=== PATIENT | female | born 1960 | race Caucasian/White ===

== ENCOUNTER 2023-09-11 08:48 | Outpatient (OUT) | payer MEDICARE, OTHER, SELFPAY ==
--- NOTE | 2023-09-11 08:50 | CT_ITS ---
The [address] [address] Patient Name: BENNIE MUNIZ MRN: [id number] date: 1960 Sex: F Assigned Patient Location: CT Current Patient Location: CT Accession/Order Number: [id number] Exam Date: 09/11/2023 08:52 Report Date: 09/11/2023 11:19 At the request of: SKYLER FOY Procedure: CT sinus wo con EXAM: CT sinus wo con CLINICAL INDICATION: Facial Mass R22.0, nasal deformity, history of nasal reconstruction COMPARISON: None TECHNIQUE: Multiple thin axial images were obtained through the paranasal sinuses without the use of IV contrast. Additional coronal and sagittal reformatted images were submitted for evaluation. Dose reduction techniques were achieved by using automated exposure control and/or adjustment of mA and/or kV according to patient size and/or use of iterative reconstruction technique. FINDINGS: Nasal Bones: No acute fracture. Slight flattened nasal bone deformity to the right of midline could be postoperative given history of remote nasal reconstruction. No acute destructive abnormality or gross soft tissue mass. Frontal Sinuses: Clear. Frontal Recesses: Clear. Maxillary Sinuses: Clear. Maxillary Infundibula: Clear. Ethmoid Sinuses: Clear. Sphenoid Sinuses: Clear. Sphenoethmoidal Recesses: Clear. Air-fluid levels: None. Periosteal thickening: None. Nasal Passage: Clear. Right renu bullosa. Nasal Septum: Deviated towards the left. Lamina Papyracea: Intact. Ethmoidal Notch: No supraorbital pneumatization of ethmoid air cells above the anterior ethmoidal notch. Temporal Bone: Mastoid air cells and middle ear cavities are clear. Orbital Contents: Normal. Soft Tissues: Normal. CT/CT sinus wo con IMPRESSION: 1. Slight flattened nasal bone deformity to the right of midline could be postoperative given history of remote nasal reconstruction. No acute destructive abnormality or gross soft tissue mass. 2. Well aerated paranasal sinuses without evidence of acute or chronic sinusitis. 3. Bilateral ostiomeatal complexes are patent. Electronically authenticated by: SKY BALLARD Date: 09/11/2023 11:19
[2023-09-11 09:18] LABS: Basophils Percent Auto 0.1 % (0.2-2.0); Eosinophils Percent Auto 0.2 % (0.9-7.0); Hematocrit 33.4 % (36.0-48.0); Hemoglobin 10.5 g/dL (12.0-16.0); Immature Granulocytes Abs Auto 0.14 10^3/uL (0.00-0.03); Immature Granulocytes Pct Auto 1.2 % (0.0-0.5); Lymphocytes Absolute Auto 2.2 10^3/uL (1.2-3.8); Lymphocytes Percent Auto 17.9 % (20.5-60.0); Mean Corpuscular HGB Conc 31.4 g/dL (29.9-35.2); Mean Corpuscular Volume 92.3 fL (81.0-99.0); Mean Platelet Volume 9.7 fL (9.5-13.5); Monocytes Absolute Auto 1.1 10^3/uL (0.3-0.8); Monocytes Percent Auto 8.8 % (1.7-12.0); Neutrophils Absolute Auto 8.6 10^3/uL (1.4-6.5); Neutrophils Percent Auto 71.8 % (43.0-75.0); Platelet Count 313 10^3/uL (150-450); Red Blood Count 3.62 10^6/uL (4.20-5.40); Red Cell Distribution Width 13.8 % (11.0-15.0)
[2023-09-11 10:28] LABS: Estimated Average Glucose 117 mg/dL; Glycohemoglobin A1C 5.7 % (4.5-6.2)
[2023-09-11 11:00] LABS: Alanine Aminotransferase 23 U/L (14-59); Albumin Globulin Ratio 0.9; Alkaline Phosphatase 108 U/L (46-116); Anion Gap 11.3; Aspartate Amino Transferase 15 U/L (15-37); BUN Creatinine Ratio 30.9; Bilirubin Total 0.2 mg/dL (0.2-1.0); Calcium 8.2 mg/dL (8.5-10.1); Carbon Dioxide 28.5 mmol/L (21.0-32.0); Chloride 108 mmol/L (98-107); Chol HDL Ratio 2.3; Cholesterol 131 mg/dL (<=200); Estimated GFR (African America >60 (>=60); Estimated GFR (Non-African Ame 60 (>=60); Globulin 3.4 g/dL; Glucose 94 mg/dL (74-106); HDL Cholesterol 56 mg/dL (40-60); LDL Cholesterol Calculated 59.4 mg/dL; Potassium 3.8 mmol/L (3.5-5.1); Sodium 144 mmol/L (136-145); Thyroid Stimulating Hormone 0.122 uIU/mL (0.358-3.740); Total Protein 6.4 g/dL (6.4-8.2); Triglycerides 78 mg/dL (<=150); VLDL CHOLESTEROL 15.6 mg/dL
[2023-09-12 11:12] LABS: Insulin 25.4 uIU/mL (2.6-24.9)
== END 2023-09-11 08:49 | disposition home or self-care (01) ==
LOC: CT 08:48
PROVIDERS: PCP Family Medicine; Visit Provider Family Medicine
DX: R22.0 Localized swelling, mass and lump, head (principal); J44.9 Chronic obstructive pulmonary disease, unspecified; E03.9 Hypothyroidism, unspecified; I25.10 Atherosclerotic heart disease of native coronary artery without angina pectoris; G47.33 Obstructive sleep apnea (adult) (pediatric); E78.5 Hyperlipidemia, unspecified; R73.09 Other abnormal glucose; D64.9 Anemia, unspecified; E55.9 Vitamin D deficiency, unspecified; I50.30 Unspecified diastolic (congestive) heart failure; I11.0 Hypertensive heart disease with heart failure
CPT/HCPCS: 36415; 70486; 80053; 80061; 82306; 83036; 83525; 83540; 83880; 84436; 84443; 84481; 85025

== ENCOUNTER 2024-03-26 19:16 | Emergency (ER) | payer MEDICARE, OTHER, SELFPAY ==
[2024-03-26] VITALS (13 sets, daily range): BP systolic 123–157; BP diastolic 56–86; PULSE 89–104; TEMP 37.2; O2SAT 90–98
--- NOTE | 2024-03-26 19:22 | ED_ITS ---
HPI - Nausea/Vomiting/Diarrhea General Chief complaint: Nausea/Vomiting/Diarrhea Stated complaint: General Weakness Time Seen by Provider: 03/26/24 19:17 History of Present Illness HPI Narrative: nausea , vomiting and diarrhea past 2-3 days. No hematemesis. Has abdominal pain when vomiting. No fever. States occ blood in the diarrhea but she feels this is because of her hemorrhoids. no anal pain. states she fell a couple of days ago and struck her chin. No pain of her chin or neck. has bruise left foot that does not hurt . Does have pain of the right lateral foot. No weakness or numbness of her extremities. History of 02 dependent COPD. no cigarette in 2 years. Not short of breath. No chest pain Related Data Home Medications ?Medication ?Instructions ?Recorded ?Confirmed albuterol sulfate 90 mcg/actuation 2 puff inhalation Q4H PRN 03/26/24 03/26/24 aerosol inhaler shortness of breath or wheezing aspirin 81 mg tablet,delayed 81 mg PO DAILY 03/26/24 03/26/24 release (Adult Low Dose Aspirin) atorvastatin 40 mg tablet 40 mg PO QPM 03/26/24 03/26/24 carvedilol 3.125 mg tablet 3.125 mg PO BID 03/26/24 03/26/24 cetirizine 10 mg tablet 10 mg PO DAILY 03/26/24 03/26/24 citalopram 40 mg tablet 40 mg PO DAILY 03/26/24 03/26/24 clopidogrel 75 mg tablet 75 mg PO DAILY 03/26/24 03/26/24 cyclobenzaprine 10 mg tablet 10 mg PO TID 03/26/24 03/26/24 diazepam 5 mg tablet 5 mg PO BID PRN anxiety 03/26/24 03/26/24 ezetimibe 10 mg tablet 10 mg PO DAILY 03/26/24 03/26/24 levothyroxine 100 mcg tablet 100 mcg PO DAILY 03/26/24 03/26/24 liothyronine 5 mcg tablet 5 mcg PO DAILY 03/26/24 03/26/24 meclizine 25 mg tablet 25 mg PO QID PRN dizziness 03/26/24 03/26/24 metoclopramide HCl 10 mg tablet 10 mg PO BID 03/26/24 03/26/24 nitroglycerin 0.4 mg sublingual 0.4 mg sublingual Q5M PRN chest 03/26/24 03/26/24 tablet pain pantoprazole 40 mg tablet,delayed 40 mg PO DAILY 03/26/24 03/26/24 release promethazine 25 mg tablet 25 mg PO Q6H PRN nausea and 03/26/24 03/26/24 vomiting rizatriptan 10 mg disintegrating 10 mg PO Q2H PRN migraine headache 03/26/24 03/26/24 tablet ropinirole 2 mg tablet 4 mg PO DAILY 03/26/24 03/26/24 Allergies Allergy/AdvReac Type Severity Reaction Status Date / Time latex Allergy Severe Unknown Verified 03/26/24 19:24 morphine Allergy Severe Unknown Verified 03/26/24 19:24 ondansetron [From Zofran] Allergy Severe Unknown Verified 03/26/24 19:24 Review of Systems ROS Status of ROS 10 or more systems reviewed and unremark able except as noted in history and below [facility] Medical History (Updated 03/27/24 @ 00:32 by Joshua Stafford MD) Anxiety ?F41.9 - Anxiety disorder, unspecified (ICD-10) Stomach ulcer ?K25.9 - Gastric ulcer, unspecified as acute or chronic, without hemorrhage or perforation (ICD-10) GERD (gastroesophageal reflux disease) ?K21.9 - Gastro-esophageal reflux disease without esophagitis (ICD-10) Hypothyroid ?E03.9 - Hypothyroidism, unspecified (ICD-10) HTN (hypertension) ?I10 - Essential (primary) hypertension (ICD-10) COPD (chronic obstructive pulmonary disease) ?J44.9 - Chronic obstructive pulmonary disease, unspecified (ICD-10) Surgical History (Updated 03/26/24 @ 19:37 by Annemarie Guzman) H/O heart artery stent ?Z95.5 - Presence of coronary angioplasty implant and graft (ICD-10) Exam Constitutional Vital Signs, click to edit/add: Last Vital Signs Temp 99.0 F 03/26/24 19:17 Pulse 93 H 03/27/24 00:26 Resp 22 H 03/27/24 00:26 BP 137/81 03/27/24 00:26 Pulse Ox 94 L 03/27/24 00:26 O2 Del Method Room Air 03/27/24 00:26 Common normals: no apparent distress, average body habitus, oriented x3, no limitations, healthy appearing, alert and well nourished [facility] Common normals: normocephalic and head/scalp atraumatic Eye Common normals: PERRL, EOMs intact bilaterally and conjunctivae normal Respiratory Common normals: normal respiratory effort, no retractions, no use of accessory muscles and clear to auscultation bilaterally Cardio Common normals: regular rate, regular rhythm, S1 normal heart sound and S2 normal heart sound GI Common normals: Normal to inspection, nondistended, normoactive bowel sounds present, soft to palpation and non-tender Extremity Other: tenderness right 5th MT. no swelling. mild ecchymosis bruise left foot. Nontender Neuro Common normals: oriented x3, CN's II-XII intact bilaterally, moves all extremities and no focal motor deficits Psych Appearance: grossly normal Course Vital Signs Vital signs: Vital Signs Temperature 99.0 F 03/26/24 19:17 Pulse Rate 104 H 03/26/24 19:17 Respiratory Rate 18 03/26/24 19:17 Blood Pressure 123/56 03/26/24 19:17 Pulse Oximetry 95 03/26/24 19:17 Oxygen Delivery Method Room Air 03/26/24 19:17 Temperature 99.0 F 03/26/24 19:17 Pulse Rate 93 H 03/27/24 00:26 Respiratory Rate 22 H 03/27/24 00:26 Blood Pressure 137/81 03/27/24 00:26 Pulse Oximetry 94 L 03/27/24 00:26 Oxygen Delivery Method Room Air 03/27/24 00:26 MDM - Nausea/Vomiting/Diarrhea MDM Narrative Medical decision making narrative: patient presents with gastroenteritis for past couple of days. vomiting and diarrhea. No diarrhea in the department. Medicated with IV phenergan and IV hydration and able to tolerate ice chips. However nausea did return and she was given a dose of PO phenergan patient tolerated PO Phenergan and is keeping down fluids. States she has phenergan at home. plan discharge and follow up with Dr Bowman next week Lab Data Labs: Lab Results 03/26/24 03/26/24 03/26/24 Range/Units 19:30 19:40 22:45 WBC 10.6 (4.0-11.0) 10^3/uL RBC 4.65 (4.20-5.40) 10^6/uL Hgb 13.2 (12.0-16.0) g/dL Hct 40.8 (36.0-48.0) % MCV 87.7 (81.0-99.0) fL MCH 28.4 (26.7-34.0) pg MCHC 32.4 (29.9-35.2) g/dL RDW 13.9 (11.0-15.0) % Plt Count 388 (150-450) 10^3/uL MPV 9.9 (9.5-13.5) fL Neut % (Auto) 75.3 H (43.0-75.0) % Lymph % (Auto) 18.5 L (20.5-60.0) % [place] % (Auto) 4.6 (1.7-12.0) % Eos % (Auto) 0.6 L (0.9-7.0) % Baso % (Auto) 0.6 (0.2-2.0) % Neut # (Auto) 8.0 H (1.4-6.5) 10^3/uL Lymph # (Auto) 2.0 (1.2-3.8) 10^3/uL [place] # (Auto) 0.5 (0.3-0.8) 10^3/uL Eos # (Auto) 0.1 (0.0-0.7) 10^3/uL Baso # (Auto) 0.1 (0.0-0.1) 10^3/uL Abs Immat Gran (auto) 0.04 H (0.00-0.03) 10^3/uL Imm/Tot Granulo (auto) 0.4 (0.0-0.5) % Sodium 138 (136-145) mmol/L Potassium 3.4 L (3.5-5.1) mmol/L Chloride 100 (98-107) mmol/L Carbon Dioxide 32.6 H (21.0-32.0) mmol/L Anion Gap 8.8 BUN 22.0 H (7.0-18.0) mg/dL Creatinine 1.14 H (0.55-1.02) mg/dL Est GFR ( Amer) 58 L (>=60) Est GFR (Non-Af Amer) 48 L (>=60) BUN/Creatinine Ratio 19.3 Glucose 128 H (74-106) mg/dL Lactate 2.3 H* (0.4-2.0) mmol/L Calcium 9.3 (8.5-10.1) mg/dL Total Bilirubin 0.4 (0.2-1.0) mg/dL AST 20 (15-37) U/L ALT 15 (14-59) U/L Alkaline Phosphatase 135 H (46-116) U/L Troponin I High Sens 7.4 (4.0-51.3) pg/mL Total Protein 6.7 (6.4-8.2) g/dL Albumin 3.2 L (3.4-5.0) g/dL Globulin 3.5 g/dL Albumin/Globulin Ratio 0.9 Urine Color Lt. yellow (YELLOW) Urine Clarity Clear (CLEAR) Urine pH 8.0 (5.0-9.0) Ur Specific [place] 1.015 (1.005-1.025) Urine Protein Negative (NEG/TRACE) mg/dL Urine Glucose (UA) Negative (NEGATIVE) mg/dL Urine Ketones Trace A (NEGATIVE) mg/dL Urine Occult Blood Trace-i (NEGATIVE) Urine Nitrite Negative (NEGATIVE) Urine Bilirubin Negative (NEGATIVE) Urine Urobilinogen 0.2 (0.2-1.0) EU/dL Ur Leukocyte Esterase Trace A (NEGATIVE) Urine RBC 0-2 (0-2) #/HPF Urine WBC 2-5 A (NONE SEEN) #/HPF Ur Squamous Epith Cells Few A (NONE/RARE) #/LPF Ur Transition Epith Cell Rare A (NONE SEEN) #/LPF Urine Crystals None seen (None Seen) #/HPF Urine Bacteria Small A (NONE SEEN) #/HPF Urine Casts None seen (NONE SEEN) #/LPF Urine Mucus None seen (NONE SEEN) Ur Culture Indicated? Yes 03/26/24 Range/Units 23:10 WBC (4.0-11.0) 10^3/uL RBC (4.20-5.40) 10^6/uL Hgb (12.0-16.0) g/dL Hct (36.0-48.0) % MCV (81.0-99.0) fL MCH (26.7-34.0) pg MCHC (29.9-35.2) g/dL RDW (11.0-15.0) % Plt Count (150-450) 10^3/uL MPV (9.5-13.5) fL Neut % (Auto) (43.0-75.0) % Lymph % (Auto) (20.5-60.0) % [place] % (Auto) (1.7-12.0) % Eos % (Auto) (0.9-7.0) % Baso % (Auto) (0.2-2.0) % Neut # (Auto) (1.4-6.5) 10^3/uL Lymph # (Auto) (1.2-3.8) 10^3/uL [place] # (Auto) (0.3-0.8) 10^3/uL Eos # (Auto) (0.0-0.7) 10^3/uL Baso # (Auto) (0.0-0.1) 10^3/uL Abs Immat Gran (auto) (0.00-0.03) 10^3/uL Imm/Tot Granulo (auto) (0.0-0.5) % Sodium (136-145) mmol/L Potassium (3.5-5.1) mmol/L Chloride (98-107) mmol/L Carbon Dioxide (21.0-32.0) mmol/L Anion Gap BUN (7.0-18.0) mg/dL Creatinine (0.55-1.02) mg/dL Est GFR ( Amer) (>=60) Est GFR (Non-Af Amer) (>=60) BUN/Creatinine Ratio Glucose (74-106) mg/dL Lactate 1.1 (0.4-2.0) mmol/L Calcium (8.5-10.1) mg/dL Total Bilirubin (0.2-1.0) mg/dL AST (15-37) U/L ALT (14-59) U/L Alkaline Phosphatase (46-116) U/L Troponin I High Sens (4.0-51.3) pg/mL Total Protein (6.4-8.2) g/dL Albumin (3.4-5.0) g/dL Globulin g/dL Albumin/Globulin Ratio Urine Color (YELLOW) Urine Clarity (CLEAR) Urine pH (5.0-9.0) Ur Specific [place] (1.005-1.025) Urine Protein (NEG/TRACE) mg/dL Urine Glucose (UA) (NEGATIVE) mg/dL Urine Ketones (NEGATIVE) mg/dL Urine Occult Blood (NEGATIVE) Urine Nitrite (NEGATIVE) Urine Bilirubin (NEGATIVE) Urine Urobilinogen (0.2-1.0) EU/dL Ur Leukocyte Esterase (NEGATIVE) Urine RBC (0-2) #/HPF Urine WBC (NONE SEEN) #/HPF Ur Squamous Epith Cells (NONE/RARE) #/LPF Ur Transition Epith Cell (NONE SEEN) #/LPF Urine Crystals (None Seen) #/HPF Urine Bacteria (NONE SEEN) #/HPF Urine Casts (NONE SEEN) #/LPF Urine Mucus (NONE SEEN) Ur Culture Indicated? Discharge Plan Discharge Chief Complaint: Nausea/Vomiting/Diarrhea Clinical Impression: Gastroenteritis Patient Disposition: Home, Self-Care Prescriptions / Home Meds: No Action albuterol sulfate 90 mcg/actuation HFA aerosol inhaler 2 puff INHALATION Q4H PRN (Reason: shortness of breath or wheezing) atorvastatin 40 mg tablet 40 mg PO QPM aspirin [Adult Low Dose Aspirin] 81 mg tablet,delayed release (DR/EC) 81 mg PO DAILY carvedilol 3.125 mg tablet 3.125 mg PO BID cetirizine 10 mg tablet 10 mg PO DAILY citalopram 40 mg tablet 40 mg PO DAILY clopidogrel 75 mg tablet 75 mg PO DAILY cyclobenzaprine 10 mg tablet 10 mg PO TID diazepam 5 mg tablet 5 mg PO BID PRN (Reason: anxiety) ezetimibe 10 mg tablet 10 mg PO DAILY levothyroxine 100 mcg tablet 100 mcg PO DAILY meclizine 25 mg tablet 25 mg PO QID PRN (Reason: dizziness) metoclopramide HCl 10 mg tablet 10 mg PO BID nitroglycerin 0.4 mg tablet, sublingual 0.4 mg sublingual Q5M PRN (Reason: chest pain) pantoprazole 40 mg tablet,delayed release (DR/EC) 40 mg PO DAILY rizatriptan 10 mg tablet,disintegrating 10 mg PO Q2H PRN (Reason: migraine headache) Patient Comments: limit BID daily ropinirole 2 mg tablet 4 mg PO DAILY promethazine 25 mg tablet 25 mg PO Q6H PRN (Reason: nausea and vomiting) liothyronine 5 mcg tablet 5 mcg PO DAILY Print Language: Croatian Instructions: Gastroenteritis (ED) Additional Instructions: follow up with Dr. Bowman early next week Referrals: Sadiq Bowman MD [Primary Care Provider] - 1 week
--- NOTE | 2024-03-26 19:28 | XR_ITS ---
The [address] [address] Patient Name: BENNIE MUNIZ MRN: [id number] date: 1960 Sex: F Assigned Patient Location: ER Current Patient Location: ED.MAIN Accession/Order Number: [id number] Exam Date: 03/26/2024 19:40 Report Date: 03/26/2024 21:06 At the request of: JONNIE MARKHAM Procedure: XR foot RT min 3V XR foot RT min 3V, 03/26/2024 6:40 PM CDT: History: injury. . Comparison: None. Technique: 3 views right foot Findings/Impression: There is no fracture or malalignment. There is mild degenerative change of the first MTP joint. The soft tissues are normal. Electronically authenticated by: ONEIDA BO Date: 03/26/2024 21:06
[2024-03-26 19:39] LABS: Basophils Absolute Auto 0.1 10^3/uL (0.0-0.1); Basophils Percent Auto 0.6 % (0.2-2.0); Eosinophils Absolute Auto 0.1 10^3/uL (0.0-0.7); Eosinophils Percent Auto 0.6 % (0.9-7.0); Hematocrit 40.8 % (36.0-48.0); Hemoglobin 13.2 g/dL (12.0-16.0); Immature Granulocytes Abs Auto 0.04 10^3/uL (0.00-0.03); Immature Granulocytes Pct Auto 0.4 % (0.0-0.5); Lymphocytes Percent Auto 18.5 % (20.5-60.0); Mean Corpuscular HGB Conc 32.4 g/dL (29.9-35.2); Mean Corpuscular Hemoglobin 28.4 pg (26.7-34.0); Mean Corpuscular Volume 87.7 fL (81.0-99.0); Mean Platelet Volume 9.9 fL (9.5-13.5); Monocytes Absolute Auto 0.5 10^3/uL (0.3-0.8); Monocytes Percent Auto 4.6 % (1.7-12.0); Neutrophils Percent Auto 75.3 % (43.0-75.0); Platelet Count 388 10^3/uL (150-450); Red Blood Count 4.65 10^6/uL (4.20-5.40); Red Cell Distribution Width 13.9 % (11.0-15.0); White Blood Count 10.6 10^3/uL (4.0-11.0)
--- OUTSIDE RECORDS SUMMARY | 2024-03-26 19:49 | XMS_ITS | CCD ---
Author Organization [facility] Care Team Providers Care Thermal Technician Name Role Phone JAKEADELA BELLA Attending Unavailable SKYLER BOWMAN Referring Unavailable SKYLER BOWMAN Primary Care Unavailable JORGE ALBERTO, STEPHANY Admitting Unavailable KEENANWALEGAYATRI Admitting Unavailable KEENANGAYATRI MERRITT Attending Unavailable EZE HUSSEINA Consulting Unavailable LAW, DR HOLLAND Primary Care Unavailable SAMIRY, DR HOLLAND Admitting Unavailable HOY, DR HOLLAND Primary Care Unavailable HOY, DR HOLLAND Attending Unavailable HOY, DR HOLLAND Consulting Unavailable HOY, DR HOLLAND Admitting Unavailable MISC, DR CHERY Primary Care Unavailable HOY, DR HOLLAND Attending Unavailable HOY, DR HOLLAND Consulting Unavailable HOY, DR HOLLAND Admitting Unavailable HOY, DR HOLLAND Attending Unavailable HOMercedes, DR HOLLAND Primary Care Unavailable SAMSA, GIOVANA Admitting Unavailable SAMSA, GIOVANA Attending Unavailable SAMSA, GIOVANA Consulting Unavailable LAW, DR HOLLAND Primary Care Unavailable SAMIRY, DR HOLLAND Admitting Unavailable HOY, DR HOLLAND Attending Unavailable HOY, DR HOLLAND Consulting Unavailable LAW, DR HOLLAND Primary Care Unavailable ERICA GANDARA Consulting Unavailable ILANA NESBITT Consulting Unavailable LAW, DR HOLLAND Admitting Unavailable HOMercedes, DR HOLLAND Attending Unavailable HOY, DR HOLLAND Primary Care Unavailable GAYATRI HUSSEIN Attending Unavailable EZE HUSSEINA Admitting Unavailable LAW, DR HOLLAND Primary Care Unavailable LAW, DR HOLLAND Primary Care Unavailable LAW, DR HOLLAND Admitting Unavailable HOMercedes, DR HOLLAND Attending Unavailable HOY, DR HOLLAND Consulting Unavailable NOMI ORLANDO Attending Unavailable NOMI ORLANDO Attending Unavailable NOMI ORLANDO Attending Unavailable Allergies Allergy Classification Reported Allergen(s) Allergy Type Date of Onset Reaction(s) Facility (1 source) Amoxicillin / Clavulanate Drug Allergy 2 [facility] Repository (4 sources) Latex; Translations: [LATEX] Propensity to adverse reactions (disorder) 0 [facility] Repository (4 sources) Morphine; Translations: [MORPHINE] Drug Allergy 0 [facility] Repository (2 sources) nickel; Translations: [NICKEL] Drug Allergy 3 [facility] Repository (2 sources) Leucine Drug Allergy 3 [facility] Repository (1 source) Ondansetron; Translations: [ONDANSETRON HCL] Drug Allergy 2 [facility] Repository (1 source) ERYTHROMYCIN BASE; Translations: [ERYTHROMYCIN BASE] Propensity to adverse reactions to drug (disorder) 2 [facility] Repository Problems Active Problems Problem Classification Problem Date Documented Date Episodic/Chronic Acute and unspecified renal failure (1 source) Acute kidney failure, unspecified; Translations: [ACUTE KIDNEY FAILURE UNSPECIFIED] Onset: 2 Episodic Acute myocardial infarction (1 source) Non-ST elevation (NSTEMI) myocardial infarction; Translations: [NON-ST ELEVATION MYOCARDIAL INFARCT] Onset: 2 Chronic Anxiety disorders (1 source) Anxiety disorder, unspecified; Translations: [ANXIETY DISORDER UNSPECIFIED] Onset: 2 Chronic Cardiac dysrhythmias (4 sources) Supraventricular tachycardia; Translations: [SUPRAVENTRICULAR TACHYCARDIA] Onset: 2 Chronic Chronic obstructive pulmonary disease and bronchiectasis (5 sources) Chronic obstructive pulmonary disease, unspecified; Translations: [Chronic obstructive pulmonary disease with (acute) lower respiratory infection] Onset: 2 Chronic Conditions associated with dizziness or vertigo (1 source) Dizziness and giddiness; Translations: [DIZZINESS AND GIDDINESS] Onset: 2 Episodic Coronary atherosclerosis and other heart disease (8 sources) Atherosclerotic heart disease of [place] coronary artery without angina pectoris; Translations: [Old myocardial infarction] Onset: 2 Chronic Disorders of lipid metabolism (1 source) Pure hypercholesterolemia, unspecified; Translations: [PURE HYPERCHOLESTEROLEMIA UNSPEC] Onset: 2 Chronic Esophageal disorders (1 source) Gastro-esophageal reflux disease without esophagitis; Translations: [GERD WITHOUT ESOPHAGITIS] Onset: 2 Chronic Essential hypertension (1 source) Essential (primary) hypertension; Translations: [ESSENTIAL PRIMARY HYPERTENSION] Onset: 2 Chronic Genitourinary symptoms and ill-defined conditions (1 source) Unspecified abnormal findings in urine; Translations: [UNSPECIFIED ABNORMAL FINDINGS URINE] Onset: 2 Episodic Malaise and fatigue (1 source) Weakness; Translations: [WEAKNESS] Onset: 2 Episodic Mood disorders (1 source) Major depressive disorder, single episode, unspecified; Translations: [CHRISTEN DEPRESS D/O SINGLE EPIS UNS] Onset: 2 Chronic Nonspecific chest pain (1 source) Other chest pain; Translations: [OTHER CHEST PAIN] Onset: 2 Episodic Osteoarthritis (1 source) Unspecified osteoarthritis, unspecified site; Translations: [UNSPECIFIED OSTEOARTHRITIS UNS SITE] Onset: 2 Chronic Other aftercare (1 source) Other residential (current) drug therapy; Translations: [OTH LEARNING DESIGN SPECIALIST CURRENT DRUG THERAPY] Onset: 2 Episodic Other connective tissue disease (1 source) Fibromyalgia; Translations: [FIBROMYALGIA] Onset: 2 Episodic Other hematologic conditions (1 source) Other specified abnormalities of plasma proteins; Translations: [OTH SPEC ABNORM PLASMA PROTEINS] Onset: 2 Episodic Other hereditary and degenerative nervous system conditions (1 source) Restless legs syndrome; Translations: [RESTLESS LEGS SYNDROME] Onset: 2 Chronic Other injuries and conditions due to external causes (1 source) Elevated urine levels of drugs, medicaments and biological substances; Translations: [ELEV URIN LEVELS RX MEDS AND BIO SUBS] Onset: 2 Episodic Residual codes; unclassified (4 sources) Obstructive sleep apnea (adult) (pediatric); Translations: [OBSTRUCTIVE SLEEP APNEA] Onset: 2 Chronic Substance-related disorders (1 source) Nicotine dependence, cigarettes, uncomplicated; Translations: [NICOTINE DEPEND CIGARETTES UNCOMP] Onset: 2 Chronic Syncope (4 sources) Syncope and collapse; Translations: [SYNCOPE AND COLLAPSE] Onset: 2 Episodic Thyroid disorders (1 source) Hypothyroidism, unspecified; Translations: [HYPOTHYROIDISM UNSPECIFIED] Onset: 2 Chronic Unclassified (4 sources) CONTACT W/AND (SUSP) EXPOS COVID-19; Translations: [CONTACT W/AND (SUSP) EXPOS COVID-19] Onset: 2 Past or Other Problems Problem Classification Problem Date Documented Da te Episodic/Chronic Acute bronchitis (1 source) Acute bronchitis, unspecified; Translations: [ACUTE BRONCHITIS UNSPECIFIED] Onset: 09-20-2021 Episodic Unclassified (1 source) CONTACT W/AND (SUSP) EXPOS COVID-19; Translations: [CONTACT W/AND (SUSP) EXPOS COVID-19] Onset: 07-17-2021 Results Test Name Value Interpretation Reference Range Facility Office Visiton 09-13-2023 Follow-up visit [id number] NateJulissa L 1960 Date Provider Department Center 09/13/2023 NOMI TELLEZ Family History Problem Relation Age of Onset Atrial fibrillation Mother Heart attack Father Family Status - Relation Status Age at Mother Father Level of Service:09011 CO OFFICE/OUTPATIENT ESTABLISHED LOW MDM 20 MIN Reason for Visit and Comments: Follow-up [553176] - 6 mo follow up SOB but has bronchitis currently No cardiology symptoms per pt Got blood work done Saturday and her results came back as thyroid levels low and VD was low, gave her rx for this. Normal [facility] Telemedicineon 03-29-2023 Telemedicine [id number] Julissa Muniz 1960 Provider Department Center 03/29/2023 NOMI TELLEZ Family History Problem Relation Age of Onset Atrial fibrillation Mother Heart attack Father Family Status - Relation Status Age at Mother Father Level of Service:51711 CO OFFICE/OUTPATIENT ESTABLISHED LOW MDM 20-29 MIN Normal [facility] LIPID PROFILEon 04-24-2022 CHOL-HDL RATIO NORM SEE BELOW Normal The [facility] Comment on above: Result Comment: 3.3 - 4.4 LOW RISK 4.4 - 7.1 AVERAGE RISK 7.1 - 11.0 MODERATE RISK >11.0 HIGH RISK Performed By: #### [facility] #### [facility] [address] [address] [address] Darya Berry Cholesterol [Mass/Vol] 141 mg/dL Normal <=200 [facility] Comment on above: Performed By: #### H STROPN #### [facility] [address] [address] [address] Darya Berry Cholesterol in HDL [Mass/Vol] 51 mg/dL Normal 40-60 [facility] Comment on above: Performed By: #### H STROPN #### [facility] [address] [address] [address] Darya Berry Cholesterol in LDL [Mass/Vol] 71.8 mg/dL Normal [facility] Comment on above: Performed By: #### H STROPN #### [facility] [address] [address] [address] Darya Berry Cholesterol.total/C holesterol in HDL [Mass ratio] 2.8 {ratio} Normal [facility] Comment on above: Performed By: #### H STROPN #### [facility] [address] [address] [address] Darya Berry HDL NORMAL > or = 60 mg/dl - LO W CARDIOVASCULAR RISK <40 mg/dl - HIGH CARDIOVASCULAR RISK Normal [facility] Comment on above: Performed By: #### H STROPN #### [facility] [address] [address] [address] Darya Berry LDL CALC NORMAL SEE BELOW Normal [facility] Comment on above: Result Comment: <100 mg/dl OPTIMAL 100 - 129 mg/dl NEAR OR ABOVE OPTIMAL 130 - 159 mg/dl BORDERLINE HIGH 160 - 189 mg/dl HIGH >190 mg/dl VERY HIGH Performed By: #### H STROPN #### [facility] [address] [address] [address] Darya Berry Triglyceride [Mass/Vol] 91 mg/dL Normal <=150 [facility] Comment on above: Performed By: #### H STROPN #### [facility] [address] [address] [address] Darya Berry VLDL CALC 18.2 mg/dL Normal [facility] Comment on above: Performed By: #### H STROPN #### [facility] [address] [place] [address] Dr. Darya Berry LIVER PROFILEon 04-24-2022 Albumin [Mass/Vol] 3.4 g/dL Normal 3.4-5.0 [place] Comment on above: Performed By: #### H STROPN #### [facility] [address] [place] [address] Dr. Darya Berry Albumin/Globulin [Mass ratio] 1.1 {ratio} Normal [facility] Comment on above: Performed By: #### H STROPN #### [facility] [address] [place] [address] Dr. Darya Berry ALP [Catalytic activity/Vol] 167 U/L Critically high 46-116 [facility] Comment on above: Performed By: #### H STROPN #### [facility] [address] [place] [address] Dr. Darya Berry ALT [Catalytic activity/Vol] 14 U/L Normal 14-59 [facility] Comment on above: Performed By: #### H STROPN #### [facility] [address] [place] [address] Dr. Darya Berry AST [Catalytic activity/Vol] 17 U/L Normal 15-37 [facility] Comment on above: Performed By: #### H STROPN #### [facility] [address] [place] [address] Dr. Darya Berry BILI, CONJUGATED 0.1 mg/dL Normal 0.0-0.2 [facility] Comment on above: Performed By: #### H STROPN #### [facility] [address] [place] [address] Dr. Darya Berry Bilirubin [Mass/Vol] 0.2 mg/dL Normal 0.2-1.0 [facility] Comment on above: Performed By: #### H STROPN #### [facility] [address] [place] [address] Dr. Darya Berry Globulin (S) [Mass/Vol] 3.2 g/dL Normal [facility] Comment on above: Performed By: #### H STROPN #### [facility] [address] [place], [place] [address] Dr. Darya Berry Protein [Mass/Vol] 6.6 g/dL Normal 6.4-8.2 [facility] Comment on above: Performed By: #### H STROPN #### [facility] [address] [place], [place] [address] Dr. Darya Berry ECHOCARDIO M/2D COMPLETEon 0 2022 ECHOCARDIO M/2D COMPLETE Patient: JULISSA MUNIZ Exam Date: 2022 : 1960 Gender:F Ordering : GAYATRI HUSSEIN [facility] Admission #: [id number] Family : DR SKYLER BOWMAN . Order #: [id number] CLICK HERE TO VIEW EXAM ECHOCARDIOGRAM REPORT PROCEDURE: CARDIO PULMONARY ECHOCARDIO M/2D COMP INDICATIONS: Supraventricular tachycardia, COPD COMPARISON: None. DESCRIPTION: COMPLETE ECHOCARDIOGRAM Real-time transthoracic echocardiography with 2D, M-mode, spectral and color flow Doppler performed. QUALITY: Technical quality was limited because of lung artifact. Technically difficult; COPD 66 178# 120/82 HR 87 LEFT VENTRICLE: Small chamber size. Normal left ventricular wall thickness. Global left ventricular systolic function is hyperdynamic. LVEF is 75%. LV EF: DIASTOLIC: Normal diastolic function. ATRIAL SEPTUM: LEFT ATRIUM: Normal chamber size. RIGHT ATRIUM: Normal chamber size. RIGHT VENTRICLE: Normal chamber size. Normal right ventricular systolic function. Right ventricular free wall thicken appears increased. TRICUSPID VALVE: Not well visualized. MITRAL VALVE: Normal mobility and thickness. No evidence of mitral valve stenosis. No mitral regurgitation. AORTIC VALVE: Not well visualized. No evidence of aortic valve stenosis. No aortic regurgitation. AORTIC ROOT: PULMONIC VALVE: Not well visualized. PERICARDIUM: There appears to be a small pericardial effusion. IVC: Collapses with inspirations. IVC is small in size. PLEURA: No significant change from 01/26/2022 CONCLUSION: 1. The left ventricle is small in size. Left ventricular systolic function is hyperdynamic. LVEF is 75%. 2. Normal right ventricular systolic function. 3. No significant valvular dysfunction. 4. Small pericardial effusion. Adult Echocardiography Procedure Report Left Ventricle Left Atrium Mitral Valve Right Ventricle Aorta Aortic Valve Peak Velocity (Antegrade Flow): 1.13 m/s, 1.37 m/s, 1.38 m/s Tricuspid Valve Peak Velocity (Regurgitant Flow): 0.58 m/s Pulmonic Valve Right Atrium Dictated by: Medardo Drake M.D. on 03/16/2022 at 18:51 Approved by: Medardo Drake M.D. on 03/16/2022 at 18:53 Normal [facility] CREATININE BLOODon Creatinine [Mass/Vol] 0.68 mg/dL Normal 0.60-1.20 [facility] Comment on above: Order Comment: No: D o not add to previous draw Performed By: #### 5 [id number], [id number], [id number] #### [facility] [address] GFR/1.73 sq M.predicted among non-blacks MDRD (S/P/Bld) [Vol rate/Area] mL/min/{1.73_m2} Normal >60 [facility] Comment on above: Order Comment: No: D o not add to previous draw Result Comment: [facility]'s estimated glomerular filtration rate (eGFR) will no longer include consideration of race in its calculation. The National Kidney Foundation's eGFR Task Force developed new recommendations for the estimation of the glomerular filtration rate in the [place] They recommend immediate implementation of the new equation refit without the race variable in all laboratories because the calculation does not include race. In addition to not including race in the calculation and reporting, it included diversity in its development, and has acceptable performance characteristics and potential consequences that do not disproportionately affect any one group of individuals. Performed By: #### 5 [id number], [id number], [id number] #### [facility] [address] [place] [address], [facility] Cardiovascular Lab Reporton 01-30-2022 Cardiovascular Lab Report [facility] Patient Name: Nate [facility] Carmen Costa MR #: [id number] Department of Physician: Axel Patterson M.D. Division of Service Date: 01/29/2022 Cardiology Birthdate: 1960 Adult Cardiovascular Room #: 3AB [id number] [facility] [address] [place], [place] [address] Cardiovascular Laboratory Report CLINICAL PRESENTATION: The patient is a 61-year-old female with past medical history significant for hypertension, hyperlipidemia, and active smoking. She is admitted with chest pain concerning for unstable angina. She had a cardiac stress test, which was abnormal with inferolateral ischemia. She is referred for coronary angiogram. FINAL IMPRESSION: 1. Coronary angiogram revealed severe single-vessel CAD with 99% stenosis of the proximal RCA. This was successfully treated with PCI with a Synergy 3.0 x 38 mm drug-eluting stent that was post dilated with a 4.0 mm non-compliant balloon. 2. The LAD and left circumflex are patent. PLAN: 1. Aggressive medical therapy for secondary prevention of CAD. 2. Aspirin 81 mg daily, long-term. 3. Plavix 75 mg daily for at least 6 months. 4. High-intensity statin therapy. 5. Smoking cessation is mandatory. 6. Add ezetimibe, if LDL is not at target with statin therapy. 7. Outpatient followup with [place] [facility] and primary care. PROCEDURES: Coronary angiogram, PCI RCA, conscious sedation 58 minutes. INDICATION: Unstable angina CCS class 4, abnormal cardiac stress test. PROCEDURE DESCRIPTION: The patient was brought to cardiac catheterization lab in a fasting state. Informed written consent was obtained. She was prepped and draped in usual sterile fashion. The left wrist time-out was performed. She was given Versed and fentanyl sedation. A 1% lidocaine infiltrated in the left radial artery. A 6-American Terumo Glidesheath slender was placed in the left radial artery. All catheter exchanges were made over the Magic Torque guidewire. Radial anti-vasospasm cocktail, verapamil and nitroglycerin was administered to prevent spasm. A 4-American JR4 was used to engage the right coronary artery. A 5-American JL4 was used to engage the left main coronary artery. Coronary angiogram was performed in multiple orthogonal views using hand injection of contrast. At this time, it was apparent that there was severe single-vessel coronary artery disease affecting the proximal RCA. I elected to proceed with PCI. Heparin anticoagulation was used for this procedure. ACT was maintained greater than 200 seconds. A Zarpo 6-American JR4 guide was engaged in the right coronary artery, run-through wire was manipulated in the distal RCA. The lesion was predilated with an Emerge 2.5 x 15 mm balloon at 14 atmospheres. Next, a Synergy 3.0 x 38 mm drug-eluting stent was deployed in the entire proximal to mid RCA. The stent was then post dilated first with an NC emerge 3.5 x 12 mm balloon at 18 atmospheres and then with NC Emerge 4.0 x 15 mm balloon. The 4.0 mm balloon was inflated to 12 atmospheres in the distal portion of the stent and then 16-18 atmospheres in the middle and proximal segments of the stent. At this time, intracoronary nitroglycerin was administered and final angiogram was performed. Final result was very good. There was normal RCA with a widely patent stent to 0% residual stenosis and normal ANAM-3 flow throughout the RCA and its branches. At the beginning of the procedure, there was ANAM-2 flow in the RCA and its branches. At this time, the procedure was completed. All catheters and wires removed from the body, the left radial sheath was removed, then QuikClot hemostasis device was applied to obtain hemostasis. There were no apparent complications. TOTAL CONTRAST: 70 mL. TOTAL CONSCIOUS SEDATION TIME: 58 minutes. TOTAL FLUOROSCOPY TIME: 9 minutes and 5 seconds, 0.7 Gy. FINDINGS: Aortic pressure 93/69 (MAP 80). CORONARY ANGIOGRAM: 1. Left main coronary artery: Patent. 2. Left anterior descending coronary artery: Patent. 3. Left circumflex coronary artery: Patent. 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 4. Right coronary artery: At the beginning of the procedure, the proximal to mid RCA has diffuse stenosis. There is a 99% focal stenosis and a 70% diffuse stenosis as well. All this was treated with a Synergy drug-eluting stent. At the end, there was 0% residual stenosis and normal ANAM-3 flow throughout the RCA and its branches. The PDA and CHAPIN are both patent. Electronically Signed by: Dick Gaming M.D. 01/30/2022 12:28 P Dick Gaming M.D. Date Dict: 01/29/2022/02:29 P/Dick Gaming M.D. Date Trans: 01/30/2022 05:44 A/stevano [id number] cc: Skyler Bowman M.D. [address] [place] [address] Normal [facility] BASIC METABOLIC PANELon 08-0 Calcium [Mass/Vol] 8.5 mg/dL Low 8.6-10.3 [facility] Comment on above: Order Comment: No: D o not add to previous draw Performed By: #### 5 [id number], 82545, [id number] #### [facility] [address] [place] [address], [facility] Chloride [Moles/Vol] 107 mmol/L Normal 98-107 [facility] Comment on above: Order Comment: No: D o not add to previous draw Performed By: #### 5 [id number], 89518, [id number] #### [facility] [address] [place] [address], [place] CO2 [Moles/Vol] 22 mmol/L Normal 21-31 [facility] Comment on above: Order Comment: No: D o not add to previous draw Performed By: #### 5 [id number], 75022, 35444 #### [facility] [address] [place] [address], [place] Creatinine [Mass/Vol] 0.83 mg/dL Normal 0.60-1.20 [facility] Comment on above: Order Comment: No: D o not add to previous draw Performed By: #### 5 [id number], 52118, 82425 #### [facility] [address] [place] [address], [place] GFR/1.73 sq M.predicted among non-blacks MDRD (S/P/Bld) [Vol rate/Area] mL/min/{1.73_m2} Normal >60 [facility] Comment on above: Order Comment: No: D o not add to previous draw Result Comment: [facility]'s estimated glomerular filtration rate (eGFR) will no longer include consideration of race in its calculation. The National Kidney Foundation's eGFR Task Force developed new recommendations for the estimation of the glomerular filtration rate in the [place] They recommend immediate implementation of the new equation refit without the race variable in all laboratories because the calculation does not include race. In addition to not including race in the calculation and reporting, it included diversity in its development, and has acceptable performance characteristics and potential consequences that do not disproportionately affect any one group of individuals. Performed By: #### 5 [id number], 30889, 08735 #### [facility] [address] [place] [address], [place] Glucose [Mass/Vol] 103 mg/dL High 70-100 [facility] Comment on above: Order Comment: No: D o not add to previous draw Performed By: #### 5 [id number], 57650, 28020 #### [facility] [address] [place] [address], [place] Potassium [Moles/Vol] 3.9 mmol/L Normal 3.5-5.1 [facility] Comment on above: Order Comment: No: D o not add to previous draw Performed By: #### 5 [id number], 44627, 74459 #### [facility] [address] [place] [address], [place] Sodium [Moles/Vol] 137 mmol/L Normal 136-145 [facility] Comment on above: Order Comment: No: D o not add to previous draw Performed By: #### 5 [id number], 15109, 51582 #### [facility] [address] [place] [address], [place] Urea nitrogen [Mass/Vol] 24 mg/dL Normal 7-25 [facility] Comment on above: Order Comment: No: D o not add to previous draw Performed By: #### 5 [id number], 19273, 18571 #### [facility] [address] [place] [address], [facility] CBC COMPLETE BLOOD COUNTon 0 01-29-2022 Erythrocyte distribution width (RBC) [Ratio] 14.7 % Normal 11.5-15.0 [facility] Comment on above: Order Comment: No: D o not add to previous draw Performed By: #### 5 [id number], 28974, 53268 #### [facility] [address] [place] [id number], [facility] Hematocrit (Bld) [Volume fraction] 33.1 % Low 36.0-45.0 [facility] Comment on above: Order Comment: No: D o not add to previous draw Performed By: #### 5 7307, 10734, 02035 #### [facility] [address] [place] [id number], [facility] Hemoglobin (Bld) [Mass/Vol] 10.8 g/dL Low 12.0-15.0 [facility] Comment on above: Order Comment: No: D o not add to previous draw Performed By: #### 5 7307, 12615, 19920 #### [facility] [address] [place] [address], [facility] MCH (RBC) [Entitic mass] 28.6 pg Normal 27.0-33.0 [facility] Comment on above: Order Comment: No: D o not add to previous draw Performed By: #### 5 7307, 57348, 49317 #### [facility] [address] [place] [address], [facility] MCHC (RBC) [Mass/Vol] 32.6 g/dL Normal 32.0-35.0 [facility] Comment on above: Order Comment: No: D o not add to previous draw Performed By: #### 5 7307, 18885, 38973 #### [facility] [address] [place] [address], [facility] MCV (RBC) [Entitic vol] 87.8 fL Normal 82.0-98.0 [facility] Comment on above: Order Comment: No: D o not add to previous draw Performed By: #### 5 7307, 60374, 14382 #### [facility] [address] [place] [address], [facility] Nucleated RBC/100 WBC (Bld) [Ratio] 0 % Normal 0-0 [facility] Comment on above: Order Comment: No: D o not add to previous draw Performed By: #### 5 7307, 24388, 41443 #### [facility] [address] [place] [address], [place] PLAT CNT 180 10*3/uL Normal 150-400 [facility] Comment on above: Order Comment: No: D o not add to previous draw Performed By: #### 5 7307, 47921, 60410 #### [facility] [address] [place] [address], [facility] RBC (Bld) [#/Vol] 3.77 10*6/uL Low 3.80-5.00 [facility] Comment on above: Order Comment: No: D o not add to previous draw Performed By: #### 5 7307, 20201, 42283 #### [facility] [address] [place] [address], [facility] WBC (Bld) [#/Vol] 5.60 10*3/uL Normal 4.00-10.60 [facility] Comment on above: Order Comment: No: D o not add to previous draw Performed By: #### 5 7307, 35642, 28091 #### [facility] [address] [place] [id number], [place] FREE T4on 01-29-2022 Free T4 [Mass/Vol] 1.12 ng/dL Normal 0.71-1.85 [facility] Comment on above: Performed By: #### 5 7307, 27258, 25931 #### [facility] [address] [place] [id number], [facility] HEMOGLOBIN A1Con 01-29-2022 Glucose [Moles/Vol] 114 mmol/L Normal [facility] Comment on above: Order Comment: No: D o not add to previous draw Performed By: #### 5 7307, 47704, 00549 #### [facility] [address] HbA1c (Bld) [Mass fraction] 5.6 % Normal 4.0-6.0 [facility] Comment on above: Order Comment: No: D o not add to previous draw Performed By: #### 5 7307, 57849, 23671 #### [facility] [address] LIPID PROFILEon 01-29-2022 Cholesterol [Mass/Vol] 211 mg/dL High 120-200 [facility] Comment on above: Result Comment: CHOL ESTEROL REFERENCE RANGE: 20 YEARS AND OLDER CARDIOVASCULAR RISK Less than 200 mg/dl Low Risk 200 to 239 mg/dl Borderline Risk 240 mg/dl and greater High Risk Performed By: #### 5 7307, 48595, 94591 #### [facility] [address] Cholesterol in HDL [Mass/Vol] 45 mg/dL Normal 23-92 [facility] Comment on above: Result Comment: Slig ht variation in normal range could be due to gender and/or age. HDL CHOLESTEROL REFERENCE RANGE: 20 years and older Cardiovascular Risk > or =60 mg/dL Desirable 40 TO 59 mg/dL Low Risk <40 mg/dL High Risk Performed By: #### 5 7307, 99240, 82973 #### [facility] [address] [place] [address], [facility] Cholesterol in LDL [Mass/Vol] 147 mg/dL High 0-130 [facility] Comment on above: Result Comment: LDL IS A CALCULATION LDL IS ONLY VALID IF THE TRIG IS LESS THAN 400. Performed By: #### 5 7307, 29615, 46669 #### [facility] [address] [place] [address], [facility] Cholesterol.total/C holesterol in HDL [Mass ratio] 4.7 {ratio} High .0-4.5 [facility] Comment on above: Performed By: #### 5 7307, 33027, 99917 #### [facility] [address] [place] [address], [facility] NON-HDL CHOLESTEROL 166 mg/dL Normal [facility] Comment on above: Performed By: #### 5 7307, 86309, 62489 #### [facility] [address] [facility] [address] Triglyceride [Mass/Vol] 94 mg/dL Normal 40-149 [facility] Comment on above: Result Comment: TRIG LYCERIDE REFERENCE RANGE: 20 YEARS AND OLDER CARDIOVASCULAR RISK LESS THAN 150 mg/dl LOW RISK 150 TO 199 mg/dl BORDERLINE RISK 200 mg/dl AND GREATER HIGH RISK Performed By: #### 5 7307, 01318, 61847 #### [facility] [address] VLDL CHOL 19 mg/dL Normal 0-40 [facility] Comment on above: Performed By: #### 5 7307, 16593, 40680 #### [facility] [address] [facility] MAGNESIUM BLOODon 01-29-2022 Magnesium [Mass/Vol] 1.9 mg/dL Normal 1.9-2.7 [facility] Comment on above: Order Comment: No: D o not add to previous draw Performed By: #### 5 7307, 79171, 35424 #### [facility] [address] [facility]. [address] UFH HEPARIN ASSAYon 01-30-20 22 UNFRACTIONATED HEPARIN 0.58 IU/mL Normal 0.30-0.70 [facility] Comment on above: Result Comment: [place] roxaban and Apixaban will interfere with the anti Xa assay used to monitor UFH and LMWH. Performed By: #### 3 0477 #### [facility] [address] [place] [address], [facility] BASIC METABOLIC PANELon 07-3 Calcium [Mass/Vol] 8.4 mg/dL Low 8.6-10.3 [facility] Comment on above: Order Comment: No: D o not add to previous draw Performed By: #### 5 7307, 90305, 33562 #### [facility] [address] [place] [address], [place] Chloride [Moles/Vol] 106 mmol/L Normal 98-107 [facility] Comment on above: Order Comment: No: D o not add to previous draw Performed By: #### 5 7307, 34039, 90945 #### [facility] [address] [place] [address], [place] CO2 [Moles/Vol] 27 mmol/L Normal 21-31 [facility] Comment on above: Order Comment: No: D o not add to previous draw Performed By: #### 5 7307, 24629, 06087 #### [facility] [address] [place] [address], [facility] Creatinine [Mass/Vol] 0.86 mg/dL Normal 0.60-1.20 [facility] Comment on above: Order Comment: No: D o not add to previous draw Performed By: #### 5 7307, 33897, 37343 #### [facility] [address] [place] [address], [place] GFR/1.73 sq M.predicted among non-blacks MDRD (S/P/Bld) [Vol rate/Area] mL/min/{1.73_m2} Normal >60 [facility] Comment on above: Order Comment: No: D o not add to previous draw Result Comment: [facility]'s estimated glomerular filtration rate (eGFR) will no longer include consideration of race in its calculation. The [employer] Foundation's eGFR Task Force developed new recommendations for the estimation of the glomerular filtration rate in the [place] They recommend immediate implementation of the new equation refit without the race variable in all laboratories because the calculation does not include race. In addition to not including race in the calculation and reporting, it included diversity in its development, and has acceptable performance characteristics and potential consequences that do not disproportionately affect any one group of individuals. Performed By: #### 5 7307, 76051, 82565 #### [facility] [address] [place] [address], [facility] Glucose [Mass/Vol] 84 mg/dL Normal 70-100 [facility] Comment on above: Order Comment: No: D o not add to previous draw Performed By: #### 5 7307, 17112, 58882 #### [facility] [address] [place] [address], [facility] Potassium [Moles/Vol] 4.5 mmol/L Normal 3.5-5.1 [facility] Comment on above: Order Comment: No: D o not add to previous draw Performed By: #### 5 7307, 94752, 23725 #### [facility] [address] [place] [address], [facility] Sodium [Moles/Vol] 137 mmol/L Normal 136-145 [facility] Comment on above: Order Comment: No: D o not add to previous draw Performed By: #### 5 7307, 00813, 61906 #### [facility] [address] [place] [address], [facility] Urea nitrogen [Mass/Vol] 20 mg/dL Normal 7-25 [facility] Comment on above: Order Comment: No: D o not add to previous draw Performed By: #### 5 7307, 96191, 87030 #### [facility] [address] [place] [address], [facility] CBC W/DIFFon 01-28-2022 ABS IMM GRANS 0.0 10*3/uL Normal 0.0-0.2 [facility] Comment on above: Order Comment: No: D o not add to previous draw Performed By: #### 5 7307, 65289, 24837 #### [facility] [address] [place] [address], [place] ABS NEUTROPHILS 2.0 10*3/uL Normal 1.6-7.6 [facility] Comment on above: Order Comment: No: D o not add to previous draw Performed By: #### 5 73, 75516, 51921 #### [facility] [address] [place] [address], [place] Basophils (Bld) [#/Vol] 0.0 10*3/uL Normal 0.0-0.2 [facility] Comment on above: Order Comment: No: D o not add to previous draw Performed By: #### 5 7307, 82503, 59305 #### [facility] [address] [place] [address], [place] Basophils/100 WBC (Bld) 0.5 % Normal 0.0-1.0 [facility] Comment on above: Order Comment: No: D o not add to previous draw Performed By: #### 5 7307, 52441, 63329 #### [facility] [address] [place] [address], [place] Eosinophils (Bld) [#/Vol] 0.1 10*3/uL Normal 0.0-0.5 [facility] Comment on above: Order Comment: No: D o not add to previous draw Performed By: #### 5 7307, 31890, 52266 #### [facility] [address] [place] [address], [place] Eosinophils/100 WBC (Bld) 2.1 % Normal 0.0-6.0 [facility] Comment on above: Order Comment: No: D o not add to previous draw Performed By: #### 5 7307, 81977, 80422 #### [facility] [address] Erythrocyte distribution width (RBC) [Ratio] 14.7 % Normal 11.5-15.0 [facility] Comment on above: Order Comment: No: D o not add to previous draw Performed By: #### 5 7307, 95508, 15524 #### [facility] [address] [place] [address], [facility] Hematocrit (Bld) [Volume fraction] 33.7 % Low 36.0-45.0 [facility] Comment on above: Order Comment: No: D o not add to previous draw Performed By: #### 5 7307, 15945, 07475 #### [facility] [address] [facility] [place] [address], [facility] Hemoglobin (Bld) [Mass/Vol] 10.8 g/dL Low 12.0-15.0 [facility] Comment on above: Order Comment: No: D o not add to previous draw Performed By: #### 5 7307, 52679, 53809 #### [facility] [address] [facility] [place] [address], [facility] IMMATURE GRANS 0.2 % Normal 0.0-1.0 [facility] Comment on above: Order Comment: No: D o not add to previous draw Performed By: #### 5 7307, 60570, 32153 #### [facility] [address] [facility] [place] [address], [facility] Lymphocytes (Bld) [#/Vol] 1.9 10*3/uL Normal 1.2-4.0 [facility] Comment on above: Order Comment: No: D o not add to previous draw Performed By: #### 5 7307, 18332, 95167 #### [facility] [address] [place] [address], [facility] Lymphocytes/100 WBC (Bld) 43.8 % Normal 20.0-45.0 [facility] Comment on above: Order Comment: No: D o not add to previous draw Performed By: #### 5 7307, 80395, 16749 #### [facility] [address] [place] [address], [facility] MCH (RBC) [Entitic mass] 28.4 pg Normal 27.0-33.0 [facility] Comment on above: Order Comment: No: D o not add to previous draw Performed By: #### 5 73, 31959, 18290 #### [facility] [address] [place] [address], [facility] MCHC (RBC) [Mass/Vol] 32.0 g/dL Normal 32.0-35.0 [facility] Comment on above: Order Comment: No: D o not add to previous draw Performed By: #### 5 7307, 79369, 78901 #### [facility] [address] [place] [address], [facility] MCV (RBC) [Entitic vol] 88.7 fL Normal 82.0-98.0 [facility] Comment on above: Order Comment: No: D o not add to previous draw Performed By: #### 5 7307, 27035, 06437 #### [facility] [address] [place] [address], [facility] Monocytes (Bld) [#/Vol] 0.4 10*3/uL Normal 0.1-1.0 [facility] Comment on above: Order Comment: No: D o not add to previous draw Performed By: #### 5 7307, 15777, 21732 #### [facility] [address] [place] [address], [place] MONOS 8.1 % Normal 5.0-12.0 [facility] Comment on above: Order Comment: No: D o not add to previous draw Performed By: #### 5 7307, 97554, 26438 #### [facility] [address] [place] [address], [facility] Neutrophils/100 WBC (Bld) 45.3 % Normal 40.0-72.0 [facility] Comment on above: Order Comment: No: D o not add to previous draw Performed By: #### 5 7307, 81957, 23495 #### [facility] [address] [place] [address], [facility] Nucleated RBC/100 WBC (Bld) [Ratio] 0 % Normal 0-0 [facility] Comment on above: Order Comment: No: D o not add to previous draw Performed By: #### 5 7307, 24871, 48541 #### [facility] [address] [place] [address], [facility] PLAT CNT 198 10*3/uL Normal 150-400 [facility] Comment on above: Order Comment: No: D o not add to previous draw Performed By: #### 5 7307, 94650, 09263 #### [facility] [address] [place] [address], [facility] RBC (Bld) [#/Vol] 3.80 10*6/uL Normal 3.80-5.00 [facility] Comment on above: Order Comment: No: D o not add to previous draw Performed By: #### 5 7307, 87233, 53202 #### [facility] [address] [facility] [place] [address], [facility] WBC (Bld) [#/Vol] 4.34 10*3/uL Normal 4.00-10.60 [facility] Comment on above: Order Comment: No: D o not add to previous draw Performed By: #### 5 7307, 30372, 78566 #### [facility] [address] [place] [address], [facility] UFH HEPARIN ASSAYon 01-29-20 22 UNFRACTIONATED HEPARIN 0.38 IU/mL Normal 0.30-0.70 [facility] Comment on above: Result Comment: [place] roxaban and Apixaban will interfere with the anti Xa assay used to monitor UFH and LMWH. Performed By: #### 5 7307, 35982, 25262 #### [facility] [address] [place] [address], [facility] CBC COMPLETE BLOOD COUNTon 01-27-2022 Erythrocyte distribution width (RBC) [Ratio] 15.0 % Normal 11.5-15.0 [facility] Comment on above: Order Comment: No: D o not add to previous draw Performed By: #### 5 7307, 70358, 39322 #### [facility] [address] [place] [address], [facility] Hematocrit (Bld) [Volume fraction] 34.8 % Low 36.0-45.0 [facility] Comment on above: Order Comment: No: D o not add to previous draw Performed By: #### 5 7307, 70163, 82866 #### [facility] [address] [place] [address], [facility] Hemoglobin (Bld) [Mass/Vol] 11.3 g/dL Low 12.0-15.0 [facility] Comment on above: Order Comment: No: D o not add to previous draw Performed By: #### 5 7307, 80994, 80225 #### [facility] [address] [place] [address], [place] MCH (RBC) [Entitic mass] 28.5 pg Normal 27.0-33.0 [facility] Comment on above: Order Comment: No: D o not add to previous draw Performed By: #### 5 7307, 78832, 57675 #### [facility] [address] [place] [address], [place] MCHC (RBC) [Mass/Vol] 32.5 g/dL Normal 32.0-35.0 [facility] Comment on above: Order Comment: No: D o not add to previous draw Performed By: #### 5 7307, 69346, 79864 #### [facility] [address] [place] [address], [place] MCV (RBC) [Entitic vol] 87.7 fL Normal 82.0-98.0 [facility] Comment on above: Order Comment: No: D o not add to previous draw Performed By: #### 5 7307, 67407, 42745 #### [facility] [address] [place] [address], [facility] Nucleated RBC/100 WBC (Bld) [Ratio] 0 % Normal 0-0 [facility] Comment on above: Order Comment: No: D o not add to previous draw Performed By: #### 5 7307, 01313, 87539 #### [facility] [address] [place] [address], [facility] PLAT CNT 205 10*3/uL Normal 150-400 [facility] Comment on above: Order Comment: No: D o not add to previous draw Performed By: #### 5 7307, 75697, 27109 #### [facility] [address] [facility] RBC (Bld) [#/Vol] 3.97 10*6/uL Normal 3.80-5.00 [facility] Comment on above: Order Comment: No: D o not add to previous draw Performed By: #### 5 7307, 98154, 18002 #### [facility] [address] [facility] [place] [address], [facility] WBC (Bld) [#/Vol] 4.86 10*3/uL Normal 4.00-10.60 [facility] Comment on above: Order Comment: No: D o not add to previous draw Performed By: #### 5 7307, 45122, 90682 #### [facility] [address] [place] [address], [facility] CORTISOLon 01-27-2022 CORTISOL 11.6 mcg/dL Normal [facility] Comment on above: Result Comment: Refe rence Range: AM 6.0-23.0 mcg/dL PM 0.0-9.0 mcg/dL Performed By: #### 5 7307, 95786, 87725 #### [facility] [address] [facility] TROPONIN-Ion 01-27-2022 Troponin I.cardiac [Mass/Vol] 0.03 ng/mL Normal 0.00-0.04 [facility] Comment on above: Order Comment: No: D o not add to previous draw Result Comment: REFE RENCE RANGES: 0.00 - 0.04 ng/ml NORMAL 0.05 - 0.50 ng/ml INDETERMINATE > 0.50 ng/ml CONSISTENT WITH AN M.I. Performed By: #### 5 7307, 61797, 28258 #### [facility] [address] [facility] [address] Troponin I.cardiac [Mass/Vol] 0.03 ng/mL Normal 0.00-0.04 [facility] Comment on above: Order Comment: No: D o not add to previous draw Result Comment: REFE RENCE RANGES: 0.00 - 0.04 ng/ml NORMAL 0.05 - 0.50 ng/ml INDETERMINATE > 0.50 ng/ml CONSISTENT WITH AN M.I. Performed By: #### 5 7307, 86051, 04001 #### [facility] [address] [facility]. [address] UFH HEPARIN ASSAYon 01-28-20 UNFRACTIONATED HEPARIN 0.61 IU/mL Normal 0.30-0.70 [facility] Comment on above: Result Comment: [place] roxaban and Apixaban will interfere with the anti Xa assay used to monitor UFH and LMWH. Performed By: #### 5 7307, 04294, 71911 #### [facility] [address] [place] [address], [facility] APTTon 01-26-2022 aPTT Coag (Bld) [Time] 28.6 s Normal 25.0-35.0 [facility] Comment on above: Order Comment: No: D o not add to previous draw Result Comment: ALL RESULTS MUST BE INTERPRETED WITH RESPECT TO BLOOD DRAWING ARTIFACT OR DILUTION ERROR OF ANTICOAGULANT AT THE TIME OF SAMPLING. THE APTT SHOULD NOT BE USED TO MONITOR UNFRACTIONATED HEPARIN THERAPY, THIS LABORATORY NO LONGER HAS AN ESTABLISHED THERAPEUTIC RANGE BASED ON THE APTT. IT IS RECOMMENDED THAT THE UFH - HEPARIN ASSAY (ANTI-XA ACTIVITY) BE USED FOR THIS PURPOSE. Performed By: #### 5 7307, 76996, 73999 #### [facility] [address] [place] [address], [facility] BASIC METABOLIC PANELon 07-2 Calcium [Mass/Vol] 8.2 mg/dL Low 8.6-10.3 [facility] Comment on above: Order Comment: No: D o not add to previous draw Performed By: #### 1 0070, 79319, 47090, 47913, 06715, 85539 #### [facility] [address] [place] [address], [facility] Chloride [Moles/Vol] 104 mmol/L Normal 98-107 [facility] Comment on above: Order Comment: No: D o not add to previous draw Performed By: #### 1 0070, 73087, 30027, 03002, 35023, 39150 #### [facility] [address] [place] [address], [facility] CO2 [Moles/Vol] 27 mmol/L Normal 21-31 [facility] Comment on above: Order Comment: No: D o not add to previous draw Performed By: #### 1 0070, 29586, 91260, 03659, 04327, 22237 #### [facility] [address] [place] [address], [facility] Creatinine [Mass/Vol] 0.86 mg/dL Normal 0.60-1.20 [facility] Comment on above: Order Comment: No: D o not add to previous draw Performed By: #### 1 0070, 10965, 81688, 38526, 51330, 63346 #### [facility] [address] [place] [address], [facility] GFR/1.73 sq M.predicted among non-blacks MDRD (S/P/Bld) [Vol rate/Area] mL/min/{1.73_m2} Normal >60 [facility] Comment on above: Order Comment: No: D o not add to previous draw Result Comment: [facility]'s estimated glomerular filtration rate (eGFR) will no longer include consideration of race in its calculation. The National Kid[employer]'s eGFR Task Force developed new recommendations for the estimation of the glomerular filtration rate in the [place] They recommend immediate implementation of the new equation refit without the race variable in all laboratories because the calculation does not include race. In addition to not including race in the calculation and reporting, it included diversity in its development, and has acceptable performance characteristics and potential consequences that do not disproportionately affect any one group of individuals. Performed By: #### 1 0070, 12903, 29672, 65542, 17933, 63833 #### [facility] [address] [facility] [place] [address], [facility] Glucose [Mass/Vol] 96 mg/dL Normal 70-100 [facility]: Order Comment: No: D o not add to previous draw Performed By: #### 1 0070, 19573, 81142, 86633, 10500, 90919 #### [facility] [address] [place] [address], [facility] Potassium [Moles/Vol] 4.2 mmol/L Normal 3.5-5.1 [facility] Comment on above: Order Comment: No: D o not add to previous draw Performed By: #### 1 0070, 79444, 11014, 40602, 31449, 38202 #### [facility] [address] [place] [address], [place] Sodium [Moles/Vol] 139 mmol/L Normal 136-145 [facility] Comment on above: Order Comment: No: D o not add to previous draw Performed By: #### 1 0070, 34165, 21223, 10979, 77943, 48279 #### [facility] [address] Urea nitrogen [Mass/Vol] 16 mg/dL Normal 7-25 [facility] Comment on above: Order Comment: No: D o not add to previous draw Performed By: #### 1 0070, 38011, 57794, 03841, 50156, 84677 #### [facility] [address] [facility] [place] [address], [facility] BNPon 01-26-2022 Natriuretic peptide B (Bld) [Mass/Vol] 1605.0 pg/mL Critically high <=900.0 [facility] Comment on above: Performed By: #### C MADM, BNP, CMP #### [facility] [address] [place] [address] [address] Darya Berry BNP (B-TYPE NATRIURETIC PEPT MARQUITA)on 01-26-2022 Natriuretic peptide B (Bld) [Mass/Vol] 117 pg/mL High 0-100 [facility] Comment on above: Order Comment: No: D o not add to previous draw Result Comment: Give n the appropriate clinical setting a BNP result of >100 pg/mL indicates congestive heart failure. Performed By: #### 5 7307, 65627, 78272 #### [facility] [address] [facility] CARDIAC ARNALDO ADMITon 022 CK [Catalytic activity/Vol] 28 U/L Normal 26-192 [facility] Comment on above: Performed By: #### C MADM, BNP, CMP #### [facility] [address] [address] [address] Darya Berry CK.MB [Mass/Vol] 1.26 ng/mL Normal <=3.60 [facility] Comment on above: Performed By: #### C MADM, BNP, CMP #### [facility] [address] [address] [address] Darya Berry HSTROP 80.9 pg/mL Critically high 4.0-51.3 [facility] Comment on above: Result Comment: CUT- OFF POINTS HAVE BEEN ESTABLISHED BASED ON THE FOURTH UNIVERSAL DEFINITIONS OF MYOCARDIAL INFARCTION. THE UPPER REFERENCE LIMIT (URL) OF TROPONIN, DEFINED THE 99TH PERCENTILE OF cTnI DISTRIBUTION IN A REFERENCE POPULATION, HAS BEEN CONFIRMED THE DECISION THRESHOLD FOR CT DIAGNOSIS. Performed By: #### C MADM, BNP, CMP #### [facility] [address] [place] [address] Dr. Darya Berry NELDA 31 ng/mL Normal 9-82 [facility] Comment on above: Performed By: #### C MADM, BNP, CMP #### [facility] [address] [place] [address] Dr. Darya Berry CBC AUTO DIFFon 01-26-2022 BASO # 0.0 103/ul Normal 0.0-0.1 [facility] Comment on above: Performed By: #### H STROPN #### [facility] [address] [place] [address] Dr. Darya Berry Basophils/100 WBC (Bld) 0.6 % Normal 0.2-2.0 [facility] Comment on above: Performed By: #### H STROPN #### [facility] [address] [place] [address] Dr. Darya Berry EO # 0.1 103/ul Normal 0.0-0.7 [facility] Comment on above: Performed By: #### H STROPN #### [facility] [address] [place] [address] Dr. Darya Berry Eosinophils/100 WBC (Bld) 1.8 % Normal 0.9-7.0 [facility] Comment on above: Performed By: #### H STROPN #### [facility] [address] [place] [address] Dr. Darya Berry Erythrocyte distribution width (RBC) [Ratio] 14.6 % Normal 11.0-15.0 [facility] Comment on above: Performed By: #### H STROPN #### [facility] [address] [place] [address] Dr. Darya Berry Hematocrit (Bld) [Volume fraction] 34.6 % Critically low 36.0-48.0 [facility] Comment on above: Performed By: #### H STROPN #### [facility] [address] [address] [address] Darya Berry Hemoglobin (Bld) [Mass/Vol] 11.2 g/dL Critically low 12.0-16.0 [facility] Comment on above: Performed By: #### H STROPN #### [facility] [address] [place] [address] Dr. Darya Berry IG # 0.01 10e3/ul Normal 0.00-0.03 [facility] Comment on above: Performed By: #### H STROPN #### [facility] [address] [place] [address] Dr. Darya Berry IG % 0.2 % Normal 0.0-0.5 [facility] Comment on above: Performed By: #### H STROPN #### [facility] [address] [place] [address] Dr. Darya Berry LYMPH # 2.1 103/ul Normal 1.2-3.8 [facility] Comment on above: Performed By: #### H STROPN #### [facility] [address] [place] [address] Dr. Darya Berry Lymphocytes/100 WBC (Bld) 41.7 % Normal 20.5-60.0 [facility] Comment on above: Performed By: #### H STROPN #### [facility] [address] [place] [address] Dr. Darya Berry MANUAL DIFF REQ NO Normal [facility] Comment on above: Performed By: #### H STROPN #### [facility] [address] [place] [address] Dr. Darya Berry MCH (RBC) [Entitic mass] 28.2 pg Normal 26.7-34.0 [facility] Comment on above: Performed By: #### H STROPN #### [facility] [address] [place] [address] Dr. Darya Berry MCHC (RBC) [Mass/Vol] 32.4 g/dL Normal 29.9-35.2 [facility] Comment on above: Performed By: #### H STROPN #### [facility] [address] [address] [address] Darya Berry MCV (RBC) [Entitic vol] 87.2 fL Normal 81.0-99.0 [facility] Comment on above: Performed By: #### H STROPN #### [facility] [address] [address] [address] Darya Berry MONO # 0.4 103/ul Normal 0.3-0.8 [facility] Comment on above: Performed By: #### H STROPN #### [facility] [address] [place] [address] Dr. Darya Berry Monocytes/100 WBC (Bld) 7.3 % Normal 1.7-12.0 [facility] Comment on above: Performed By: #### H STROPN #### [facility] [address] [place] [address] Dr. Darya Berry NEUT # 2.4 103/ul Normal 1.4-6.5 [facility] Comment on above: Performed By: #### H STROPN #### [facility] [address] [place] [address] Dr. Darya Berry Neutrophils/100 WBC (Bld) 48.4 % Normal 43.0-75.0 [facility] Comment on above: Performed By: #### H STROPN #### [facility] [address] [place] [address] Dr. Darya Berry Platelet mean volume (Bld) [Entitic vol] 9.4 fL Critically low 9.5-13.5 [facility] Comment on above: Performed By: #### H STROPN #### [facility] [address] [place] [address] Dr. Darya Berry PLT 217 103/ul Normal 150-450 [facility] Comment on above: Performed By: #### H STROPN #### [facility] [address] [address] [address] Darya Berry RBC 3.97 106/ul Critically low 4.20-5.40 [facility] Comment on above: Performed By: #### H STROPN #### [facility] [address] [place], [place] [address] Dr. Darya Berry WBC 4.9 103/ul Normal 4.0-11.0 [facility] Comment on above: Performed By: #### H STROPN #### [facility] [address] [place], [place] [address] Dr. Darya Berry CBC COMPLETE BLOOD COUNTon 01-26-2022 Erythrocyte distribution width (RBC) [Ratio] 14.8 % Normal 11.5-15.0 [facility] Comment on above: Order Comment: No: D o not add to previous draw Performed By: #### 5 7307, 56758, 82510 #### [facility] [address] [place] [address], [facility] Hematocrit (Bld) [Volume fraction] 34.7 % Low 36.0-45.0 [facility] Comment on above: Order Comment: No: D o not add to previous draw Performed By: #### 5 7307, 80625, 00897 #### [facility] [address] [place] [id number], [facility] Hemoglobin (Bld) [Mass/Vol] 11.3 g/dL Low 12.0-15.0 [facility] Comment on above: Order Comment: No: D o not add to previous draw Performed By: #### 5 7307, 10652, 24438 #### [facility] [address] [place] [address], [facility] MCH (RBC) [Entitic mass] 28.6 pg Normal 27.0-33.0 [facility] Comment on above: Order Comment: No: D o not add to previous draw Performed By: #### 5 7307, 25980, 24504 #### [facility] [address] [place] [id number], [facility] MCHC (RBC) [Mass/Vol] 32.6 g/dL Normal 32.0-35.0 [facility] Comment on above: Order Comment: No: D o not add to previous draw Performed By: #### 5 7307, 67762, 29196 #### [facility] [address] [place] [address], [facility] MCV (RBC) [Entitic vol] 87.8 fL Normal 82.0-98.0 [facility] Comment on above: Order Comment: No: D o not add to previous draw Performed By: #### 5 7307, 17229, 44816 #### [facility] [address] [place] [address], [facility] Nucleated RBC/100 WBC (Bld) [Ratio] 0 % Normal 0-0 [facility] Comment on above: Order Comment: No: D o not add to previous draw Performed By: #### 5 7307, 37877, 04481 #### [facility] [address] [place] [address], [facility] PLAT CNT 223 10*3/uL Normal 150-400 [facility] Comment on above: Order Comment: No: D o not add to previous draw Performed By: #### 5 7307, 57494, 23155 #### [facility] [address] [place] [address], [facility] RBC (Bld) [#/Vol] 3.95 10*6/uL Normal 3.80-5.00 [facility] Comment on above: Order Comment: No: D o not add to previous draw Performed By: #### 5 7307, 48101, 28539 #### [facility] [address] [place] [address], [facility] WBC (Bld) [#/Vol] 5.01 10*3/uL Normal 4.00-10.60 [facility] Comment on above: Order Comment: No: D o not add to previous draw Performed By: #### 5 7307, 82180, 87796 #### [facility] [address] [place] [address], [facility] ECHOCARDIO M/2D COMPLETEon 0 01-26-2022 ECHOCARDIO M/2D COMPLETE Patient: JULISSA MUNIZ Exam Date: 01/26/2022 : 1960 Gender:F Ordering : DR SKYLER BOWMAN . Admission #: [id number] Family : Order #: [id number] CLICK HERE TO VIEW EXAM ECHOCARDIOGRAM REPORT PROCEDURE: CARDIO PULMONARY ECHOCARDIO M/2D COMP INDICATIONS: General weakness, Elevated troponin, syncope COMPARISON: None. DESCRIPTION: COMPLETE ECHOCARDIOGRAM Real-time transthoracic echocardiography with 2D, M-mode, spectral and color flow Doppler performed. QUALITY: Technical quality was adequate. LEFT VENTRICLE: Normal chamber size. Borderline left ventricular hypertrophy. LV EF: Global left ventricular systolic function hyperdynamic. Visual estimation of left ventricular ejection fraction is 65 to 70%. No significant wall motion abnormalities. DIASTOLIC: Normal diastolic function. ATRIAL SEPTUM: Inadequately visualized. LEFT ATRIUM: Normal chamber size. RIGHT ATRIUM: Normal chamber size. RIGHT VENTRICLE: Normal chamber size. Normal right ventricular systolic function. TRICUSPID VALVE: Normal mobility and thickness. No stenosis with trivial regurgitation. No evidence of pulmonary hypertension. RVSP 23mmHg MITRAL VALVE: Normal mobility and thickness. No mitral valve prolapse. No evidence of mitral valve stenosis. There is no mitral annular calcification. No mitral regurgitation. AORTIC VALVE: Normal trileaflet appearance. No visible sclerosis. Normal leaflet mobility. No evidence of aortic valve stenosis. No aortic regurgitation. AORTIC ROOT: Normal diameter and appearance. PULMONIC VALVE: Normal thickness and mobility. No stenosis. No regurgitation. PERICARDIUM: Anterior free space; trivial effusion versus fat pad. IVC: Collapses with inspirations. Normal size. CONCLUSION: Global left ventricular systolic function is hyperdynamic; visually estimated ejection fraction is 65 to 70%. Borderline left ventricular hypertrophy. Normal diastolic function. The right ventricle is normal in size and systolic function. No significant valvular abnormalities. Anterior free space; trivial effusion versus fat pad. Adult Echocardiography Procedure Report Left Ventricle LVEDD (3.7 - 5.6 cm): 3.42 cm LVESD (2.2 - 4.0 cm): 2.13 cm LVIVS thickness (0.6 - 1.2 cm): 1.15 cm LVPW thickness (0.5 - 1.0 cm): 1.02 cm e': 7.13 cm/s E - e': 7.90 LVOT Area (cm2): 3.14 cm2 LVOT Diameter 2.00 cm Left Ventricular Ejection Fraction: 69 % Left Atrium LA Volume Index (2D A2C): 32.10 ml/m2 Left Atrium Systolic Dimension: 2.80 cm Left Atrium Systolic Area(A2C): 21.00 cm2 Left Atrium Systolic Area(A4C): 18.80 cm2 Left Atrium Systolic Volume(A2C): 29639 mm3 Left Atrium Systolic Volume(A4C): 48875 mm3 Mitral Valve MV E to A Ratio: 0.70 Deceleration [place]: 1750 mm/s2 Mitral Valve A-Wave Peak Velocity: 84.40 cm/s Mitral Valve E-Wave Peak Velocity: 56.30 cm/s Right Ventricle RV Internal Diastolic Dimension: 2.30 cm Aorta AO Root Diam: 3.20 cm Aortic Valve AoV Area (Peak Mundo): 2.43 cm2 Peak Velocity(Antegrade Flow): 106.00 cm/s Peak Gradient(Antegrade Flow): 4 mm[Hg] Tricuspid Valve Peak Velocity (Regurgitant Flow): 210.00 cm/s Pulmonic Valve Peak Velocity: 93.70 cm/s Peak Gradient: 4 mm[Hg] Right Atrium Dictated by: David Bautista M.D. on 01/26/2022 at 16:27 Approved by: David Bautista M.D. on 01/26/2022 at 16:30 Normal [facility] IRON BLOODon 01-26-2022 Iron [Mass/Vol] 135 ug/dL Normal 50-212 [facility] Comment on above: Order Comment: No: D o not add to previous draw Performed By: #### 1 0070, 53335, 18402, 01967, 17429, 89186 #### [facility] [address] [place] [address], [facility] LIVER BATTERYon 01-26-2022 Albumin [Mass/Vol] 3.6 g/dL Normal 3.5-5.7 [facility] Comment on above: Order Comment: No: D o not add to previous draw Performed By: #### 1 0070, 94079, 48383, 74214, 81985, 21438 #### [facility] [address] [place] [address], [facility] ALKALINE PHOSPH 142 IU/L High 34-104 [facility] Comment on above: Order Comment: No: D o not add to previous draw Performed By: #### 1 0070, 38099, 56516, 41922, 43990, 28001 #### [facility] [address] [place] [address], [place] ALT [Catalytic activity/Vol] 5 U/L Low 7-52 [facility] Comment on above: Order Comment: No: D o not add to previous draw Performed By: #### 1 0070, 21154, 61215, 71350, 91714, 99783 #### [facility] [address] [place] [address], [facility] AST [Catalytic activity/Vol] 9 U/L Low 13-39 [facility] Comment on above: Order Comment: No: D o not add to previous draw Performed By: #### 1 0070, 07115, 74535, 62080, 48737, 39578 #### [facility] [address] [place] [address], [place] Bilirubin [Mass/Vol] 0.2 mg/dL Low 0.3-1.0 [facility] Comment on above: Order Comment: No: D o not add to previous draw Performed By: #### 1 0070, 18861, 76036, 33018, 98838, 24802 #### [facility] [address] [place] [address], [place] Bilirubin.direct [Mass/Vol] 0.1 mg/dL Normal 0.0-0.2 [facility] Comment on above: Order Comment: No: D o not add to previous draw Performed By: #### 1 0070, 58358, 76386, 92536, 64317, 78175 #### [facility] [address] [place] [address], [place] Protein [Mass/Vol] 5.5 g/dL Low 6.0-8.3 [facility] Comment on above: Order Comment: No: D o not add to previous draw Performed By: #### 1 0070, 83367, 55107, 90110, 05557, 55213 #### [facility] [address] MAGNESIUM BLOODon 01-26-2022 Magnesium [Mass/Vol] 1.8 mg/dL Low 1.9-2.7 [facility] Comment on above: Order Comment: No: D o not add to previous draw Performed By: #### 1 0070, 53921, 53306, 53451, 51159, 21014 #### [facility] [address] POC SARS COV2 ANTIGEN NEGATI VEon 01-26-2022 POC SARS COV2 ANTIGEN NEG Negative Normal NEGATIVE [facility] Comment on above: Result Comment: Nega tive results should be treated as presumptive and confirmation with a molecular assay, if necessary, for patient management, may be performed. Negative results do not rule out SARS-CoV-2 infection and not should be used as the sole basis for treatment or patient management decisions, including infection control decisions. Negative results should be considered in the context of a patient's recent exposures, history, and the presence of clinical signs and symptoms consistent with COVID-19. The Clarity COVID-19 Antigen Rapid Test Cassette is a rapid chromatographic immunoassay intended for the qualitative detection of the nucleocapsid protein antigen from SARS-CoV-2 in direct nasopharyngeal swab (MANUFACTURING PROJECT MANAGER) specimens from individuals who are suspected of COVID-19 by their healthcare provider within the first six days of symptom onset. Testing is limited to laboratories certified under the Clinical Laboratory Improvement Amendments of 1988 (CLIA), 42 U.S.C. ???263a, that meet the requirements to perform moderate complexity, high complexity, or waived tests. This test is authorized for use at the Point of Care (POC), i.e., in patient care settings operating under a CLIA Certificate of Waiver, Certificate of Compliance, or Certificate of Accreditation. Performed By: #### 5 7307, 08320, 00179 #### [facility] [address] POINT OF CARE GLUCOSEon 12-30 Glucose [Mass/Vol] 119 mg/dL Critically high 74-106 [facility] Comment on above: Performed By: #### H STROPN #### [facility] [address] [address] [address] Darya Berry PROF 14(COMP METB)on 022 Albumin [Mass/Vol] 2.8 g/dL Critically low 3.4-5.0 [facility] Comment on above: Performed By: #### C MADM, BNP, CMP #### [facility] [address] [address] [address] Darya Berry Albumin/Globulin [Mass ratio] 1.0 {ratio} Normal [facility] Comment on above: Performed By: #### C MADM, BNP, CMP #### [facility] [address] [address] [address] Darya Berry ALP [Catalytic activity/Vol] 142 U/L Critically high 46-116 [facility] Comment on above: Performed By: #### C MADM, BNP, CMP #### [facility] [address] [address] [address] Darya Berry ALT [Catalytic activity/Vol] 7 U/L Critically low 14-59 [facility] Comment on above: Performed By: #### C MADM, BNP, CMP #### [facility] [address] [address] [address] Darya Berry Anion gap [Moles/Vol] 11.1 mmol/L Normal [facility] Comment on above: Performed By: #### C MADM, BNP, CMP #### [facility] [address] [address] [address] Darya Berry AST [Catalytic activity/Vol] 10 U/L Critically low 15-37 [facility] Comment on above: Performed By: #### C MADM, BNP, CMP #### [facility] [address] [address] [address] Darya Berry Bilirubin [Mass/Vol] 0.1 mg/dL Critically low 0.2-1.0 [facility] Comment on above: Performed By: #### C MADM, BNP, CMP #### [facility] [address] [place] [address] Dr. Darya Berry Calcium [Mass/Vol] 8.2 mg/dL Critically low 8.5-10.1 Th e [facility] Comment on above: Performed By: #### C MADM, BNP, CMP #### [facility] [address] [place] [address] Dr. Darya Berry Chloride [Moles/Vol] 105 mmol/L Normal 98-107 [facility] Comment on above: Performed By: #### C MADM, BNP, CMP #### [facility] [address] [place] [address] Dr. Darya Berry CO2 [Moles/Vol] 26.3 mmol/L Normal 21.0-32.0 [facility] Comment on above: Performed By: #### C MADM, BNP, CMP #### [facility] [address] [place] [address] Dr. Darya Berry Creatinine [Mass/Vol] 0.87 mg/dL Normal 0.55-1.02 [facility] Comment on above: Performed By: #### C MADM, BNP, CMP #### [facility] [address] [place] [address] Dr. Darya Berry EGFR-AF KOSOVAN >60 Normal >=60 [facility] Comment on above: Performed By: #### C MADM, BNP, CMP #### [facility] [address] [place] [address] Dr. Darya Berry EGFR-NON AF KOSOVAN >60 Normal >=60 [facility] Comment on above: Performed By: #### C MADM, BNP, CMP #### [facility] [address] [place] [address] Dr. Darya Berry Globulin (S) [Mass/Vol] 2.8 g/dL Normal [facility] Comment on above: Performed By: #### C MADM, BNP, CMP #### [facility] [address] [address] [address] Darya Berry Glucose [Mass/Vol] 119 mg/dL Critically high 74-106 [facility] Comment on above: Performed By: #### C MADM, BNP, CMP #### [facility] [address] [place] [address] Dr. Darya Berry Potassium [Moles/Vol] 3.4 mmol/L Critically low 3.5-5.1 [facility] Comment on above: Performed By: #### C MADM, BNP, CMP #### [facility] [address] [place] [address] Dr. Darya Berry Protein [Mass/Vol] 5.6 g/dL Critically low 6.4-8.2 [facility] Comment on above: Performed By: #### C MADM, BNP, CMP #### [facility] [address] [place] [address] Dr. Darya Berry Sodium [Moles/Vol] 139 mmol/L Normal 136-145 [place] Comment on above: Performed By: #### C MADM, BNP, CMP #### [facility] [address] [place] [address] Dr. Darya Berry Urea nitrogen [Mass/Vol] 18.0 mg/dL Normal 7.0-18.0 [facility] Comment on above: Performed By: #### C MADM, BNP, CMP #### [facility] [address] [place] [address] Dr. Darya Berry Urea nitrogen/Creatinine [Mass ratio] 20.7 mg/mg Normal [facility] Comment on above: Performed By: #### C MADM, BNP, CMP #### [facility] [address] [place] [address] Dr. Darya Berry PROTHROMBIN TIMEon 2 INR Coag (PPP) [Relative time] 1.00 {INR} Normal 0.91-1.16 [facility] Comment on above: Order Comment: No: D o not add to previous draw Result Comment: ACCC P RECOMMENDED INR FOR WARFARIN THERAPY ------ ------- CONDITION INR PROPHYLAXIS OF VENOUS THROMBOSIS 2-3 (HIGH-RISK SURGERY) TREATMENT OF VENOUS THROMBOSIS 2-3 TREATMENT OF PULMONARY EMBOLISM 2-3 PREVENTION OF SYSTEMIC EMBOLISM: 2-3 ACUTE MYOCARDIAL INFARCTION TISSUE HEART VALVES VALVULAR HEART DISEASE ATRIAL FIBRILLATION RECURRENT SYSTEMIC EMBOLISM MECHANICAL HEART VALVE 2.5-3.5 FROM: ORAL ANTICOAGULANTS. MECHANISM OF ACTION, CLINICAL EFFECTIVENESS, AND OPTIMAL THERAPEUTIC RANGE. CHEST 1995;108:[id number]. Performed By: #### 5 7307, 18039, 19088 #### [facility] [address] PT Coag (PPP) [Time] 13.2 s Normal 12.3-14.8 [facility] Comment on above: Order Comment: No: D o not add to previous draw Result Comment: ALL RESULTS MUST BE INTERPRETED WITH RESPECT TO BLOOD DRAWING ARTIFACT OR DILUTION ERROR OF ANTICOAGULANT AT THE TIME OF SAMPLING. Performed By: #### 5 7307, 21449, 32956 #### [facility] [address] PTT HEPARIN MONITORon 2021 aPTT Coag (Bld) [Time] 50.3 s Normal 39.5-54.2 [facility] Comment on above: Performed By: #### D VINCENT PRYOR ERUR #### [facility] [address] [place] [address] Dr. Darya Berry aPTT Coag (Bld) [Time] 49.8 s Normal 39.5-54.2 [facility] Comment on above: Performed By: #### P TTHEP #### [facility] [address] [place] [address] Dr. Darya Berry aPTT Coag (Bld) [Time] 58.4 s Critically high 39.5-54.2 [facility] Comment on above: Performed By: #### H ABDIRAHMAN #### [facility] [address] [address] [address] Darya Berry TROPONIN, HIGH SENSITIVITYon 01-26-2022 HSTROP 57.4 pg/mL Critically high 4.0-51.3 [facility] Comment on above: Result Comment: CUT- OFF POINTS HAVE BEEN ESTABLISHED BASED ON THE FOURTH UNIVERSAL DEFINITIONS OF MYOCARDIAL INFARCTION. THE UPPER REFERENCE LIMIT (URL) OF TROPONIN, DEFINED THE 99TH PERCENTILE OF cTnI DISTRIBUTION IN A REFERENCE POPULATION, HAS BEEN CONFIRMED THE DECISION THRESHOLD FOR CT DIAGNOSIS. Performed By: #### H ABDIRAHMAN #### [facility] [address] [place] [address] Dr. Darya Berry TROPONIN-Ion 01-26-2022 Troponin I.cardiac [Mass/Vol] 0.03 ng/mL Normal 0.00-0.04 [facility] [facility] Comment on above: Order Comment: No: D o not add to previous draw Result Comment: REFE RENCE RANGES: 0.00 - 0.04 ng/ml NORMAL 0.05 - 0.50 ng/ml INDETERMINATE > 0.50 ng/ml CONSISTENT WITH AN M.I. Performed By: #### 1 0070, [id number], [id number], [id number], [id number], [id number] #### [facility] [address] [place] [address], [facility] TSH3on 01-26-2022 TSH 3RD GENERATION 0.20 uIU/mL Low 0.34-5.60 [facility] Comment on above: Order Comment: No: D o not add to previous draw Performed By: #### 1 0070, [id number], [id number], [id number], [id number], [id number] #### [facility] [address] [place] [address], [facility] UFH HEPARIN ASSAYon 01-27-20 UNFRACTIONATED HEPARIN <0.10 Critically low 0.30-0.70 [facility] Comment on above: Result Comment: Resu lt checked and called. Accurately read back by Tani Ambrosio RN at 2108 01/26/22 Rivaroxaban and Apixaban will interfere with the anti Xa assay used to monitor UFH and LMWH. Performed By: #### 5 [id number], [id number], [id number] #### [facility] [address] [place] [address], [facility] BNPon 01-25-2022 Natriuretic peptide B (Bld) [Mass/Vol] 1870.0 pg/mL Critically high <=900.0 [facility] Comment on above: Performed By: #### D VINCENT PRYOR ERUR #### [facility] [address] [address] [address] Darya Berry CARDIAC ARNALDO ADMITon 022 CK [Catalytic activity/Vol] 29 U/L Normal 26-192 [facility] Comment on above: Performed By: #### D VINCENT PRYOR, CHRISTINER #### [facility] [address] [address] [address] Darya Berry CK.MB [Mass/Vol] 1.26 ng/mL Normal <=3.60 [facility] Comment on above: Performed By: #### D VINCENT PRYOR ERUR #### [facility] [address] [address] [address] Darya Berry HSTROP 69.0 pg/mL Critically high 4.0-51.3 [facility] Comment on above: Result Comment: CUT- OFF POINTS HAVE BEEN ESTABLISHED BASED ON THE FOURTH UNIVERSAL DEFINITIONS OF MYOCARDIAL INFARCTION. THE UPPER REFERENCE LIMIT (URL) OF TROPONIN, DEFINED THE 99TH PERCENTILE OF cTnI DISTRIBUTION IN A REFERENCE POPULATION, HAS BEEN CONFIRMED THE DECISION THRESHOLD FOR CT DIAGNOSIS. TEST REPEATED CRITICAL VALUE VERIFIED Performed By: #### D VINCENT PRYOR ERUR #### [facility] [address] [address] [address] Darya Berry NELDA 77 ng/mL Normal 9-82 [facility] Comment on above: Performed By: #### D VINCENT PRYOR ERUR #### [facility] [address] [place] [address] Dr. Darya Berry CBC AUTO DIFFon 01-25-2022 BASO # 0.0 103/ul Normal 0.0-0.1 [facility] Comment on above: Performed By: #### D VINCENT PRYOR, ERUR #### [facility] [address] [place] [address] Dr. Darya Berry Basophils/100 WBC (Bld) 0.4 % Normal 0.2-2.0 [facility] Comment on above: Performed By: #### D VINCENT PRYOR, ERUR #### [facility] [address] [place] [address] Dr. Darya Berry EO # 0.1 103/ul Normal 0.0-0.7 [facility] Comment on above: Performed By: #### D VINCENT PRYOR ERUR #### [facility] [address] [place] [address] Dr. Darya Berry Eosinophils/100 WBC (Bld) 1.3 % Normal 0.9-7.0 [facility] Comment on above: Performed By: #### D VINCENT PRYOR ERUR #### [facility] [address] [place] [address] Dr. Darya Berry Erythrocyte distribution width (RBC) [Ratio] 14.5 % Normal 11.0-15.0 [facility] Comment on above: Performed By: #### D VINCENT PRYOR, ERUR #### [facility] [address] [place] [address] Dr. Darya Berry Hematocrit (Bld) [Volume fraction] 40.2 % Normal 36.0-48.0 [facility] Comment on above: Performed By: #### D VINCENT PRYOR ERUR #### [facility] [address] [place] [address] Dr. Darya Berry Hemoglobin (Bld) [Mass/Vol] 13.4 g/dL Normal 12.0-16.0 [facility] Comment on above: Performed By: #### D VINCENT PRYOR, ERUR #### [facility] [address] [address] [address] Darya Berry IG # 0.03 10e3/ul Normal 0.00-0.03 [facility] Comment on above: Performed By: #### D VINCENT PRYOR, ERUR #### [facility] [address] [address] [address] Darya Berry IG % 0.4 % Normal 0.0-0.5 [facility] Comment on above: Performed By: #### D VINCENT PRYOR, ERUR #### [facility] [address] [place] [address] Dr. Darya Berry LYMPH # 1.9 103/ul Normal 1.2-3.8 [facility] Comment on above: Performed By: #### D VINCENT PRYOR, ERUR #### [facility] [address] [place] [address] Dr. Darya Berry Lymphocytes/100 WBC (Bld) 29.0 % Normal 20.5-60.0 [facility] Comment on above: Performed By: #### D VINCENT PRYOR, ERUR #### [facility] [address] [place] [address] Dr. Darya Berry MANUAL DIFF REQ NO Normal [facility] Comment on above: Performed By: #### D VINCENT PRYOR, ERUR #### [facility] [address] [place] [address] Dr. Darya Berry MCH (RBC) [Entitic mass] 28.7 pg Normal 26.7-34.0 [facility] Comment on above: Performed By: #### D VINCENT PRYOR ERUR #### [facility] [address] [place] [address] Dr. Darya Berry MCHC (RBC) [Mass/Vol] 33.3 g/dL Normal 29.9-35.2 [facility] Comment on above: Performed By: #### D VINCENT PRYOR, ERUR #### [facility] [address] [place] [address] Dr. Darya Berry MCV (RBC) [Entitic vol] 86.1 fL Normal 81.0-99.0 [facility] Comment on above: Performed By: #### D VINCENT PRYOR, ERUR #### [facility] [address] [place] [address] Dr. Darya Berry MONO # 0.5 103/ul Normal 0.3-0.8 [facility] Comment on above: Performed By: #### D VINCENT PRYOR, ERUR #### [facility] [address] [place] [address] Dr. Darya Berry Monocytes/100 WBC (Bld) 6.9 % Normal 1.7-12.0 [facility] Comment on above: Performed By: #### D VINCENT PRYOR, ERUR #### [facility] [address] [place] [address] Dr. Darya Berry NEUT # 4.1 103/ul Normal 1.4-6.5 [facility] Comment on above: Performed By: #### D VINCENT PRYOR ERUR #### [facility] [address] [place] [address] Dr. Darya Berry Neutrophils/100 WBC (Bld) 62.0 % Normal 43.0-75.0 [facility] Comment on above: Performed By: #### D VINCENT PRYOR ERUR #### [facility] [address] [place] [address] Dr. Darya Berry Platelet mean volume (Bld) [Entitic vol] 9.1 fL Critically low 9.5-13.5 [facility] Comment on above: Performed By: #### D VINCENT PRYOR, ERUR #### [facility] [address] [place] [address] Dr. Darya Berry PLT 300 103/ul Normal 150-450 [facility] Comment on above: Performed By: #### D VINCENT PRYOR ERUR #### [facility] [address] [address] [address] Darya Berry RBC 4.67 106/ul Normal 4.20-5.40 [facility] Comment on above: Performed By: #### D VINCENT PRYOR ERUR #### [facility] [address] [place] [address] Dr. Darya Berry WBC 6.7 103/ul Normal 4.0-11.0 [facility] Comment on above: Performed By: #### D VINCENT PRYOR ERUR #### [facility] [address] [place] [address] Dr. Darya Berry CULTURE URINEon 01-25-2022 CULTURE URINE Culture Observations : NO GROWTH. Normal [facility] Comment on above: Performed By: #### H STROPN #### [facility] [address] [place] [address] Dr. Darya Berry Covid-19 PCR (CVDTB)on 12-30 SARS-CoV-2 (COVID-19) RNA VIRY+probe Ql (Unsp spec) Not detected Normal NOT DETECTED [facility] Comment on above: Result Comment: When diagnostic testing is negative, the possibility of a false negative should be considered in the context of a patient's recent exposures and the presence of clinical signs and symptoms consistent with SARS-CoV-2. This test is not yet approved or cleared by the [place] FDA. When there are no FDA-approved or cleared tests available, and other criteria are met, FDA can make tests available under an emergency access mechanism called an Emergency Use Authorization (EUA). The EUA for this test is supported by the [employer] of Health and Human Service's declaration that circumstances exist to justify the emergency use of in vitro diagnostics for the detection and/or diagnosis of the virus that causes COVID-19. This EUA will remain in effect for the duration of the COVID-19 declaration justifying emergency of IVDs, unless it is terminated or revoked by the FDA (after which the test may no longer be used). Performed By: #### D VINCENT PRYOR ERUR #### [facility] [address] [place] [address] Dr. Darya Berry D-DIMERon 01-25-2022 D-DIMER 0.47 mg/L FEU Normal <=0.59 [facility] Comment on above: Performed By: #### D VINCENT PRYOR ERUR #### [facility] [address] [address] [address] Darya Berry D-DIMER COMMENTS SEE BELOW Normal [facility] Comment on above: Result Comment: Incr eases in D-Dimer concentration observed with thromboembolic events can be variable due to localization, size, and age of the thrombus. Therefore, a thromboembolic event cannot be diagnosed with certainty on the basis of the reference range. D-Dimers may also be elevated for a variety of disorders including: advanced age, , coronary disease, cancer, liver disease, infection, inflammation, hematoma, DIC, trauma, post-surgery, diabetes, thrombolytic or anticoagulant therapy, stress, and generalized hospitalization. Performed By: #### D VINCENT PRYOR, ERUR #### [facility] [address] [address] [address] Darya Berry DRUG SCREEN RAPID (URINE)on 01-25-2022 AMP Positive Abnormal NEGATIVE [facility] Comment on above: Performed By: #### D VINCENT PRYOR ERUR #### [facility] [address] [address] [address] Darya Berry BAR Negative Normal NEGATIVE [facility] Comment on above: Performed By: #### D VINCENT PRYOR, ERUR #### [facility] [address] [address] [address] Darya Berry BUP Negative Normal NEGATIVE [facility] Comment on above: Performed By: #### D VINCENT PRYOR, ERUR #### [facility] [address] [address] [address] Darya Berry BZO Positive Abnormal NEGATIVE [facility] Comment on above: Performed By: #### D VINCENT PRYOR, ERUR #### [facility] [address] [place] [address] Dr. Darya Berry TOD Negative Normal NEGATIVE [facility] Comment on above: Performed By: #### D RUGRPD, UMICRO, ERUR #### [facility] [address] [address] [address] Darya Berry CUT-OFFS SEE BELOW Normal [facility] Comment on above: Result Comment: AMP (Amphetamine): 500ng/mL, BAR (Barbituates): 200 ng/mL, BZO (Benzodiazepines): 150 ng/mL, BUP (Buprenorphine): 10 ng/mL, TOD (Cocaine): 150 ng/mL, mAMP (Methamphetamine): 500 ng/mL, MTD (Methadone): 200 ng/mL, OPI (Opiates): 100 ng/mL, OXY (Oxycodone): 100 ng/mL, PCP (Phencyclidine): 25 ng/mL, PPX (Propoxyphene): 300 ng/mL, THC (Cannabinoids): 50 ng/mL, TCA (Trycyclic Antidepressants): 300 ng/mL Performed By: #### D VINCENT PRYOR, ERUR #### [facility] [address] [place] [address] Dr. Darya Berry DRUG CUT HEADER DRUG CLASS TEST SYST EM CUT-OFF CONCENTRATIONS ARE FOLLOWS: Normal [facility] Comment on above: Performed By: #### D VINCENT PRYOR, ERUR #### [facility] [address] [address] [address] Darya Berry mAMP Positive Abnormal NEGATIVE [facility] Comment on above: Performed By: #### D VINCENT PRYOR, ERUR #### [facility] [address] [address] [address] Darya Berry MTD Negative Normal NEGATIVE [facility] Comment on above: Performed By: #### D MERY PRYORICRO, ERUR #### [facility] [address] [address] [address] Darya Berry OPI Negative Normal NEGATIVE [facility] Comment on above: Performed By: #### D BRYANNA PRYORRO, ERUR #### [facility] [address] [address] [address] Darya Berry OXY Negative Normal NEGATIVE [facility] Comment on above: Performed By: #### D IVNCENT PRYOR, ERUR #### [facility] [address] [address] [address] Darya Berry PCP Negative Normal NEGATIVE [facility] Comment on above: Performed By: #### D VINCENT PRYOR, ERUR #### [facility] [address] [address] [address] Darya Berry PPX Negative Normal NEGATIVE [facility] Comment on above: Performed By: #### D VINCENT PRYOR, ERUR #### [facility] [address] [address] [address] Darya Berry TCA Positive Abnormal NEGATIVE [facility] Comment on above: Performed By: #### D VINCENT PRYOR, ERUR #### [facility] [address] [place] [address] Dr. Darya Berry THC Negative Normal NEGATIVE [facility] Comment on above: Performed By: #### D VINCENT PRYOR, ERUR #### [facility] [address] [place] [address] Dr. Darya Berry ER URINE PROFILEon 2 Bilirubin Ql (U) Negative Normal NEGATIVE [facility] Comment on above: Performed By: #### D VINCENT PRYOR, ERUR #### [facility] [address] [place] [address] Dr. Darya Berry Clarity (U) CLEAR Normal CLEAR [facility] Comment on above: Performed By: #### D VINCENT PRYOR, ERUR #### [facility] [address] [place] [address] Dr. Darya Berry Color (U) LT. YELLOW Normal YELLOW [facility] Comment on above: Performed By: #### D VINCENT PRYOR, ERUR #### [facility] [address] [place] [address] Dr. Darya KINGAHAnusha A micrscopic examination will be performed if indicated. Normal [facility] Comment on above: Performed By: #### D VINCENT PRYOR, ERUR #### [facility] [address] [address] [address] Darya Berry Glucose Ql (U) Negative Normal NEGATIVE [facility] Comment on above: Performed By: #### D VINCENT PRYOR ERUR #### [facility] [address] [address] [address] Darya Berry Hemoglobin Ql (U) SMALL Abnormal NEGATIVE [facility] Comment on above: Performed By: #### D VINCENT PRYOR, ERUR #### [facility] [address] [address] [address] Darya Berry Ketones Ql (U) Negative Normal NEGATIVE [facility] Comment on above: Performed By: #### D VINCENT PRYOR ERUR #### [facility] [address] [place] [address] Dr. Darya Berry LEUKOCYTES SMALL Abnormal NEGATIVE [facility] Comment on above: Performed By: #### D VINCENT PRYOR ERUR #### [facility] [address] [address] [address] Darya Berry Nitrite Ql (U) Negative Normal NEGATIVE [facility] Comment on above: Performed By: #### D VINCENT PRYOR ERUR #### [facility] [address] [place] [address] Dr. Darya Berry pH (U) 6.0 [pH] Normal 5-9 [facility] Comment on above: Performed By: #### D VINCENT PRYOR ERUR #### [facility] [address] [address] [address] Darya Berry SPEC GRAVITY 1.010 Normal 1.005-<=1.025 [facility] Comment on above: Performed By: #### D VINCENT PRYOR ERUR #### [facility] [address] [address] [address] Darya Berry UA PROTEIN Negative Normal NEGATIVE/ TRACE [facility] Comment on above: Performed By: #### D VINCENT PRYOR ERUR #### [facility] [address] [address] [address] Darya Berry UR MICRO IND INDICATED Normal [facility] Comment on above: Performed By: #### D VINCENT PRYOR, ERUR #### [facility] [address] [place] [address] Dr. Darya Berry Urobilinogen Qn (U) 0.2 {Constantino'U}/dL Normal 0.2 - 1. 0 [facility] Comment on above: Performed By: #### D VINCENT PRYOR, ERUR #### [facility] [address] [place] [address] Dr. Darya Berry PROF 14(COMP METB)on 022 Albumin [Mass/Vol] 3.4 g/dL Normal 3.4-5.0 [place] Comment on above: Performed By: #### D VINCENT PRYOR, ERUR #### [facility] [address] [place] [address] Dr. Darya Berry Albumin/Globulin [Mass ratio] 1.1 {ratio} Normal [facility] Comment on above: Performed By: #### D VINCENT PRYOR, ERUR #### [facility] [address] [place] [address] Dr. Darya Berry ALP [Catalytic activity/Vol] 172 U/L Critically high 46-116 [facility] Comment on above: Performed By: #### D VINCENT PRYOR, ERUR #### [facility] [address] [address] [address] Darya Berry ALT [Catalytic activity/Vol] 10 U/L Critically low 14-59 [facility] Comment on above: Performed By: #### D VINCENT PRYOR, ERUR #### [facility] [address] [place] [address] Dr. Darya Berry Anion gap [Moles/Vol] 13.3 mmol/L Normal [facility] Comment on above: Performed By: #### D VINCENT PRYOR, ERUR #### [facility] [address] [place] [address] Dr. Darya Berry AST [Catalytic activity/Vol] 12 U/L Critically low 15-37 [facility] Comment on above: Performed By: #### D VINCENT PRYOR, ERUR #### [facility] [address] [address] [address] Darya Berry Bilirubin [Mass/Vol] 0.2 mg/dL Normal 0.2-1.0 [facility] Comment on above: Performed By: #### D VINCENT PRYOR, ERUR #### [facility] [address] [address] [address] Darya Berry Calcium [Mass/Vol] 8.7 mg/dL Normal 8.5-10.1 [place] Comment on above: Performed By: #### D VINCENT PRYOR, ERUR #### [facility] [address] [place] [address] Dr. Darya Berry Chloride [Moles/Vol] 104 mmol/L Normal 98-107 [facility] Comment on above: Performed By: #### D VINCENT PRYOR, ERUR #### [facility] [address] [address] [address] Darya Berry CO2 [Moles/Vol] 24.5 mmol/L Normal 21.0-32.0 [facility] Comment on above: Performed By: #### D VINCENT PRYOR, ERUR #### [facility] [address] [address] [address] Darya Berry Creatinine [Mass/Vol] 1.08 mg/dL Critically high 0.55-1.02 [facility] Comment on above: Performed By: #### D VINCENT PRYOR, ERUR #### [facility] [address] [address] [address] Darya Berry EGFR-AF KOSOVAN >60 Normal >=60 [facility] Comment on above: Performed By: #### D VINCENT PRYOR, ERUR #### [facility] [address] [address] [address] Darya Berry EGFR-NON AF KOSOVAN 51 mL/min/1.73m2 Critically low >=60 [facility] Comment on above: Performed By: #### D VINCENT PRYOR ERUR #### [facility] [address] [address] [address] Darya Berry Globulin (S) [Mass/Vol] 3.2 g/dL Normal [facility] Comment on above: Performed By: #### D VINCENT PRYOR, ERUR #### [facility] [address] [address] [address] Darya Berry Glucose [Mass/Vol] 95 mg/dL Normal 74-106 [facility] Comment on above: Performed By: #### D VINCENT PRYOR, ERUR #### [facility] [address] [place] [address] Dr. Darya Berry Potassium [Moles/Vol] 2.8 mmol/L Critically low 3.5-5.1 [facility] Comment on above: Result Comment: TEST REPEATED CRITICAL VALUE VERIFIED Performed By: #### D VINCENT PRYOR, ERUR #### [facility] [address] [address] [address] Darya Berry Protein [Mass/Vol] 6.6 g/dL Normal 6.4-8.2 [facility] Comment on above: Performed By: #### D VINCENT PRYOR, ERUR #### [facility] [address] [address] [address] Darya Berry Sodium [Moles/Vol] 139 mmol/L Normal 136-145 [facility] Comment on above: Performed By: #### D VINCENT PRYOR, ERUR #### [facility] [address] [address] [address] Darya Berry Urea nitrogen [Mass/Vol] 17.0 mg/dL Normal 7.0-18.0 [facility] Comment on above: Performed By: #### D VINCENT PRYOR, ERUR #### [facility] [address] [address] [address] Darya Berry Urea nitrogen/Creatinine [Mass ratio] 15.7 mg/mg Normal [facility] Comment on above: Performed By: #### D VINCENT PRYOR ERUR #### [facility] [address] [place] [address] Dr. Darya Berry PROTIMEon 01-25-2022 INR Coag (PPP) [Relative time] 0.97 {INR} Normal [facility] Comment on above: Performed By: #### D VINCENT PRYOR ERUR #### [facility] [address] [place] [address] Dr. Darya Berry INR GUIDELINES SEE BELOW Normal [facility] Comment on above: Result Comment: BLAKE RED INR: 2.0 - 3.0 CONDITIONS NOT LISTED BELOW 2.5 - 3.5 FOR PROSTHETIC HEART VALVE REPLACEMENT 2.5 - 3.5 RECURRENT THROMBOSIS Performed By: #### D VINCENT PRYOR ERUR #### [facility] [address] [address] [address] Darya Berry PT Coag (PPP) [Time] 10.5 s Normal 9.0-11.6 [facility] Comment on above: Performed By: #### VINCENT SWENSON ERUR #### [facility] [address] [place] [address] Dr. Darya Berry PTTon 01-25-2022 aPTT Coag (Bld) [Time] 28.8 s Normal 22.3-36.2 [facility] Comment on above: Performed By: #### D VINCENT PRYOR ERUR #### [facility] [address] [place] [address] Dr. Darya Berry TROPONIN, HIGH SENSITIVITYon 01-25-2022 HSTROP 76.5 pg/mL Critically high 4.0-51.3 [facility] Comment on above: Result Comment: CUT- OFF POINTS HAVE BEEN ESTABLISHED BASED ON THE FOURTH UNIVERSAL DEFINITIONS OF MYOCARDIAL INFARCTION. THE UPPER REFERENCE LIMIT (URL) OF TROPONIN, DEFINED THE 99TH PERCENTILE OF cTnI DISTRIBUTION IN A REFERENCE POPULATION, HAS BEEN CONFIRMED THE DECISION THRESHOLD FOR CT DIAGNOSIS. Performed By: #### H STROPN #### [facility] [address] [address] [address] Darya Berry URINE MICROSCOPIC ONLYon BACTERIA TRACE Abnormal NONE SEEN [facility] Comment on above: Performed By: #### D VINCENT PRYOR, ERUR #### [facility] [address] [address] [address] Darya Berry Bacteria identified Cx Nom (U) INDICATED Normal [facility] Comment on above: Performed By: #### D VINCENT PRYOR, ERUR #### [facility] [address] [address] [address] Darya Berry CAST SEEN Abnormal NONE SEEN [facility] Comment on above: Performed By: #### D VINCENT PRYOR, ERUR #### [facility] [address] [address] [address] Darya Berry Crystals LM Nom (Urine sed) NONE SEEN Normal NONE SEEN [facility] Comment on above: Performed By: #### D VINCENT PRYOR, ERUR #### [facility] [address] [address] [address] Darya Berry Epithelial cells LM Ql (Urine sed) MODERATE Abnormal NONE SEEN /RARE [facility] Comment on above: Performed By: #### D VINCENT PRYOR, ERUR #### [facility] [address] [address] [address] Darya Berry HYALINE CAST FEW Normal [facility] Comment on above: Performed By: #### D VINCENT PRYOR, ERUR #### [facility] [address] [address] [address] Darya Berry MUCOUS TRACE Abnormal NONE SEEN [facility] Comment on above: Performed By: #### D VINCENT PRYOR, ERUR #### [facility] [address] [address] [address] Darya Berry RBC 0-2 Normal 0-2 [facility] Comment on above: Performed By: #### D VINCENT PRYOR, ERUR #### [facility] [address] [address] [address] Darya Berry WBC 2-5 Abnormal NONE SEEN [facility] Comment on above: Performed By: #### D VINCENT PRYOR ERUR #### [facility] [address] [place], [place] [address] Dr. Darya Berry XR CHEST 1 Von 01-25-2022 XR CHEST 1 V EXAM: XR CHEST 1 V a t 1325 hours HISTORY: CHEST PAIN, UNSPECIFIED COMPARISON: 04/10/2020 TECHNIQUE: AP upright portable chest x-ray FINDINGS: The heart is not enlarged and the vasculature is not distended. A very small amount of atelectasis or infiltrate is seen at the left lung base. The left upper and the right lung are clear. A right pericardial fat-pad is present. The osseous structures are grossly intact. IMPRESSION: There is a very small amount of atelectasis or infiltrate seen at the left lung base. The lungs otherwise clear. There is no evidence of cardiac decompensation, the overall appearance of the chest is otherwise unchanged. Electronically authenticated by: ILANA NESBITT Date: 2022-01-25 14:15 Normal [facility] Covid-19 PCR (CVDTBH)on 08-30 SARS-CoV-2 (COVID-19) RNA VIRY+probe Ql (Unsp spec) Not detected Normal NOT DETECTED [facility] Comment on above: Result Comment: When diagnostic testing is negative, the possibility of a false negative should be considered in the context of a patient's recent exposures and the presence of clinical signs and symptoms consistent with SARS-CoV-2. This test is not yet approved or cleared by the [place] FDA. When there are no FDA-approved or cleared tests available, and other criteria are met, FDA can make tests available under an emergency access mechanism called an Emergency Use Authorization (EUA). The EUA for this test is supported by the [employer] of Health and Human Service's declaration that circumstances exist to justify the emergency use of in vitro diagnostics for the detection and/or diagnosis of the virus that causes COVID-19. This EUA will remain in effect for the duration of the COVID-19 declaration justifying emergency of IVDs, unless it is terminated or revoked by the FDA (after which the test may no longer be used). Performed By: #### C TANJATBH #### [facility] [address] [place] [address] Dr. Darya Berry INFLUENZA A AND B AGon 08-30 [facility] SEE BELOW Normal [facility] Comment on above: Result Comment: Nega tive for Flu A protein angiten. Infection due to Flu A cannot be ruled out. Flu A angiten in the sample may be below the detection limit of the test. Performed By: #### I NFLUAB #### [facility] [address] [place] [address] Dr. Darya Berry INFLUBNEG SEE BELOW Normal [facility] Comment on above: Result Comment: Nega tive for Flu B protein antigen. Infection due to Flu B cannot be ruled out. Flu B antigen in the sample may be below the detection limit of the test. Performed By: #### I NFLUAB #### [facility] [address] [place] [address] Dr. Darya Berry INFLUENZA A AG Negative Normal NEGATIVE SEE COMMENT [facility] Comment on above: Performed By: #### I NFLUAB #### [facility] [address] [place] [address] Dr. Darya Berry INFLUENZA B AG Negative Normal NEGATIVE SEE COMMENT [facility] Comment on above: Performed By: #### I NFLUAB #### [facility] [address] [place] [address] Dr. Darya Berry INTERNAL CONTROLS Within Normal Limits Normal Wi thin Normal Limits [facility] Comment on above: Performed By: #### I NFLUAB #### [facility] [address] [place] [address] Dr. Darya Berry [facility]01 SARS-CoV-2 (COVID-19) RNA VIRY+probe Ql (Unsp spec) Not detected Normal NOT DETECTED [facility] Comment on above: Result Comment: This test is not yet approved or cleared by the [place] FDA. When there are no FDA-approved or cleared tests available, and other criteria are met, FDA can make tests available under an emergency access mechanism called an Emergency Use Authorization (EUA). The EUA for this test is supported by the [employer] of Health and Human Service's (HHS's) declaration that circumstances exist to justify the emergency use of in vitro diagnostics for the detection and/or diagnosis of the virus that causes COVID-19. This EUA will remain in effect (meaning this test can be used) for the duration of the COVID-19 declaration justifying emergency of IVDs, unless it is terminated or revoked by FDA (after which the test may no longer be used). When diagnostic testing is negative, the possibility of a false negative should be considered in the context of a patient's recent exposures and the presence of clinical signs and symptoms consistent with SARS-CoV-2. Performed By: #### H [facility] #### [facility] [address] [place] [address] Dr. Darya Berry Encounters Encounter Date Encounter Type Care Provider Facility Start: 03-06-2024 End: 03-06-2024 ambulatory [facility] Start: 09-13-2023 End: 09-13-2023 ambulatory [facility] Start: 03-29-2023 End: 03-29-2023 ambulatory [facility] Start: 04-24-2022 End: 04-25-[address] SKYLER BOWMAN Facility:[facility] Start: 04-03-2022 End: 04-04-2022 ambulatory GIOVANA LEA Facility:[facility] Start: 2022 End: 03-15-2022 ambulatory GAYATRI HUSSEIN Facility:[facility] Start: 02-28-[address] SKYLER BOWMAN Facility :[facility] Start: 02-24-2022 ambulatory GAYATRI HUSSEIN Facility :[facility] Start: 01-26-2022 End: 01-30-2022 Evaluation and management of inpatient ADELA ROGERS Facility:[facility] Start: 01-25-2022 End: 01-26-[address] SKYLER BOWMAN Facility:[facility] Start: 09-18-2021 End: 09-18-[address] SKYLER BOWMAN Facility:[facility] Start: 08-01-[address] SKYLER BOWMAN Facility :[facility] Start: 07-17-2021 End: 07-17-[address] SKYLER BOWMAN Facility:[facility] Procedures Date Procedure Procedure Detail Performing Clinician Start: 09-13-2023 Follow-up visit Follow-up NOMI ORLANDO Payers Date Payer Category Payer Medicare [id number] 1961 [facility] of [facility] e ( and others) [id number] 1961 Medicare [id number] 1961 Self-pay [id number] 1960 Unknown [id number] 1960 Unknown [id number] 1960 Unknown [id number] 1960 Unknown [id number] 1960 Unknown [id number] 1958 Unknown [id number] 1958 Unknown [id number] 1958 Unknown [id number] 1958 Unknown [id number] 1960 Unknown [id number] Progress note 09-13-2023 Note Date & Type Note Facility 09-13-2023 Note Cardiology Follow Up Progress Note Chief Complaint: follow up Julissa Muniz is a 63 y.o. female who follows with Cardiology for SVT s/p ablation and CAD s/p PCI to RCA. She presents today for follow up. Overall, patient is doing well. She is just recovering from bronchitis and has some residual shortness of breath. Otherwise, she denies any cardiac symptoms. No chest pain. No lower extremity edema. No orthopnea or PND. No near syncope or syncope. Review of Systems: 10 point ROS was performed and negative unless otherwise specified in HPI Medications Current Outpatient Medications on File Prior to Visit Medication Sig Dispense Refill aspirin 81 mg EC tablet Take 81 mg by mouth in the morning. atorvastatin (Lipitor) 40 mg tablet Take 1 tablet (40 mg) by mouth at bedtime. 90 tablet 3 carisoprodol (Soma) 350 mg tablet take 1 tablet by mouth four times a day if needed carvedilol (Coreg) 3.125 mg tablet Take 1 tablet (3.125 mg) by mouth with breakfast and with evening meal. 180 tablet 3 cetirizine (ZyrTEC) 10 mg tablet Take 10 mg by mouth in the morning. citalopram (CeleXA) 20 mg tablet Take 40 mg by mouth in the morning. clopidogrel (Plavix) 75 mg tablet Take 1 tablet (75 mg) by mouth once daily as directed. 90 tablet 3 cyclobenzaprine (Flexeril) 10 mg tablet Take 10 mg by mouth if needed in the morning, at noon, and at bedtime for muscle spasms. diazePAM (Valium) 5 mg tablet Take 5 mg by mouth every 8 (eight) hours if needed for anxiety. ezetimibe (Zetia) 10 mg tablet Take 1 tablet (10 mg) by mouth once daily as directed. 90 tablet 3 levothyroxine (Synthroid, Levoxyl) 100 mcg tablet Take 100 mcg by mouth before breakfast. meclizine (Antivert) 25 mg tablet Take 25 mg by mouth if needed in the morning, at noon, and at bedtime for dizziness. metoclopramide (Reglan) 10 mg tablet Take 10 mg by mouth 2 times daily. nitroglycerin (Nitrostat) 0.[address] 0.4 mg under the tongue every 5 (five) minutes if needed for chest pain. pantoprazole (ProtoNix) 40 mg EC tablet Take 40 mg by mouth before breakfast. Do not crush, chew, or split. rizatriptan (Maxalt) 10 mg tablet Take 10 mg by mouth 1 (one) time if needed for migraine. May repeat in 2 hours if unresolved. Do not exceed 30 mg in 24 hours. rOPINIRole (Requip) 2 mg tablet Take 2 mg by mouth at bedtime. No current facility-administered medications on file prior to visit. Allergies Erythromycin base, Latex, Morphine, Nickel, and Zofran [ondansetron hcl] Physical Exam VITAL SIGNS: Physical Exam VITAL SIGNS: BP 133/76 (BP Location: Left arm, Patient Position: Sitting, BP Cuff Size: Adult) Pulse 88 Resp 15 Ht 1.676 m (5' 6 ) Wt 82.5 kg (181 lb 12.8 oz) SpO2 96% BMI 29.34 kg/m??? Constitutional: Well developed, Well nourished, No acute distress, Non-toxic appearance. HENT: Normocephalic, Atraumatic, Bilateral external ears have normal appearance, Bilateral TMs clear, Oropharynx moist, No oral or pharyngeal exudates, Nose appears normal, nares are patent. Eyes: PERRLA, EOMI, Conjunctiva normal, No discharge. Neck: Normal range of motion, No tenderness, Supple, No stridor. No cervical lymphadenopathy noted. Cardiovascular: Normal heart rate, Normal rhythm, No murmurs, No rubs, No gallops. Thorax & Lungs: Normal breath sounds, No respiratory distress, No wheezing, No chest tenderness to palpation. Abdomen: Bowel sounds normal, Soft, Nontender, No masses, No pulsatile masses. Skin: Warm, Dry, No erythema, No rash. Back: No tenderness, No CVA tenderness. Extremities: Intact distal pulses, No edema, No tenderness, No cyanosis, No clubbing. Musculoskeletal: Good range of motion in all major joints with 5/5 muscle strength in all muscle groups, No tenderness to palpation or major deformities noted. Neurologic: Alert & oriented x 3, Normal motor function in all major muscle groups, Normal sensory function to all major dermatomes, No focal deficits noted. Psychiatric: Affect normal, Judgment normal, Mood normal. Assessment/Plan: 1. Coronary artery disease, atorvastatin (Lipitor) 40 mg tablet carvedilol (Coreg) 3.125 mg tablet clopidogrel (Plavix) 75 mg tablet ezetimibe (Zetia) 10 mg tablet 2. SVT s/p ablation -patient adamantly denies any complaints related to SVT -coreg 3.125 mg BID -Optimize medical management -Aggressive risk factor modification -Plan of care discussed with patient. All questions were answered. Patient voices understanding and is agreeable with current plan. -Patient was educated on red flag symptoms. Strict return precautions were provided. Patient verbalizes understanding -Follow-up in cardiology clinic Nomi Orlando MD Interventional Cardiology [facility] Progress note 03-29-2023 Note Date & Type Note Facility 03-29-2023 Note Cardiology Follow Up Progress Note Chief Complaint: telemed visit for follow up The patient was notified that using 3rd democrat telecommunication application (e.g., [employer]) is not HIPPA compliant and may carry some privacy risks. Yes The visit was conducted with the use of audio technology (telephone) between patient and provider for a virtual visit. Verbal consent to provide and bill this service was obtained on 03/29/2023 . No signature was obtained due to the COVID-19 pandemic. Patient Location: Patient Home Julissa Muniz is a 63 y.o. female who follows with Cardiology for SVT s/p ablation and CAD s/p PCI to RCA. Patient is scheduled for telemedicine visit today for follow up. Patient states that she is doing well. Patient adamantly denies any cardiac complaints or concerns. Patient denies any chest pain or shortness of breath. Patient denies any lower extremity edema, orthopnea, or proximal nocturnal dyspnea. No near-syncope or syncope. No dizziness or lightheadedness. Review of Systems: 10 point ROS was performed and negative unless otherwise specified in HPI Medications Current Outpatient Medications on File Prior to Visit Medication Sig Dispense Refill aspirin 81 mg EC tablet Take 81 mg by mouth in the morning. carisoprodol (Soma) 350 mg tablet take 1 tablet by mouth four times a day if needed cetirizine (ZyrTEC) 10 mg tablet Take 10 mg by mouth in the morning. citalopram (CeleXA) 20 mg tablet Take 40 mg by mouth in the morning. cyclobenzaprine (Flexeril) 10 mg tablet Take 10 mg by mouth if needed in the morning, at noon, and at bedtime for muscle spasms. diazePAM (Valium) 5 mg tablet Take 5 mg by mouth every 8 (eight) hours if needed for anxiety. levothyroxine (Synthroid, Levoxyl) 100 mcg tablet Take 100 mcg by mouth before breakfast. meclizine (Antivert) 25 mg tablet Take 25 mg by mouth if needed in the morning, at noon, and at bedtime for dizziness. metoclopramide (Reglan) 10 mg tablet Take 10 mg by mouth 2 times daily. nitroglycerin (Nitrostat) 0.[address] 0.4 mg under the tongue every 5 (five) minutes if needed for chest pain. pantoprazole (ProtoNix) 40 mg EC tablet Take 40 mg by mouth before breakfast. Do not crush, chew, or split. rizatriptan (Maxalt) 10 mg tablet Take 10 mg by mouth 1 (one) time if needed for migraine. May repeat in 2 hours if unresolved. Do not exceed 30 mg in 24 hours. rOPINIRole (Requip) 2 mg tablet Take 2 mg by mouth at bedtime. No current facility-administered medications on file prior to visit. Allergies Erythromycin base, Latex, Morphine, and Zofran [ondansetron hcl] Physical Exam VITAL SIGNS: BP 117/90 Pulse 76 Ht 1.676 m (5' 6 ) Wt 74.8 kg (165 lb) SpO2 99% BMI 26.63 kg/m??? General: alert, cooperative Respiratory: able to speak in full sentences without cough or SOB Neuro: A&O x 3, responded to questions appropriately, normal speech, memory intact Psych: Normal mood, normal affect Assessment/Plan: 1. Coronary artery disease, unspecified vessel or lesion type, unspecified whether angina present, unspecified whether cocopah or transplanted heart atorvastatin (Lipitor) 40 mg tablet; Take 1 tablet (40 mg) by mouth at bedtime. Dispense: 90 tablet; Refill: 3 carvedilol (Coreg) 3.125 mg tablet; Take 1 tablet (3.125 mg) by mouth with breakfast and with evening meal. Dispense: 180 tablet; Refill: 3 clopidogrel (Plavix) 75 mg tablet; Take 1 tablet (75 mg) by mouth once daily as directed. Dispense: 90 tablet; Refill: 3 ezetimibe (Zetia) 10 mg tablet; Take 1 tablet (10 mg) by mouth once daily as directed. Dispense: 90 tablet; Refill: 3 2. SVT s/p ablation -patient adamantly denies any complaints related to SVT -Continue beta alberto -Optimize medical management -Aggressive risk factor modification -Plan of care discussed with patient. All questions were answered. Patient voices understanding and is agreeable with current plan. -Patient was educated on red flag symptoms. Strict return precautions were provided. Patient verbalizes understanding -Follow-up in cardiology clinic Nomi Orlando MD Interventional Cardiology [facility] Progress note 03-29-2023 Note Date & Type Note Facility 03-29-2023 Note Telephone apt for 1 year follow up CAD and SVT. Had echo and labs last fall. She has quit smoking and is able to exert herself without SOB. [facility] Discharge summary note 01-30-2022 Note Date & Type Note Facility 01-30-2022 Note MR#: [id number] I [facility] Pt. Name: Julissa Muniz Admitted: 01/26/2022 Discharged: 01/30/2022 Date of : 1960 Physician: Adela Rogers MD DISCHARGE SUMMARY FINAL DIAGNOSES: 1. Non-ST elevation myocardial infarction. 2. Coronary artery disease, status post PCI. 3. Substance use disorder. 4. History of SVT status post ablation. 5. COPD, not on oxygen at home. 6. Tobacco use. 7. History of peptic ulcer disease history. HISTORY OF PRESENT ILLNESS AND HOSPITALIZATION COURSE: The patient is a 61-year-old female with past medical history significant for SVT, history of substance use disorder, history of tobacco use. She presented to the emergency department with complaints of generalized weakness. In the ER, she was found to have an elevated troponins. She was evaluated by Cardiology and given her increased risk for ischemic heart disease, she has workup for acute coronary syndrome. The patient was started on heparin drip and admitted to the telemetry floor. She had an echocardiogram done on January 29, which is showing an EF of 60%. The patient underwent coronary angiogram and she received a drug-eluting stent to the RCA. The patient was started on dual antiplatelet treatment and beta-alberto along with the high-intensity statin. Cardiology recommended for her to be on Zetia on top of that as well. The patient will need to have close followup with Cardiology as an outpatient. Her echocardiogram showed mass versus prominent ridge in the right atrium superior versus superior vena cava area and they will need to have repeat echocardiogram in 2-4 weeks. The patient was educated about the need for the compliance with her dual antiplatelet treatment. She was counseled about tobacco use. The patient was educated that she will need to return to the emergency department if she develops any recurrence or worsening of her symptoms. She was discharged in stable condition to home on January 30, 2022. PHYSICAL EXAM ON DAY OF DISCHARGE: GENERAL: She is an elderly female, nontoxic appearing. HEENT: Pupils equal, round, reactive to light. Extraocular needs. Mucous membranes moist. NECK: Supple. No JVD. No LAD. HEART: Normal S1, S2. Regular rate and rhythm. No murmurs. ABDOMEN: Soft, nontender, nondistended. Positive bowel sounds. MEDICATIONS ON DISCHARGE: As per the medication reconciliation list. TIME OF DISCHARGE: 45 minutes. Electronically Signed by: Adela Rogers MD 02/01/2022 08:02 P Adela Rogers MD Date Dict: 01/30/2022/12:55 P/Adela Rogers MD Date Trans: 01/30/2022 07:06 P/jac [id number] cc: Skyler Bowman M.D. [address] [facility] [id number] [facility] Summary Purpose Family History No Family History Records FoundNo Family History Records FoundNo Family History Records Found Advance Directives No Advanced Directives Records FoundNo Advanced Directives Records FoundNo Advanced Directives Records Found Additional Source Comments INFORMATION SOURCE (unrecogn ized section and content) DATE CREATED AUTHOR 02/02/2022 [facility] DATE CREATED AUTHOR AUTHOR'S ORGANIZ ATION 04/29/2022 [facility] DATE CREATED AUTHOR AUTHOR'S ORGANIZ ATION 03/08/2024 [facility] FOR RECORDS PERTAINING TO PATIENTS WHO ARE OR HAVE BEEN ENROLLED IN A CHEMICAL DEPENDENCY/SUBSTANCEABUSE PROGRAM, SOME INFORMATION MAY BE OMITTED. This clinical summary was aggregated from multiple sources. Caution should be exercised in using it in the provision of clinical care. This summary normalizes information from multiple sources, and as a consequence, information in this document may materially change the coding, format and clinical context of patient data. In addition, data may be omitted in some cases. CLINICAL DECISIONS SHOULD BE BASED ON THE PRIMARY CLINICAL RECORDS. [email or web address] [facility] provides no warranty or guarantee of the accuracy or completeness of information in this document.
[2024-03-26] MEDS: PROMETHAZINE HCL 25 MG/ML VIAL 12.5 MG IV ×2 (19:50→21:03)
[2024-03-26] MEDS: 0.9 % SODIUM CHLORIDE 1,000 ML 999 ML IV ×2 (19:51→21:06)
[2024-03-26 19:54] LABS: Anion Gap 8.8
[2024-03-26 19:56] LABS: Alanine Aminotransferase 15 U/L (14-59); Albumin Globulin Ratio 0.9; Albumin Level 3.2 g/dL (3.4-5.0); Alkaline Phosphatase 135 U/L (46-116); Aspartate Amino Transferase 20 U/L (15-37); BUN Creatinine Ratio 19.3; Bilirubin Total 0.4 mg/dL (0.2-1.0); Calcium 9.3 mg/dL (8.5-10.1); Carbon Dioxide 32.6 mmol/L (21.0-32.0); Chloride 100 mmol/L (98-107); Estimated GFR (African America 58 (>=60); Estimated GFR (Non-African Ame 48 (>=60); Globulin 3.5 g/dL; Glucose 128 mg/dL (74-106); Potassium 3.4 mmol/L (3.5-5.1); Sodium 138 mmol/L (136-145); Total Protein 6.7 g/dL (6.4-8.2); Troponin I High Sensitivity 7.4 pg/mL (4.0-51.3)
[2024-03-26 20:00] LABS: Lactate/Lactic Acid 2.3 mmol/L (0.4-2.0)
[2024-03-26 23:00] LABS: Bilirubin Urine NEGATIVE (NEGATIVE); Blood Urine TRACE-I (NEGATIVE); Clarity Urine CLEAR (CLEAR); Color Urine LT. YELLOW (YELLOW); Glucose Urine UA NEGATIVE (NEGATIVE); Ketones Urine TRACE mg/dL (NEGATIVE); Leukocyte Esterase Urine TRACE (NEGATIVE); Nitrite Urine NEGATIVE (NEGATIVE); Protein Urine NEGATIVE (NEG/TRACE); Specific Gravity Urine 1.015 (1.005-1.025); Urobilinogen Urine 0.2 EU/dL (0.2-1.0)
[2024-03-26 23:03] LABS: Urine Microscopic Indicated YES
[2024-03-26 23:39] LABS: Bacteria Urine SMALL #/HPF (NONE SEEN); Cast Seen? NONE SEEN #/LPF (NONE SEEN); Crystals Seen? None Seen #/HPF (None Seen); Mucus Urine NONE SEEN (NONE SEEN); RBC Urine 0-2 #/HPF (0-2); Squamous Epithelial Cell Urine FEW #/LPF (NONE/RARE); Transitional Epi Cells Urine RARE #/LPF (NONE SEEN); Urine Culture Indicated YES
[2024-03-26] MEDS: PROMETHAZINE HCL 25 MG TABLET PO (23:50)
[2024-03-27 00:03] LABS: Lactate/Lactic Acid 1.1 mmol/L (0.4-2.0)
[2024-03-27 00:26] VITALS: BP 137/81; PULSE 93; O2SAT 94
== END 2024-03-27 01:02 | disposition home or self-care (01) ==
PROVIDERS: Emergency Provider Internal Medicine; PCP Family Medicine
DX: K52.9 Noninfective gastroenteritis and colitis, unspecified (principal); J44.9 Chronic obstructive pulmonary disease, unspecified; Z99.81 Dependence on supplemental oxygen; Z87.891 Personal history of nicotine dependence; R82.998 Other abnormal findings in urine
CPT/HCPCS: 36415; 73630; 80053; 81001; 83605; 84484; 85025; 87086; 96361; 96374; 96376; 99284; J2250; Q0169

== ENCOUNTER 2024-04-29 10:41 | Outpatient (OUT) | payer MEDICARE, OTHER, SELFPAY ==
--- NOTE | 2024-04-29 10:45 | FL_ITS ---
The [address] [address] Patient Name: BENNIE MUNIZ MRN: [id number] date: 1960 Sex: F Assigned Patient Location: [place] Current Patient Location: [place] Accession/Order Number: [id number] Exam Date: 04/29/2024 10:55 Report Date: 04/29/2024 14:12 At the request of: SKYLER FOY Procedure: [place] cineradiography EXAMINATION: FL barium swallow, [place] cineradiography HISTORY: Duodenitis, Gastroesophageal Reflux Disease TECHNIQUE: An air contrast esophagram was performed in the usual manner. Standard level fluoroscopic mode of operation utilized. FINDINGS: ESOPHAGUS:Small anterior projecting diverticulum from proximal esophagus approximately 7 mm in size. Moderately decreased peristalsis of the esophagus with slow clearing of esophagus while in the prone position. Multiple tertiary waves delayed transit. Several episodes of moderate amount of gastroesophageal reflux but this extends to the thoracic inlet. FL/[place] cineradiography IMPRESSION: 1. Small anterior projecting diverticulum from proximal esophagus which appears to have a wide neck and quickly fills and quickly clears. I doubt if food or liquid are normally retained. 2. Prominent gastroesophageal reflux and decreased esophageal peristalsis. This may contribute to patient's symptoms Electronically authenticated by: JOSH BLACKBURN Date: 04/29/2024 14:12
--- NOTE | 2024-04-29 10:45 | FL_ITS ---
The [address] [address] Patient Name: BENNIE MUNIZ MRN: [id number] date: 1960 Sex: F Assigned Patient Location: [place] Current Patient Location: [place] Accession/Order Number: [id number] Exam Date: 04/29/2024 10:55 Report Date: 04/29/2024 14:12 At the request of: SKYLER FOY Procedure: FL barium swallow EXAMINATION: FL barium swallow, FL cineradiography HISTORY: Duodenitis, Gastroesophageal Reflux Disease TECHNIQUE: An air contrast esophagram was performed in the usual manner. Standard level fluoroscopic mode of operation utilized. FINDINGS: ESOPHAGUS:Small anterior projecting diverticulum from proximal esophagus approximately 7 mm in size. Moderately decreased peristalsis of the esophagus with slow clearing of esophagus while in the prone position. Multiple tertiary waves delayed transit. Several episodes of moderate amount of gastroesophageal reflux but this extends to the thoracic inlet. FL/FL barium swallow IMPRESSION: 1. Small anterior projecting diverticulum from proximal esophagus which appears to have a wide neck and quickly fills and quickly clears. I doubt if food or liquid are normally retained. 2. Prominent gastroesophageal reflux and decreased esophageal peristalsis. This may contribute to patient's symptoms Electronically authenticated by: JOSH BLACKBURN Date: 04/29/2024 14:12
--- OUTSIDE RECORDS SUMMARY | 2024-04-29 10:54 | XMS_ITS | CCD ---
Author Organization [facility] Care Team Providers Care Servicenow Administrator Developer Name Role Phone JAKEADELA BELLA Attending Unavailable SKYLER BOWMAN Referring Unavailable SKYLER BOWMAN Primary Care Unavailable JORGE ALBERTO, STEPHANY Admitting Unavailable KEENANWALEGAYATRI Admitting Unavailable KEENANGAYATRI MERRITT Attending Unavailable EZE HUSSEINA Consulting Unavailable LAW, DR HOLLAND Primary Care Unavailable HOY, DR HOLLAND Admitting Unavailable HOY, DR HOLLAND Primary Care Unavailable HOY, DR HOLLAND Attending Unavailable HOY, DR HOLLAND Consulting Unavailable HOY, DR HOLLAND Admitting Unavailable MISC, DR CHERY Primary Care Unavailable HOY, DR HOLLAND Attending Unavailable HOY, DR HOLLAND Consulting Unavailable HOY, DR HOLLAND Admitting Unavailable HOY, DR HOLLAND Attending Unavailable HOY, DR HOLLAND Primary Care Unavailable SAMSA, GIOVANA Admitting Unavailable SAMSA, GIOVANA Attending Unavailable SAMSA, GIOVANA Consulting Unavailable SAMIRY, DR HOLLAND Primary Care Unavailable HOY, DR HOLLAND Admitting Unavailable HOY, DR HOLLAND Attending Unavailable HOY, DR HOLLAND Consulting Unavailable HOY, DR HOLLAND Primary Care Unavailable ERICA GANDARA Consulting Unavailable ILANA NESBITT Consulting Unavailable SAMIRY, DR HOLLAND Admitting Unavailable HOY, DR HOLLAND Attending Unavailable HOY, DR HOLLAND Primary Care Unavailable GAYATRI HUSSEIN Attending Unavailable EZE HUSSEINA Admitting Unavailable HOMercedes, DR HOLLAND Primary Care Unavailable HOY, DR HOLLAND Primary Care Unavailable SAMIRY, DR HOLLAND Admitting Unavailable HOY, DR HOLLAND Attending Unavailable HOY, DR HOLLAND Consulting Unavailable NOMI ORLANDO Attending Unavailable NOMI ORLANDO Attending Unavailable Allergies Allergy Classification Reported Allergen(s) Allergy Type Date of Onset Reaction(s) Facility (1 source) Amoxicillin / Clavulanate Drug Allergy [address] [facility] Repository (4 sources) Latex; Translations: [LATEX] Propensity to adverse reactions (disorder) [address] [facility] Repository (4 sources) Morphine; Translations: [MORPHINE] Drug Allergy [address] [facility] Repository (2 sources) nickel; Translations: [NICKEL] Drug Allergy [address] [facility] Repository (2 sources) Leucine Drug Allergy 3 [facility] Repository (1 source) Ondansetron; Translations: [ONDANSETRON HCL] Drug Allergy [address] [facility] Repository (1 source) ERYTHROMYCIN BASE; Translations: [ERYTHROMYCIN BASE] Propensity to adverse reactions to drug (disorder) [address] 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 Office Visiton 09-13-2023 Follow-up visit [id number] Julissa Muniz 1960 F Date Provider Department [facility] 09/13[facility]2023 [place] [facility] Family History Problem Relation Age of Onset Atrial fibrillation Mother Heart attack Father Family Status - Relation Status Age at Mother Father Level of Service:74786 [place] OFFICE/OUTPATIENT ESTABLISHED LOW MDM 20 MIN Reason for Visit and Comments: Follow-up [171509] - 6 mo follow up SOB but has bronchitis currently No cardiology symptoms per pt Got blood work done Saturday and her results came back as thyroid levels low and VD was low, gave her rx for this. Normal [facility] LIPID PROFILEon 04-24-2022 CHOL-HDL RATIO NORM SEE BELOW Normal [facility] Comment on above: Result Comment: 3.3 - 4.4 LOW RISK 4.4 - 7.1 AVERAGE RISK 7.1 - 11.0 MODERATE RISK >11.0 HIGH RISK Performed By: #### H [facility] #### [facility] [address] [place] [address] Dr. Darya Berry Cholesterol [Mass/Vol] 141 mg/dL Normal <=200 [facility] Comment on above: Performed By: #### H STROPN #### [facility] [address] [address] [address] Darya Berry Cholesterol in HDL [Mass/Vol] 51 mg/dL Normal 40-60 [facility] Comment on above: Performed By: #### H STROPN #### [facility] [address] [address] [address] Darya Berry Cholesterol in LDL [Mass/Vol] 71.8 mg/dL Normal [facility] Comment on above: Performed By: #### H STROPN #### [facility] [address] [address] [address] Darya Berry Cholesterol.total/C holesterol in HDL [Mass ratio] 2.8 {ratio} Normal [facility] Comment on above: Performed By: #### H STROPN #### [facility] [address] [address] [address] Darya Berry HDL NORMAL > or = 60 mg/dl - LO W CARDIOVASCULAR RISK <40 mg/dl - HIGH CARDIOVASCULAR RISK Normal [facility] Comment on above: Performed By: #### H STROPN #### [facility] [address] [address] [address] Darya Berry LDL CALC NORMAL SEE BELOW Normal [facility] Comment on above: Result Comment: <100 mg/dl OPTIMAL 100 - 129 mg/dl NEAR OR ABOVE OPTIMAL 130 - 159 mg/dl BORDERLINE HIGH 160 - 189 mg/dl HIGH >190 mg/dl VERY HIGH Performed By: #### H STROPN #### [facility] [address] [address] [address] Darya Berry Triglyceride [Mass/Vol] 91 mg/dL Normal <=150 [facility] Comment on above: Performed By: #### H STROPN #### [facility] [address] [address] [address] Darya Berry VLDL CALC 18.2 mg/dL Normal [facility] Comment on above: Performed By: #### H STROPN #### [facility] [address] [address] [address] Darya Berry LIVER PROFILEon 04-24-2022 Albumin [Mass/Vol] 3.4 g/dL Normal 3.4-5.0 [facility] Comment on above: Performed By: #### H STROPN #### [facility] [address] [address] [address] Darya Berry Albumin/Globulin [Mass ratio] 1.1 {ratio} Normal [facility] Comment on above: Performed By: #### H STROPN #### [facility] [address] [address] [address] Darya Berry ALP [Catalytic activity/Vol] 167 U/L Critically high 46-116 [facility] Comment on above: Performed By: #### H STROPN #### [facility] [address] [place] [address] Dr. Darya Berry ALT [Catalytic activity/Vol] 14 U/L Normal 14-59 [facility] Comment on above: Performed By: #### H STROPN #### [facility] [address] [place] [address] Dr. Darya Berry AST [Catalytic activity/Vol] 17 U/L Normal 15-37 [facility] Comment on above: Performed By: #### H STROPN #### [facility] [address] [place] [address] Dr. Darya Berry BILI, CONJUGATED 0.1 mg/dL Normal 0.0-0.2 [facility] Comment on above: Performed By: #### H STROPN #### [facility] [address] [place] [address] Dr. Darya Berry Bilirubin [Mass/Vol] 0.2 mg/dL Normal 0.2-1.0 [facility] Comment on above: Performed By: #### H STROPN #### [facility] [address] [place] [address] Dr. Darya Berry Globulin (S) [Mass/Vol] 3.2 g/dL Normal [facility] Comment on above: Performed By: #### H STROPN #### [facility] [address] [address] [address] Darya Berry Protein [Mass/Vol] 6.6 g/dL Normal 6.4-8.2 [facility] Comment on above: Performed By: #### H STROPN #### [facility] [address] [place] [address] Dr. Darya Berry ECHOCARDIO M/2D COMPLETEon 0 2022 ECHOCARDIO M/2D COMPLETE Patient: JULISSA MUNIZ Exam Date: 2022 : 1960 Gender:F Ordering : GAYATRI HUSSEIN [facility] Admission #: [id number] Family : DR SKYLER BOWMAN . Order #: [id number] CLICK HERE TO VIEW EXAM ECHOCARDIOGRAM REPORT [...] M.D. on 03/16/2022 at 18:53 Normal [facility] CREATININE BLOODon 2 Creatinine [Mass/Vol] 0.68 mg/dL Normal 0.60-1.[address] [facility] Comment on above: Order Comment: No: D o not add to previous draw Performed By: #### 5 7307, 15149, 74063 #### [facility] [address] [place] [address], [facility] GFR/1.73 sq M.predicted among non-blacks MDRD (S/P/Bld) [Vol rate/Area] mL/min/{1.73_m2} Normal >[address] [facility] Comment on above: Order Comment: No: D o not add to previous draw Result Comment: [facility]'s estimated glomerular filtration rate (eGFR) will no [...] of individuals. Performed By: #### 5 7307, 90615, 04626 #### [facility] [address] [place] [place] [address], [facility] Cardiovascular Lab Reporton 01-30-2022 Cardiovascular Lab Report [facility] Patient Name: [facility] Carmen Costa MR #: [id number] Department of Physician: Axel Patterson M.D. Division of Service Date: 01/29/2022 Cardiology Birthdate: 1960 Adult Cardiovascular Room #: 3AB [id number] [facility] [address] [place], [place] [address] Cardiovascular Laboratory Report CLINICAL PRESENTATION: The patient [...] infiltrated in the left radial artery. A 6-Kosovan Terumo Glidesheath slender was placed in the left radial artery. All catheter exchanges were made over the Magic Torque guidewire. Radial anti-vasospasm cocktail, verapamil and nitroglycerin was administered to prevent spasm. A 4-Kosovan JR4 was used to engage the right coronary artery. A 5-Kosovan JL4 was used to engage the left main coronary artery. Coronary angiogram was performed in multiple orthogonal views using hand injection of contrast. At this time, it was apparent that there was severe single-vessel coronary artery disease affecting the proximal RCA. I elected to proceed with PCI. Heparin anticoagulation was used for this procedure. ACT was maintained greater than 200 seconds. A Rack[employer]is 6-Kosovan JR4 guide was engaged in the right [...] [employer] M.D. Date Trans: 01/30/2022 05:44 A/mmo [id number] cc: Skyler Bowman M.D. [address] [place] [address] Normal [facility] BASIC METABOLIC PANELon 08-0 Calcium [Mass/Vol] 8.5 mg/dL Low 8.6-10.3 [facility] Comment on above: Order Comment: No: D o not add to previous draw Performed By: #### 5 7307, 44324, 51526 #### [facility] [address] [place] [address], [place] Chloride [Moles/Vol] 107 mmol/L Normal 98-[address] [facility] Comment on above: Order Comment: No: D o not add to previous draw Performed By: #### 5 7307, 00924, 75302 #### [facility] [address] [place] [address], [place] CO2 [Moles/Vol] 22 mmol/L Normal 21-31 [facility] Comment on above: Order Comment: No: D o not add to previous draw Performed By: #### 5 7307, 17555, 57946 #### [facility] [address] [place] [address], [place] Creatinine [Mass/Vol] 0.83 mg/dL Normal 0.60-1.[address] [facility] Comment on above: Order Comment: No: D o not add to previous draw Performed By: #### 5 7307, 54202, 09499 #### [facility] [address] [place] [address], [place] GFR/1.73 sq M.predicted among non-blacks MDRD (S/P/Bld) [Vol rate/Area] mL/min/{1.73_m2} Normal >[address] [facility] Comment on above: Order Comment: No: D o not add to previous draw Result Comment: [facility]'s estimated glomerular filtration rate (eGFR) will no [...] of individuals. Performed By: #### 5 7307, 14328, 41700 #### [facility] [address] [place] [address], [facility] Glucose [Mass/Vol] 103 mg/dL High 70-100 [facility] Comment on above: Order Comment: No: D o not add to previous draw Performed By: #### 5 7307, 79250, 55202 #### [facility] [address] [place] [address], [facility] Potassium [Moles/Vol] 3.9 mmol/L Normal 3.5-5.[address] [facility] Comment on above: Order Comment: No: D o not add to previous draw Performed By: #### 5 7307, 22315, 23712 #### [facility] [address] [place] [address], [place] Sodium [Moles/Vol] 137 mmol/L Normal 136-145 [facility] Comment on above: Order Comment: No: D o not add to previous draw Performed By: #### 5 7307, 64784, 12975 #### [facility] [address] [place] [address], [place] Urea nitrogen [Mass/Vol] 24 mg/dL Normal 7-[address] [facility] Comment on above: Order Comment: No: D o not add to previous draw Performed By: #### 5 7307, 61561, 90366 #### [facility] [address] [place] [address], [place] CBC COMPLETE BLOOD COUNTon 0 01-29-2022 Erythrocyte distribution width (RBC) [Ratio] 14.7 % Normal 11.5-15.[address] [facility] Comment on above: Order Comment: No: D o not add to previous draw Performed By: #### 5 7307, 58730, 89132 #### [facility] [address] [place] [id number], [facility] Hematocrit (Bld) [Volume fraction] 33.1 % Low 36.0-45.[address] [facility] Comment on above: Order Comment: No: D o not add to previous draw Performed By: #### 5 7307, 06612, 96887 #### [facility] [address] [place] [id number], [facility] Hemoglobin (Bld) [Mass/Vol] 10.8 g/dL Low 12.0-15.[address] [facility] Comment on above: Order Comment: No: D o not add to previous draw Performed By: #### 5 7307, 02202, 92358 #### [facility] [address] [place] [address], [facility] MCH (RBC) [Entitic mass] 28.6 pg Normal 27.0-33.[address] [facility] Comment on above: Order Comment: No: D o not add to previous draw Performed By: #### 5 7307, 52494, 90686 #### [facility] [address] [place] [id number], [facility] MCHC (RBC) [Mass/Vol] 32.6 g/dL Normal 32.0-35.[address] [facility] Comment on above: Order Comment: No: D o not add to previous draw Performed By: #### 5 7307, 31057, 62268 #### [facility] [address] [place] [address], [place] MCV (RBC) [Entitic vol] 87.8 fL Normal 82.0-98.[address] [facility] Comment on above: Order Comment: No: D o not add to previous draw Performed By: #### 5 7307, 61080, 15999 #### [facility] [address] [place] [address], [facility] Nucleated RBC/100 WBC (Bld) [Ratio] 0 % Normal 0-[address] [facility] Comment on above: Order Comment: No: D o not add to previous draw Performed By: #### 5 7307, 67205, 97257 #### [facility] [address] [place] [id number], [facility] PLAT CNT 180 10*3/uL Normal 150-400 [facility] Comment on above: Order Comment: No: D o not add to previous draw Performed By: #### 5 7307, 22159, 18262 #### [facility] [address] [place] [address], [facility] RBC (Bld) [#/Vol] 3.77 10*6/uL Low 3.80-5.00 [facility] Comment on above: Order Comment: No: D o not add to previous draw Performed By: #### 5 7307, 09903, 28195 #### [facility] [address] [place] [address], [facility] WBC (Bld) [#/Vol] 5.60 10*3/uL Normal 4.00-10.60 [facility] Comment on above: Order Comment: No: D o not add to previous draw Performed By: #### 5 7307, 20234, 10891 #### [facility] [address] [place] [id number], [place] FREE T4on 01-29-2022 Free T4 [Mass/Vol] 1.12 ng/dL Normal 0.71-1.85 [facility] Comment on above: Performed By: #### 5 7307, 62430, 23872 #### [facility] [address] [place] [id number], [facility] HEMOGLOBIN A1Con 01-29-2022 Glucose [Moles/Vol] 114 mmol/L Normal [facility] Comment on above: Order Comment: No: D o not add to previous draw Performed By: #### 5 7307, 41168, 86883 #### [facility] [address] [place] [address], [facility] HbA1c (Bld) [Mass fraction] 5.6 % Normal 4.0-6.[address] [facility] Comment on above: Order Comment: No: D o not add to previous draw Performed By: #### 5 7307, 18913, 67068 #### [facility] [address] [place] [address], [facility] LIPID PROFILEon 01-29-2022 Cholesterol [Mass/Vol] 211 mg/dL High 120-[address] [facility] Comment on above: Result Comment: CHOL ESTEROL REFERENCE RANGE: 20 YEARS AND OLDER CARDIOVASCULAR RISK Less than 200 mg/dl Low Risk 200 to 239 mg/dl Borderline Risk 240 mg/dl and greater High Risk Performed By: #### 5 7307, 66399, 74349 #### [facility] [address] [place] [address], [facility] Cholesterol in HDL [Mass/Vol] 45 mg/dL Normal 23-[address] [facility] Comment on above: Result Comment: Slig ht variation in normal range could be due to gender and/or age. HDL CHOLESTEROL REFERENCE RANGE: 20 years and older Cardiovascular Risk > or =60 mg/dL Desirable 40 TO 59 mg/dL Low Risk <40 mg/dL High Risk Performed By: #### 5 7307, 91766, 26174 #### [facility] [address] [place] [address], [place] Cholesterol in LDL [Mass/Vol] 147 mg/dL High 0-[address] [facility] Comment on above: Result Comment: LDL IS A CALCULATION LDL IS ONLY VALID IF THE TRIG IS LESS THAN 400. Performed By: #### 5 7307, 81339, 61945 #### [facility] [address] Cholesterol.total/C holesterol in HDL [Mass ratio] 4.7 {ratio} High .0-4.[address] [facility] Comment on above: Performed By: #### 5 7307, 89579, 58801 #### [facility] [address] [place] [address], [facility] NON-HDL CHOLESTEROL 166 mg/dL Normal [facility] Comment on above: Performed By: #### 5 7307, 69934, 51466 #### [facility] [address] [facility] [address] Triglyceride [Mass/Vol] 94 mg/dL Normal 40-[address] [facility] Comment on above: Result Comment: TRIG LYCERIDE REFERENCE RANGE: 20 YEARS AND OLDER CARDIOVASCULAR RISK LESS THAN 150 mg/dl LOW RISK 150 TO 199 mg/dl BORDERLINE RISK 200 mg/dl AND GREATER HIGH RISK Performed By: #### 5 7307, 67112, 31917 #### [facility] [address] VLDL CHOL 19 mg/dL Normal 0-[address] [facility] Comment on above: Performed By: #### 5 7307, 27851, 55513 #### [facility] [address] [facility] [address] MAGNESIUM BLOODon 01-29-2022 Magnesium [Mass/Vol] 1.9 mg/dL Normal 1.9-2.[address] [facility] Comment on above: Order Comment: No: D o not add to previous draw Performed By: #### 5 7307, 65215, 40448 #### [facility] [address] [facility] UFH HEPARIN ASSAYon 01-30-20 22 UNFRACTIONATED HEPARIN 0.58 IU/mL Normal 0.30-0.[address] [facility] Comment on above: Result Comment: [place] roxaban and Apixaban will interfere with the anti Xa assay used to monitor UFH and LMWH. Performed By: #### 3 0477 #### [facility] [address] [place] [address], [place] BASIC METABOLIC PANELon 07-3 Calcium [Mass/Vol] 8.4 mg/dL Low 8.6-10.3 [facility] Comment on above: Order Comment: No: D o not add to previous draw Performed By: #### 5 7307, 32303, 49523 #### [facility] [address] [place] [address], [place] Chloride [Moles/Vol] 106 mmol/L Normal 98-[address] [facility] Comment on above: Order Comment: No: D o not add to previous draw Performed By: #### 5 7307, 90244, 96315 #### [facility] [address] [place] [address], [place] CO2 [Moles/Vol] 27 mmol/L Normal 21-31 [facility] Comment on above: Order Comment: No: D o not add to previous draw Performed By: #### 5 7307, 73119, 20942 #### [facility] [address] [place] [address], [facility] Creatinine [Mass/Vol] 0.86 mg/dL Normal 0.60-1.[address] [facility] Comment on above: Order Comment: No: D o not add to previous draw Performed By: #### 5 7307, 56432, 07017 #### [facility] [address] [place] [id number], [place] GFR/1.73 sq M.predicted among non-blacks MDRD (S/P/Bld) [Vol rate/Area] mL/min/{1.73_m2} Normal >[address] [facility] Comment on above: Order Comment: No: D o not add to previous draw Result Comment: [facility]'s estimated glomerular filtration rate (eGFR) will no [...] of individuals. Performed By: #### 5 7307, 18437, 11245 #### [facility] [address] [place] [address], [facility] Glucose [Mass/Vol] 84 mg/dL Normal 70-100 [facility] Comment on above: Order Comment: No: D o not add to previous draw Performed By: #### 5 7307, 81496, 40610 #### [facility] [address] [facility] [place] [address], [facility] Potassium [Moles/Vol] 4.5 mmol/L Normal 3.5-5.[address] [facility] Comment on above: Order Comment: No: D o not add to previous draw Performed By: #### 5 7307, 19457, 14466 #### [facility] [address] [facility] [place] [address], [facility] Sodium [Moles/Vol] 137 mmol/L Normal 136-145 [facility] Comment on above: Order Comment: No: D o not add to previous draw Performed By: #### 5 7307, 02968, 25171 #### [facility] [address] [facility] [address], [facility] Urea nitrogen [Mass/Vol] 20 mg/dL Normal 7-[address] [facility] Comment on above: Order Comment: No: D o not add to previous draw Performed By: #### 5 7307, 89313, 85280 #### [facility] [address] [facility] [address], [facility] CBC W/DIFFon 01-28-2022 ABS IMM GRANS 0.0 10*3/uL Normal 0.0-0.2 [facility] Comment on above: Order Comment: No: D o not add to previous draw Performed By: #### 5 7307, 50596, 51084 #### [facility] [address] [place] [place] [address], [facility] ABS NEUTROPHILS 2.0 10*3/uL Normal 1.6-7.6 [facility] Comment on above: Order Comment: No: D o not add to previous draw Performed By: #### 5 7307, 23795, 45826 #### [facility] [address] [place] [address], [place] Basophils (Bld) [#/Vol] 0.0 10*3/uL Normal 0.0-0.[address] [facility] Comment on above: Order Comment: No: D o not add to previous draw Performed By: #### 5 7307, 27512, 33866 #### [facility] [address] [place] [address], [facility] Basophils/100 WBC (Bld) 0.5 % Normal 0.0-1.[address] [facility] Comment on above: Order Comment: No: D o not add to previous draw Performed By: #### 5 7307, 50070, 96898 #### [facility] [address] [place] [address], [facility] Eosinophils (Bld) [#/Vol] 0.1 10*3/uL Normal 0.0-0.[address] [facility] Comment on above: Order Comment: No: D o not add to previous draw Performed By: #### 5 7307, 15525, 22205 #### [facility] [address] [place] [address], [place] Eosinophils/100 WBC (Bld) 2.1 % Normal 0.0-6.[address] [facility] Comment on above: Order Comment: No: D o not add to previous draw Performed By: #### 5 7307, 81451, 38027 #### [facility] [address] [place] [address], [place] Erythrocyte distribution width (RBC) [Ratio] 14.7 % Normal 11.5-15.[address] [facility] Comment on above: Order Comment: No: D o not add to previous draw Performed By: #### 5 7307, 95225, 44842 #### [facility] [address] [place] [id number], [facility] Hematocrit (Bld) [Volume fraction] 33.7 % Low 36.0-45.[address] [facility] Comment on above: Order Comment: No: D o not add to previous draw Performed By: #### 5 73, 98755, 47632 #### [facility] [address] [place] [id number], [facility] Hemoglobin (Bld) [Mass/Vol] 10.8 g/dL Low 12.0-15.[address] [facility] Comment on above: Order Comment: No: D o not add to previous draw Performed By: #### 5 73, 51872, 64130 #### [facility] [address] [place] [address], [facility] IMMATURE GRANS 0.2 % Normal 0.0-1.0 [facility] Comment on above: Order Comment: No: D o not add to previous draw Performed By: #### 5 7307, 18817, 70526 #### [facility] [address] [place] [address], [facility] Lymphocytes (Bld) [#/Vol] 1.9 10*3/uL Normal 1.2-4.[address] [facility] Comment on above: Order Comment: No: D o not add to previous draw Performed By: #### 5 73, 25442, 95953 #### [facility] [address] [place] [id number], [place] Lymphocytes/100 WBC (Bld) 43.8 % Normal 20.0-45.[address] [facility] Comment on above: Order Comment: No: D o not add to previous draw Performed By: #### 5 73, 81913, 06493 #### [facility] [address] [place] [address], [facility] MCH (RBC) [Entitic mass] 28.4 pg Normal 27.0-33.[address] [facility] Comment on above: Order Comment: No: D o not add to previous draw Performed By: #### 5 7307, 51990, 01368 #### [facility] [address] [place] [address], [facility] MCHC (RBC) [Mass/Vol] 32.0 g/dL Normal 32.0-35.[address] [facility] Comment on above: Order Comment: No: D o not add to previous draw Performed By: #### 5 7307, 76228, 13701 #### [facility] [address] [place] [address], [facility] MCV (RBC) [Entitic vol] 88.7 fL Normal 82.0-98.[address] [facility] Comment on above: Order Comment: No: D o not add to previous draw Performed By: #### 5 7307, 73860, 27948 #### [facility] [address] [place] [id number], [facility] Monocytes (Bld) [#/Vol] 0.4 10*3/uL Normal 0.1-1.[address] [facility] Comment on above: Order Comment: No: D o not add to previous draw Performed By: #### 5 7307, 31010, 04270 #### [facility] [address] [place] [id number], [facility] MONOS 8.1 % Normal 5.0-12.[address] [facility] Comment on above: Order Comment: No: D o not add to previous draw Performed By: #### 5 7307, 44047, 68154 #### [facility] [address] [place] [id number], [place] Neutrophils/100 WBC (Bld) 45.3 % Normal 40.0-72.[address] [facility] Comment on above: Order Comment: No: D o not add to previous draw Performed By: #### 5 7307, 57748, 61056 #### [facility] [address] [place] [address], [facility] Nucleated RBC/100 WBC (Bld) [Ratio] 0 % Normal 0-[address] [facility] Comment on above: Order Comment: No: D o not add to previous draw Performed By: #### 5 7307, 21133, 73250 #### [facility] [address] [place] [address], [facility] PLAT CNT 198 10*3/uL Normal 150-400 [facility] Comment on above: Order Comment: No: D o not add to previous draw Performed By: #### 5 7307, 63068, 93626 #### [facility] [address] [place] [address], [facility] RBC (Bld) [#/Vol] 3.80 10*6/uL Normal 3.80-5.00 [facility] Comment on above: Order Comment: No: D o not add to previous draw Performed By: #### 5 7307, 60771, 35372 #### [facility] [address] [facility] [place] [address], [facility] WBC (Bld) [#/Vol] 4.34 10*3/uL Normal 4.00-10.60 [facility] Comment on above: Order Comment: No: D o not add to previous draw Performed By: #### 5 7307, 22642, 28844 #### [facility] [address] UFH HEPARIN ASSAYon 01-29-20 22 UNFRACTIONATED HEPARIN 0.38 IU/mL Normal 0.30-0.[address] [facility] Comment on above: Result Comment: [place] roxaban and Apixaban will interfere with the anti Xa assay used to monitor UFH and LMWH. Performed By: #### 5 7307, 43521, 78054 #### [facility] [address] [place] [id number], [facility] CBC COMPLETE BLOOD COUNTon 0 01-27-2022 Erythrocyte distribution width (RBC) [Ratio] 15.0 % Normal 11.5-15.[address] [facility] Comment on above: Order Comment: No: D o not add to previous draw Performed By: #### 5 7307, 98997, 80070 #### [facility] [address] [place] [address], [facility] Hematocrit (Bld) [Volume fraction] 34.8 % Low 36.0-45.[address] [facility] Comment on above: Order Comment: No: D o not add to previous draw Performed By: #### 5 7307, 68577, 51042 #### [facility] [address] [place] [address], [facility] Hemoglobin (Bld) [Mass/Vol] 11.3 g/dL Low 12.0-15.[address] [facility] Comment on above: Order Comment: No: D o not add to previous draw Performed By: #### 5 7307, 42667, 74426 #### [facility] [address] [place] [address], [facility] MCH (RBC) [Entitic mass] 28.5 pg Normal 27.0-33.[address] [facility] Comment on above: Order Comment: No: D o not add to previous draw Performed By: #### 5 7307, 67906, 06169 #### [facility] [address] [place] [address], [place] MCHC (RBC) [Mass/Vol] 32.5 g/dL Normal 32.0-35.[address] [facility] Comment on above: Order Comment: No: D o not add to previous draw Performed By: #### 5 7307, 43901, 06391 #### [facility] [address] [place] [address], [place] MCV (RBC) [Entitic vol] 87.7 fL Normal 82.0-98.[address] [facility] Comment on above: Order Comment: No: D o not add to previous draw Performed By: #### 5 7307, 35180, 97109 #### [facility] [address] [facility] [place] [address], [facility] Nucleated RBC/100 WBC (Bld) [Ratio] 0 % Normal 0-[address] [facility] Comment on above: Order Comment: No: D o not add to previous draw Performed By: #### 5 7307, 50112, 77385 #### [facility] [address] [facility] [place] [address], [facility] PLAT CNT 205 10*3/uL Normal 150-400 [facility] Comment on above: Order Comment: No: D o not add to previous draw Performed By: #### 5 7307, 74006, 32567 #### [facility] [address] [facility] [place] [address], [facility] RBC (Bld) [#/Vol] 3.97 10*6/uL Normal 3.80-5.00 [facility] Comment on above: Order Comment: No: D o not add to previous draw Performed By: #### 5 7307, 97643, 95567 #### [facility] [address] [facility] [place] [address], [facility] WBC (Bld) [#/Vol] 4.86 10*3/uL Normal 4.00-10.60 [facility] Comment on above: Order Comment: No: D o not add to previous draw Performed By: #### 5 7307, 71670, 31209 #### [facility] [address] [facility] [place] [address], [facility] CORTISOLon 01-27-2021 CORTISOL 11.6 mcg/dL Normal [facility] Comment on above: Result Comment: Refe rence Range: AM 6.0-23.0 mcg/dL PM 0.0-9.0 mcg/dL Performed By: #### 5 7307, 08489, 33059 #### [facility] [address] [place] [address], [facility] TROPONIN-Ion 01-27-2022 Troponin I.cardiac [Mass/Vol] 0.03 ng/mL Normal 0.00-0.[address] [facility] Comment on above: Order Comment: No: D o not add to previous draw Result Comment: REFE RENCE RANGES: 0.00 - 0.04 ng/ml NORMAL 0.05 - 0.50 ng/ml INDETERMINATE > 0.50 ng/ml CONSISTENT WITH AN M.I. Performed By: #### 5 7307, 63379, 10222 #### [facility] [address] Troponin I.cardiac [Mass/Vol] 0.03 ng/mL Normal 0.00-0.[address] [facility] Comment on above: Order Comment: No: D o not add to previous draw Result Comment: REFE RENCE RANGES: 0.00 - 0.04 ng/ml NORMAL 0.05 - 0.50 ng/ml INDETERMINATE > 0.50 ng/ml CONSISTENT WITH AN M.I. Performed By: #### 5 7307, 93943, 77042 #### [facility] [address] UFH HEPARIN ASSAYon 01-28-20 UNFRACTIONATED HEPARIN 0.61 IU/mL Normal 0.30-0.[address] [facility] Comment on above: Result Comment: [place] roxaban and Apixaban will interfere with the anti Xa assay used to monitor UFH and LMWH. Performed By: #### 5 7307, 77938, 49873 #### [facility] [address] [place] [address], [facility] APTTon 01-26-2022 aPTT Coag (Bld) [Time] 28.6 s Normal 25.0-35.[address] [facility] Comment on above: Order Comment: [...] THIS PURPOSE. Performed By: #### 5 7307, 58548, 71795 #### [facility] [address] [place] [address], [facility] BASIC METABOLIC PANELon 07- Calcium [Mass/Vol] 8.2 mg/dL Low 8.6-10.3 [facility] Comment on above: Order Comment: No: D o not add to previous draw Performed By: #### 1 0070, 86458, 51889, 20756, 54427, 64906 #### [facility] [address] [place] [address], [facility] Chloride [Moles/Vol] 104 mmol/L Normal 98-[address] [facility] Comment on above: Order Comment: No: D o not add to previous draw Performed By: #### 1 0070, 47503, 07691, 88871, 20790, 82479 #### [facility] [address] [place] [address], [facility] CO2 [Moles/Vol] 27 mmol/L Normal 21-31 [facility] Comment on above: Order Comment: No: D o not add to previous draw Performed By: #### 1 0070, 23792, 61636, 64487, 10338, 73193 #### [facility] [address] [place] [address], [place] Creatinine [Mass/Vol] 0.86 mg/dL Normal 0.60-1.[address] [facility] Comment on above: Order Comment: No: D o not add to previous draw Performed By: #### 1 0070, 44655, 26606, 55298, 93320, 89270 #### [facility] [address] [place] [address], [facility] GFR/1.73 sq M.predicted among non-blacks MDRD (S/P/Bld) [Vol rate/Area] mL/min/{1.73_m2} Normal >[address] [facility] Comment on above: Order Comment: No: D o not add to previous draw Result Comment: [facility]'s estimated glomerular filtration rate (eGFR) will no [...] of individuals. Performed By: #### 1 0070, 26308, 27949, 91181, 03585, 41590 #### [facility] [address] [place] [address], [facility] Glucose [Mass/Vol] 96 mg/dL Normal 70-100 [facility] Comment on above: Order Comment: No: D o not add to previous draw Performed By: #### 1 0070, 48999, 56854, 09123, 91149, 89589 #### [facility] [address] [place] [address], [facility] Potassium [Moles/Vol] 4.2 mmol/L Normal 3.5-5.[address] [facility] Comment on above: Order Comment: No: D o not add to previous draw Performed By: #### 1 0070, 31557, 78776, 05600, 50544, 17169 #### [facility] [address] [place] [address], [place] Sodium [Moles/Vol] 139 mmol/L Normal 136-145 [facility] Comment on above: Order Comment: No: D o not add to previous draw Performed By: #### 1 0070, 45969, 27984, 59047, 57182, 73816 #### [facility] [address] Urea nitrogen [Mass/Vol] 16 mg/dL Normal 7-25 [facility] Comment on above: Order Comment: No: D o not add to previous draw Performed By: #### 1 0070, 86639, 24198, 16351, 53238, 46853 #### [facility] [address] [facility] BNPon 01-26-2022 Natriuretic peptide B (Bld) [Mass/Vol] 1605.0 pg/mL Critically high <=900.0 [facility] Comment on above: Performed By: #### C MADM, BNP, CMP #### [facility] [address] [place] [address] Dr. Darya Berry BNP (B-TYPE NATRIURETIC PEPT MARQUITA)on 01-26-2022 Natriuretic peptide B (Bld) [Mass/Vol] 117 pg/mL High 0-100 [facility] Comment on above: Order Comment: No: D o not add to previous draw Result Comment: Give n the appropriate clinical setting a BNP result of >100 pg/mL indicates congestive heart failure. Performed By: #### 5 7307, 63723, 95371 #### [facility] [address] CARDIAC ARNALDO ADMITon 022 CK [Catalytic activity/Vol] 28 U/L Normal 26-192 [facility] Comment on above: Performed By: #### C MADM, BNP, CMP #### [facility] [address] [place] [address] Dr. Darya Berry CK.MB [Mass/Vol] 1.26 ng/mL Normal <=3.60 [facility] Comment on above: Performed By: #### C MADM, BNP, CMP #### [facility] [address] [place] [address] Dr. Darya Berry HSTROP 80.9 pg/mL Critically high 4.0-51.3 [facility] Comment on above: Result Comment: CUT- OFF POINTS HAVE BEEN ESTABLISHED BASED ON THE FOURTH UNIVERSAL DEFINITIONS OF MYOCARDIAL INFARCTION. THE UPPER REFERENCE LIMIT (URL) OF TROPONIN, DEFINED THE 99TH PERCENTILE OF cTnI DISTRIBUTION IN A REFERENCE POPULATION, HAS BEEN CONFIRMED THE DECISION THRESHOLD FOR WI DIAGNOSIS. Performed By: #### C MADM, BNP, CMP #### [facility] [address] [place] [address] Dr. Darya Berry NELDA 31 ng/mL Normal 9-82 [facility] Comment on above: Performed By: #### C MADM, BNP, CMP #### [facility] [address] [place] [address] Dr. Darya Berry CBC AUTO DIFFon 01-26-2022 BASO # 0.0 103/ul Normal 0.0-0.1 [facility] Comment on above: Performed By: #### H STROPN #### [facility] [address] [place] [address] Dr. Darya Berry Basophils/100 WBC (Bld) 0.6 % Normal 0.2-2.0 [facility] Comment on above: Performed By: #### H STROPN #### [facility] [address] [place] [address] Dr. Darya Berry EO # 0.1 103/ul Normal 0.0-0.7 [facility] Comment on above: Performed By: #### H STROPN #### [facility] [address] [place] [address] Dr. Darya Berry Eosinophils/100 WBC (Bld) 1.8 % Normal 0.9-7.0 [facility] Comment on above: Performed By: #### H STROPN #### [facility] [address] [place] [address] Dr. Darya Berry Erythrocyte distribution width (RBC) [Ratio] 14.6 % Normal 11.0-15.0 [facility] Comment on above: Performed By: #### H STROPN #### [facility] [address] [place] [address] Dr. Darya Berry Hematocrit (Bld) [Volume fraction] 34.6 % Critically low 36.0-48.0 [facility] Comment on above: Performed By: #### H STROPN #### [facility] [address] [address] [address] Darya Berry Hemoglobin (Bld) [Mass/Vol] 11.2 g/dL Critically low 12.0-16.0 [facility] Comment on above: Performed By: #### H STROPN #### [facility] [address] [place] [address] Dr. Darya Berry IG # 0.01 10e3/ul Normal 0.00-0.03 [facility] Comment on above: Performed By: #### H STROPN #### [facility] [address] [place] [address] Dr. Darya Berry IG % 0.2 % Normal 0.0-0.5 [facility] Comment on above: Performed By: #### H STROPN #### [facility] [address] [place] [address] Dr. Darya Berry LYMPH # 2.1 103/ul Normal 1.2-3.8 [facility] Comment on above: Performed By: #### H STROPN #### [facility] [address] [place] [address] Dr. Darya Berry Lymphocytes/100 WBC (Bld) 41.7 % Normal 20.5-60.0 [facility] Comment on above: Performed By: #### H STROPN #### [facility] [address] [place] [address] Dr. Darya Berry MANUAL DIFF REQ NO Normal [facility] Comment on above: Performed By: #### H STROPN #### [facility] [address] [place] [address] Dr. Darya Berry MCH (RBC) [Entitic mass] 28.2 pg Normal 26.7-34.0 [facility] Comment on above: Performed By: #### H STROPN #### [facility] [address] [place] [address] Dr. Darya Berry MCHC (RBC) [Mass/Vol] 32.4 g/dL Normal 29.9-35.2 [facility] Comment on above: Performed By: #### H STROPN #### [facility] [address] [place] [address] [address] Darya Berry MCV (RBC) [Entitic vol] 87.2 fL Normal 81.0-99.0 [facility] Comment on above: Performed By: #### H STROPN #### [facility] [address] [place] [address] [address] Darya Berry MONO # 0.4 103/ul Normal 0.3-0.8 [facility] Comment on above: Performed By: #### H STROPN #### [facility] [address] [place] [address] [address] Darya Berry Monocytes/100 WBC (Bld) 7.3 % Normal 1.7-12.0 [facility] Comment on above: Performed By: #### H STROPN #### [facility] [address] [place] [address] [address] Darya Berry NEUT # 2.4 103/ul Normal 1.4-6.5 [facility] Comment on above: Performed By: #### H STROPN #### [facility] [address] [address] [address] Darya Berry Neutrophils/100 WBC (Bld) 48.4 % Normal 43.0-75.0 [facility] Comment on above: Performed By: #### H STROPN #### [facility] [address] [place] [address] [address] Darya Berry Platelet mean volume (Bld) [Entitic vol] 9.4 fL Critically low 9.5-13.5 [facility] Comment on above: Performed By: #### H STROPN #### [facility] [address] [place] [address] [address] Darya Berry PLT 217 103/ul Normal 150-450 [facility] Comment on above: Performed By: #### H STROPN #### [facility] [address] [place] [address] [address] Darya Berry RBC 3.97 106/ul Critically low 4.20-5.40 [facility] Comment on above: Performed By: #### H STROPN #### [facility] [address] [place] [address] [address] Darya Berry WBC 4.9 103/ul Normal 4.0-11.0 [facility] Comment on above: Performed By: #### H STROPN #### [facility] [address] [place] [address] [address] Darya Berry CBC COMPLETE BLOOD COUNTon 0 01-26-2022 Erythrocyte distribution width (RBC) [Ratio] 14.8 % Normal 11.5-15.[address] [facility] Comment on above: Order Comment: No: D o not add to previous draw Performed By: #### 5 7307, 65393, 40471 #### [facility] [address] [place] [address], [facility] Hematocrit (Bld) [Volume fraction] 34.7 % Low 36.0-45.[address] [facility] Comment on above: Order Comment: No: D o not add to previous draw Performed By: #### 5 7307, 63000, 21980 #### [facility] [address] [place] [id number], [facility] Hemoglobin (Bld) [Mass/Vol] 11.3 g/dL Low 12.0-15.[address] [facility] Comment on above: Order Comment: No: D o not add to previous draw Performed By: #### 5 7307, 25606, 13828 #### [facility] [address] [place] [id number], [facility] MCH (RBC) [Entitic mass] 28.6 pg Normal 27.0-33.[address] [facility] Comment on above: Order Comment: No: D o not add to previous draw Performed By: #### 5 7307, 37140, 48569 #### [facility] [address] [place] [address], [facility] MCHC (RBC) [Mass/Vol] 32.6 g/dL Normal 32.0-35.[address] [facility] Comment on above: Order Comment: No: D o not add to previous draw Performed By: #### 5 7307, 87284, 33342 #### [facility] [address] [place] [id number], [facility] MCV (RBC) [Entitic vol] 87.8 fL Normal 82.0-98.[address] [facility] Comment on above: Order Comment: No: D o not add to previous draw Performed By: #### 5 7307, 18539, 25376 #### [facility] [address] [place] [id number], [facility] Nucleated RBC/100 WBC (Bld) [Ratio] 0 % Normal 0-[address] [facility] Comment on above: Order Comment: No: D o not add to previous draw Performed By: #### 5 7307, 15720, 52161 #### [facility] [address] [place] [id number], [facility] PLAT CNT 223 10*3/uL Normal 150-400 [facility] Comment on above: Order Comment: No: D o not add to previous draw Performed By: #### 5 7307, 91311, 59528 #### [facility] [address] [place] [address], [facility] RBC (Bld) [#/Vol] 3.95 10*6/uL Normal 3.80-5.00 [facility] Comment on above: Order Comment: No: D o not add to previous draw Performed By: #### 5 7307, 34237, 83403 #### [facility] [address] [place] [id number], [place] WBC (Bld) [#/Vol] 5.01 10*3/uL Normal 4.00-10.60 [facility] Comment on above: Order Comment: No: D o not add to previous draw Performed By: #### 5 7307, 41224, 49319 #### [facility] [address] [place] [id number], [place] ECHOCARDIO M/2D COMPLETEon 0 01-26-2022 ECHOCARDIO M/2D COMPLETE Patient: JULISSA MUNIZ Exam Date: 01/26/2022 : 1960 Gender:F Ordering : DR SKYLER BOWMAN . Admission #: [id number] Family : Order #: [id number] CLICK HERE TO VIEW EXAM ECHOCARDIOGRAM REPORT [...] Area(A4C): 18.80 cm2 Left Atrium Systolic Volume(A2C): 39225 mm3 Left Atrium Systolic Volume(A4C): 39503 mm3 Mitral Valve MV E to A Ratio: 0.70 Deceleration [place]: 1750 mm/s2 Mitral Valve A-Wave Peak Velocity: [...] 4 mm[Hg] Right Atrium Dictated by: David Batuista M.D. on 01/26/2022 at 16:27 Approved by: David Bautista M.D. on 01/26/2022 at 16:30 Normal [facility] IRON BLOODon 01-26-2022 Iron [Mass/Vol] 135 ug/dL Normal 50-212 [facility] Comment on above: Order Comment: No: D o not add to previous draw Performed By: #### 1 0070, 21564, 32464, 36193, 98183, 01362 #### [facility] [address] [place] [address], [facility] LIVER BATTERYon 01-26-2022 Albumin [Mass/Vol] 3.6 g/dL Normal 3.5-5.7 [facility] Comment on above: Order Comment: No: D o not add to previous draw Performed By: #### 1 0070, 52442, 67029, 49198, 57481, 44982 #### [facility] [address]. [place] [id number], [facility] ALKALINE PHOSPH 142 IU/L High 34-104 [facility] Comment on above: Order Comment: No: D o not add to previous draw Performed By: #### 1 0070, 69643, 38558, 22251, 38180, 43378 #### [facility] [address] [place] [address], [place] ALT [Catalytic activity/Vol] 5 U/L Low 7-[address] [facility] Comment on above: Order Comment: No: D o not add to previous draw Performed By: #### 1 0070, 12579, 87347, 93606, 82062, 15956 #### [facility] [address] [place] [address], [facility] AST [Catalytic activity/Vol] 9 U/L Low 13-[address] [facility] Comment on above: Order Comment: No: D o not add to previous draw Performed By: #### 1 0070, 34443, 64933, 83083, 47300, 58156 #### [facility] [address] [place] [address], [place] Bilirubin [Mass/Vol] 0.2 mg/dL Low 0.3-1.[address] [facility] Comment on above: Order Comment: No: D o not add to previous draw Performed By: #### 1 0070, 50918, 08490, 37916, 72523, 24484 #### [facility] [address] [place] [address], [place] Bilirubin.direct [Mass/Vol] 0.1 mg/dL Normal 0.0-0.[address] [facility] Comment on above: Order Comment: No: D o not add to previous draw Performed By: #### 1 0070, 74217, 15648, 07689, 16830, 17916 #### [facility] [address] [place] [address], [place] Protein [Mass/Vol] 5.5 g/dL Low 6.0-8.3 [facility] Comment on above: Order Comment: No: D o not add to previous draw Performed By: #### 1 0070, 17108, 19073, 38795, 68362, 37691 #### [facility] [address] MAGNESIUM BLOODon 01-26-2022 Magnesium [Mass/Vol] 1.8 mg/dL Low 1.9-2.[address] [facility] Comment on above: Order Comment: No: D o not add to previous draw Performed By: #### 1 0070, 71416, 03519, 76181, 83571, 53203 #### [facility] [address] POC SARS COV2 ANTIGEN NEGATI VEon 01-26-2022 POC SARS COV2 ANTIGEN NEG Negative Normal NEGATIVE [facility] Comment on above: Result Comment: [...] antigen from SARS-CoV-2 in direct nasopharyngeal swab (APPLIANCE SERVICER) specimens from individuals who are suspected of [...] of Accreditation. Performed By: #### 5 7307, 92226, 71929 #### [facility] [address] POINT OF CARE GLUCOSEon 12-30 Glucose [Mass/Vol] 119 mg/dL Critically high 74-106 T [facility] Comment on above: Performed By: #### H STROPN #### [facility] [address] [place] [address] [address] Darya Berry PROF 14(COMP METB)on 022 Albumin [Mass/Vol] 2.8 g/dL Critically low 3.4-5.0 Th [facility] Comment on above: Performed By: #### C MADM, BNP, CMP #### [facility] [address] [address] [address] Darya Berry Albumin/Globulin [Mass ratio] 1.0 {ratio} Normal [facility] Comment on above: Performed By: #### C MADM, BNP, CMP #### [facility] [address] [address] [address] Darya Berry ALP [Catalytic activity/Vol] 142 U/L Critically high 46-116 [facility] Comment on above: Performed By: #### C MADM, BNP, CMP #### [facility] [address] [address] [address] Darya Berry ALT [Catalytic activity/Vol] 7 U/L Critically low 14-59 [facility] Comment on above: Performed By: #### C MADM, BNP, CMP #### [facility] [address] [place] [address] [address] Darya Berry Anion gap [Moles/Vol] 11.1 mmol/L Normal [facility] Comment on above: Performed By: #### C MADM, BNP, CMP #### [facility] [address] [place] [address] [address] Darya Berry AST [Catalytic activity/Vol] 10 U/L Critically low 15-37 [facility] Comment on above: Performed By: #### C MADM, BNP, CMP #### [facility] [address] [place] [address] [address] Darya Berry Bilirubin [Mass/Vol] 0.1 mg/dL Critically low 0.2-1.0 [facility] Comment on above: Performed By: #### C MADM, BNP, CMP #### [facility] [address] [place] [address] Dr. Darya Berry Calcium [Mass/Vol] 8.2 mg/dL Critically low 8.5-10.1 Th e [facility] Comment on above: Performed By: #### C MADM, BNP, CMP #### [facility] [address] [place] [address] Dr. Darya Berry Chloride [Moles/Vol] 105 mmol/L Normal 98-107 [facility] Comment on above: Performed By: #### C MADM, BNP, CMP #### [facility] [address] [place] [address] Dr. Darya Berry CO2 [Moles/Vol] 26.3 mmol/L Normal 21.0-32.0 The [facility] Comment on above: Performed By: #### C MADM, BNP, CMP #### [facility] [address] [place] [address] Dr. Darya Berry Creatinine [Mass/Vol] 0.87 mg/dL Normal 0.55-1.02 [facility] Comment on above: Performed By: #### C MADM, BNP, CMP #### [facility] [address] [place] [address] Dr. Darya Berry EGFR-AF AUSTRALIAN >60 Normal >=60 [facility] Comment on above: Performed By: #### C MADM, BNP, CMP #### [facility] [address] [place] [address] Dr. Darya Berry EGFR-NON AF AUSTRALIAN >60 Normal >=60 [facility] Comment on above: Performed By: #### C MADM, BNP, CMP #### [facility] [address] [place] [address] Dr. Darya Berry Globulin (S) [Mass/Vol] 2.8 g/dL Normal [facility] Comment on above: Performed By: #### C MADM, BNP, CMP #### [facility] [address] [place] [address] Dr. Darya Berry Glucose [Mass/Vol] 119 mg/dL Critically high 74-106 T [facility] Comment on above: Performed By: #### C MADM, BNP, CMP #### [facility] [address] [address] [address] Darya Berry Potassium [Moles/Vol] 3.4 mmol/L Critically low 3.5-5.1 [facility] Comment on above: Performed By: #### C MADM, BNP, CMP #### [facility] [address] [place] [address] Dr. Darya Berry Protein [Mass/Vol] 5.6 g/dL Critically low 6.4-8.2 [facility] Comment on above: Performed By: #### C MADM, BNP, CMP #### [facility] [address] [place] [address] Dr. Darya Berry Sodium [Moles/Vol] 139 mmol/L Normal 136-145 [facility] Comment on above: Performed By: #### C MADM, BNP, CMP #### [facility] [address] [place] [address] Dr. Darya Berry Urea nitrogen [Mass/Vol] 18.0 mg/dL Normal 7.0-18.0 [facility] Comment on above: Performed By: #### C MADM, BNP, CMP #### [facility] [address] [place] [address] Dr. Darya Berry Urea nitrogen/Creatinine [Mass ratio] 20.7 mg/mg Normal [facility] Comment on above: Performed By: #### C MADM, BNP, CMP #### [facility] [address] [place] [address] Dr. Darya Berry PROTHROMBIN TIMEon 2 INR Coag (PPP) [Relative time] 1.00 {INR} Normal 0.91-1.[address] [facility] Comment on above: Order Comment: No: D o not add to previous draw Result Comment: [facility] P RECOMMENDED INR FOR WARFARIN THERAPY ------ [...] CHEST 1995;108:[id number]. Performed By: #### 5 7307, 99806, 90430 #### [facility] [address] PT Coag (PPP) [Time] 13.2 s Normal 12.3-14.8 [facility] Comment on above: Order Comment: No: D o not add to previous draw Result Comment: ALL RESULTS MUST BE INTERPRETED WITH RESPECT TO BLOOD DRAWING ARTIFACT OR DILUTION ERROR OF ANTICOAGULANT AT THE TIME OF SAMPLING. Performed By: #### 5 7307, 36979, 14840 #### [facility] [address] PTT HEPARIN MONITORon 2021 aPTT Coag (Bld) [Time] 50.3 s Normal 39.5-54.2 [facility] Comment on above: Performed By: #### D VINCENT PRYOR ERUR #### [facility] [address] [place] [address] Dr. Darya Berry aPTT Coag (Bld) [Time] 49.8 s Normal 39.5-54.2 [facility] Comment on above: Performed By: #### P TTHEP #### [facility] [address] [place] [address] Dr. Darya Berry aPTT Coag (Bld) [Time] 58.4 s Critically high 39.5-54.2 [facility] Comment on above: Performed By: #### H ABDIRAHMAN #### [facility] [address] [place] [address] [address] Darya Berry TROPONIN, HIGH SENSITIVITYon 01-26-2022 HSTROP 57.4 pg/mL Critically high 4.0-51.3 [facility] Comment on above: Result Comment: CUT- OFF POINTS HAVE BEEN ESTABLISHED BASED ON THE FOURTH UNIVERSAL DEFINITIONS OF MYOCARDIAL INFARCTION. THE UPPER REFERENCE LIMIT (URL) OF TROPONIN, DEFINED THE 99TH PERCENTILE OF cTnI DISTRIBUTION IN A REFERENCE POPULATION, HAS BEEN CONFIRMED THE DECISION THRESHOLD FOR WI DIAGNOSIS. Performed By: #### H ABDIRAHMAN #### [facility] [address] [address] [address] Darya Berry TROPONIN-Ion 01-26-2022 Troponin I.cardiac [Mass/Vol] 0.03 ng/mL Normal 0.00-0.[address] [facility] Comment on above: Order Comment: No: D o not add to previous draw Result Comment: REFE RENCE RANGES: 0.00 - 0.04 ng/ml NORMAL 0.05 - 0.50 ng/ml INDETERMINATE > 0.50 ng/ml CONSISTENT WITH AN M.I. Performed By: #### 1 0070, 22795, 32921, 25043, 04029, 38607 #### [facility] [address] TSH3on 01-26-2022 TSH 3RD GENERATION 0.20 uIU/mL Low 0.34-5.60 [facility] Comment on above: Order Comment: No: D o not add to previous draw Performed By: #### 1 0070, 59726, 50826, 10911, 75177, 02202 #### [facility] [address] [place] [address], [facility] UFH HEPARIN ASSAYon 01-27-20 UNFRACTIONATED HEPARIN <0.10 Critically low 0.30-0.70 [facility] Comment on above: Result Comment: Resu lt checked and called. Accurately read back by Tani Ambrosio RN at 2106 01/26/22 Rivaroxaban and Apixaban will interfere with the anti Xa assay used to monitor UFH and LMWH. Performed By: #### 5 7307, 30252, 89705 #### [facility] [address] [place] [address], [facility] BNPon 01-25-2022 Natriuretic peptide B (Bld) [Mass/Vol] 1870.0 pg/mL Critically high <=900.0 [facility] Comment on above: Performed By: #### D VINCENT PRYOR ERUR #### [facility] [address] [address] [address] Darya Berry CARDIAC ARNALDO ADMITon 022 CK [Catalytic activity/Vol] 29 U/L Normal 26-192 [facility] Comment on above: Performed By: #### D VINCENT PRYOR ERUR #### [facility] [address] [place] [address] [address] Darya Berry CK.MB [Mass/Vol] 1.26 ng/mL Normal <=3.60 [facility] Comment on above: Performed By: #### D VINCENT PRYOR ERUR #### [facility] [address] [place] [address] [address] Darya Berry HSTROP 69.0 pg/mL Critically high 4.0-51.3 [facility] Comment on above: Result Comment: CUT- OFF POINTS HAVE BEEN ESTABLISHED BASED ON THE FOURTH UNIVERSAL DEFINITIONS OF MYOCARDIAL INFARCTION. THE UPPER REFERENCE LIMIT (URL) OF TROPONIN, DEFINED THE 99TH PERCENTILE OF cTnI DISTRIBUTION IN A REFERENCE POPULATION, HAS BEEN CONFIRMED THE DECISION THRESHOLD FOR [place] DIAGNOSIS. TEST REPEATED CRITICAL VALUE VERIFIED Performed By: #### D VINCENT PRYOR ERUR #### [facility] [address] [place] [address] [address] Darya Berry NELDA 77 ng/mL Normal 9-82 [facility] Comment on above: Performed By: #### D VINCENT PRYOR ERUR #### [facility] [address] [place] [address] Dr. Darya Berry CBC AUTO DIFFon 01-25-2022 BASO # 0.0 103/ul Normal 0.0-0.1 [facility] Comment on above: Performed By: #### D VINCENT PRYOR ERUR #### [facility] [address] [place] [address] Dr. Darya Berry Basophils/100 WBC (Bld) 0.4 % Normal 0.2-2.0 [facility] Comment on above: Performed By: #### D VINCENT PRYOR, ERUR #### [facility] [address] [place] [address] Dr. Darya Berry EO # 0.1 103/ul Normal 0.0-0.7 [facility] Comment on above: Performed By: #### D VINCENT PRYOR ERUR #### [facility] [address] [place] [address] Dr. Darya Berry Eosinophils/100 WBC (Bld) 1.3 % Normal 0.9-7.0 [facility] Comment on above: Performed By: #### D VINCENT PRYOR ERUR #### [facility] [address] [place] [address] Dr. Darya Berry Erythrocyte distribution width (RBC) [Ratio] 14.5 % Normal 11.0-15.0 [facility] Comment on above: Performed By: #### VINCENT SWENSON ERUR #### [facility] [address] [place] [address] Dr. Darya Berry Hematocrit (Bld) [Volume fraction] 40.2 % Normal 36.0-48.0 [facility] Comment on above: Performed By: #### D VINCENT PRYOR ERUR #### [facility] [address] [place] [address] Dr. Darya Berry Hemoglobin (Bld) [Mass/Vol] 13.4 g/dL Normal 12.0-16.0 [facility] Comment on above: Performed By: #### VINCENT SWENSON ERUR #### [facility] [address] [place] [address] [address] Darya Berry IG # 0.03 10e3/ul Normal 0.00-0.03 [facility] Comment on above: Performed By: #### D VINCENT PRYOR, ERUR #### [facility] [address] [place] [address] Dr. Darya Berry IG % 0.4 % Normal 0.0-0.5 [facility] Comment on above: Performed By: #### D VINCENT PRYOR, ERUR #### [facility] [address] [place] [address] Dr. Darya Berry LYMPH # 1.9 103/ul Normal 1.2-3.8 [facility] Comment on above: Performed By: #### D VINCENT PRYOR, ERUR #### [facility] [address] [place] [address] Dr. Darya Berry Lymphocytes/100 WBC (Bld) 29.0 % Normal 20.5-60.0 [facility] Comment on above: Performed By: #### D VINCENT PRYOR, ERUR #### [facility] [address] [place] [address] Dr. Darya Berry MANUAL DIFF REQ NO Normal [facility] Comment on above: Performed By: #### D VINCENT PRYOR, ERUR #### [facility] [address] [place] [address] Dr. Darya Berry MCH (RBC) [Entitic mass] 28.7 pg Normal 26.7-34.0 [facility] Comment on above: Performed By: #### D VINCENT PRYOR, ERUR #### [facility] [address] [place] [address] Dr. Darya Berry MCHC (RBC) [Mass/Vol] 33.3 g/dL Normal 29.9-35.2 [facility] Comment on above: Performed By: #### D VINCENT PRYOR, ERUR #### [facility] [address] [place] [address] Dr. Darya Berry MCV (RBC) [Entitic vol] 86.1 fL Normal 81.0-99.0 [facility] Comment on above: Performed By: #### D VINCENT PRYOR, ERUR #### [facility] [address] [place] [address] Dr. Darya Berry MONO # 0.5 103/ul Normal 0.3-0.8 [facility] Comment on above: Performed By: #### D VINCENT PRYOR, ERUR #### [facility] [address] [place] [address] Dr. Darya Berry Monocytes/100 WBC (Bld) 6.9 % Normal 1.7-12.0 [facility] Comment on above: Performed By: #### D VINCENT PRYOR, ERUR #### [facility] [address] [place] [address] Dr. Darya Berry NEUT # 4.1 103/ul Normal 1.4-6.5 [facility] Comment on above: Performed By: #### D VINCENT PRYOR, ERUR #### [facility] [address] [place] [address] Dr. Darya Berry Neutrophils/100 WBC (Bld) 62.0 % Normal 43.0-75.0 [facility] Comment on above: Performed By: #### D VINCENT PRYOR, ERUR #### [facility] [address] [place] [address] Dr. Darya Berry Platelet mean volume (Bld) [Entitic vol] 9.1 fL Critically low 9.5-13.5 [facility] Comment on above: Performed By: #### D VINCENT PRYOR, ERUR #### [facility] [address] [place] [address] Dr. Darya Berry PLT 300 103/ul Normal 150-450 [facility] Comment on above: Performed By: #### D VINCENT PRYOR, ERUR #### [facility] [address] [place] [address] Dr. Darya Berry RBC 4.67 106/ul Normal 4.20-5.40 [facility] Comment on above: Performed By: #### D VINCENT PRYOR ERUR #### [facility] [address] [place] [address] Dr. Darya Berry WBC 6.7 103/ul Normal 4.0-11.0 [facility] Comment on above: Performed By: #### D VINCENT PRYOR ERUR #### [facility] [address] [place] [address] Dr. Darya Berry CULTURE URINEon 01-25-2022 CULTURE URINE Culture Observations : NO GROWTH. Normal [facility] Comment on above: Performed By: #### H STROPN #### [facility] [address] [place] [address] Dr. Darya Berry [facility]30 SARS-CoV-2 (COVID-19) RNA VIRY+probe Ql (Unsp spec) Not detected Normal NOT DETECTED [facility] Comment on above: Result Comment: When diagnostic [...] for this test is supported by the [place] of Health and Human Service's declaration that [...] By: #### D VINCENT PRYOR ERUR #### [facility] [address] [place] [address] Dr. Darya Berry D-DIMERon 01-25-2022 D-DIMER 0.47 mg/L FEU Normal <=0.59 [facility] Comment on above: Performed By: #### D VINCENT PRYOR, ERUR #### [facility] [address] [address] [address] Darya Berry D-DIMER COMMENTS SEE BELOW Normal [facility] Comment on above: Result Comment: Incr [...] By: #### D VINCENT PRYOR, ERUR #### [facility] [address] [address] [address] Darya Berry DRUG SCREEN RAPID (URINE)on 01-25-2022 AMP Positive Abnormal NEGATIVE [facility] Comment on above: Performed By: #### D VINCENT PRYOR, ERUR #### [facility] [address] [address] [address] Darya Berry BAR Negative Normal NEGATIVE [facility] Comment on above: Performed By: #### D VINCENT PRYOR, ERUR #### [facility] [address] [address] [address] Darya Berry BUP Negative Normal NEGATIVE [facility] Comment on above: Performed By: #### D VINCENT PRYOR, ERUR #### [facility] [address] [address] [address] Darya Berry BZO Positive Abnormal NEGATIVE [facility] Comment on above: Performed By: #### D VINCENT PRYOR, ERUR #### [facility] [address] [address] [address] Darya Berry TOD Negative Normal NEGATIVE [facility] Comment on above: Performed By: #### D VINCENT PRYOR, ERUR #### [facility] [address] [address] [address] Darya Berry CUT-OFFS SEE BELOW Normal [facility] Comment on above: Result Comment: AMP (Amphetamine): 500ng/mL, BAR (Barbituates): 200 ng/mL, BZO (Benzodiazepines): 150 ng/mL, BUP (Buprenorphine): 10 ng/mL, TOD (Cocaine): 150 ng/mL, mAMP (Methamphetamine): 500 ng/mL, MTD (Methadone): 200 ng/mL, OPI (Opiates): 100 ng/mL, OXY (Oxycodone): 100 ng/mL, PCP (Phencyclidine): 25 ng/mL, PPX (Propoxyphene): 300 ng/mL, THC (Cannabinoids): 50 ng/mL, TCA (Trycyclic Antidepressants): 300 ng/mL Performed By: #### D MERY PRYORICRO, ERUR #### [facility] [address] [place] [address] Dr. Darya Berry DRUG CUT HEADER DRUG CLASS TEST SYST EM CUT-OFF CONCENTRATIONS ARE FOLLOWS: Normal [facility] Comment on above: Performed By: #### D BRYANNA PRYORRO, ERUR #### [facility] [address] [address] [address] Darya Berry mAMP Positive Abnormal NEGATIVE [facility] Comment on above: Performed By: #### D MERY PRYORICRO, ERUR #### [facility] [address] [address] [address] Darya Berry MTD Negative Normal NEGATIVE [facility] Comment on above: Performed By: #### D MERY PRYORICRO, ERUR #### [facility] [address] [address] [address] Darya Berry OPI Negative Normal NEGATIVE [facility] Comment on above: Performed By: #### D MERY PRYORICRO, ERUR #### [facility] [address] [address] [address] Darya Berry OXY Negative Normal NEGATIVE [facility] Comment on above: Performed By: #### D BRYANNA PRYORRO, ERUR #### [facility] [address] [address] [address] Darya Berry PCP Negative Normal NEGATIVE [facility] Comment on above: Performed By: #### D VINCENT PRYOR, ERUR #### [facility] [address] [address] [address] Darya Berry PPX Negative Normal NEGATIVE [facility] Comment on above: Performed By: #### D VINCENT PRYOR, ERUR #### [facility] [address] [place] [address] Dr. Darya Berry TCA Positive Abnormal NEGATIVE [facility] Comment on above: Performed By: #### D VINCENT PRYOR, ERUR #### [facility] [address] [place] [address] Dr. Darya Berry THC Negative Normal NEGATIVE [facility] Comment on above: Performed By: #### D VINCENT PRYOR, ERUR #### [facility] [address] [place] [address] Dr. Darya Berry ER URINE PROFILEon 2 Bilirubin Ql (U) Negative Normal NEGATIVE [facility] Comment on above: Performed By: #### D VINCENT PRYOR, ERUR #### [facility] [address] [place] [address] Dr. Darya Berry Clarity (U) CLEAR Normal CLEAR [facility] Comment on above: Performed By: #### D VINCENT PRYOR, ERUR #### [facility] [address] [place] [address] Dr. Darya Berry Color (U) LT. YELLOW Normal YELLOW [facility] Comment on above: Performed By: #### D VINCENT PRYOR, ERUR #### [facility] [address] [place] [address] Dr. Darya KINGAHAnusha A micrscopic examination will be performed if indicated. Normal [facility] Comment on above: Performed By: #### D VINCENT PRYOR, ERUR #### [facility] [address] [place], [place] [id number] Dr. Darya Berry Glucose Ql (U) Negative Normal NEGATIVE The [facility] Comment on above: Performed By: #### D VINCENT PRYOR ERUR #### [facility] [address] [address] [address] Darya Berry Hemoglobin Ql (U) SMALL Abnormal NEGATIVE The [facility] Comment on above: Performed By: #### D VINCENT PRYOR, ERUR #### [facility] [address] [address] [address] Darya Berry Ketones Ql (U) Negative Normal NEGATIVE [facility] Comment on above: Performed By: #### D VINCENT PRYOR ERUR #### [facility] [address] [place] [address] Dr. Darya Berry LEUKOCYTES SMALL Abnormal NEGATIVE [facility] Comment on above: Performed By: #### D VINCENT PRYOR ERUR #### [facility] [address] [address] [address] Darya Berry Nitrite Ql (U) Negative Normal NEGATIVE [facility] Comment on above: Performed By: #### D VINCENT PRYOR ERUR #### [facility] [address] [address] [address] Darya Berry pH (U) 6.0 [pH] Normal 5-9 [facility] Comment on above: Performed By: #### D VINCENT PRYOR ERUR #### [facility] [address] [address] [address] Darya Berry SPEC GRAVITY 1.010 Normal 1.005-<=1.025 The [facility] Comment on above: Performed By: #### D VINCENT PRYOR ERUR #### [facility] [address] [address] [address] Darya Berry UA PROTEIN Negative Normal NEGATIVE/ TRACE [facility] Comment on above: Performed By: #### D VINCENT PRYOR ERUR #### [facility] [address] [address] [address] Darya Berry UR MICRO IND INDICATED Normal [facility] Comment on above: Performed By: #### D VINCENT PRYOR, ERUR #### [facility] [address] [place] [address] Dr. Darya Berry Urobilinogen Qn (U) 0.2 {Constantino'U}/dL Normal 0.2 - 1. 0 [facility] Comment on above: Performed By: #### D VINCENT PRYOR, ERUR #### [facility] [address] [place] [address] Dr. Darya Berry PROF 14(COMP METB)on 022 Albumin [Mass/Vol] 3.4 g/dL Normal 3.4-5.0 [facility] Comment on above: Performed By: #### D VINCENT PRYOR, ERUR #### [facility] [address] [place] [address] Dr. Darya Berry Albumin/Globulin [Mass ratio] 1.1 {ratio} Normal [facility] Comment on above: Performed By: #### D VINCENT PRYOR, ERUR #### [facility] [address] [address] [address] Darya Berry ALP [Catalytic activity/Vol] 172 U/L Critically high 46-116 [facility] Comment on above: Performed By: #### D VINCENT PRYOR, ERUR #### [facility] [address] [address] [address] Darya Berry ALT [Catalytic activity/Vol] 10 U/L Critically low 14-59 [facility] Comment on above: Performed By: #### D VINCENT PRYOR, ERUR #### [facility] [address] [place] [address] Dr. Darya Berry Anion gap [Moles/Vol] 13.3 mmol/L Normal [facility] Comment on above: Performed By: #### D VINCENT PRYOR, ERUR #### [facility] [address] [place] [address] Dr. Darya Berry AST [Catalytic activity/Vol] 12 U/L Critically low 15-37 [facility] Comment on above: Performed By: #### D VINCENT PRYOR, ERUR #### [facility] [address] [address] [address] Darya Berry Bilirubin [Mass/Vol] 0.2 mg/dL Normal 0.2-1.0 [facility] Comment on above: Performed By: #### D VINCENT PRYOR, ERUR #### [facility] [address] [address] [address] Darya Berry Calcium [Mass/Vol] 8.7 mg/dL Normal 8.5-10.1 [facility] Comment on above: Performed By: #### D VINCENT PRYOR, ERUR #### [facility] [address] [address] [address] Darya Berry Chloride [Moles/Vol] 104 mmol/L Normal 98-107 [facility] Comment on above: Performed By: #### D VINCENT PRYOR, ERUR #### [facility] [address] [address] [address] Darya Berry CO2 [Moles/Vol] 24.5 mmol/L Normal 21.0-32.0 [facility] Comment on above: Performed By: #### D VINCENT PRYOR, ERUR #### [facility] [address] [address] [address] Darya Berry Creatinine [Mass/Vol] 1.08 mg/dL Critically high 0.55-1.02 [facility] Comment on above: Performed By: #### D VINCENT PRYOR, ERUR #### [facility] [address] [address] [address] Darya Berry EGFR-AF AUSTRALIAN >60 Normal >=60 [facility] Comment on above: Performed By: #### D VINCENT PRYOR, ERUR #### [facility] [address] [address] [address] Darya Berry EGFR-NON AF AUSTRALIAN 51 mL/min/1.73m2 Critically low >=60 [facility] Comment on above: Performed By: #### D VINCENT PRYOR ERUR #### [facility] [address] [address] [address] Darya Berry Globulin (S) [Mass/Vol] 3.2 g/dL Normal [facility] Comment on above: Performed By: #### D VINCENT PRYOR, ERUR #### [facility] [address] [address] [address] Darya Berry Glucose [Mass/Vol] 95 mg/dL Normal 74-106 [facility] Comment on above: Performed By: #### D VINCENT PRYOR ERUR #### [facility] [address] [address] [address] Darya Berry Potassium [Moles/Vol] 2.8 mmol/L Critically low 3.5-5.1 [facility] Comment on above: Result Comment: TEST REPEATED CRITICAL VALUE VERIFIED Performed By: #### D VINCENT PRYOR, ERUR #### [facility] [address] [address] [address] Darya Berry Protein [Mass/Vol] 6.6 g/dL Normal 6.4-8.2 [facility] Comment on above: Performed By: #### D VINCENT PRYOR, ERUR #### [facility] [address] [address] [address] Darya Berry Sodium [Moles/Vol] 139 mmol/L Normal 136-145 [facility] Comment on above: Performed By: #### D VINCENT PRYOR, ERUR #### [facility] [address] [address] [address] Darya Berry Urea nitrogen [Mass/Vol] 17.0 mg/dL Normal 7.0-18.0 [facility] Comment on above: Performed By: #### D VINCENT PRYOR, ERUR #### [facility] [address] [address] [address] Darya Berry Urea nitrogen/Creatinine [Mass ratio] 15.7 mg/mg Normal [facility] Comment on above: Performed By: #### D VINCENT PRYOR ERUR #### [facility] [address] [place] [address] Dr. Darya Berry PROTIMEon 01-25-2022 INR Coag (PPP) [Relative time] 0.97 {INR} Normal [facility] Comment on above: Performed By: #### D VINCENT PRYOR ERUR #### [facility] [address] [place] [address] Dr. Darya Berry INR GUIDELINES SEE BELOW Normal [facility] Comment on above: Result Comment: BLAKE RED INR: 2.0 - 3.0 CONDITIONS NOT LISTED BELOW 2.5 - 3.5 FOR PROSTHETIC HEART VALVE REPLACEMENT 2.5 - 3.5 RECURRENT THROMBOSIS Performed By: #### D VINCENT PRYOR ERUR #### [facility] [address] [place] [address] Dr. Darya Berry PT Coag (PPP) [Time] 10.5 s Normal 9.0-11.6 [facility] Comment on above: Performed By: #### D VINCENT PRYOR ERUR #### [facility] [address] [place] [address] Dr. Darya Berry PTTon 01-25-2022 aPTT Coag (Bld) [Time] 28.8 s Normal 22.3-36.2 [facility] Comment on above: Performed By: #### D VINCENT PRYOR ERUR #### [facility] [address] [place] [address] Dr. Darya Berry TROPONIN, HIGH SENSITIVITYon 01-25-2022 HSTROP 76.5 pg/mL Critically high 4.0-51.3 [facility] Comment on above: Result Comment: CUT- OFF POINTS HAVE BEEN ESTABLISHED BASED ON THE FOURTH UNIVERSAL DEFINITIONS OF MYOCARDIAL INFARCTION. THE UPPER REFERENCE LIMIT (URL) OF TROPONIN, DEFINED THE 99TH PERCENTILE OF cTnI DISTRIBUTION IN A REFERENCE POPULATION, HAS BEEN CONFIRMED THE DECISION THRESHOLD FOR WI DIAGNOSIS. Performed By: #### H STROPN #### [facility] [address] [address] [address] Darya Berry URINE MICROSCOPIC ONLYon BACTERIA TRACE Abnormal NONE SEEN [facility] Comment on above: Performed By: #### D VINCENT PRYOR, ERUR #### [facility] [address] [address] [address] Darya Berry Bacteria identified Cx Nom (U) INDICATED Normal [facility] Comment on above: Performed By: #### D VINCENT PRYOR, ERUR #### [facility] [address] [address] [address] Darya Berry CAST SEEN Abnormal NONE SEEN [facility] Comment on above: Performed By: #### D VINCENT PRYOR, ERUR #### [facility] [address] [place] [address] Dr. Darya Berry Crystals LM Nom (Urine sed) NONE SEEN Normal NONE SEEN [facility] Comment on above: Performed By: #### D VINCENT PRYOR, ERUR #### [facility] [address] [place] [address] Dr. Darya Berry Epithelial cells LM Ql (Urine sed) MODERATE Abnormal NONE SEEN /RARE [facility] Comment on above: Performed By: #### D VINCENT PRYOR, ERUR #### [facility] [address] [address] [address] Darya Berry HYALINE CAST FEW Normal [facility] Comment on above: Performed By: #### D VINCENT PRYOR, ERUR #### [facility] [address] [address] [address] Darya Berry MUCOUS TRACE Abnormal NONE SEEN [facility] Comment on above: Performed By: #### D VINCENT PRYOR, ERUR #### [facility] [address] [place] [address] Dr. Darya Berry RBC 0-2 Normal 0-2 [facility] Comment on above: Performed By: #### D VINCENT PRYOR, ERUR #### [facility] [address] [place] [address] Dr. Darya Berry WBC 2-5 Abnormal NONE SEEN [facility] Comment on above: Performed By: #### D VINCENT PRYOR ERUR #### [facility] [address] [place], [place] [address] Dr. Darya Berry XR CHEST 1 Von [...] ILANA NESBITT Date: 2022-01-25 14:15 Normal [facility] Covid-19 PCR (CVDTB)on 08-30 SARS-CoV-2 (COVID-19) RNA VIRY+probe Ql (Unsp spec) Not detected Normal NOT DETECTED [facility] Comment on above: Result Comment: When diagnostic [...] for this test is supported by the [place] of Health and Human Service's declaration that [...] longer be used). Performed By: #### C VDTB #### [facility] [address] [place] [address] Dr. Darya Berry INFLUENZA A AND B AGon 09-18 [facility] SEE BELOW Normal [facility] Comment on above: Result Comment: Nega tive for Flu A protein angiten. Infection due to Flu A cannot be ruled out. Flu A angiten in the sample may be below the detection limit of the test. Performed By: #### I NFLUAB #### [facility] [address] [place] [address] Dr. Darya Berry INFLUBNEG SEE BELOW Normal [facility] Comment on above: Result Comment: Nega tive for Flu B protein antigen. Infection due to Flu B cannot be ruled out. Flu B antigen in the sample may be below the detection limit of the test. Performed By: #### I NFLUAB #### [facility] [address] [place] [address] Dr. Darya Berry INFLUENZA A AG Negative Normal NEGATIVE SEE COMMENT [facility] Comment on above: Performed By: #### I NFLUAB #### [facility] [address] [place] [address] Dr. Darya Berry INFLUENZA B AG Negative Normal NEGATIVE SEE COMMENT [facility] Comment on above: Performed By: #### I NFLUAB #### [facility] [address] [place] [address] Dr. Darya Berry INTERNAL CONTROLS Within Normal Limits Normal Wi thin Normal Limits [facility] Comment on above: Performed By: #### I NFLUAB #### [facility] [address] [place] [address] Dr. Darya Berry Covid-19 PCR (CVDTB)on 07-01 SARS-CoV-2 (COVID-19) RNA VIRY+probe Ql (Unsp spec) Not detected Normal NOT DETECTED [facility] Comment on above: Result Comment: This test is not yet approved or cleared by the [place] FDA. When there are no FDA-approved or cleared tests available, and other criteria are met, FDA can make tests available under an emergency access mechanism called an Emergency Use Authorization (EUA). The EUA for this test is supported by the [place] of Health and Human Service's (HHS's) declaration [...] consistent with SARS-CoV-2. Performed By: #### H STROPN #### [facility] [address] [place] [address] Dr. Darya Berry Encounters Encounter Date Encounter Type Care Provider Facility Start: 03-06-2024 End: 03-06-2024 ambulatory [facility] Start: 09-13-2023 End: 09-13-2023 ambulatory [facility] Start: 04-24-2022 End: 04-25-[address] SKYLER BOWMAN Facility:[facility] Start: 04-03-2022 End: 04-04-2022 ambulatory GIOVANA LEA Facility:[facility] Start: 2022 End: 03-15-2022 ambulatory GAYATRI HUSSEIN Facility:[facility] Start: 02-28-[address] SKYLER BOWMAN Facility :[facility] Start: 02-24-2022 ambulatory GAYATRI HUSSEIN Facility :[facility] Start: 01-26-2022 End: 01-30-2022 Evaluation and management of inpatient ADELA ROGERS Facility:[facility] Start: 01-25-2022 End: 01-26-[address] SKYLER BOWMAN Facility:[facility] Start: 09-18-2021 End: 09-18-[address] SKYLER BOWMAN Facility:[facility] Start: 08-01-[address] SKYLER BOWMAN Facility :[facility] Start: 07-17-2021 End: 07-17-[address] SKYLER BOWMAN Facility:[facility] Procedures Date Procedure Procedure Detail Performing Clinician Start: 09-13-2023 [facility] Payers Date Payer Category Payer Medicare [id number] 1961 [employer] ( and others) [id number] 1961 Medicare [id number] 1961 Self-pay [id number] 1960 Unknown [id number] 1960 Unknown [id number] 1958 Unknown [id number] 1958 Unknown [id number] [id number] 1958 Unknown [id number] [id number] 1958 Unknown [id number] [id number] 1958 Unknown [id number] [id number] 1958 Unknown [id number] [id number] 1958 Unknown [id number] [id number] 1960 Unknown [id number] Progress note 03-06-2024 Note Date & Type Note Facility 03-06-2024 Note Cardiology Follow Up Progress Note Chief Complaint: follow up Julissa Muniz is a 64 y.o. female who follows with Cardiology for SVT s/p ablation and CAD s/p PCI to RCA. She presents today for follow up. Patient adamantly denies any cardiac complaints or [...] the morning. atorvastatin (Lipitor) 40 mg tablet TAKE 1 TABLET AT BEDTIME 90 tablet 3 carvedilol (Coreg) 3.125 mg tablet TAKE 1 TABLET WITH BREAKFAST AND WITH EVENING MEAL 180 tablet 3 cetirizine (ZyrTEC) 10 mg tablet Take 10 mg by mouth in the morning. citalopram (CeleXA) 20 mg tablet Take 40 mg by mouth in the morning. clopidogrel (Plavix) 75 mg tablet TAKE 1 TABLET DAILY DIRECTED 90 tablet 3 cyclobenzaprine (Flexeril) 10 mg tablet Take 10 mg by mouth if needed in the morning, at noon, and at bedtime for muscle spasms. diazePAM (Valium) 5 mg tablet Take 5 mg by mouth every 8 (eight) hours if needed for anxiety. ezetimibe (Zetia) 10 mg tablet TAKE 1 TABLET DAILY DIRECTED 90 tablet 3 levothyroxine (Synthroid, Levoxyl) 100 [...] Take 2 mg by mouth at bedtime. carisoprodol (Soma) 350 mg tablet take 1 tablet by mouth four times a day if needed No current facility-administered medications on file prior to visit. Allergies Erythromycin base, Latex, Morphine, Nickel, and Zofran [ondansetron hcl] Physical Exam VITAL SIGNS: Physical Exam VITAL SIGNS: BP 111/70 (BP Location: Right arm, Patient Position: Sitting) Pulse 94 Ht 1.676 m (5' 6 ) Wt 90.7 kg (200 lb) SpO2 95% BMI 32.28 kg/m??? Constitutional: Well developed, Well nourished, No [...] related to SVT -coreg 3.125 mg BID -She has no angina or anginal equivalents. Continue Coreg, Atorvastatin, Aspirin, Plavix, and ezetimibe for CAD -Optimize medical management -Aggressive risk factor modification -Plan of care discussed with patient. All questions were answered. Patient voices understanding and is agreeable with current plan. -Patient was educated on red flag symptoms. Strict return precautions were provided. Patient verbalizes understanding -Follow-up in cardiology clinic Nomi Orlando MD Interventional Cardiology [facility] Progress note 09-13-2023 Note Date & Type [...] cardiology clinic Nomi Orlando MD Interventional Cardiology [facility] Discharge summary note 01-30-2022 Note Date & Type Note Facility 01-30-2022 Note MR#: [id number] [facility] Pt. Name: Julissa Muniz Admitted: 01/26/2022 Discharged: [...] Rogers MD Date Trans: 01/30/2022 07:06 P/jac [id number] cc: Skyler Bowman M.D. [address], [place] [address] [facility] Summary Purpose Family History No Family History Records FoundNo Family History Records FoundNo Family History Records Found Advance Directives No Advanced Directives Records FoundNo Advanced Directives Records FoundNo Advanced Directives Records Found Additional Source Comments INFORMATION SOURCE (unrecogn ized section and content) DATE CREATED AUTHOR 02/02/2022 [facility] DATE CREATED AUTHOR AUTHOR'S ORGANIZ ATION 04/29/2022 [facility] DATE CREATED AUTHOR AUTHOR'S ORGANIZ ATION 04/14/2024 [facility] FOR RECORDS PERTAINING TO PATIENTS WHO [...] BE BASED ON THE PRIMARY CLINICAL RECORDS. [facility] provides no warranty or guarantee of the accuracy or completeness of information in this document.
== END 2024-04-29 10:42 | disposition home or self-care (01) ==
LOC: FL 10:41
PROVIDERS: PCP Family Medicine; Visit Provider Family Medicine
DX: K29.80 Duodenitis without bleeding (principal); K21.9 Gastro-esophageal reflux disease without esophagitis; Q40.0 Congenital hypertrophic pyloric stenosis
CPT/HCPCS: 74220; 76120

== ENCOUNTER 2024-10-04 19:15 | Emergency (ER) | payer MEDICARE, OTHER, SELFPAY ==
[2024-10-04 19:20] VITALS: BP 138/95; PULSE 96; TEMP 36.8; O2SAT 97; BMI 24.2
--- OUTSIDE RECORDS SUMMARY | 2024-10-04 19:25 | XMS_ITS | CCD ---
Author Organization [facility] Care Team Providers Care Collision Worker Name Role Phone JAKE ADELA Attending Unavailable SKYLER BOWMAN Referring Unavailable SKYLER BOWMAN Primary Care Unavailable JORGE ALBERTO, STEPHANY Admitting Unavailable KEENANWALEGAYATRI Admitting Unavailable GAYATRI HUSSEIN Attending Unavailable GAYATRI HUSSEIN Consulting Unavailable LAW, DR HOLLAND Primary Care [...] Primary Care Unavailable GAYATRI HUSSEIN Attending Unavailable GAYATRI HUSSEIN Admitting Unavailable LAW, DR HOLLAND Primary Care Unavailable HOY, DR HOLLAND Primary Care Unavailable SAMIRY, DR HOLLAND Admitting Unavailable HOY, DR HOLLAND Attending Unavailable HOY, DR HOLLAND Consulting Unavailable NOMI ORLANDO Attending Unavailable NOMI ORLANDO Attending Unavailable Allergies Allergy Classification Reported Allergen(s) Allergy Type Date of Onset Reaction(s) Facility (1 source) Amoxicillin / Clavulanate Drug Allergy 2 [facility] Repository (4 sources) Latex; Translations: [LATEX] Propensity to adverse reactions (disorder) 0 [facility] Repository (4 sources) Morphine; Translations: [MORPHINE] Drug Allergy 0 [facility] Repository (2 sources) nickel; Translations: [NICKEL] Drug Allergy 3 [facility] Repository (2 sources) Leucine Drug Allergy 3 [facility] Repository (1 source) Ondansetron; Translations: [ONDANSETRON HCL] Drug Allergy 2 [facility] Repository (1 source) ERYTHROMYCIN BASE; Translations: [ERYTHROMYCIN BASE] Propensity to adverse reactions to drug (disorder) 2 [facility] Repository Problems Active Problems Problem Classification Problem [...] disease (6 sources) Atherosclerotic heart disease of knik coronary artery without angina pectoris; Translations: [Old [...] 2 Chronic Other aftercare (1 source) 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 It is important that you return our call upon receiving this letter. Also, at the time of your call, please provide us with your current information. Thank you for your prompt attention to this matter. Sincerely, [facility] General Surgery [phone] Normal [facility] Office Visiton 03-06-2024 Follow-up visit [id number] Ted Munizthelma Bolden 1960 F Date Provider Department Center 03/06/2024 NOMI TELLEZ Family History Problem Relation Age of Onset Atrial fibrillation Mother Heart attack Father Family Status - Relation Status Age at Mother Father Level of Service:94434 [place] OFFICE/OUTPATIENT ESTABLISHED LOW MDM 20 MIN Normal [facility] Office Visiton 09-13-2023 Follow-up visit [id number] CristyJulissa L 1960 F Date Provider Department Center 09/13/2023 NOMI TELLEZ Family History Problem Relation Age of Onset Atrial fibrillation Mother Heart attack Father Family Status - Relation Status Age at Mother Father Level of Service:50530 [place] OFFICE/OUTPATIENT ESTABLISHED LOW MDM 20 MIN Reason for Visit and Comments: Follow-up [711199] - 6 mo follow up SOB but has bronchitis currently No cardiology symptoms per pt Got blood work done Saturday and her results came back as thyroid levels low and VD was low, gave her rx for this. Normal [facility] LIPID PROFILEon 04-24-2022 CHOL-HDL RATIO NORM SEE BELOW Normal [facility] Comment on above: Result Comment: 3.3 - 4.4 LOW RISK 4.4 - 7.1 AVERAGE RISK 7.1 - 11.0 MODERATE RISK >11.0 HIGH RISK Performed By: #### H STROPN #### [facility] [address] [address] [address] Darya Berry Cholesterol [Mass/Vol] 141 mg/dL Normal <=200 [facility] Comment on above: Performed By: #### H STROPN #### [facility] [address] [address] [address] Darya Berry Cholesterol in HDL [Mass/Vol] 51 mg/dL Normal 40-60 [facility] Comment on above: Performed By: #### H STROPN #### [facility] [address] [address] [address] Darya Berry Cholesterol in LDL [Mass/Vol] 71.8 mg/dL Normal [facility] Comment on above: Performed By: #### H STROPN #### [facility] [address] [address] [address] Darya Berry Cholesterol.total/C holesterol in HDL [Mass ratio] 2.8 {ratio} Normal [facility] Comment on above: Performed By: #### H STROPN #### [facility] [address] [address] [address] Darya Berry HDL NORMAL > or = 60 mg/dl - LO W CARDIOVASCULAR RISK <40 mg/dl - HIGH CARDIOVASCULAR RISK Normal [facility] Comment on above: Performed By: #### H STROPN #### [facility] [address] [address] [address] Darya Berry LDL CALC NORMAL SEE BELOW Normal [facility] [place] Comment on above: Result Comment: <100 mg/dl OPTIMAL 100 - 129 mg/dl NEAR OR ABOVE OPTIMAL 130 - 159 mg/dl BORDERLINE HIGH 160 - 189 mg/dl HIGH >190 mg/dl VERY HIGH Performed By: #### H STROPN #### [facility] [address] [address] [address] Darya Berry Triglyceride [Mass/Vol] 91 mg/dL Normal <=150 [facility] Comment on above: Performed By: #### H STROPN #### [facility] [address] [address] [address] Darya Berry VLDL CALC 18.2 mg/dL Normal [facility] Comment on above: Performed By: #### H STROPN #### [facility] [address] [address] [address] Darya Berry LIVER PROFILEon 04-24-2022 Albumin [Mass/Vol] 3.4 g/dL Normal 3.4-5.0 [facility] Comment on above: Performed By: #### H STROPN #### [facility] [address] [place] [address] Dr. Darya Berry Albumin/Globulin [Mass ratio] 1.1 {ratio} Normal [facility] Comment on above: Performed By: #### H STROPN #### [facility] [address] [place] [address] Dr. Darya Berry ALP [Catalytic activity/Vol] 167 U/L Critically high 46-116 [facility] Comment on above: Performed By: #### H STROPN #### [facility] [address] [place] [address] Dr. Darya Berry ALT [Catalytic activity/Vol] 14 U/L Normal 14-59 [facility] Comment on above: Performed By: #### H STROPN #### [facility] [address] [place] [address] Dr. Darya Berry AST [Catalytic activity/Vol] 17 U/L Normal 15-37 [facility] Comment on above: Performed By: #### H STROPN #### [facility] [address] [place] [address] Dr. Darya Berry BILI, CONJUGATED 0.1 mg/dL Normal 0.0-0.2 [facility] Comment on above: Performed By: #### H STROPN #### [facility] [address] [address] [address] Darya Berry Bilirubin [Mass/Vol] 0.2 mg/dL Normal 0.2-1.0 [facility] Comment on above: Performed By: #### H STROPN #### [facility] [address] [address] [address] Darya Berry Globulin (S) [Mass/Vol] 3.2 g/dL Normal [facility] Comment on above: Performed By: #### H STROPN #### [facility] [address] [address] [address] Darya Berry Protein [Mass/Vol] 6.6 g/dL Normal 6.4-8.2 [facility] Comment on above: Performed By: #### H STROPN #### [facility] [address] [address] [address] Darya Berry ECHOCARDIO M/2D COMPLETEon 0 2022 ECHOCARDIO M/2D COMPLETE Patient: JULISSA MUNIZ Exam Date: 2022 : 1960 Gender:F Ordering : GAYATRI HUSSEIN [facility] Admission #: [id number] Family : DR SKYLER BOWMAN . Order #: [id number] CLICK HERE TO VIEW EXAM ECHOCARDIOGRAM REPORT [...] M.D. on 03/16/2022 at 18:53 Normal [facility] CREATININE BLOODon 2 Creatinine [Mass/Vol] 0.68 mg/dL Normal 0.60-1.20 [facility] Comment on above: Order Comment: No: D o not add to previous draw Performed By: #### 5 7307, 99081, 37022 #### [facility] [address] [place] [address], [facility] GFR/1.73 sq M.predicted among non-blacks MDRD (S/P/Bld) [Vol rate/Area] mL/min/{1.73_m2} Normal >60 [facility] Comment on above: Order Comment: No: D o not add to previous draw Result Comment: [facility]'s estimated glomerular filtration rate (eGFR) will no [...] of individuals. Performed By: #### 5 7307, 35881, 44040 #### [facility] [address] [place] [address], [facility] Cardiovascular Lab Reporton 01-30-2022 Cardiovascular Lab Report [facility] MR #: [id number] Department of Physician: Axel Patterson MWon Division of Service Date: 01/29/2022 Cardiology Birthdate: 1960 Adult Cardiovascular Room #: 3AB 922689 Services [facility] [address] [place], [place] [address] Cardiovascular Laboratory Report CLINICAL PRESENTATION: The patient [...] with statin therapy. 7. Outpatient followup with CT Cardiology and primary care. PROCEDURES: Coronary angiogram, [...] infiltrated in the left radial artery. A 6-[place] Terumo Glidesheath slender was placed in the left radial artery. All catheter exchanges were made over the Magic Torque guidewire. Radial anti-vasospasm cocktail, verapamil and nitroglycerin was administered to prevent spasm. A 4-[place] JR4 was used to engage the right coronary artery. A 5-[place] JL4 was used to engage the left main coronary artery. Coronary angiogram was performed in multiple orthogonal views using hand injection of contrast. At this time, it was apparent that there was severe single-vessel coronary artery disease affecting the proximal RCA. I elected to proceed with PCI. Heparin anticoagulation was used for this procedure. ACT was maintained greater than 200 seconds. A Picklifyis 6-Citizen [place] JR4 guide was engaged in the right [...] [employer] M.D. Date Trans: 01/30/2022 05:44 A/jac [id number] cc: Skyler Bowman M.D. [address] [facility] [id number] Normal [facility] BASIC METABOLIC PANELon 08-0 Calcium [Mass/Vol] 8.5 mg/dL Low 8.6-10.3 [facility] Comment on above: Order Comment: No: D o not add to previous draw Performed By: #### 5 7307, 24101, 88642 #### [facility] [address] [place] [address], [facility] Chloride [Moles/Vol] 107 mmol/L Normal 98-107 [facility] Comment on above: Order Comment: No: D o not add to previous draw Performed By: #### 5 7307, 41128, 44046 #### [facility] [address] [place] [address], [place] CO2 [Moles/Vol] 22 mmol/L Normal 21-31 [facility] Comment on above: Order Comment: No: D o not add to previous draw Performed By: #### 5 7307, 17450, 30056 #### [facility] [address] [place] [address], [place] Creatinine [Mass/Vol] 0.83 mg/dL Normal 0.60-1.20 [facility] Comment on above: Order Comment: No: D o not add to previous draw Performed By: #### 5 7307, 33769, 63189 #### [facility] [address] [place] [address], [place] GFR/1.73 sq M.predicted among non-blacks MDRD (S/P/Bld) [Vol rate/Area] mL/min/{1.73_m2} Normal >60 [facility] Comment on above: Order Comment: No: D o not add to previous draw Result Comment: [facility]'s estimated glomerular filtration rate (eGFR) will no [...] of individuals. Performed By: #### 5 7307, 98641, 83323 #### [facility] [address] [place] [address], [facility] Glucose [Mass/Vol] 103 mg/dL High 70-100 [facility] Comment on above: Order Comment: No: D o not add to previous draw Performed By: #### 5 7307, 98459, 77291 #### [facility] [address] [place] [address], [place] Potassium [Moles/Vol] 3.9 mmol/L Normal 3.5-5.1 [facility] Comment on above: Order Comment: No: D o not add to previous draw Performed By: #### 5 7307, 07531, 72376 #### [facility] [address] [place] [address], [place] Sodium [Moles/Vol] 137 mmol/L Normal 136-145 [facility] Comment on above: Order Comment: No: D o not add to previous draw Performed By: #### 5 7307, 70712, 30968 #### [facility] [address] [place] [address], [facility] Urea nitrogen [Mass/Vol] 24 mg/dL Normal 7-25 [facility] Comment on above: Order Comment: No: D o not add to previous draw Performed By: #### 5 7307, 98274, 24391 #### [facility] [address] [place] [address], [facility] CBC COMPLETE BLOOD COUNTon 01-29-2022 Erythrocyte distribution width (RBC) [Ratio] 14.7 % Normal 11.5-15.0 [facility] Comment on above: Order Comment: No: D o not add to previous draw Performed By: #### 5 7307, 36512, 98129 #### [facility] [address] [place] [address], [facility] Hematocrit (Bld) [Volume fraction] 33.1 % Low 36.0-45.0 [facility] Comment on above: Order Comment: No: D o not add to previous draw Performed By: #### 5 7307, 67614, 54603 #### [facility] [address] [place] [address], [facility] Hemoglobin (Bld) [Mass/Vol] 10.8 g/dL Low 12.0-15.0 [facility] Comment on above: Order Comment: No: D o not add to previous draw Performed By: #### 5 7307, 92036, 52613 #### [facility] [address] [place] [address], [facility] MCH (RBC) [Entitic mass] 28.6 pg Normal 27.0-33.0 [facility] Comment on above: Order Comment: No: D o not add to previous draw Performed By: #### 5 7307, 11787, 15627 #### [facility] [address] MCHC (RBC) [Mass/Vol] 32.6 g/dL Normal 32.0-35.0 [facility] Comment on above: Order Comment: No: D o not add to previous draw Performed By: #### 5 7307, 09667, 60039 #### [facility] [address] [place] [address], [facility] MCV (RBC) [Entitic vol] 87.8 fL Normal 82.0-98.0 [facility] Comment on above: Order Comment: No: D o not add to previous draw Performed By: #### 5 7307, 85738, 57497 #### [facility] [address] [facility] Nucleated RBC/100 WBC (Bld) [Ratio] 0 % Normal 0-0 [facility] Comment on above: Order Comment: No: D o not add to previous draw Performed By: #### 5 7307, 35202, 27589 #### [facility] [address] [place] [address], [facility] PLAT CNT 180 10*3/uL Normal 150-400 The [facility] Comment on above: Order Comment: No: D o not add to previous draw Performed By: #### 5 7307, 30107, 37528 #### [facility] [address] [place] [address], [facility] RBC (Bld) [#/Vol] 3.77 10*6/uL Low 3.80-5.00 The [facility] Comment on above: Order Comment: No: D o not add to previous draw Performed By: #### 5 7307, 02813, 24848 #### [facility] [address] [place] [address], [facility] WBC (Bld) [#/Vol] 5.60 10*3/uL Normal 4.00-10.60 [facility] Comment on above: Order Comment: No: D o not add to previous draw Performed By: #### 5 7307, 53272, 41234 #### [facility] [address] [place] [address], [facility] FREE T4on 01-29-2022 Free T4 [Mass/Vol] 1.12 ng/dL Normal 0.71-1.85 [facility] Comment on above: Performed By: #### 5 7307, 62549, 48225 #### [facility] [address] [place] [address], [facility] HEMOGLOBIN A1Con 01-29-2022 Glucose [Moles/Vol] 114 mmol/L Normal [facility] Comment on above: Order Comment: No: D o not add to previous draw Performed By: #### 5 7307, 03633, 15135 #### [facility] [address] [place] [address], [facility] HbA1c (Bld) [Mass fraction] 5.6 % Normal 4.0-6.0 [facility] Comment on above: Order Comment: No: D o not add to previous draw Performed By: #### 5 7307, 91644, 93964 #### [facility] [address] [place] [address], [facility] LIPID PROFILEon 01-29-2022 Cholesterol [Mass/Vol] 211 mg/dL High 120-200 [facility] Comment on above: Result Comment: CHOL ESTEROL REFERENCE RANGE: 20 YEARS AND OLDER CARDIOVASCULAR RISK Less than 200 mg/dl Low Risk 200 to 239 mg/dl Borderline Risk 240 mg/dl and greater High Risk Performed By: #### 5 7307, 20257, 16033 #### [facility] [address] [place] [address], [facility] Cholesterol in HDL [Mass/Vol] 45 mg/dL Normal 23-92 [facility] Comment on above: Result Comment: Slig ht variation in normal range could be due to gender and/or age. HDL CHOLESTEROL REFERENCE RANGE: 20 years and older Cardiovascular Risk > or =60 mg/dL Desirable 40 TO 59 mg/dL Low Risk <40 mg/dL High Risk Performed By: #### 5 7307, 43732, 79184 #### [facility] [address] [place] [address], [facility] Cholesterol in LDL [Mass/Vol] 147 mg/dL High 0-130 [facility] Comment on above: Result Comment: LDL IS A CALCULATION LDL IS ONLY VALID IF THE TRIG IS LESS THAN 400. Performed By: #### 5 7307, 98976, 45736 #### [facility] [address] [place] [address], [facility] Cholesterol.total/C holesterol in HDL [Mass ratio] 4.7 {ratio} High .0-4.5 [facility] Comment on above: Performed By: #### 5 7307, 02751, 34074 #### [facility] [address] [place] [address], [facility] NON-HDL CHOLESTEROL 166 mg/dL Normal [facility] Comment on above: Performed By: #### 5 7307, 18396, 88759 #### [facility] [address] [place] [address], [facility] Triglyceride [Mass/Vol] 94 mg/dL Normal 40-149 [facility] Comment on above: Result Comment: TRIG LYCERIDE REFERENCE RANGE: 20 YEARS AND OLDER CARDIOVASCULAR RISK LESS THAN 150 mg/dl LOW RISK 150 TO 199 mg/dl BORDERLINE RISK 200 mg/dl AND GREATER HIGH RISK Performed By: #### 5 7307, 77987, 77176 #### [facility] [address] [place] [address], [facility] VLDL CHOL 19 mg/dL Normal 0-40 [facility] Comment on above: Performed By: #### 5 7307, 42435, 86664 #### [facility] [address] [place] [address], [facility] MAGNESIUM BLOODon 01-29-2022 Magnesium [Mass/Vol] 1.9 mg/dL Normal 1.9-2.7 [facility] Comment on above: Order Comment: No: D o not add to previous draw Performed By: #### 5 7307, 48760, 00263 #### [facility] [address] [place] [address], [facility] UFH HEPARIN ASSAYon 01-30-20 22 UNFRACTIONATED HEPARIN 0.58 IU/mL Normal 0.30-0.70 [facility] Comment on above: Result Comment: Manda roxaban and Apixaban will interfere with the anti Xa assay used to monitor UFH and LMWH. Performed By: #### 3 0477 #### [facility] [address] [place] [address], [facility] BASIC METABOLIC PANELon 07- Calcium [Mass/Vol] 8.4 mg/dL Low 8.6-10.3 [facility] Comment on above: Order Comment: No: D o not add to previous draw Performed By: #### 5 7307, 83113, 33508 #### [facility] [address] [place] [address], [facility] Chloride [Moles/Vol] 106 mmol/L Normal 98-107 [facility] Comment on above: Order Comment: No: D o not add to previous draw Performed By: #### 5 7307, 08232, 21930 #### [facility] [address] [place] [id number], [facility] CO2 [Moles/Vol] 27 mmol/L Normal 21-31 The [facility] Comment on above: Order Comment: No: D o not add to previous draw Performed By: #### 5 7307, 12877, 00302 #### [facility] [address] [place] [address], [facility] Creatinine [Mass/Vol] 0.86 mg/dL Normal 0.60-1.20 [facility] Comment on above: Order Comment: No: D o not add to previous draw Performed By: #### 5 7307, 97973, 29081 #### [facility] [address] [place] [address], [facility] GFR/1.73 sq M.predicted among non-blacks MDRD (S/P/Bld) [Vol rate/Area] mL/min/{1.73_m2} Normal >60 [facility] Comment on above: Order Comment: No: D o not add to previous draw Result Comment: [facility]'s estimated glomerular filtration rate (eGFR) will no [...] of individuals. Performed By: #### 5 7307, 59180, 51967 #### [facility] [address] [place] [id number], [facility] Glucose [Mass/Vol] 84 mg/dL Normal 70-[address] [facility] Comment on above: Order Comment: No: D o not add to previous draw Performed By: #### 5 7307, 10063, 13669 #### [facility] [address] [place] [address], [facility] Potassium [Moles/Vol] 4.5 mmol/L Normal 3.5-5.1 [facility] Comment on above: Order Comment: No: D o not add to previous draw Performed By: #### 5 7307, 23819, 53843 #### [facility] [address] [place] [address], [place] Sodium [Moles/Vol] 137 mmol/L Normal 136-[address] [facility] Comment on above: Order Comment: No: D o not add to previous draw Performed By: #### 5 7307, 82831, 85587 #### [facility] [address] Urea nitrogen [Mass/Vol] 20 mg/dL Normal 7-25 [facility] Comment on above: Order Comment: No: D o not add to previous draw Performed By: #### 5 7307, 44947, 58016 #### [facility] [address] [place] [address], [facility] CBC W/DIFFon 01-28-2022 ABS IMM GRANS 0.0 10*3/uL Normal 0.0-0.2 The [facility] Comment on above: Order Comment: No: D o not add to previous draw Performed By: #### 5 7307, 95466, 06085 #### [facility] [address] [place] [address], [facility] ABS NEUTROPHILS 2.0 10*3/uL Normal 1.6-7.6 The [facility] Comment on above: Order Comment: No: D o not add to previous draw Performed By: #### 5 7307, 74836, 31257 #### [facility] [address] [place] [address], [facility] Basophils (Bld) [#/Vol] 0.0 10*3/uL Normal 0.0-0.2 The [facility] Comment on above: Order Comment: No: D o not add to previous draw Performed By: #### 5 7307, 53054, 38729 #### [facility] [address] [facility] [address], [facility] Basophils/100 WBC (Bld) 0.5 % Normal 0.0-1.0 The [facility] Comment on above: Order Comment: No: D o not add to previous draw Performed By: #### 5 7307, 72334, 03675 #### [facility] [address] [place] [address], [facility] Eosinophils (Bld) [#/Vol] 0.1 10*3/uL Normal 0.0-0.5 The [facility] Comment on above: Order Comment: No: D o not add to previous draw Performed By: #### 5 7307, 53087, 01199 #### [facility] [address] [place] [id number], [facility] Eosinophils/100 WBC (Bld) 2.1 % Normal 0.0-6.0 The [facility] Comment on above: Order Comment: No: D o not add to previous draw Performed By: #### 5 73, 22247, 39775 #### [facility] [address] [place] [address], [facility] Erythrocyte distribution width (RBC) [Ratio] 14.7 % Normal 11.5-15.0 The [facility] Comment on above: Order Comment: No: D o not add to previous draw Performed By: #### 5 7307, 88722, 56117 #### [facility] [address] [place] [id number], [facility] Hematocrit (Bld) [Volume fraction] 33.7 % Low 36.0-45.0 The [facility] Comment on above: Order Comment: No: D o not add to previous draw Performed By: #### 5 7307, 43446, 50765 #### [facility] [address] [place] [id number], [facility] Hemoglobin (Bld) [Mass/Vol] 10.8 g/dL Low 12.0-15.0 The [facility] Comment on above: Order Comment: No: D o not add to previous draw Performed By: #### 5 7307, 45433, 10450 #### [facility] [address] [place] [address], [place] IMMATURE GRANS 0.2 % Normal 0.0-1.0 The [facility] Comment on above: Order Comment: No: D o not add to previous draw Performed By: #### 5 7307, 91724, 64500 #### [facility] [address] [place] [address], [facility] Lymphocytes (Bld) [#/Vol] 1.9 10*3/uL Normal 1.2-4.0 The [facility] Comment on above: Order Comment: No: D o not add to previous draw Performed By: #### 5 73, 89960, 39784 #### [facility] [address] [place] [address], [facility] Lymphocytes/100 WBC (Bld) 43.8 % Normal 20.0-45.0 The [facility] Comment on above: Order Comment: No: D o not add to previous draw Performed By: #### 5 73, 03228, 90867 #### [facility] [address] [place] [address], [facility] MCH (RBC) [Entitic mass] 28.4 pg Normal 27.0-33.0 The [facility] Comment on above: Order Comment: No: D o not add to previous draw Performed By: #### 5 73, 16803, 69422 #### [facility] [address] [place] [address], [facility] MCHC (RBC) [Mass/Vol] 32.0 g/dL Normal 32.0-35.0 The [facility] Comment on above: Order Comment: No: D o not add to previous draw Performed By: #### 5 7307, 26057, 74715 #### [facility] [address] [place] [address], [facility] MCV (RBC) [Entitic vol] 88.7 fL Normal 82.0-98.0 The [facility] Comment on above: Order Comment: No: D o not add to previous draw Performed By: #### 5 7307, 05283, 05924 #### [facility] [address] [place] [address], [facility] Monocytes (Bld) [#/Vol] 0.4 10*3/uL Normal 0.1-1.0 The [facility] Comment on above: Order Comment: No: D o not add to previous draw Performed By: #### 5 73, 82078, 87847 #### [facility] [address] [place] [address], [place] MONOS 8.1 % Normal 5.0-12.0 The [facility] Comment on above: Order Comment: No: D o not add to previous draw Performed By: #### 5 7307, 79210, 26848 #### [facility] [address] [place] [address], [place] Neutrophils/100 WBC (Bld) 45.3 % Normal 40.0-72.0 The [facility] Comment on above: Order Comment: No: D o not add to previous draw Performed By: #### 5 7307, 85335, 01824 #### [facility] [address] [place] [address], [place] Nucleated RBC/100 WBC (Bld) [Ratio] 0 % Normal 0-0 The [facility] Comment on above: Order Comment: No: D o not add to previous draw Performed By: #### 5 7307, 96857, 12840 #### [facility] [address] [place] [address], [place] PLAT CNT 198 10*3/uL Normal 150-400 The [facility] Comment on above: Order Comment: No: D o not add to previous draw Performed By: #### 5 7307, 74098, 01155 #### [facility] [address] [place] [address], [place] RBC (Bld) [#/Vol] 3.80 10*6/uL Normal 3.80-5.00 The [facility] Comment on above: Order Comment: No: D o not add to previous draw Performed By: #### 5 7307, 70114, 79511 #### [facility] [address] [place] [address], [place] WBC (Bld) [#/Vol] 4.34 10*3/uL Normal 4.00-10.60 [facility] Comment on above: Order Comment: No: D o not add to previous draw Performed By: #### 5 7307, 32447, 23333 #### [facility] [address] UFH HEPARIN ASSAYon 01-29-20 UNFRACTIONATED HEPARIN 0.38 IU/mL Normal 0.30-0.70 The [facility] Comment on above: Result Comment: Mccammon roxaban and Apixaban will interfere with the anti Xa assay used to monitor UFH and LMWH. Performed By: #### 5 7307, 89458, 69984 #### [facility] [address] CBC COMPLETE BLOOD COUNTon 0 01-27-2022 Erythrocyte distribution width (RBC) [Ratio] 15.0 % Normal 11.5-15.0 The [facility] Comment on above: Order Comment: No: D o not add to previous draw Performed By: #### 5 7307, 37135, 85741 #### [facility] [address] Hematocrit (Bld) [Volume fraction] 34.8 % Low 36.0-45.0 [facility] Comment on above: Order Comment: No: D o not add to previous draw Performed By: #### 5 7307, 80262, 40485 #### [facility] [address] Hemoglobin (Bld) [Mass/Vol] 11.3 g/dL Low 12.0-15.0 [facility] Comment on above: Order Comment: No: D o not add to previous draw Performed By: #### 5 7307, 09318, 93850 #### [facility] [address] MCH (RBC) [Entitic mass] 28.5 pg Normal 27.0-33.0 [facility] Comment on above: Order Comment: No: D o not add to previous draw Performed By: #### 5 7307, 54307, 52437 #### [facility] [address] [place] [address], [facility] MCHC (RBC) [Mass/Vol] 32.5 g/dL Normal 32.0-35.0 [facility] Comment on above: Order Comment: No: D o not add to previous draw Performed By: #### 5 7307, 10418, 12976 #### [facility] [address] [place] [address], [facility] MCV (RBC) [Entitic vol] 87.7 fL Normal 82.0-98.0 The [facility] Comment on above: Order Comment: No: D o not add to previous draw Performed By: #### 5 7307, 31744, 88176 #### [facility] [address] [place] [address], [facility] Nucleated RBC/100 WBC (Bld) [Ratio] 0 % Normal 0-0 The [facility] Comment on above: Order Comment: No: D o not add to previous draw Performed By: #### 5 7307, 22982, 76411 #### [facility] [address] [place] [address], [facility] PLAT CNT 205 10*3/uL Normal 150-400 The [facility] Comment on above: Order Comment: No: D o not add to previous draw Performed By: #### 5 7307, 53198, 93537 #### [facility] [address] [place] [id number], [facility] RBC (Bld) [#/Vol] 3.97 10*6/uL Normal 3.80-5.00 [facility] Comment on above: Order Comment: No: D o not add to previous draw Performed By: #### 5 7307, 71464, 34849 #### [facility] [address] [place] [address], [place] WBC (Bld) [#/Vol] 4.86 10*3/uL Normal 4.00-10.60 The [facility] Comment on above: Order Comment: No: D o not add to previous draw Performed By: #### 5 7307, 74380, 75322 #### [facility] [address] [place] [address], [facility] CORTISOLon 01-27-2022 CORTISOL 11.6 mcg/dL Normal The [facility] Comment on above: Result Comment: Refe rence Range: AM 6.0-23.0 mcg/dL PM 0.0-9.0 mcg/dL Performed By: #### 5 7307, 92620, 10248 #### [facility] [address] [place] [address], [facility] TROPONIN-Ion 01-27-2022 Troponin I.cardiac [Mass/Vol] 0.03 ng/mL Normal 0.00-0.04 [facility] Comment on above: Order Comment: No: D o not add to previous draw Result Comment: REFE RENCE RANGES: 0.00 - 0.04 ng/ml NORMAL 0.05 - 0.50 ng/ml INDETERMINATE > 0.50 ng/ml CONSISTENT WITH AN M.I. Performed By: #### 5 7307, 15311, 91473 #### [facility] [address] [place] [address], [facility] Troponin I.cardiac [Mass/Vol] 0.03 ng/mL Normal 0.00-0.04 [facility] Comment on above: Order Comment: No: D o not add to previous draw Result Comment: REFE RENCE RANGES: 0.00 - 0.04 ng/ml NORMAL 0.05 - 0.50 ng/ml INDETERMINATE > 0.50 ng/ml CONSISTENT WITH AN M.I. Performed By: #### 5 7307, 45487, 08816 #### [facility] [address] [place] [address], [facility] UFH HEPARIN ASSAYon 01-28-20 22 UNFRACTIONATED HEPARIN 0.61 IU/mL Normal 0.30-0.70 The [facility] Comment on above: Result Comment: Mccammon roxaban and Apixaban will interfere with the anti Xa assay used to monitor UFH and LMWH. Performed By: #### 5 7307, 89269, 91995 #### [facility] [address] APTTon 01-26-2022 aPTT Coag (Bld) [Time] 28.6 s Normal 25.0-35.0 [facility] Comment on above: Order Comment: No: [...] THIS PURPOSE. Performed By: #### 5 7307, 84087, 84427 #### [facility] [address] BASIC METABOLIC PANELon 12-30 Calcium [Mass/Vol] 8.2 mg/dL Low 8.6-10.3 [facility] Comment on above: Order Comment: No: D o not add to previous draw Performed By: #### 1 0070, 01963, 85798, 44034, 44413, 88906 #### [facility] [address] [place] [address], [facility] Chloride [Moles/Vol] 104 mmol/L Normal 98-107 The [facility] Comment on above: Order Comment: No: D o not add to previous draw Performed By: #### 1 0070, 73693, 85749, 46830, 11054, 38609 #### [facility] [address] [place] [address], [facility] CO2 [Moles/Vol] 27 mmol/L Normal 21-31 The [facility] Comment on above: Order Comment: No: D o not add to previous draw Performed By: #### 1 0070, 44248, 50333, 47841, 09795, 06020 #### [facility] [address] [place] [address], [facility] Creatinine [Mass/Vol] 0.86 mg/dL Normal 0.60-1.20 The [facility] Comment on above: Order Comment: No: D o not add to previous draw Performed By: #### 1 0070, 48384, 15471, 55685, 34968, 97923 #### [facility] [address] [place] [address], [place] GFR/1.73 sq M.predicted among non-blacks MDRD (S/P/Bld) [Vol rate/Area] mL/min/{1.73_m2} Normal >60 The [facility] Comment on above: Order Comment: No: D o not add to previous draw Result Comment: The [facility]'s estimated glomerular filtration rate (eGFR) will no [...] of individuals. Performed By: #### 1 0070, 79784, 51887, 79721, 24794, 33341 #### [facility] [address] [place] [address], [place] Glucose [Mass/Vol] 96 mg/dL Normal 70-100 [facility] Comment on above: Order Comment: No: D o not add to previous draw Performed By: #### 1 0070, 53999, 59110, 83082, 72544, 53953 #### [facility] [address] [place] [address], [place] Potassium [Moles/Vol] 4.2 mmol/L Normal 3.5-5.1 [facility] Comment on above: Order Comment: No: D o not add to previous draw Performed By: #### 1 0070, 30796, 24934, 00739, 32445, 08336 #### [facility] [address] [place] [address], [facility] Sodium [Moles/Vol] 139 mmol/L Normal 136-145 [facility] Comment on above: Order Comment: No: D o not add to previous draw Performed By: #### 1 0070, 48651, 09381, 14314, 34555, 91285 #### [facility] [address] [place] [address], [facility] Urea nitrogen [Mass/Vol] 16 mg/dL Normal 7-25 [facility] Comment on above: Order Comment: No: D o not add to previous draw Performed By: #### 1 0070, 82301, 02225, 98815, 42951, 01265 #### [facility] [address] [facility] [facility] [address] BNPon 01-26-2022 Natriuretic peptide B (Bld) [Mass/Vol] 1605.0 pg/mL Critically high <=900.0 [facility] Comment on above: Performed By: #### C CHANELLE, BNP, CMP #### [facility] [address] [place] [address] [address] Darya Berry BNP (B-TYPE NATRIURETIC PEPT MARQUITA)on 01-26-2022 Natriuretic peptide B (Bld) [Mass/Vol] 117 pg/mL High 0-100 The [facility] Comment on above: Order Comment: No: D o not add to previous draw Result Comment: Give n the appropriate clinical setting a BNP result of >100 pg/mL indicates congestive heart failure. Performed By: #### 5 7307, 21268, 30264 #### [facility] [address] [facility] [place] [address], [facility] CARDIAC ARNALDO ADMITon 022 CK [Catalytic activity/Vol] 28 U/L Normal 26-192 [facility] Comment on above: Performed By: #### C MADM, BNP, CMP #### [facility] [address] [place] [address] [address] Darya Berry CK.MB [Mass/Vol] 1.26 ng/mL Normal <=3.60 [facility] Comment on above: Performed By: #### C MADM, BNP, CMP #### [facility] [address] [place] [address] Dr. Darya Berry HSTROP 80.9 pg/mL Critically high 4.0-51.3 The [facility] [place] Comment on above: Result Comment: CUT- OFF POINTS HAVE BEEN ESTABLISHED BASED ON THE FOURTH UNIVERSAL DEFINITIONS OF MYOCARDIAL INFARCTION. THE UPPER REFERENCE LIMIT (URL) OF TROPONIN, DEFINED THE 99TH PERCENTILE OF cTnI DISTRIBUTION IN A REFERENCE POPULATION, HAS BEEN CONFIRMED THE DECISION THRESHOLD FOR SD DIAGNOSIS. Performed By: #### C MADM, BNP, CMP #### [facility] [address] [place] [address] Dr. Darya Berry NELDA 31 ng/mL Normal 9-82 [facility] Comment on above: Performed By: #### C MADM, BNP, CMP #### [facility] [address] [place] [address] Dr. Darya Berry CBC AUTO DIFFon 01-26-2022 BASO # 0.0 103/ul Normal 0.0-0.1 [facility] Comment on above: Performed By: #### H STROPN #### [facility] [address] [place] [address] Dr. Darya Berry Basophils/100 WBC (Bld) 0.6 % Normal 0.2-2.0 [facility] Comment on above: Performed By: #### H STROPN #### [facility] [address] [place] [address] [address] Darya Berry EO # 0.1 103/ul Normal 0.0-0.7 [facility] Comment on above: Performed By: #### H STROPN #### [facility] [address] [place] [address] Dr. Darya Berry Eosinophils/100 WBC (Bld) 1.8 % Normal 0.9-7.0 [facility] Comment on above: Performed By: #### H STROPN #### [facility] [address] [place] [address] Dr. Darya Berry Erythrocyte distribution width (RBC) [Ratio] 14.6 % Normal 11.0-15.0 [facility] Comment on above: Performed By: #### H STROPN #### [facility] [address] [place] [address] Dr. Darya Berry Hematocrit (Bld) [Volume fraction] 34.6 % Critically low 36.0-48.0 [facility] Comment on above: Performed By: #### H STROPN #### [facility] [address] [place] [address] Dr. Darya Berry Hemoglobin (Bld) [Mass/Vol] 11.2 g/dL Critically low 12.0-16.0 [facility] Comment on above: Performed By: #### H STROPN #### [facility] [address] [place] [address] Dr. Darya Berry IG # 0.01 10e3/ul Normal 0.00-0.03 [facility] Comment on above: Performed By: #### H STROPN #### [facility] [address] [place] [address] Dr. Darya Berry IG % 0.2 % Normal 0.0-0.5 [facility] Comment on above: Performed By: #### H STROPN #### [facility] [address] [place] [address] Dr. Darya Berry LYMPH # 2.1 103/ul Normal 1.2-3.8 [facility] Comment on above: Performed By: #### H STROPN #### [facility] [address] [place] [address] Dr. Darya Berry Lymphocytes/100 WBC (Bld) 41.7 % Normal 20.5-60.0 [facility] Comment on above: Performed By: #### H STROPN #### [facility] [address] [place] [address] Dr. Darya Berry MANUAL DIFF REQ NO Normal [facility] Comment on above: Performed By: #### H STROPN #### [facility] [address] [place] [address] [address] Darya Berry MCH (RBC) [Entitic mass] 28.2 pg Normal 26.7-34.0 [facility] Comment on above: Performed By: #### H STROPN #### [facility] [address] [place] [address] Dr. Darya Berry MCHC (RBC) [Mass/Vol] 32.4 g/dL Normal 29.9-35.2 [facility] Comment on above: Performed By: #### H STROPN #### [facility] [address] [place] [address] Dr. Darya Berry MCV (RBC) [Entitic vol] 87.2 fL Normal 81.0-99.0 [facility] Comment on above: Performed By: #### H STROPN #### [facility] [address] [place] [address] Dr. Darya Berry MONO # 0.4 103/ul Normal 0.3-0.8 [facility] Comment on above: Performed By: #### H STROPN #### [facility] [address] [place] [address] Dr. Darya Berry Monocytes/100 WBC (Bld) 7.3 % Normal 1.7-12.0 [facility] Comment on above: Performed By: #### H STROPN #### [facility] [address] [place] [address] Dr. Darya Berry NEUT # 2.4 103/ul Normal 1.4-6.5 [facility] Comment on above: Performed By: #### H STROPN #### [facility] [address] [place] [address] Dr. Darya Berry Neutrophils/100 WBC (Bld) 48.4 % Normal 43.0-75.0 [facility] Comment on above: Performed By: #### H STROPN #### [facility] [address] [place] [address] Dr. Darya Berry Platelet mean volume (Bld) [Entitic vol] 9.4 fL Critically low 9.5-13.5 [facility] Comment on above: Performed By: #### H STROPN #### [facility] [address] [place], [place] [address] Dr. Darya Berry PLT 217 103/ul Normal 150-450 [facility] Comment on above: Performed By: #### H STROPN #### [facility] [address] [place], [place] [address] Dr. Darya Berry RBC 3.97 106/ul Critically low 4.20-5.40 [facility] Comment on above: Performed By: #### H STROPN #### [facility] [address] [place], [place] [address] Dr. Darya Berry WBC 4.9 103/ul Normal 4.0-11.0 [facility] Comment on above: Performed By: #### H STROPN #### [facility] [address] [place] [address] [address] Darya Berry CBC COMPLETE BLOOD COUNTon 0 01-26-2022 Erythrocyte distribution width (RBC) [Ratio] 14.8 % Normal 11.5-15.0 The [facility] Comment on above: Order Comment: No: D o not add to previous draw Performed By: #### 5 7307, 21024, 54903 #### [facility] [address] [place] [address], [facility] Hematocrit (Bld) [Volume fraction] 34.7 % Low 36.0-45.0 [facility] Comment on above: Order Comment: No: D o not add to previous draw Performed By: #### 5 7307, 51877, 38726 #### [facility] [address] [place] [address], [place] Hemoglobin (Bld) [Mass/Vol] 11.3 g/dL Low 12.0-15.0 [facility] Comment on above: Order Comment: No: D o not add to previous draw Performed By: #### 5 7307, 78679, 88465 #### [facility] [address] [place] [address], [place] MCH (RBC) [Entitic mass] 28.6 pg Normal 27.0-33.0 [facility] Comment on above: Order Comment: No: D o not add to previous draw Performed By: #### 5 7307, 54495, 25092 #### [facility] [address] [place] [id number], [facility] MCHC (RBC) [Mass/Vol] 32.6 g/dL Normal 32.0-35.0 [facility] Comment on above: Order Comment: No: D o not add to previous draw Performed By: #### 5 7307, 10636, 79233 #### [facility] [address] [place] [address], [facility] MCV (RBC) [Entitic vol] 87.8 fL Normal 82.0-98.0 [facility] Comment on above: Order Comment: No: D o not add to previous draw Performed By: #### 5 7307, 55430, 22395 #### [facility] [address] [place] [address], [facility] Nucleated RBC/100 WBC (Bld) [Ratio] 0 % Normal 0-0 [facility] Comment on above: Order Comment: No: D o not add to previous draw Performed By: #### 5 7307, 20280, 40548 #### [facility] [address] [place] [id number], [facility] PLAT CNT 223 10*3/uL Normal 150-400 [facility] Comment on above: Order Comment: No: D o not add to previous draw Performed By: #### 5 7307, 36369, 64934 #### [facility] [address] [place] [address], [facility] RBC (Bld) [#/Vol] 3.95 10*6/uL Normal 3.80-5.00 The [facility] Comment on above: Order Comment: No: D o not add to previous draw Performed By: #### 5 73, 58809, 59725 #### [facility] [address] [place] [address], [facility] WBC (Bld) [#/Vol] 5.01 10*3/uL Normal 4.00-10.60 [facility] Comment on above: Order Comment: No: D o not add to previous draw Performed By: #### 5 7307, 29715, 96448 #### [facility] [address] ECHOCARDIO M/2D COMPLETEon 0 01-26-2022 ECHOCARDIO M/2D COMPLETE Patient: JULISSA MUNIZ Exam Date: 01/26/2022 : 1960 Gender:F Ordering : DR SKYLER BOWMAN . Admission #: [id number] Family : Order #: [id number] CLICK HERE TO VIEW EXAM ECHOCARDIOGRAM REPORT [...] Area(A4C): 18.80 cm2 Left Atrium Systolic Volume(A2C): 27921 mm3 Left Atrium Systolic Volume(A4C): 32725 mm3 Mitral Valve MV E to A Ratio: 0.70 Deceleration [place]: 1750 mm/s2 Mitral Valve A-Wave Peak Velocity: [...] Bautista M.D. on 01/26/2022 at 16:30 Normal [facility] IRON BLOODon 01-26-2022 Iron [Mass/Vol] 135 ug/dL Normal 50-212 [facility] Comment on above: Order Comment: No: D o not add to previous draw Performed By: #### 1 2954, 64611, 50258, 97719, 98254, 45300 #### [facility] [address] [place] [address], [place] LIVER BATTERYon 01-26-2022 Albumin [Mass/Vol] 3.6 g/dL Normal 3.5-5.7 [facility] Comment on above: Order Comment: No: D o not add to previous draw Performed By: #### 1 0070, 46151, 47139, 32294, 90376, 80882 #### [facility] [address] [place] [address], [facility] ALKALINE PHOSPH 142 IU/L High 34-104 [facility] Comment on above: Order Comment: No: D o not add to previous draw Performed By: #### 1 0070, 70937, 03536, 88048, 67164, 26650 #### [facility] [address] [place] [address], [facility] ALT [Catalytic activity/Vol] 5 U/L Low 7-52 [facility] Comment on above: Order Comment: No: D o not add to previous draw Performed By: #### 1 0070, 76835, 25075, 81689, 72147, 99959 #### [facility] [address] [place] [address], [place] AST [Catalytic activity/Vol] 9 U/L Low 13-39 [facility] Comment on above: Order Comment: No: D o not add to previous draw Performed By: #### 1 0070, 97947, 98270, 33876, 39365, 47348 #### [facility] [address] [place] [address], [place] Bilirubin [Mass/Vol] 0.2 mg/dL Low 0.3-1.0 [facility] Comment on above: Order Comment: No: D o not add to previous draw Performed By: #### 1 0070, 05157, 57537, 70431, 53337, 82865 #### [facility] [address] [place] [address], [facility] Bilirubin.direct [Mass/Vol] 0.1 mg/dL Normal 0.0-0.2 [facility] Comment on above: Order Comment: No: D o not add to previous draw Performed By: #### 1 0070, 21013, 52223, 49624, 41830, 63872 #### [facility] [address] [place] [address], [facility] Protein [Mass/Vol] 5.5 g/dL Low 6.0-8.3 [facility] Comment on above: Order Comment: No: D o not add to previous draw Performed By: #### 1 0070, 27415, 81809, 56799, 21854, 49867 #### [facility] [address] [place] [place] [address], [facility] MAGNESIUM BLOODon 01-26-2022 Magnesium [Mass/Vol] 1.8 mg/dL Low 1.9-2.7 [facility] Comment on above: Order Comment: No: D o not add to previous draw Performed By: #### 1 0070, 18100, 89100, 30208, 23217, 89014 #### [facility] [address] POC SARS COV2 ANTIGEN NEGATI VEon 01-26-2022 POC SARS COV2 ANTIGEN NEG Negative Normal NEGATIVE [facility] Comment on above: Result Comment: Nega tive [...] antigen from SARS-CoV-2 in direct nasopharyngeal swab (ACID TENDER) specimens from individuals who are suspected of [...] of Accreditation. Performed By: #### 5 7307, 89181, 57091 #### [facility] [address] [place] [address], [facility] POINT OF CARE GLUCOSEon 12-30 Glucose [Mass/Vol] 119 mg/dL Critically high 74-106 [facility] Comment on above: Performed By: #### H STROPN #### [facility] [address] [place] [address] Dr. Darya Berry PROF 14(COMP METB)on 022 Albumin [Mass/Vol] 2.8 g/dL Critically low 3.4-5.0 [facility] Comment on above: Performed By: #### C MADM, BNP, CMP #### [facility] [address] [place] [address] Dr. Darya Berry Albumin/Globulin [Mass ratio] 1.0 {ratio} Normal [facility] Comment on above: Performed By: #### C MADM, BNP, CMP #### [facility] [address] [place] [address] Dr. Darya Berry ALP [Catalytic activity/Vol] 142 U/L Critically high 46-116 [facility] Comment on above: Performed By: #### C MADM, BNP, CMP #### [facility] [address] [place] [address] Dr. Darya Berry ALT [Catalytic activity/Vol] 7 U/L Critically low 14-59 [facility] Comment on above: Performed By: #### C MADM, BNP, CMP #### [facility] [address] [place] [address] Dr. Darya Berry Anion gap [Moles/Vol] 11.1 mmol/L Normal [facility] Comment on above: Performed By: #### C MADM, BNP, CMP #### [facility] [address] [address] [address] Darya Berry AST [Catalytic activity/Vol] 10 U/L Critically low 15-37 [facility] Comment on above: Performed By: #### C MADM, BNP, CMP #### [facility] [address] [address] [address] Darya Berry Bilirubin [Mass/Vol] 0.1 mg/dL Critically low 0.2-1.0 [facility] Comment on above: Performed By: #### C MADM, BNP, CMP #### [facility] [address] [place] [address] Dr. Darya Berry Calcium [Mass/Vol] 8.2 mg/dL Critically low 8.5-10.1 [facility] Comment on above: Performed By: #### C MADM, BNP, CMP #### [facility] [address] [place] [address] Dr. Darya Berry Chloride [Moles/Vol] 105 mmol/L Normal 98-107 [facility] Comment on above: Performed By: #### C MADM, BNP, CMP #### [facility] [address] [place] [address] Dr. Darya Berry CO2 [Moles/Vol] 26.3 mmol/L Normal 21.0-32.0 [facility] Comment on above: Performed By: #### C MADM, BNP, CMP #### [facility] [address] [place] [address] Dr. Darya Berry Creatinine [Mass/Vol] 0.87 mg/dL Normal 0.55-1.02 [facility] Comment on above: Performed By: #### C MADM, BNP, CMP #### [facility] [address] [address] [address] Darya Berry EGFR-AF SWEDISH >60 Normal >=60 [facility] Comment on above: Performed By: #### C MADM, BNP, CMP #### [facility] [address] [address] [address] Darya Berry EGFR-NON AF SWEDISH >60 Normal >=60 [facility] Comment on above: Performed By: #### C MADM, BNP, CMP #### [facility] [address] [address] [address] Darya Berry Globulin (S) [Mass/Vol] 2.8 g/dL Normal [facility] Comment on above: Performed By: #### C MADM, BNP, CMP #### [facility] [address] [address] [address] Darya Berry Glucose [Mass/Vol] 119 mg/dL Critically high 74-106 [facility] Comment on above: Performed By: #### C MADM, BNP, CMP #### [facility] [address] [address] [address] Darya Berry Potassium [Moles/Vol] 3.4 mmol/L Critically low 3.5-5.1 [facility] Comment on above: Performed By: #### C MADM, BNP, CMP #### [facility] [address] [address] [address] Darya Berry Protein [Mass/Vol] 5.6 g/dL Critically low 6.4-8.2 [facility] Comment on above: Performed By: #### C MADM, BNP, CMP #### [facility] [address] [address] [address] Darya Berry Sodium [Moles/Vol] 139 mmol/L Normal 136-145 [facility] Comment on above: Performed By: #### C MADM, BNP, CMP #### [facility] [address] [address] [address] Darya Berry Urea nitrogen [Mass/Vol] 18.0 mg/dL Normal 7.0-18.0 [facility] Comment on above: Performed By: #### C MADM, BNP, CMP #### [facility] [address] [address] [address] Darya Berry Urea nitrogen/Creatinine [Mass ratio] 20.7 mg/mg Normal [facility] Comment on above: Performed By: #### C MADM, BNP, CMP #### [facility] [address] [address] [address] Darya Berry PROTHROMBIN TIMEon INR Coag (PPP) [Relative time] 1.00 {INR} Normal 0.91-1.16 [facility] Comment on above: Order Comment: No: D [...] CHEST 1995;108:231S-246S. Performed By: #### 5 7307, 44738, 97080 #### [facility] [address] [place] [address], [facility] PT Coag (PPP) [Time] 13.2 s Normal 12.3-14.8 [facility] Comment on above: Order Comment: No: D o not add to previous draw Result Comment: ALL RESULTS MUST BE INTERPRETED WITH RESPECT TO BLOOD DRAWING ARTIFACT OR DILUTION ERROR OF ANTICOAGULANT AT THE TIME OF SAMPLING. Performed By: #### 5 7307, 33479, 58783 #### [facility] [address] [place] [address], [facility] PTT HEPARIN MONITORon 2021 aPTT Coag (Bld) [Time] 50.3 s Normal 39.5-54.2 [facility] Comment on above: Performed By: #### D VINCENT PRYOR ERUR #### [facility] [address] [address] [address] Darya Berry aPTT Coag (Bld) [Time] 49.8 s Normal 39.5-54.2 [facility] Comment on above: Performed By: #### P TTHEP #### [facility] [address] [address] [address] Darya Berry aPTT Coag (Bld) [Time] 58.4 s Critically high 39.5-54.2 [facility] Comment on above: Performed By: #### H STROPN #### [facility] [address] [place] [address] Dr. Darya Berry TROPONIN, HIGH SENSITIVITYon 01-26-2022 HSTROP 57.4 pg/mL Critically high 4.0-51.3 The [facility] Comment on above: Result Comment: CUT- OFF POINTS HAVE BEEN ESTABLISHED BASED ON THE FOURTH UNIVERSAL DEFINITIONS OF MYOCARDIAL INFARCTION. THE UPPER REFERENCE LIMIT (URL) OF TROPONIN, DEFINED THE 99TH PERCENTILE OF cTnI DISTRIBUTION IN A REFERENCE POPULATION, HAS BEEN CONFIRMED THE DECISION THRESHOLD FOR SD DIAGNOSIS. Performed By: #### H STROPN #### [facility] [address] [place] [address] Dr. Darya Berry TROPONIN-Ion 01-26-2022 Troponin I.cardiac [Mass/Vol] 0.03 ng/mL Normal 0.00-0.04 [facility] Comment on above: Order Comment: No: D o not add to previous draw Result Comment: REFE RENCE RANGES: 0.00 - 0.04 ng/ml NORMAL 0.05 - 0.50 ng/ml INDETERMINATE > 0.50 ng/ml CONSISTENT WITH AN M.I. Performed By: #### 1 0070, 72790, 81842, 36911, 48108, 09133 #### [facility] [address] [place] [address], [facility] TSH3on 01-26-2022 TSH 3RD GENERATION 0.20 uIU/mL Low 0.34-5.60 [facility] Comment on above: Order Comment: No: D o not add to previous draw Performed By: #### 1 0070, 38330, 92554, 39802, 22141, 08875 #### [facility] [address] [place] [address], [facility] UFH HEPARIN ASSAYon 01-27-20 UNFRACTIONATED HEPARIN <0.10 Critically low 0.30-0.70 [facility] Comment on above: Result Comment: Resu lt checked and called. Accurately read back by Tani Ambrosio RN at 2108 01/26/22 Rivaroxaban and Apixaban will interfere with the anti Xa assay used to monitor UFH and LMWH. Performed By: #### 5 7307, 72121, 78736 #### [facility] [address] [place] [address], [facility] BNPon 01-25-2022 Natriuretic peptide B (Bld) [Mass/Vol] 1870.0 pg/mL Critically high <=900.0 [facility] Comment on above: Performed By: #### D VINCENT PRYOR ERUR #### [facility] [address] [address] [address] Darya Berry CARDIAC ARNALDO ADMITon 022 CK [Catalytic activity/Vol] 29 U/L Normal 26-192 [facility] Comment on above: Performed By: #### D VINCENT PRYOR ERUR #### [facility] [address] [address] [address] Darya Berry CK.MB [Mass/Vol] 1.26 ng/mL Normal <=3.60 [facility] Comment on above: Performed By: #### D VINCENT PRYOR ERUR #### [facility] [address] [address] [address] Darya Berry HSTROP 69.0 pg/mL Critically high 4.0-51.3 [facility] Comment on above: Result Comment: CUT- OFF POINTS HAVE BEEN ESTABLISHED BASED ON THE FOURTH UNIVERSAL DEFINITIONS OF MYOCARDIAL INFARCTION. THE UPPER REFERENCE LIMIT (URL) OF TROPONIN, DEFINED THE 99TH PERCENTILE OF cTnI DISTRIBUTION IN A REFERENCE POPULATION, HAS BEEN CONFIRMED THE DECISION THRESHOLD FOR SD DIAGNOSIS. TEST REPEATED CRITICAL VALUE VERIFIED Performed By: #### D VINCENT PRYOR ERUR #### [facility] [address] [place] [address] Dr. Darya Berry NELDA 77 ng/mL Normal 9-82 [facility] Comment on above: Performed By: #### D VINCENT PRYOR ERUR #### [facility] [address] [place] [address] Dr. Darya Berry CBC AUTO DIFFon 01-25-2022 BASO # 0.0 103/ul Normal 0.0-0.1 [facility] Comment on above: Performed By: #### D VINCENT PRYOR ERUR #### [facility] [address] [place] [address] Dr. Darya Berry Basophils/100 WBC (Bld) 0.4 % Normal 0.2-2.0 [facility] Comment on above: Performed By: #### D VINCENT PRYOR ERUR #### [facility] [address] [place] [address] Dr. Darya Berry EO # 0.1 103/ul Normal 0.0-0.7 [facility] Comment on above: Performed By: #### D VINCENT PRYOR ERUR #### [facility] [address] [address] [address] Darya Berry Eosinophils/100 WBC (Bld) 1.3 % Normal 0.9-7.0 [facility] Comment on above: Performed By: #### D VINCENT PRYOR ERUR #### [facility] [address] [place] [address] Dr. Darya Berry Erythrocyte distribution width (RBC) [Ratio] 14.5 % Normal 11.0-15.0 [facility] Comment on above: Performed By: #### D VINCENT PRYOR ERUR #### [facility] [address] [place] [address] Dr. Darya Berry Hematocrit (Bld) [Volume fraction] 40.2 % Normal 36.0-48.0 [facility] Comment on above: Performed By: #### D VINCENT PRYOR, ERUR #### [facility] [address] [place] [address] Dr. Darya Berry Hemoglobin (Bld) [Mass/Vol] 13.4 g/dL Normal 12.0-16.0 [facility] Comment on above: Performed By: #### D VINCENT PRYOR ERUR #### [facility] [address] [place] [address] Dr. Darya Berry IG # 0.03 10e3/ul Normal 0.00-0.03 [facility] Comment on above: Performed By: #### D VINCENT PRYOR ERUR #### [facility] [address] [place] [address] Dr. Darya Berry IG % 0.4 % Normal 0.0-0.5 [facility] Comment on above: Performed By: #### D VINCENT PRYOR ERUR #### [facility] [address] [place] [address] Dr. Darya Berry LYMPH # 1.9 103/ul Normal 1.2-3.8 [facility] Comment on above: Performed By: #### D VINCENT PRYOR ERUR #### [facility] [address] [place] [address] Dr. Darya Berry Lymphocytes/100 WBC (Bld) 29.0 % Normal 20.5-60.0 [facility] Comment on above: Performed By: #### D VINCENT PRYOR ERUR #### [facility] [address] [place] [address] Dr. Darya Berry MANUAL DIFF REQ NO Normal [facility] Comment on above: Performed By: #### D VINCENT PRYOR ERUR #### [facility] [address] [place] [address] Dr. Darya Berry MCH (RBC) [Entitic mass] 28.7 pg Normal 26.7-34.0 [facility] Comment on above: Performed By: #### D VINCENT PRYOR, ERUR #### [facility] [address] [place] [address] Dr. Darya Berry MCHC (RBC) [Mass/Vol] 33.3 g/dL Normal 29.9-35.2 [facility] Comment on above: Performed By: #### D VINCENT PRYOR, ERUR #### [facility] [address] [place] [address] Dr. Darya Berry MCV (RBC) [Entitic vol] 86.1 fL Normal 81.0-99.0 [facility] Comment on above: Performed By: #### D VINCENT PRYOR, ERUR #### [facility] [address] [place] [address] Dr. Darya Berry MONO # 0.5 103/ul Normal 0.3-0.8 [facility] Comment on above: Performed By: #### D VINCENT PRYOR, ERUR #### [facility] [address] [place] [address] Dr. Darya Berry Monocytes/100 WBC (Bld) 6.9 % Normal 1.7-12.0 [facility] Comment on above: Performed By: #### D VINCENT PRYOR, ERUR #### [facility] [address] [place] [address] Dr. Darya Berry NEUT # 4.1 103/ul Normal 1.4-6.5 [facility] Comment on above: Performed By: #### D VINCENT PRYOR, ERUR #### [facility] [address] [place] [address] Dr. Darya Berry Neutrophils/100 WBC (Bld) 62.0 % Normal 43.0-75.0 [facility] Comment on above: Performed By: #### D VINCENT PRYOR, ERUR #### [facility] [address] [place] [address] Dr. Darya Berry Platelet mean volume (Bld) [Entitic vol] 9.1 fL Critically low 9.5-13.5 [facility] Comment on above: Performed By: #### D VINCENT PRYOR, ERUR #### [facility] [address] [address] [address] Darya Berry PLT 300 103/ul Normal 150-450 [facility] Comment on above: Performed By: #### D VINCENT PRYOR, ERUR #### [facility] [address] [address] [address] Darya Berry RBC 4.67 106/ul Normal 4.20-5.40 [facility] Comment on above: Performed By: #### D VINCENT PRYOR, ERUR #### [facility] [address] [place] [address] Dr. Darya Berry WBC 6.7 103/ul Normal 4.0-11.0 [facility] Comment on above: Performed By: #### D VINCENT PRYOR, ERUR #### [facility] [address] [place] [address] Dr. Darya Berry CULTURE URINEon 01-25-2022 CULTURE URINE Culture Observations : NO GROWTH. Normal [facility] Comment on above: Performed By: #### H STROPN #### [facility] [address] [place] [address] Dr. Darya Berry [facility]30 SARS-CoV-2 (COVID-19) RNA VIRY+probe Ql (Unsp spec) Not detected Normal NOT DETECTED [facility] Comment on above: Result Comment: When diagnostic [...] for this test is supported by the [employer] of Health and Human Service's declaration that [...] By: #### D VINCENT PRYOR ERUR #### [facility] [address] [address] [address] Darya Berry D-DIMERon 01-25-2022 D-DIMER 0.47 mg/L FEU Normal <=0.59 [facility] Comment on above: Performed By: #### D VINCENT PRYOR ERUR #### [facility] [address] [address] [address] Darya Berry D-DIMER COMMENTS SEE BELOW Normal [facility] Comment on above: Result Comment: Incr eases [...] generalized hospitalization. Performed By: #### D VINCENT PRYOR ERUR #### [facility] [address] [place] [address] Dr. Darya Berry DRUG SCREEN RAPID (URINE)on 01-25-2022 AMP Positive Abnormal NEGATIVE [facility] Comment on above: Performed By: #### D VINCENT PRYOR ERUR #### [facility] [address] [place] [address] Dr. Darya Berry BAR Negative Normal NEGATIVE [facility] Comment on above: Performed By: #### D VINCENT PRYOR ERUR #### [facility] [address] [address] [address] Darya Berry BUP Negative Normal NEGATIVE [facility] Comment on above: Performed By: #### D VINCENT PRYOR, ERUR #### [facility] [address] [place] [address] Dr. Darya Berry BZO Positive Abnormal NEGATIVE [facility] Comment on above: Performed By: #### D VINCENT PRYOR, ERUR #### [facility] [address] [address] [address] Darya Berry TOD Negative Normal NEGATIVE [facility] Comment on above: Performed By: #### D VINCENT PRYOR, ERUR #### [facility] [address] [address] [address] Darya Berry CUT-OFFS SEE BELOW Normal [facility] Comment on above: Result Comment: AMP (Amphetamine): [...] By: #### D VINCENT PRYOR, ERUR #### [facility] [address] [place] [address] Dr. Darya Berry DRUG CUT HEADER DRUG CLASS TEST SYST EM CUT-OFF CONCENTRATIONS ARE FOLLOWS: Normal [facility] Comment on above: Performed By: #### D VINCENT PRYOR, ERUR #### [facility] [address] [place] [address] Dr. Darya Berry mAMP Positive Abnormal NEGATIVE [facility] Comment on above: Performed By: #### D VINCENT PRYOR, ERUR #### [facility] [address] [place] [address] Dr. Darya Berry MTD Negative Normal NEGATIVE [facility] Comment on above: Performed By: #### D MERY PRYORICRO, ERUR #### [facility] [address] [address] [address] Darya Berry OPI Negative Normal NEGATIVE [facility] Comment on above: Performed By: #### D RUGTREVOR UMICRO, ERUR #### [facility] [address] [address] [address] Darya Berry OXY Negative Normal NEGATIVE [facility] Comment on above: Performed By: #### D RUGTREVOR UMICRO, ERUR #### [facility] [address] [address] [address] Darya Berry PCP Negative Normal NEGATIVE [facility] Comment on above: Performed By: #### D MERY PRYORICRO, ERUR #### [facility] [address] [place] [address] Dr. Darya Berry PPX Negative Normal NEGATIVE [facility] Comment on above: Performed By: #### D MERY PRYORICRO, ERUR #### [facility] [address] [place] [address] Dr. Darya Berry TCA Positive Abnormal NEGATIVE [facility] Comment on above: Performed By: #### D MERY PRYORICRO, ERUR #### [facility] [address] [place] [address] Dr. Darya Berry THC Negative Normal NEGATIVE [facility] Comment on above: Performed By: #### D MERY PRYORICRO, ERUR #### [facility] [address] [address] [address] Darya Berry ER URINE PROFILEon 2 Bilirubin Ql (U) Negative Normal NEGATIVE [facility] Comment on above: Performed By: #### D MERY PRYORICRO, ERUR #### [facility] [address] [address] [address] Darya Berry Clarity (U) CLEAR Normal CLEAR [facility] [facility] Comment on above: Performed By: #### D MERY PRYORICRO, ERUR #### [facility] [address] [address] [address] Darya Berry Color (U) LT. YELLOW Normal YELLOW [facility] Comment on above: Performed By: #### D VINCENT PRYOR, ERUR #### [facility] [address] [address] [address] Darya JAMES A micrscopic examination will be performed if indicated. Normal [facility] Comment on above: Performed By: #### D VINCENT PRYOR, ERUR #### [facility] [address] [address] [address] Darya Berry Glucose Ql (U) Negative Normal NEGATIVE [facility] Comment on above: Performed By: #### D VINCENT PRYOR, ERUR #### [facility] [address] [address] [address] Darya Berry Hemoglobin Ql (U) SMALL Abnormal NEGATIVE [facility] Comment on above: Performed By: #### D VINCENT PRYOR, ERUR #### [facility] [address] [address] [address] Darya Berry Ketones Ql (U) Negative Normal NEGATIVE [facility] Comment on above: Performed By: #### D VINCENT PRYOR, ERUR #### [facility] [address] [address] [address] Darya Berry LEUKOCYTES SMALL Abnormal NEGATIVE [facility] Comment on above: Performed By: #### D VINCENT PRYOR, ERUR #### [facility] [address] [address] [address] Darya Berry Nitrite Ql (U) Negative Normal NEGATIVE [facility] Comment on above: Performed By: #### D VINCENT PRYOR, ERUR #### [facility] [address] [address] [address] Darya Berry pH (U) 6.0 [pH] Normal 5-9 [facility] Comment on above: Performed By: #### D VINCENT PRYOR, ERUR #### [facility] [address] [address] [address] Darya Berry SPEC GRAVITY 1.010 Normal 1.005-<=1.025 [facility] [place] Comment on above: Performed By: #### D VINCENT PRYOR, ERUR #### [facility] [address] [address] [address] Darya Berry UA PROTEIN Negative Normal NEGATIVE/ TRACE [facility] Comment on above: Performed By: #### D VINCENT PRYOR, ERUR #### [facility] [address] [address] [address] Darya Berry UR MICRO IND INDICATED Normal [facility] Comment on above: Performed By: #### D VINCENT PRYOR, ERUR #### [facility] [address] [place] [address] Dr. Darya Berry Urobilinogen Qn (U) 0.2 {Constantino'U}/dL Normal 0.2 - 1. 0 [facility] Comment on above: Performed By: #### D VINCENT PRYOR, ERUR #### [facility] [address] [address] [address] Darya Berry PROF 14(COMP METB)on 022 Albumin [Mass/Vol] 3.4 g/dL Normal 3.4-5.0 [facility] Comment on above: Performed By: #### D VINCENT PRYOR, ERUR #### [facility] [address] [address] [address] Darya Berry Albumin/Globulin [Mass ratio] 1.1 {ratio} Normal [facility] Comment on above: Performed By: #### D VINCENT PRYOR, ERUR #### [facility] [address] [place] [address] Dr. Darya Berry ALP [Catalytic activity/Vol] 172 U/L Critically high 46-116 [facility] Comment on above: Performed By: #### D VINCENT PRYOR, ERUR #### [facility] [address] [address] [address] Darya Berry ALT [Catalytic activity/Vol] 10 U/L Critically low 14-59 [facility] Comment on above: Performed By: #### D VINCENT PRYOR, ERUR #### [facility] [address] [address] [address] Darya Berry Anion gap [Moles/Vol] 13.3 mmol/L Normal [facility] Comment on above: Performed By: #### D VINCENT PRYOR, ERUR #### [facility] [address] [address] [address] Darya Berry AST [Catalytic activity/Vol] 12 U/L Critically low 15-37 [facility] Comment on above: Performed By: #### D VINCENT PRYOR, ERUR #### [facility] [address] [address] [address] Darya Berry Bilirubin [Mass/Vol] 0.2 mg/dL Normal 0.2-1.0 [facility] Comment on above: Performed By: #### D VINCENT PRYOR, ERUR #### [facility] [address] [address] [address] Darya Berry Calcium [Mass/Vol] 8.7 mg/dL Normal 8.5-10.1 [facility] Comment on above: Performed By: #### D VINCENT PRYOR, ERUR #### [facility] [address] [address] [address] Darya Berry Chloride [Moles/Vol] 104 mmol/L Normal 98-107 [facility] Comment on above: Performed By: #### D VINCENT PRYOR, ERUR #### [facility] [address] [address] [address] Darya Berry CO2 [Moles/Vol] 24.5 mmol/L Normal 21.0-32.0 [facility] Comment on above: Performed By: #### D VINCENT PRYOR, ERUR #### [facility] [address] [address] [address] Darya Berry Creatinine [Mass/Vol] 1.08 mg/dL Critically high 0.55-1.02 [facility] Comment on above: Performed By: #### D VINCENT PRYOR, ERUR #### [facility] [address] [address] [address] Darya Berry EGFR-AF SWEDISH >60 Normal >=60 [facility] Comment on above: Performed By: #### D VINCENT PRYOR, ERUR #### [facility] [address] [address] [address] Darya Berry EGFR-NON AF SWEDISH 51 mL/min/1.73m2 Critically low >=60 [facility] Comment on above: Performed By: #### D VINCENT PRYOR, ERUR #### [facility] [address] [address] [address] Darya Berry Globulin (S) [Mass/Vol] 3.2 g/dL Normal [facility] Comment on above: Performed By: #### D VINCENT PRYOR, ERUR #### [facility] [address] [address] [address] Darya Berry Glucose [Mass/Vol] 95 mg/dL Normal 74-106 [facility] Comment on above: Performed By: #### D VINCENT PRYOR, ERUR #### [facility] [address] [address] [address] Darya Berry Potassium [Moles/Vol] 2.8 mmol/L Critically low 3.5-5.1 [facility] Comment on above: Result Comment: TEST REPEATED CRITICAL VALUE VERIFIED Performed By: #### D VINCENT PRYOR, ERUR #### [facility] [address] [address] [address] Darya Berry Protein [Mass/Vol] 6.6 g/dL Normal 6.4-8.2 [facility] Comment on above: Performed By: #### D VINCENT PRYOR, ERUR #### [facility] [address] [address] [address] Darya Berry Sodium [Moles/Vol] 139 mmol/L Normal 136-145 [facility] Comment on above: Performed By: #### D VINCENT PRYOR ERUR #### [facility] [address] [place] [address] Dr. Darya Berry Urea nitrogen [Mass/Vol] 17.0 mg/dL Normal 7.0-18.0 [facility] Comment on above: Performed By: #### D VINCENT PRYOR ERUR #### [facility] [address] [place] [address] Dr. Darya Berry Urea nitrogen/Creatinine [Mass ratio] 15.7 mg/mg Normal [facility] Comment on above: Performed By: #### D VINCENT PRYOR ERUR #### [facility] [address] [place] [address] Dr. Darya Berry PROTIMEon 01-25-2022 INR Coag (PPP) [Relative time] 0.97 {INR} Normal [facility] Comment on above: Performed By: #### D VINCENT PRYOR ERUR #### [facility] [address] [place] [address] Dr. Darya Berry INR GUIDELINES SEE BELOW Normal [facility] Comment on above: Result Comment: BLAKE RED INR: 2.0 - 3.0 CONDITIONS NOT LISTED BELOW 2.5 - 3.5 FOR PROSTHETIC HEART VALVE REPLACEMENT 2.5 - 3.5 RECURRENT THROMBOSIS Performed By: #### D VINCENT PRYOR ERUR #### [facility] [address] [place] [address] Dr. Darya Berry PT Coag (PPP) [Time] 10.5 s Normal 9.0-11.6 [facility] Comment on above: Performed By: #### D VINCENT PRYOR ERUR #### [facility] [address] [place] [address] Dr. Darya Berry PTTon 01-25-2022 aPTT Coag (Bld) [Time] 28.8 s Normal 22.3-36.2 [facility] Comment on above: Performed By: #### D VINCENT PRYOR ERUR #### [facility] [address] [address] [address] Darya Berry TROPONIN, HIGH SENSITIVITYon 01-25-2022 HSTROP 76.5 pg/mL Critically high 4.0-51.3 [facility] [place] Comment on above: Result Comment: CUT- OFF POINTS HAVE BEEN ESTABLISHED BASED ON THE FOURTH UNIVERSAL DEFINITIONS OF MYOCARDIAL INFARCTION. THE UPPER REFERENCE LIMIT (URL) OF TROPONIN, DEFINED THE 99TH PERCENTILE OF cTnI DISTRIBUTION IN A REFERENCE POPULATION, HAS BEEN CONFIRMED THE DECISION THRESHOLD FOR SD DIAGNOSIS. Performed By: #### H STROPN #### [facility] [address] [address] [address] Darya Berry URINE MICROSCOPIC ONLYon BACTERIA TRACE Abnormal NONE SEEN [facility] Comment on above: Performed By: #### D VINCENT PRYOR, ERUR #### [facility] [address] [address] [address] Darya Berry Bacteria identified Cx Nom (U) INDICATED Normal [facility] Comment on above: Performed By: #### D VINCENT PRYOR, ERUR #### [facility] [address] [address] [address] Darya Berry CAST SEEN Abnormal NONE SEEN [facility] Comment on above: Performed By: #### D VINCENT PRYOR, ERUR #### [facility] [address] [address] [address] Darya Berry Crystals LM Nom (Urine sed) NONE SEEN Normal NONE SEEN [facility] Comment on above: Performed By: #### D VINCENT PRYOR, ERUR #### [facility] [address] [address] [address] Darya Berry Epithelial cells LM Ql (Urine sed) MODERATE Abnormal NONE SEEN /RARE [facility] Comment on above: Performed By: #### D VINCENT PRYOR, ERUR #### [facility] [address] [address] [address] Darya Berry HYALINE CAST FEW Normal [facility] Comment on above: Performed By: #### D VINCENT PRYOR, ERUR #### [facility] [address], [place] [address] Dr. Darya Berry MUCOUS TRACE Abnormal NONE SEEN [facility] Comment on above: Performed By: #### D VINCENT PRYOR, ERUR #### [facility] [address], [place] [address] Dr. Darya Berry RBC 0-2 Normal 0-2 [facility] Comment on above: Performed By: #### D VINCENT PRYOR, ERUR #### [facility] [address], [place] [address] Dr. Darya Berry WBC 2-5 Abnormal NONE SEEN [facility] Comment on above: Performed By: #### D VINCENT PRYOR, ERUR #### [facility] [address], [place] [address] Dr. Darya Berry XR CHEST 1 Von [...] ILANA NESBITT Date: 2022-01-25 14:15 Normal [facility] Covid-19 PCR (CVDTB)on 08-30 SARS-CoV-2 (COVID-19) RNA VIRY+probe Ql (Unsp spec) Not detected Normal NOT DETECTED [facility] Comment on above: Result Comment: When diagnostic [...] for this test is supported by the [place] of Health and Human Service's declaration that [...] longer be used). Performed By: #### C VDTBH #### [facility] [address] [place] [address] Dr. Darya Berry INFLUENZA A AND B [facility] 09-18 [facility] SEE BELOW Normal [facility] Comment on above: Result Comment: Nega tive for Flu A protein angiten. Infection due to Flu A cannot be ruled out. Flu A angiten in the sample may be below the detection limit of the test. Performed By: #### I NFLUAB #### [facility] [address] [place] [address] Dr. Darya [facility] Normal [facility] Comment on above: Result Comment: Nega tive for Flu B protein antigen. Infection due to Flu B cannot be ruled out. Flu B antigen in the sample may be below the detection limit of the test. Performed By: #### I NFLUAB #### [facility] [address] [place] [address] Dr. Darya Berry INFLUENZA A AG Negative Normal NEGATIVE SEE COMMENT [facility] Comment on above: Performed By: #### I NFLUAB #### [facility] [address] [place] [address] Dr. Darya Berry INFLUENZA B AG Negative Normal NEGATIVE SEE COMMENT [facility] Comment on above: Performed By: #### I NFLUAB #### [facility] [address] [place] [address] Dr. Darya Berry INTERNAL CONTROLS Within Normal Limits Normal Wi thin Normal Limits [facility] Comment on above: Performed By: #### I NFLUAB #### [facility] [address] [place] [address] [address] [address] Darya Berry Covid-19 PCR (CVDTBH)on 07-01 SARS-CoV-2 (COVID-19) RNA VIRY+probe Ql (Unsp spec) Not detected Normal NOT DETECTED [facility] Comment on above: Result Comment: This test is not yet approved or cleared by the [place] FDA. When there are no FDA-approved or cleared tests available, and other criteria are met, FDA can make tests available under an emergency access mechanism called an Emergency Use Authorization (EUA). The EUA for this test is supported by the [place] of Health and Human Service's (HHS's) declaration [...] consistent with SARS-CoV-2. Performed By: #### H STRO #### [facility] [address] [place], [place] [id number] Dr. Darya Berry Encounters Encounter Date Encounter Type Care Provider Facility Start: 05-04-2024 ambulatory Facility:[facility] [place] Start: 03-06-2024 End: 03-06-2024 ambulatory [facility] Start: 09-13-2023 End: 09-13-2023 ambulatory [facility] Start: 04-24-2022 End: 04-25-[address] SKYLER BOWMAN Facility:[facility] Start: 04-03-2022 End: 04-04-2022 ambulatory GIOVANA LEA Facility:[facility] Start: 2022 End: 03-15-2022 ambulatory GAYATRI HUSSEIN Facility:[facility] Start: 02-28-[address] SKYLER BOWMAN Facility :[facility] Start: 02-24-2022 ambulatory GAYATRI HUSSEIN Facility :[facility] Start: 01-26-2022 End: 01-30-2022 Evaluation and management of inpatient ADELA ROGERS Facility:[facility] Start: 01-25-2022 End: 01-26-[address] SKYLER BOWMAN Facility:[facility] Start: 09-18-2021 End: 09-18-[address] SKYLER BOWMAN Facility:[facility] Start: 08-01-[address] SKYLER BOWMAN Facility :[facility] Start: 07-17-2021 End: 07-17-[address] SKYLER BOWMAN Facility: Procedures Date Procedure Procedure Detail Performing Clinician Start: 09-13-2023 Follow-up visit Follow-up NOMI ORLANDO Payers Date Payer Category Payer Medicare [id number] 1961 [facility] of [facility] e ( and others) [id number] 1961 Medicare [id number] 1961 Self-pay [id number] 1960 Unknown [id number] 1958 Unknown [id number] 1958 Unknown [id number] 1958 Unknown [id number] 1958 Unknown [id number] 1958 Unknown [id number] 1958 Unknown [id number] 1958 Unknown [id number] 1958 Unknown [id number] 1958 Unknown [id number] Progress note 03-06-2024 Note Date & Type [...] cardiology clinic Nomi Orlando MD Interventional Cardiology [facility] Progress note 09-13-2023 Note Date & Type [...] cardiology clinic Nomi Orlando MD Interventional Cardiology [facility] Discharge summary note 01-30-2022 Note Date & Type Note Facility 01-30-2022 Note MR#: [id number] I [facility] Pt. Name: Julissa Muniz Admitted: 01/26/2022 Discharged: [...] Rogers MD Date Trans: 01/30/2022 07:06 P/jac [id number] cc: Skyler Bowman M.D. [address] [place] [address] The [facility] Summary Purpose Family History No Family History Records FoundNo Family History Records FoundNo Family History Records FoundNo Family History Records Found Advance Directives No Advanced Directives Records FoundNo Advanced Directives Records FoundNo Advanced Directives Records FoundNo Advanced Directives Records Found Additional Source Comments INFORMATION SOURCE (unrecogn ized section and content) DATE CREATED AUTHOR 02/02/2022 [facility] DATE CREATED AUTHOR AUTHOR'S ORGANIZ ATION 04/29/2022 [facility] DATE CREATED AUTHOR AUTHOR'S ORGANIZ ATION 04/14/2024 [facility] DATE CREATED AUTHOR AUTHOR'S ORGANIZ ATION 05/10/2024 [facility] FOR RECORDS PERTAINING TO PATIENTS WHO [...] BE BASED ON THE PRIMARY CLINICAL RECORDS. [employer] provides no warranty or guarantee of the accuracy or completeness of information in this document.
--- NOTE | 2024-10-04 19:29 | ED_ITS ---
HPI - Skin/Abscess/Foreign Bdy General Chief complaint: Skin/Abscess/Foreign Body Stated complaint: Rash Time Seen by Provider: 10/04/24 19:19 Source: patient Mode of arrival: walk-in History of Present Illness HPI narrative: patient presents with rash on her face. few lesions on her hands. states present for past week. Seen by PCP and given steroid shot and prescribed bactroban ointment. States it has not help. lesions itch but are also sore. No drainage Related Data Home Medications ?Medication ?Instructions ?Recorded ?Confirmed albuterol sulfate 90 mcg/actuation 2 puff inhalation Q4H PRN 03/26/24 03/26/24 aerosol inhaler shortness of breath or wheezing aspirin 81 mg tablet,delayed 81 mg PO DAILY 03/26/24 03/26/24 release (Adult Low Dose Aspirin) atorvastatin 40 mg tablet 40 mg PO QPM 03/26/24 03/26/24 carvedilol 3.125 mg tablet 3.125 mg PO BID 03/26/24 03/26/24 cetirizine 10 mg tablet 10 mg PO DAILY 03/26/24 03/26/24 citalopram 40 mg tablet 40 mg PO DAILY 03/26/24 03/26/24 clopidogrel 75 mg tablet 75 mg PO DAILY 03/26/24 03/26/24 cyclobenzaprine 10 mg tablet 10 mg PO TID 03/26/24 03/26/24 diazepam 5 mg tablet 5 mg PO BID PRN anxiety 03/26/24 03/26/24 ezetimibe 10 mg tablet 10 mg PO DAILY 03/26/24 03/26/24 levothyroxine 100 mcg tablet 100 mcg PO DAILY 03/26/24 03/26/24 liothyronine 5 mcg tablet 5 mcg PO DAILY 03/26/24 03/26/24 meclizine 25 mg tablet 25 mg PO QID PRN dizziness 03/26/24 03/26/24 metoclopramide HCl 10 mg tablet 10 mg PO BID 03/26/24 03/26/24 nitroglycerin 0.4 mg sublingual 0.4 mg sublingual Q5M PRN chest 03/26/24 03/26/24 tablet pain pantoprazole 40 mg tablet,delayed 40 mg PO DAILY 03/26/24 03/26/24 release promethazine 25 mg tablet 25 mg PO Q6H PRN nausea and 03/26/24 03/26/24 vomiting rizatriptan 10 mg disintegrating 10 mg PO Q2H PRN migraine headache 03/26/24 03/26/24 tablet ropinirole 2 mg tablet 4 mg PO DAILY 03/26/24 03/26/24 Allergies Allergy/AdvReac Type Severity Reaction Status Date / Time latex Allergy Severe Unknown Verified 10/04/24 19:19 morphine Allergy Severe Unknown Verified 10/04/24 19:19 ondansetron (From Zofran) Allergy Severe Unknown Verified 10/04/24 19:19 Review of Systems ROS Status of ROS 10 or more systems reviewed and unremark able except as noted in history and below [facility] Medical History (Updated 10/04/24 @ 19:47 by Joshua Stafford MD) Anxiety ?F41.9 - Anxiety disorder, unspecified (ICD-10) Stomach ulcer ?K25.9 - Gastric ulcer, unspecified as acute or chronic, without hemorrhage or perforation (ICD-10) GERD (gastroesophageal reflux disease) ?K21.9 - Gastro-esophageal reflux disease without esophagitis (ICD-10) Hypothyroid ?E03.9 - Hypothyroidism, unspecified (ICD-10) HTN (hypertension) ?I10 - Essential (primary) hypertension (ICD-10) COPD (chronic obstructive pulmonary disease) ?J44.9 - Chronic obstructive pulmonary disease, unspecified (ICD-10) Surgical History (Updated 03/26/24 @ 19:37 by Annemarie Guzman) H/O heart artery stent ?Z95.5 - Presence of coronary angioplasty implant and graft (ICD-10) Social History Little interest or pleasure in doing things: not at all Feeling down, depressed, or hopeless: not at all Exam Constitutional Vital Signs, click to edit/add: Last Vital Signs Temp 98.2 F 10/04/24 19:20 Pulse 96 H 10/04/24 19:20 Resp 20 10/04/24 19:20 BP 138/95 H 10/04/24 19:20 Pulse Ox 97 10/04/24 19:20 O2 Del Method Room Air 10/04/24 19:20 Common normals: no apparent distress, oriented x3, healthy appearing, alert and well nourished [facility] Common normals: normocephalic and head/scalp atraumatic Other: gen. distribution of erythematous 3-4mm papular lesions concentrated on face. Some are crusted. no surrounding erythema or swelling. no red streaks. Isolated lesion on chest and few on her fingers. Eye Common normals: EOMs intact bilaterally Respiratory Common normals: normal respiratory effort, no retractions, no use of accessory muscles and clear to auscultation bilaterally Cardio Common normals: regular rate, regular rhythm, S1 normal heart sound and S2 normal heart sound Extremity Common normals: normal to inspection and full ROM Neuro Common normals: oriented x3, CN's II-XII intact bilaterally, moves all extremities and no focal motor deficits Psych Appearance: grossly normal Course Vital Signs Vital signs: Vital Signs Temperature 98.2 F 10/04/24 19:20 Pulse Rate 96 H 10/04/24 19:20 Respiratory Rate 20 10/04/24 19:20 Blood Pressure 138/95 H 10/04/24 19:20 Pulse Oximetry 97 10/04/24 19:20 Oxygen Delivery Method Room Air 10/04/24 19:20 Temperature 98.2 F 10/04/24 19:20 Pulse Rate 96 H 10/04/24 19:20 Respiratory Rate 20 10/04/24 19:20 Blood Pressure 138/95 H 10/04/24 19:20 Pulse Oximetry 97 10/04/24 19:20 Oxygen Delivery Method Room Air 10/04/24 19:20 MDM - Skin/Abscess/Foreign Bdy MDM Narrative Medical decision making narrative: patient presents with follicular appearing rash that is mainly concentrated on her face. few isolated lesions on fingers and chest. rash is itchy but also sore. She is afebrile and has no systemic symptoms. Treated with steroid injection and topical Bactroban without improvement Will treat with doxycycline as folliculitis and recommend she follow up with her doctor for recheck Discharge Plan Discharge Chief Complaint: Skin/Abscess/Foreign Body Clinical Impression: Folliculitis Patient Disposition: Home, Self-Care Prescriptions / Home Meds: No Action albuterol sulfate 90 mcg/actuation HFA aerosol inhaler 2 puff INHALATION Q4H PRN (Reason: shortness of breath or wheezing) atorvastatin 40 mg tablet 40 mg PO QPM aspirin [Adult Low Dose Aspirin] 81 mg tablet,delayed release (DR/EC) 81 mg PO DAILY carvedilol 3.125 mg tablet 3.125 mg PO BID cetirizine 10 mg tablet 10 mg PO DAILY citalopram 40 mg tablet 40 mg PO DAILY clopidogrel 75 mg tablet 75 mg PO DAILY cyclobenzaprine 10 mg tablet 10 mg PO TID diazepam 5 mg tablet 5 mg PO BID PRN (Reason: anxiety) ezetimibe 10 mg tablet 10 mg PO DAILY levothyroxine 100 mcg tablet 100 mcg PO DAILY meclizine 25 mg tablet 25 mg PO QID PRN (Reason: dizziness) metoclopramide HCl 10 mg tablet 10 mg PO BID nitroglycerin 0.4 mg tablet, sublingual 0.4 mg sublingual Q5M PRN (Reason: chest pain) pantoprazole 40 mg tablet,delayed release (DR/EC) 40 mg PO DAILY rizatriptan 10 mg tablet,disintegrating 10 mg PO Q2H PRN (Reason: migraine headache) Patient Comments: limit BID daily ropinirole 2 mg tablet 4 mg PO DAILY promethazine 25 mg tablet 25 mg PO Q6H PRN (Reason: nausea and vomiting) liothyronine 5 mcg tablet 5 mcg PO DAILY Print Language: Russian Instructions: Folliculitis (ED) Additional Instructions: follow up with Dr Bowman in the next 2-4 days for recheck use benadryl to help itch Referrals: Sadiq Bowman MD [Primary Care Provider] - 1 week Discharge Date/Time: 10/04/24 20:05
[2024-10-04] MEDS: DIPHENHYDRAMINE HCL 25 MG CAPSULE 50 MG PO (19:58)
[2024-10-04] MEDS: DOXYCYCLINE MONOHYDRATE 100 MG CAPSULE PO (19:58)
== END 2024-10-04 20:05 | disposition home or self-care (01) ==
PROVIDERS: Emergency Provider Internal Medicine; PCP Family Medicine
DX: L73.9 Follicular disorder, unspecified (principal); Z95.5 Presence of coronary angioplasty implant and graft
CPT/HCPCS: 99283

== ENCOUNTER 2024-12-02 14:04 | Outpatient (OUT) | payer MEDICARE, OTHER, SELFPAY ==
--- OUTSIDE RECORDS SUMMARY | 2024-11-06 10:36 | XMS_ITS ---
Author Organization The [facility] in [place] Address [address] [place] [address] Care Team Providers Care Master Hearth Technician Name Role Phone Prasad Bowman Primary Care Provider REASON FOR VISIT UTI Medications Medication SIG (Take, Route, Fr equency, Duration) Notes Start Date End Date Status Bactrim DS 800-160 MG 1 tablet Orally bi d for 10 days 11/06/2024 Active Pyridium 200 MG 1 tablet after meals Orally Three times a day for 2 days 11/06/2024 Act taiwo Encounters Encounter Location Date Provider Diagnosis [facility] [address] [place] [address] 11/06/2024 Prasad Bowman Plan Of Treatment Medication Medication Name Sig Start Date Stop Date Notes Bactrim DS 800-160 MG 1 tablet Orally bid for 10 days 03/2025 Pyridium 200 MG 1 tablet after meals Orally Three times a day for 2 days 11/06/2024 Progress Notes * Julissa MUNIZ LDOB:[birth year] (64 yo F)Acc No.[id number]:11/06/2024 Patient: Ted GORMANthelma Bolden :1960 A ge:64 Y S ex:Female Address:[address] [place] [address] , [place], [address] * Refills Start Bactrim DS Tablet, 800-160 MG, Orally, 20 Tablet, 1 tablet, bid, 10 days, Refills=0 Start Pyridium Tablet, 200 MG, Orally, 9, 1 tablet after meals, Three times a day, 2 days * true * Date: Generated for Eran melendez/Gunner/Mary on: 0 12/02/2024 02:08 PM EDT
--- OUTSIDE RECORDS SUMMARY | 2024-11-16 10:49 | XMS_ITS ---
Author Organization The [facility] in [place] Address [address] [place] [address] Care Team Providers Care Nps Name Role Phone Prasad Bowman Primary Care Provider [phone] REASON FOR VISIT rf valium and thrush Medications Medication SIG (Take, Route, Frequency, Duration) Notes Start Date End Date Status Nystatin 514520 UNIT/ML 5 ml Mouth/Throa t Four times a day for 14 days 11/16/2024 Active diazePAM 5 MG 1 tablet as needed Orally Once a day for 30 days F41.9/ PRN 11/16/2024 Active Encounters Encounter Location Date Provider Diagnosis [address] [address] 11/16/2024 Prasad Bowman Gastroparesis K31.84 Assessments Encounter Date Diagnosis (ICD Code) Assessment Notes Treatment Notes Treatment Clinical Notes Section Notes 11/16/2024 Gastroparesis (ICD-10 - K31.84) Plan Of Treatment Medication Medication Name Sig Start Date Stop Date Notes Nystatin 466738 UNIT/ML 5 ml Mouth/Throa t Four times a day for 14 days 11/16/2024 diazePAM 5 MG 1 tablet as needed O rally Once a day for 30 days 11/16/2024 F41.9/ PRN Progress Notes * Julissa MUNIZ LDOB:[birth year] (64 yo F)Acc No.[id number]:11/16/2024 Patient: James VICTORINODESIREJulissa :1960 A ge:64 Y S ex:Female Address:[address] [place] [address], [address] * Refills Refill diazePAM Tablet, 5 MG, Orally, 30 Tablet, 1 tablet as needed, Once a day, 30 days, Refills=0 Start Nystatin Suspension, 051589 UNIT/ML, Mouth/Throat, 280 ML, 5 ml, Four times a day, 14 days * true * Date: Generated for Eran melendez/Gunner/Gilbertoitting on: 0 12/02/2024 02:08 PM EDT
--- OUTSIDE RECORDS SUMMARY | 2024-11-26 06:31 | XMS_ITS ---
Author Organization The [facility] in [place] Address [address] [place] [address] Care Team Providers Care Senior Technical Specialist Name Role Phone Prasad Bowman Primary Care Provider [phone] REASON FOR VISIT refill Medications Medication SIG (Take, Route, Fr equency, Duration) Notes Start Date End Date Status Carisoprodol 350 mg TAKE 1 TABLET BY MANINDER TH TWICE DAILY NEEDED for 30 11/26/2024 Active Encounters Encounter Location Date Provider Diagnosis [facility] [address] [place] [address] 11/26/2024 Prasad Bowman Gastroenteritis K52 .9 Assessments Encounter Date Diagnosis (ICD Code) Assessment Notes Treatment Notes Treatment Clinical Notes Section Notes 11/26/2024 Gastroenteritis (ICD-10 - K52.9) Plan Of Treatment Medication Medication Name Sig Start Date Stop Date Notes Carisoprodol 350 mg TAKE 1 TABLET BY MANINDER TH TWICE DAILY NEEDED for 30 11/26/2024 Progress Notes * Julissa MUNIZ LDOB:[birth year] (64 yo F)Acc No.[id number]:11/26/2024 Patient: Julissa GORMAN Kimi :1960 A ge:64 Y S ex:Female Address:[address] [place] [address] , [place], [address] * Refills Refill Carisoprodol Tablet, 350 mg, 60 Tablet, TAKE 1 TABLET BY MOUTH TWICE DAILY NEEDED, 30, Refills=0 * true * Date: Generated for Eran melendez/Gunner/Mary on: 0 12/02/2024 02:07 PM EDT
--- NOTE | 2024-12-02 14:00 | CA_ITS ---
Patient Name: BENNIE MUNIZ MR#: [id number] : 1960 Exam Date: 12/02/2024 Ordering Doctor: GAYATRI HUSSEIN CNP ECHOCARDIOGRAM REPORT PROCEDURE: CA ECHO DOPPLER COMPLETE INDICATIONS: Coronary artery disease, COPD, [place], cardiac stent, hypertension COMPARISON: None. DESCRIPTION: COMPLETE ECHOCARDIOGRAM Real-time transthoracic echocardiography with 2D, M-mode, spectral and color flow Doppler performed. QUALITY: Technically difficult due to poor acoustics. LEFT VENTRICLE: Normal chamber size. Thickened septal wall. Normal systolic function. LV EF: Normal left ventricular ejection fraction, (>55%). DIASTOLIC: Diastolic function is indeterminate. ATRIAL SEPTUM: Visually appears intact. LEFT ATRIUM: Normal chamber size. RIGHT ATRIUM: Normal chamber size. RIGHT VENTRICLE: Normal chamber size. Normal right ventricular systolic function. TRICUSPID VALVE: Normal mobility and thickness. No stenosis with trivial regurgitation. Unable to assess right-sided pressures due to lack of measurable tricuspid regurgitation. MITRAL VALVE: Normal mobility and thickness. No evidence of mitral valve stenosis. There is no mitral annular calcification. No mitral regurgitation. AORTIC VALVE: Normal trileaflet appearance. No visible sclerosis. Normal leaflet mobility. No evidence of aortic valve stenosis. No aortic regurgitation. AORTIC ROOT: Normal diameter and appearance, measuring 3.6 cm. PULMONIC VALVE: Normal thickness and mobility. No stenosis. Trivial regurgitation. PERICARDIUM: No evidence of pericardial effusion. IVC: IVC is dilated (2.3 cm), does not fully collapse. PLEURA: CONCLUSION: 1. Normal left ventricular size and systolic function. LVEF is estimated at 65-70%. 2. Normal right ventricular size and systolic function. 3. No significant valvular dysfunction. 4. Unable to assess right-sided pressures due to lack of measurable tricuspid regurgitation. Adult Echocardiography Procedure Report Left Ventricle LVEDD (3.7 - 5.6 cm): 2.86 cm LVESD (2.2 - 4.0 cm): 2.05 cm LVIVS thickness (0.6 - 1.2 cm): 1.37 cm LVPW thickness (0.5 - 1.0 cm): 0.76 cm e': 0.09 m/s E - e': 5.82 LVOT Max Gradient: 6.41 mm[Hg] LVOT Area (cm2): 1.27 m/s Peak Velocity (LVOT): 1.27 m/s Mean Velocity (LVOT): 0.97 m/s LVOT Diameter 2.00 cm Left Atrium Left Atrium Systolic Dimension: 3.29 cm Mitral Valve MV E to A Ratio: 0.66 Mitral Valve A-Wave Peak Velocity: 0.76 m/s Mitral Valve E-Wave Peak Velocity: 0.50 m/s Right Ventricle Aorta AO Root Diam: 3.64 cm Aortic Valve AoV Area (Peak Mundo): 2.90 cm2, 2.90 cm2 AoV Area (VTI): 2.96 cm2, 2.96 cm2 Peak Velocity(Antegrade Flow): 1.37 m/s Peak Gradient(Antegrade Flow): 7.55 mm[Hg] Mean Velocity(Antegrade Flow): 0.93 m/s Mean Gradient(Antegrade Flow): 4.03 mm[Hg] Velocity Time Integral: 31.84 cm Tricuspid Valve Pulmonic Valve Peak Gradient: 4.79 mm[Hg], 5.03 mm[Hg] Right Atrium Right Atrium Systolic Pressure: 27.19 ml, 27.19 ml Dictated by: Meadrdo Drake M.D. on 12/02/2024 at 18:58 Approved by: Medardo Drake M.D. on 12/02/2024 at 19:04
--- OUTSIDE RECORDS SUMMARY | 2024-12-02 14:08 | XMS_ITS | Clinical Summary ---
Author Organization The [facility] Address [address] [place] [address] Care Team Providers Care Methods Specialist Engineer Name Role Phone Sadiq Bowman MD Primary Care Provider [phone] Allergies Active Allergy Reactions Criticality Noted Date Comments Erythromycin Base 03/07/2022 Latex 03/29/2023 Morphine 03/07/2022 Nickel 03/04/2013 Ondansetron Hcl 03/07/2022 Medications Medication Sig Dispensed Refills Start Date End Date Status aspirin 81 mg EC tablet Take 81 mg by mouth in the morning. Active cetirizine (ZyrTEC) 10 mg tablet Take 10 mg by mouth in the morning. Active citalopram (CeleXA) 20 mg tablet Take 40 mg by mouth in the morning. Active diazePAM (Valium) 5 mg tablet Take 5 mg by mouth every 8 (eight) hours if needed for anxiety. Active levothyroxine (Synthroid, Levoxyl) 100 mcg tablet Take 100 mcg by mouth before breakfast. Active meclizine (Antivert) 25 mg tablet Take 25 mg by mouth if needed in the morning, at noon, and at bedtime for dizziness. Active nitroglycerin (Nitrostat) 0.[address] 0.4 mg under the tongue every 5 (five) minutes if needed for chest pain. Active pantoprazole (ProtoNix) 40 mg EC tablet Take 40 mg by mouth before breakfast. Do not crush, chew, or split. Active rizatriptan (Maxalt) 10 mg tablet Take 10 mg by mouth 1 (one) time if needed for migraine. May repeat in 2 hours if unresolved. Do not exceed 30 mg in 24 hours. Active rOPINIRole (Requip) 2 mg tablet Take 2 mg by mouth at bedtime. Active carisoprodol (Soma) 350 mg tablet take 1 tablet by mouth four times a day if needed 02/07/2023 Active ezetimibe (Zetia) 10 mg tabletIndications:Co ronary artery disease, unspecified vessel or lesion type, unspecified whether angina present, unspecified whether aniak or transplanted heart TAKE 1 TABLET DAILY DIRECTED 90 tablet 3 03/03/2024 Active clopidogrel (Plavix) 75 mg tabletIndications:Co ronary artery disease, unspecified vessel or lesion type, unspecified whether angina present, unspecified whether aniak or transplanted heart TAKE 1 TABLET DAILY DIRECTED 90 tablet 3 03/03/2024 Active carvedilol (Coreg) 3.125 mg tabletIndications:Co ronary artery disease, unspecified vessel or lesion type, unspecified whether angina present, unspecified whether aniak or transplanted heart TAKE 1 TABLET WITH BREAKFAST AND WITH EVENING MEAL 180 tablet 3 03/03/2024 Active atorvastatin (Lipitor) 40 mg tabletIndications:Co ronary artery disease, unspecified vessel or lesion type, unspecified whether angina present, unspecified whether aniak or transplanted heart TAKE 1 TABLET AT BEDTIME 90 tablet 3 03/03/2024 Active albuterol 90 mcg/actuation inhaler Inhale 1 puff in the morning, afternoon, and at bedtime. 09/11/2024 Active chlordiazepoxide-cli dinium (Librax) 5-2.5 mg capsule Take 1 capsule by mouth with breakfast, with lunch, and with evening meal. 09/21/2024 Active cholecalciferol, vitamin D3, 50 mcg (2,000 unit) capsule Take 1 capsule by mouth in the morning. 01/20/2024 Active hyoscyamine 0.125 mg SL tablet Take 0.125 mg by mouth every 4 (four) hours if needed. 02/02/2024 Active lidocaine (Lidoderm) 5 % patch Apply 1 patch topically in the morning. 04/08/2024 Active liothyronine (Cytomel) 5 mcg tablet Take 5 mcg by mouth in the morning. 04/10/2024 Active promethazine (Phenergan) 25 mg tablet Take 25 mg by mouth every 6 (six) hours if needed. 09/22/2024 Active sucralfate (Carafate) 1 gram tablet Take 1 g by mouth before breakfast and before evening meal. 09/11/2024 Active Active Problems Problem Noted Date Diagnosed Date CAD (coronary artery disease) 03/07/2022 MORA (obstructive sleep apnea) 03/07/2022 SVT (supraventricular tachycardia) 03/07/2022 Encounters Date Type Department Care Team Description 10/13/2024 2:00 PM EDT Office Visit [facility] [place] [address] [place] [address] Bethanie Carter CNP Coronary artery disease involving aniak coronary artery of aniak heart without angina pectoris (Primary Dx); SVT (supraventricular tachycardia); Primary hypertension; Mixed hyperlipidemia from Last 3 Months Family History Medical History Relation Name Comments Heart attack Father Atrial fibrillation Mother Relation Name Status Comments Father Mother Social History Tobacco Use Types Packs/Day Years Used Date Smoking Tobacco: Former Cigarettes Smokeless Tobacco: Never Alcohol Use Standard Drinks/Week Comments Not Currently 0 (1 standard drink = 0.6 oz pur e alcohol) occasional [place] Safety & Environment Answer Date Rec orded Fear of Current or Ex-Partner Not on file Emotionally Abused Not on file 08/22/2023 Physically Abused Not on file 08/22/2023 Sexually Abused Not on file 08/22/2023 Physically or Sexually Abused Not on file Sex and Gender Information Value Date Recorded Sex Assigned at Not on file Gender Identity Not on file Sexual Orientation Not on file Last Filed Vital Signs Vital Sign Reading Time Taken Comments Blood Pressure 117/70 10/13/2024 2:15 PM EDT Pulse 73 10/13/2024 2:15 PM EDT Temperature - - Respiratory Rate 15 09/13/2023 1:09 PM EDT Oxygen Saturation 97% 10/13/2024 2:15 PM EDT Inhaled Oxygen Concentration - - Weight 70.3 kg (155 lb) 10/13/2024 2:15 PM EDT Height 167.6 cm (5' 6 ) 10/13/2024 2:15 PM EDT Body Mass Index 25.02 10/13/2024 2:15 PM EDT Plan of Treatment Health Maintenance Due Date Last Done Comments CT Colonography 1960 Colonoscopy 1960 Colorectal Cancer Screening 1960 FIT-DNA 1960 FIT 1960 FOBT 1960 Medicare Annual Wellness (AWV) 1960 Sigmoidoscopy 1960 Depression Screening 1970 Adult Tetanus 1980 Mammogram 1998 Zoster Vaccines (1 of 2) 2008 Pneumococcal Vaccine: 65+ Years (2 of 2 - PPSV23 or PCV20) 06/15/2020 04/20/2020 Fall Risk Screening 2023 COVID-19 Vaccine ( - season) 2024 09/30/2020, 09/09/2020 Influenza Vaccine (Season Ended) 2025 03/24/2020, 08/03/2019, 05/06/2017, Additional history exists HIB Vaccines Aged Out No longer eligi ble based on patient's age to complete this topic HPV Vaccines Aged Out No longer eligi ble based on patient's age to complete this topic IPV Vaccines Aged Out No longer eligi ble based on patient's age to complete this topic Meningococcal B Vaccine Aged Out No l onger eligible based on patient's age to complete this topic Meningococcal Vaccine Aged Out No zoë andrea eligible based on patient's age to complete this topic Rotavirus Vaccines Aged Out No longer eligible based on patient's age to complete this topic Care Teams Methods Specialist Engineer Relationship Specialty Start Date End Date Sadiq Bowman MD [address] [facility] [address] [address] PCP - General 03/07/22
--- OUTSIDE RECORDS SUMMARY | 2024-12-02 14:09 | XMS_ITS | Clinical Summary ---
Author Organization [facility] Address [address] [place] [address] Care Team Providers Care Client Analyst Name Role Phone Sadiq Bowman MD Primary Care Provider [phone] Allergies Active Allergy Reactions Criticality Noted Date Comments Latex 03/04/2013 Morphine 03/04/2013 Nickel 03/04/2013 Medications esomeprazole Magnesium (NEXIUM) 40 MG PACK Take 40 mg by mouth 2 times daily. Active rOPINIRole (REQUIP) 1 MG tablet Take 1 mg by mouth daily. Active traZODone (DESYREL) 100 MG tablet Take 100 mg by mouth nightly. Active amitriptyline (ELAVIL) 150 MG tablet Take 150 mg by mouth nightly. Active DULoxetine (CYMBALTA) 60 MG capsule Take 60 mg by mouth daily. Active gabapentin (NEURONTIN) 300 MG capsule Take 300 mg by mouth 2 times daily. Takes two tabs in the morning Active gabapentin (NEURONTIN) 300 MG capsule Take 300 mg by mouth 3 times daily. Takes 3 tabs at bedtime Active levothyroxine (SYNTHROID) 100 MCG tablet Take 100 mcg by mouth Daily. Active carisoprodol (SOMA) 350 MG tablet Take 350 mg by mouth 4 times daily as needed. Active acetaminophen (TYLENOL) 500 MG tablet Take 1,000 mg by mouth every 6 hours as needed. Active meclizine (ANTIVERT) 25 MG CHEW Take 25 mg by mouth 3 times daily as needed. Active HYDROcodone-delia taminophen (NORCO) 7.5-325 MG per tablet Take 2 tablets by mouth every 6 hours as needed. Active clorazepate (TRANXENE) 7.5 MG tablet Take 7.5 mg by mouth 2 times daily. 1/2 tab 2 times per day. Active atorvastatin (LIPITOR) 20 MG tablet Take 1 tablet by mouth nightly. 30 tablet 11 03/06/2013 Active Social History Tobacco Use Types Packs/Day Years Used Date Smoking Tobacco: Former Comments Unknown Sex and Gender Information Value Date Recorded Sex Assigned at Not on file Legal Sex Female 1:03 PM EST Gender Identity Not on file Sexual Orientation Not on file Last Filed Vital Signs Vital Sign Reading Time Taken Comments Blood Pressure 101/60 03/06/2013 11:30 AM EDT Pulse 54 03/06/2013 11:30 AM EDT Temperature 36.8 C (98.2 F) 03/06/2013 11:30 AM EDT Respiratory Rate 20 03/06/2013 11:30 AM EDT Oxygen Saturation 98% 03/06/2013 11:30 AM EDT Inhaled Oxygen Concentration - - Weight 92.5 kg (204 lb) 03/05/2013 7:42 PM EDT Height 170.2 cm (5' 7 ) 03/04/2013 11:00 AM EDT Body Mass Index 31.95 03/04/2013 11:00 AM EDT Plan of Treatment Not on file Advance Directives * Full Code (Latest Code Status on File) Date Activated Date Inactivated Comments 03/05/2013 12:03 PM 03/06/2013 7:46 PM * Full Code Date Activated Date Inactivated Comments 03/04/2013 3:33 PM 03/05/2013 12:03 PM * Full Code Date Activated Date Inactivated Comments 03/04/2013 11:42 AM 03/04/2013 3:33 PM Care Teams Client Analyst Relationship Specialty Start Date End Date Sadiq Bowman MD [address] [place] [address] PCP - General 01/21/13
--- OUTSIDE RECORDS SUMMARY | 2024-12-02 14:09 | XMS_ITS | Patient Health Record ---
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 Name Role Phone Prasad Bowman Primary Care Provider SKYLER BOWMAN Unavailable [phone] Noris Dawson Unavailable [phone] Allergies Allergen (clinical drug ingredient) Drug/Non Drug Allergy documented on EMR Reaction Allergy Type Onset Date Status morphine Morphine Sulfate rash Drug Allergy Active Zofran Unknown Drug Allergy Active Latex Latex rash Allergy Active nickel Nickel rash Allergy Active Results Component Value Reference Range Notes XR foot RT min 3V Reviewed date:03/27/2024 08:13:46 AM Interpretation: Performing Lab: Notes/Report: Source Facility: [place] [address] XRay Report Signed Patient: JULISSA MUNIZ MR#: [id number] : 1960 Acct:[id number] Age/Sex: 64 / F ADM Date: 03/26/24 Loc: ER Attending Dr: Ordering Physician: Joshua Stafford Date of Service: 03/26/24 Procedure(s): XR foot RT min 3V Accession Number(s): [id number] cc: Joshua Stafford; Skyler Bowman M.D. [place] [address] Patient Name: JULISSA MUNIZ MRN: [facility]:[id number] date: 1960 Sex: F Assigned Patient Location: ER Current Patient Location: ED.MAIN Accession/Order Number: [id number] Exam Date: 03/26/2024 19:40 Report Date: 03/26/2024 21:06 At the request of: JOSHUA STAFFORD Procedure: XR foot RT min 3V XR foot RT min 3V, 03/26/2024 6:40 PM CDT: History: injury. . Comparison: None. Technique: 3 views right foot Findings/Impression: There is no fracture or malalignment. There is mild degenerative change of the first MTP joint. The soft tissues are normal. Electronically authenticated by: ONEIDA BO Date: 03/26/2024 21:06 Dictated By: Oneida Bo III, M.D. Signed By: 03/26/242108 DD/ 05 TD/TT: Computational Chemist: [place] [address] XRay Report Signed Patient: JULISSA MUNIZ MR#: [id number] : 1960 Acct:[id number] Age/Sex: 64 / F ADM Date: 03/26/24 Loc: ER Attending Dr: Ordering Physician: Joshua Stafford Date of Service: 03/26/24 Procedure(s): XR valencia t RT min 3V Accession Number(s): [id number] cc: Joshua Stafford; Skyler Bowman M.D. [place] [id number] Patient Name: JULISSA MUNIZ MRN: [facility]:[id number] date: 1960 Sex: F Assigned Patient Location: ER Current Patient Location: ED.MAIN Accession/Order Numb er: [id number] Exam Date: 03/26/2024 19:40 Report Date: 03/26/2024 21:06 At the request of: JOSHUA STAFFORD Procedure: XR foot R T min 3V XR foot RT min 3V, 03/26/2024 6:40 PM CDT: History: injury. . Comparison: None. Technique: 3 views r ight foot Findings/Impression: There is no fracture or malalignment. There is mild degenerative change of the first MTP joint. The soft tissues are normal. Electronically authenticated by: ONEIDA BO Date: 03/26/2024 21:06 Dictated By: Oneida Bo III, M.D. Signed By: 03/26/242108 DD/ 05 TD/TT: Computational Chemist: LACTATE or LACTIC ACID Reviewed date:03/27/2024 08:13:46 AM Interpretation: Performing Lab: Notes/Report: [facility] , Lactate/Lactic Acid 1.1 0.4-2.0 mmol/L Performing Lab: see note ML - [facility] [place] cineradiography Reviewed date:04/29/2024 08:03:11 PM Interpretation: Performing Lab: Notes/Report: Source Facility: [facility]-[address] [place] [address] [place] [address] Fluoroscopy Report Signed Patient: JULISSA MUNIZ MR#: [id number] : 1960 Acct:[id number] Age/Sex: 64 / F ADM Date: 04/29/24 Loc: [place] Attending Dr: Skyler Bowman M.D. Ordering Physician: Skyler Bowman M.D. Date of Service: 04/29/24 Procedure(s): [place] cineradiography Accession Number(s): [id number] cc: Skyler Bowman M.D. [place] [address] Patient Name: JULISSA MUNIZ MRN: [id number] date: 1960 Sex: F Assigned Patient Location: [place] Current Patient Location: [place] Accession/Order Number: [id number] Exam Date: 04/29/2024 10:55 Report Date: 04/29/2024 14:12 At the request of: SKYLER BOWMAN Procedure: [place] cineradiography EXAMINATION: [place] barium swallow, [place] cineradiography HISTORY: Duodenitis, Gastroesophageal Reflux Disease TECHNIQUE: An air contrast esophagram was performed in the usual manner. Standard level fluoroscopic mode of operation utilized. FINDINGS: ESOPHAGUS:Small anterior projecting diverticulum from proximal esophagus approximately 7 mm in size. Moderately decreased peristalsis of the esophagus with slow clearing of esophagus while in the prone position. Multiple tertiary waves delayed transit. Several episodes of moderate amount of gastroesophageal reflux but this extends to the thoracic inlet. FL/FL cineradiography IMPRESSION: 1. Small anterior projecting diverticulum from proximal esophagus which appears to have a wide neck and quickly fills and quickly clears. I doubt if food or liquid are normally retained. 2. Prominent gastroesophageal reflux and decreased esophageal peristalsis. This may contribute to patient's symptoms Electronically authenticated by: BEN PLASCENCIA Date: 04/29/2024 14:12 Dictated By: Ben Plascencia M.D. Signed By: 04/29/241414 DD/ 11 TD/TT: Computational Chemist: [place] [address] Fluoroscopy Report Signed Patient: JULISSA MUNIZ MR#: [id number] : 1960 Acct:[id number] Age/Sex: 64 / F ADM Date: 04/29/24 Loc: [place] Attending Dr: Marvin Bowman M.D. Ordering Physician: Skyler Bowman M.D. Date of Service: 04/29/24 Procedure(s): [place] cineradiography Accession Number(s): [id number] cc: Skyler Bowman M.D. The [place] [address] Patient Name: JULISSA MUNIZ MRN: [facility]:[id number] date: 1960 Sex: F Assigned Patient Location: [place] Current Patient Location: [place] Accession/Order Numb er: [id number] Exam Date: 10:55 Report Date: 04/29/2024 14:12 At the request of: SKYLER BOWMAN Procedure: [place] cineradiography EXAMINATION: [place] kd um swallow, [place] cineradiography HISTORY: Duodenitis, Gastroesophageal Reflux Disease TECHNIQUE: An air contrast esophagram was performed in the usual manner. Standard level fluoroscopic mode of operation utilized. FINDINGS: ESOPHAGUS:Small ante rior projecting diverticulum from proximal esophagus approximately 7 mm i n size. Moderately decreased peristalsis of the esophagus with slow clearing o f esophagus while in the prone position. Multiple tertiary waves delayed transi t. Several episodes of moderate amount of gastroesophageal reflux but this exte nds to the thoracic inlet. F L/FL cineradiography IMPRESSION: 1. Small anterior projecting diverticulum from proximal esophagus which appears to have a wide neck and quickly fills and quickly clears. I doubt if food or liquid are normally retained. 2. Prominent gastroesophageal reflux and decreased esophageal peristalsis. This may contribute to patient's symptoms Electronically authenticated by: BEN PLASCENCIA Date: 04/29/2024 14:12 Dictated By: Ben Plascencia M.D. Signed By: 04/29/24 1415 DD/ 1412 TD/TT: Computational Chemist: Troponin I High Sensitivity Reviewed date:03/26/2024 08:24:41 PM Interpretation: Performing Lab: Notes/Report: [facility] , Troponin I High Sensitivity 7.4 4.0-51.3 pg/mL CUT-OFF POINTS HAVE BEEN ESTABLISHED BASED ON THE FOURTH UNIVERSAL DEFINITION OF MYOCARDIAL INFARCTION. THE UPPER REFERENCE LIMIT (URL) OF TROPONIN, DEFINED THE 99TH PERCENTILE OF cTnI DISTRIBUTION IN A REFERENCE POPULATION, HAS BEEN CONFIRMED THE DECISION THRESHOLD FOR ID DIAGNOSIS. 99TH PERCENTILE = 51.4 PG/ML NOTE: HIGH-SENSITIVITY TROPONIN ASSAY IS NOT INTENDED TO BE USED IN ISOLATION BUT SHOULD BE INTERPRETED IN CONJUNCTION WITH OTHER DIAGNOSTIC AND CLINICAL INFORMATION. Performing Lab: see note ML - [facility] LB PROF 14(COMP METB) Reviewed date:03/26/2024 08:24:41 PM Interpretation: Performing Lab: Notes/Report: [facility] , Sodium 138 136-145 mmol/L Potassium 3.4 3.5-5.1 mmol/L Chloride 100 98-107 mmol/L Carbon Dioxide 32.6 21.0-32.0 mmol/L Anion Gap 8.8 Glucose 128 74-106 mg/dL Blood Urea Nitrogen 22.0 7.0-18.0 mg/dL Creatinine 1.14 0.55-1.02 mg/dL Estimated GFR ( Kym 58 >=60 Estimated GFR (Non- Kourtney 48 >=60 BUN Creatinine Ratio 19.3 Calcium 9.3 8.5-10.1 mg/dL Bilirubin Total 0.4 0.2-1.0 mg/dL Aspartate Amino Transferase 20 15-37 U/L Alanine Aminotransferase 15 14-59 U/L Alkaline Phosphatase 135 46-116 U/L Total Protein 6.7 6.4-8.2 g/dL Albumin Level 3.2 3.4-5.0 g/dL Globulin 3.5 Albumin Globulin Ratio 0.9 Performing Lab: see note ML - [facility] LB LACTATE or LACTIC ACID Reviewed date:03/26/2024 08:24:41 PM Interpretation: Performing Lab: Notes/Report: [facility] , Lactate/Lactic Acid 2.3 0.4-2.0 mmol/L RESULTS CALLED TO RUIZ MARINELLI @BY eKri Olivera at 2000 Performing Lab: see note ML - [facility] LB CBC AUTO DIFF Reviewed date:03/26/2024 08:24:41 PM Interpretation: Performing Lab: Notes/Report: [facility] , White Blood Count 10.6 4.0-11.0 10 3/uL Red Blood Count 4.65 4.20-5.40 10 6/uL Hemoglobin 13.2 12.0-16.0 g/dL Hematocrit 40.8 36.0-48.0 % Mean Corpuscular Volume 87.7 81.0-99.0 fL Mean Corpuscular Hemoglobin 28.4 26.7-34.0 pg Mean Corpuscular HGB Conc 32.4 29.9-35.2 g/dL Red Cell Distribution Width 13.9 11.0-15.0 % Platelet Count 388 150-450 10 3/uL Mean Platelet Volume 9.9 9.5-13.5 fL Neutrophils Percent Auto 75.3 43.0-75.0 % Lymphocytes Percent Auto 18.5 20.5-60.0 % Monocytes Percent Auto 4.6 1.7-12.0 % Eosinophils Percent Auto 0.6 0.9-7.0 % Basophils Percent Auto 0.6 0.2-2.0 % Immature Granulocytes Pct Auto 0.4 0.0-0.5 % Neutrophils Absolute Auto 8.0 1.4-6.5 10 3/uL Lymphocytes Absolute Auto 2.0 1.2-3.8 10 3/uL Monocytes Absolute Auto 0.5 0.3-0.8 10 3/uL Eosinophils Absolute Auto 0.1 0.0-0.7 10 3/uL Basophils Absolute Auto 0.1 0.0-0.1 10 3/uL Immature Granulocytes Abs Auto 0.04 0.00-0.03 10 3/uL Performing Lab: see note ML - [facility] FL barium swallow Reviewed date:05/03/2024 11:43:39 AM Interpretation: Performing Lab: Notes/Report: Source Facility: [place] [address] [place] [address] Fluoroscopy Report Signed Patient: JULISSA MUNIZ MR#: [id number] : 1960 Acct:[id number] Age/Sex: 64 / F ADM Date: 04/29/24 Loc: [place] Attending Dr: Skyler Bowman M.D. Ordering Physician: Skyler Bowman M.D. Date of Service: 04/29/24 Procedure(s): [place] barium swallow Accession Number(s): [id number] cc: Skyler Bowman M.D. [place] [address] Patient Name: JULISSA MUNIZ MRN: [id number] date: 1960 Sex: F Assigned Patient Location: [place] Current Patient Location: [place] Accession/Order Number: [id number] Exam Date: 04/29/2024 10:55 Report Date: 04/29/2024 14:12 At the request of: SKYLER BOWMAN Procedure: [place] barium swallow EXAMINATION: [place] barium swallow, [place] cineradiography HISTORY: Duodenitis, Gastroesophageal Reflux Disease TECHNIQUE: An air contrast esophagram was performed in the usual manner. Standard level fluoroscopic mode of operation utilized. FINDINGS: ESOPHAGUS:Small anterior projecting diverticulum from proximal esophagus approximately 7 mm in size. Moderately decreased peristalsis of the esophagus with slow clearing of esophagus while in the prone position. Multiple tertiary waves delayed transit. Several episodes of moderate amount of gastroesophageal reflux but this extends to the thoracic inlet. FL/FL barium swallow IMPRESSION: 1. Small anterior projecting diverticulum from proximal esophagus which appears to have a wide neck and quickly fills and quickly clears. I doubt if food or liquid are normally retained. 2. Prominent gastroesophageal reflux and decreased esophageal peristalsis. This may contribute to patient's symptoms Electronically authenticated by: BEN PLASCENCIA Date: 04/29/2024 14:12 Dictated By: Ben Plascencia M.D. Signed By: 04/29/241414 DD/ 11 TD/TT: Computational Chemist: [place] [address] Fluoroscopy Report Signed Patient: JULISSA MUNIZ MR#: [id number] : 1960 Acct:[id number] Age/Sex: 64 / F ADM Date: 04/29/24 Loc: [place] Attending Dr: Marvin Bowman M.D. Ordering Physician: Skyler Bowman M.D. Date of Service: 04/29/24 Procedure(s): [place] bar ium swallow Accession Number(s): [id number] cc: Skyler Bowman M.D. [place] [address] Patient Name: JULISSA MUNIZ MRN: [id number]:[id number] date: 1960 Sex: F Assigned Patient Location: [place] Current Patient Location: [place] Accession/Order Numb er: [id number] Exam Date: 10:55 Report Date: 04/29/2024 14:12 At the request of: SKYLER BOWMAN Procedure: [place] barium swallow EXAMINATION: [place] kd um swallow, [place] cineradiography HISTORY: Duodenitis, Gastroesophageal Reflux Disease TECHNIQUE: An air contrast esophagram was performed in the usual manner. Standard level fluoroscopic mode of operation utilized. FINDINGS: ESOPHAGUS:Small ante rior projecting diverticulum from proximal esophagus approximately 7 mm i n size. Moderately decreased peristalsis of the esophagus with slow clearing o f esophagus while in the prone position. Multiple tertiary waves delayed transi t. Several episodes of moderate amount of gastroesophageal reflux but this exte nds to the thoracic inlet. F L/FL barium swallow IMPRESSION: 1. Small anterior projecting diverticulum from proximal esophagus which appears to have a wide neck and quickly fills and quickly clears. I doubt if food or liquid are normally retained. 2. Prominent gastroesophageal reflux and decreased esophageal peristalsis. This may contribute to patient's symptoms Electronically authenticated by: BEN PLASCENCIA Date: 04/29/2024 14:12 Dictated By: Ben Plascencia M.D. Signed By: 04/29/24 1415 DD/ 141 TD/TT: Computational Chemist: Urine Culture, Routine Reviewed date:03/29/2024 12:04:33 PM Interpretation: Performing Lab: Notes/Report: [facility] , Urine Culture, Routine See Below For Report Urine Culture, Routine Urine Culture, Routine Mixed urogenital jacquelyn Urine Culture, Routine Urine Culture, Routine Less than 10,000 colonies/mL Urine Culture, Routine Urine Culture, Routine Performed at: [facility] Urine Culture, Routine Urine Culture, Routine [address], [place] [id number] Urine Culture, Routine Urine Culture, Routine Electromedical Service Engineer: Srinivas Drummond PhD, Phone: [phone] Urine Culture, Routine Performing Lab: see note - [facility] LB SEE REPORT - Head Of Measurement & Insights Id information not found for OBX-specific video producer legend URINE MICROSCOPIC ONLY Reviewed date:03/27/2024 08:13:46 AM Interpretation: Performing Lab: Notes/Report: [facility] , WBC Urine 2-5 NONE SEEN #/HPF RBC Urine 0-2 0-2 #/HPF Bacteria Urine SMALL NONE SEEN #/HPF Mucus Urine NONE SEEN NONE SEEN Squamous Epithelial Cell Urine FEW NONE/RARE #/LPF Transitional Epi Cells Urine RARE NONE SEEN #/LPF Crystals Seen? None Seen None Seen #/HPF Cast Seen? NONE SEEN NONE SEEN #/LPF Urine Culture Indicated YES Performing Lab: see note ML - [facility] LB UA (CLEAN or CATCH) DYE LINE OPERATOR or M ICRO IF IND. Reviewed date:03/27/2024 08:13:46 AM Interpretation: Performing Lab: Notes/Report: [facility] , Color Urine LT. YELLOW YELLOW Clarity Urine CLEAR CLEAR Specific Lannon Urine 1.015 1.005-1.025 pH Urine 8.0 5.0-9.0 Protein Urine NEGATIVE NEG/TRACE mg/dL Glucose Urine UA NEGATIVE NEGATIVE mg/dL Bilirubin Urine NEGATIVE NEGATIVE Ketones Urine TRACE NEGATIVE mg/dL Blood Urine TRACE-I NEGATIVE Nitrite Urine NEGATIVE NEGATIVE Urobilinogen Urine 0.2 0.2-1.0 EU/dL Leukocyte Esterase Urine TRACE NEGATIVE Urine Microscopic Indicated YES Performing Lab: see note ML - [facility] LB Reason For Referral Diagnosis 1 GERD (gastroesophage al reflux disease) (K21.9) Referral Organization [facility] Medicine Referring Provider First Name Prasad Referring Provider Last Name Gracie Referring Provider Speciality Family Med connie Referred Provider Gabe Collins Referred Provider Specialty General Surg keyona Referral Priority Routine Medications Medication SIG (Take, Route, Frequency, Duration) Notes Start Date End Date Status Mupirocin 2 % 1 application Externally Twice a day for 5 days Active chlordiazePOXIDE-Clidinium 5-2.5 MG 1 capsule before meals Orally Three times a day Active Ventolin HFA 108 (90 Base) MCG/ACT 2 puff as needed Inhalation every 4 hrs for 30 days 02/27/2024 Active Carvedilol 3.125 MG 1 tablet with food Orally Twice a day Active Vitamin D (Cholecalciferol) 50 MCG (2000 UT) 1 capsule Orally Once a day for 30 days 09/12/2023 Active Atorvastatin Calcium 40 MG 1 tablet Oral ly Once a day Active Synthroid 100 MCG TAKE 1 TABLET DAILY Active Terbinafine HCl 250 MG 1 capsule Orally Once a day for 90 02/06/2023 Active Carisoprodol 350 mg TAKE 1 TABLET BY MOUTH TWICE DAILY NEEDED for 30 11/26/2024 Active Rizatriptan Benzoate 10 mg DISSOLVE 1 TA BLET ON TONGUE AT ONSET OF A HINT OF A MIGRAINE, MAY REPEAT IN 2 HOURS Active rOPINIRole HCl 2 mg TAKE 1 TO 2 TABLETS EVERY NIGHT Active Promethazine HCl 25 mg TAKE 1 TO 2 TABLE TS BY MOUTH EVERY 4 HOURS NEEDED for 30 days Active Promethazine HCl 25 MG 1 suppository as needed Rectal every 6 hrs for 30 days 05/28/2023 Active Nystatin 533625 UNIT/ML 5 ml Mouth/Throa t Four times a day for 14 days 11/16/2024 Active Pantoprazole Sodium 40 mg TAKE 1 TABLET DAILY Active Plavix 75 MG 1 tablet Orally Once a day Active Pyridium 200 MG 1 tablet after meals Orally Three times a day for 2 days 11/06/2024 Active diazePAM 5 MG 1 tablet as needed Orally Once a day for 30 days F41.9/ PRN 11/16/2024 Active Bactrim DS 800-160 MG 1 tablet Orally bi d for 10 days 11/06/2024 Active Nitroglycerin 0.4 MG as directed Sublingual for 30 days PRN Active Meclizine HCl 25 MG 1 tablet as needed Orally QID for 30 days PRN Active Metoclopramide HCl 10 MG 1 tablet before meals Orally Twice a day for 90 days Active Sucralfate 1 GM TAKE 1 TABLET BEFORE EACH MEAL ON AN EMPTY STOMACH Active Lidocaine 5 % APPLY 1 PATCH TO SKI N DAILY Active Liothyronine Sodium 5 MCG 2 tablets Oral ly Once a day for 90 days Active Ezetimibe 10 MG 1 tablet Orally Once a day Active Levsin/SL 0.125 MG 1 tablet under the tongue and allow to dissolve as needed Sublingual AC and HS 09/06/2023 Active Cyclobenzaprine HCl 10 MG 1 tablet Orall y TID prn for 30 days PRN Active Citalopram Hydrobromide 40 mg TAKE 1 TABLET DAILY Active Cetirizine HCl 10 mg TAKE 1 TABLET DAILY Active Immunizations Vaccine Route Administration Date Status Comme nts Flu, Afluria (5508-1790) (90 686) 3 yrs+, single-dose syringe Unknown 03/24/2020 Administered Pneumococcal (Prevnar 13) Unknown 04/20/2020 Administer ed SARS-COV-2 (COVID 19 Pfizer 30mcg/0.3mL) Unknown 09/30/2020 Administered Social History Tobacco Use: Social History Observation Description Date Details (start date - stop date) Former Smoker NA - NA Tobacco Use/Smoking Question Answer Notes Patient is a former smoker How long has it been since y ou last smoked? 6-12 months Additional Findings: Tobacco Non-User Ex-heavy c igarette smoker (20-30/day) Tobacco Control (Standard) Question Answer Notes Tobacco use: Former smoker How long has it been since y ou last smoked? 1-5 years Additional Findings: Tobacco non-user Ex -moderate cigarette smoker (10-19/day) AUDIT-C (Standard) Question Answer Notes Did you have a drink containing alcohol in the p ast year? No Points 0 Interpretation Negative Problems Problem Type SNOMED Code ICD Code Onset Dates Problem Status W/U Status Risk Notes Problem Helicobacter pylori (35685206) Helicobacter pylori [H. pylori] as the cause of diseases classified elsewhere (B96.81) Active confirmed Problem 99417797 Atherosclerotic heart disease of [place] coronary artery without angina pectoris (I25.10) Active confirmed Problem Supraventricular tachycardia (1433359) Supraventricular tachycardia (I47.1) Active confirmed Problem Gastroparesis (211912617) Gastroparesis (K31.84) Active confirmed Problem Abdominal pain (77506276) Abdominal pain (R10.9) Active confirmed Problem Hypertension (54220972) Hypertension (I10) Active confirmed Problem Chronic obstructive pulmonary disease (61200899) Chronic obstructive pulmonary disease (COPD) (J44.9) Active confirmed Problem Hypothyroidism (35184191) Hypothyroidism (E03.9) Active confirmed Problem Anxiety (66203234) Anxiety (F41.9) Active confi rmed Problem Tremor (32990113) Tremor (R25.1) Active confirm ed Problem Edema (46949346) Edema (R60.9) Active confirmed Problem Coronary artery disease (35309525) Coronary artery disease (I25.10) Active confirmed Problem Venous insufficiency of leg (disorder) (640754950) Venous insufficiency (I87.2) Active confirmed Problem Anemia (350135158) Anemia (D64.9) Active confir med Problem Obstructive sleep apnea (80718685) Obstructive sleep apnea (G47.33) Active confirmed Problem Migraine (99028132) Migraine (G43.909) Active confirmed Problem Arthralgia (56893807) Arthralgia (M25.50) Active confirmed Problem Well adult (195549555) Well adult (Z00.00) Active confirmed Problem Alopecia (11718670) Hair loss (L65.9) Active confirmed Problem Cramp in lower limb (709920424) Leg cramps (R25.2) Active confirmed Problem Overweight (251568989) Over weight (E66.3) Active confirmed Problem Seasonal allergic rhinitis (232392124) Allergic rhinitis, seasonal (J30.2) Active confirmed Problem Itching (034375145) Itching (L29.9) Active confirmed Problem Upper airway resistance syndrome (127382741) Upper airway resistance syndrome (G47.8) Active confirmed Problem Duodenitis (65295537) Duodenitis (K29.80) Active confirmed Problem Ex-tobacco user (finding) (770018823) History of tobacco abuse (Z87.891) Active confirmed Problem Seborrheic keratosis (92509119) Keratosis, seborrheic (L82.1) Active confirmed Problem Gastro-esophageal reflux disease (972116668) Gastro-esophageal reflux disease (K21.9) Active confirmed Problem 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11) Active confirmed Problem Low back pain (505271817) Low back pain, unspecified (M54.50) Active confirmed Problem 3115145 Supraventricular tachycardia, unspecified (I47.10) Active confirmed Vital Signs Heart Rate 93 /min 02/27/2024 Oximetry 95 % 02/27/2024 Blood pressure diastolic 62 mm Hg 10/01/2024 Height 66 in 10/01/2024 Blood pressure systolic 94 mm Hg 10/01/2024 Weight 151.0 lbs 10/01/2024 BMI 24.37 kg/m2 10/01/2024 Encounters Encounter Location Date Provider Diagnosis [facility] [address] [place] [address] 11/06/2024 Prasad Hoy [facility] [address] [place] [address] 11/16/2024 Prasad Hoy Gastroparesis K31.84 [facility] [address] [place] [address] 11/26/2024 Prasad Hoy Gastroenteritis K52. 9 [facility] [address] [place] [address] 08/20/2024 Prasad Zelayay Chronic obstructive pulmonary disease (COPD) J44.9 [facility] [address] [facility] [place] [address] 09/04/2024 Prasad Hoy Gastroparesis K31.84 [facility] [address] [facility] [place] [address] 09/11/2024 Prasad Hoy Chronic obstructive pulmonary disease (COPD) J44.9 [facility] [address] [place] [address] 09/22/2024 Prasad Hoy [facility] [address] [facility] [place] [address] 10/09/2024 Prasad Hoy Gastroparesis K31.84 [facility] [address] [place] [address] 10/23/2024 Prasad Hoy Gastroenteritis K52. 9 [facility] [address] [place] [address] 05/21/2024 Prasad Hoy Chronic obstructive pulmonary disease (COPD) J44.9 [facility] [address] [place] [address] 06/01/2024 Prasad Hoy Gastroparesis K31.84 [facility] [address] [facility] [place] [address] 06/19/2024 Prasad Hoy Chronic obstructive pulmonary disease (COPD) J44.9 [facility] [address] [facility] [place] [address] 07/02/2024 Prasad Hoy Gastroparesis K31.84 [facility] [address] [facility] [place] [address] 07/20/2024 Prasad Hoy Chronic obstructive pulmonary disease (COPD) J44.9 [facility] [address] [facility] [place] [address] 08/03/2024 Prasad Hoy Gastroparesis K31.84 [facility] [address] [facility] [place] [address] 04/02/2024 Prsaad Hoy Abdominal pain R10.9 [facility] [address] [facility] [place] [address] 04/03/2024 Prasad Hoy [facility] [address] [facility] [place] [address] 04/20/2024 Prasad Hoy Gastroparesis K31.84 [facility] [address] [place] [place] [address] 04/21/2024 Prasad Hoy Gastroparesis K31.84 [facility] [address] [place] [address] 04/28/2024 Noris Cardenasmer Gastroparesis K31.84 [facility] [address] [place] [address] 05/03/2024 Prasad Hoy GERD (gastroesophage al reflux disease) K21.9 [facility] [address] [place] [address] 02/07/2024 Prasad Hoy Abdominal pain R10.9 [facility] [address] [place] [address] 02/17/2024 Prasad Hoy [facility] [address] [facility] [place] [address] 02/25/2024 Prasad Hoy [facility] [address] [facility] [place] [address] 03/13/2024 Prasad Hoy [facility] [address] [facility] [place] [address] 03/16/2024 Prasad Hoy [facility] [address] [place] [address] 03/27/2024 Prasad Hoy Gastroparesis K31.84 [facility] [address] [facility] [place] [address] 12/06/2023 SKYLER HOY Dysuria R30.0 [facility] [address] [facility] [place] [address] 12/18/2023 SKYLER HOY Abdominal pain R10.9 [facility] [address] [facility] [place] [address] 12/27/2023 SKYLER HOY [facility] [address] [place] [address] 01/21/2024 Prasad Hoy Dysuria R30.0 [facility] [address] [place] [address] 01/27/2024 Prasad Hoy [facility] [address] [place] [address] 10/01/2024 Prasad Hoy Itching L29.9 [facility] [address] [place] [address] 02/27/2024 Prasad Hoy Gastroparesis K31.84 ; Hypertension I10 ; Chronic obstructive pulmonary disease (COPD) J44.9 ; Hypothyroidism E03.9 and Anxiety F41.9 [facility] [address] [place] [address] 04/10/2024 Prasad Hoy Chronic obstructive pulmonary disease (COPD) J44.9 ; Duodenitis K29.80 ; Gastro-esophageal reflux disease K21.9 ; Pyloric stenosis, congenital Q40.0 and Venous insufficiency I87.[address] [address] 09/21/2024 Prasad Hoy Gastroenteritis K52. 9 ; Hypertension I10 ; Chronic obstructive pulmonary disease (COPD) J44.9 ; Hypothyroidism E03.9 and Anemia D64.9 Assessments Encounter Date Diagnosis (ICD Code) Assessment Notes Treatment Notes Treatment Clinical Notes Section Notes 10/01/2024 Itching (ICD-10 - L29.9) 12/06/2023 Dysuria (ICD-10 - R30.0) 12/18/2023 Abdominal pain (ICD-10 - R10.9) 01/21/2024 Dysuria (ICD-10 - R30.0) 02/07/2024 Abdominal pain (ICD-10 - R10.9) 03/27/2024 Gastroparesis (ICD-10 - K31.84) 04/02/2024 Abdominal pain (ICD-10 - R10.9) 04/20/2024 Gastroparesis (ICD-10 - K31.84) 04/21/2024 Gastroparesis (ICD-10 - K31.84) 04/28/2024 Gastroparesis (ICD-10 - K31.84) 05/03/2024 GERD (gastroesophageal reflux disease) (ICD-10 - K21.9) 05/21/2024 Chronic obstructive pulmonary disease (COPD) (ICD-10 - J44.9) 06/01/2024 Gastroparesis (ICD-10 - K31.84) 06/19/2024 Chronic obstructive pulmonary disease (COPD) (ICD-10 - J44.9) 07/02/2024 Gastroparesis (ICD-10 - K31.84) 07/20/2024 Chronic obstructive pulmonary disease (COPD) (ICD-10 - J44.9) 08/03/2024 Gastroparesis (ICD-10 - K31.84) 08/20/2024 Chronic obstructive pulmonary disease (COPD) (ICD-10 - J44.9) 09/04/2024 Gastroparesis (ICD-10 - K31.84) 09/11/2024 Chronic obstructive pulmonary disease (COPD) (ICD-10 - J44.9) 10/09/2024 Gastroparesis (ICD-10 - K31.84) 10/23/2024 Gastroenteritis (ICD-10 - K52.9) 11/16/2024 Gastroparesis (ICD-10 - K31.84) 11/26/2024 Gastroenteritis (ICD-10 - K52.9) 02/27/2024 Gastroparesis (ICD-10 - K31.84) on protonix - add tums 02/27/2024 Hypertension (ICD-10 - I10) bp stabel with checking at home 04/10/2024 Chronic obstructive pulmonary disease (COPD) (ICD-10 - J44.9) 04/10/2024 Duodenitis (ICD-10 - K29.80) 09/21/2024 Gastroenteritis (ICD-10 - K52.9) Get plenty of rest. Stay hydrated by sucking on ice chips or taking small sips of water. You can also try drinking clear soda, clear broths or noncaffeinated sports drinks. Stop eating solid foods for a few hours to let your stomach settle. East back into eating by eating bland, zbhn-um-njieuq foods like crackers, toast, gelatin, bananas, rice and chicken. Try to avoid foods/substances including dairy products, caffeine, alcohol, nicotine and fatty or highly seasoned foods. Medications such as ibuprofen or tylenol can make your stomach more upset, so use sparingly if at all. Also avoid [id number]-[id number] anti-diarrheal medications because it can make it harder for your body to eliminate the virus. 09/21/2024 Hypertension (ICD-10 - I10) 09/21/2024 Chronic obstructive pulmonary disease (COPD) (ICD-10 - J44.9) 04/10/2024 Gastro-esophageal reflux disease (ICD-10 - K21.9) 02/27/2024 Chronic obstructive pulmonary disease (COPD) (ICD-10 - J44.9) breatihng a litle wors - adjusting meds 02/27/2024 Hypothyroidism (ICD-10 - E03.9) revieweed ol labs 04/10/2024 Pyloric stenosis, congenital (ICD-10 - Q40.0) 09/21/2024 Hypothyroidism (ICD-10 - E03.9) 09/21/2024 Anemia (ICD-10 - D64.9) 04/10/2024 Venous insufficiency (ICD-10 - I87.2) 02/27/2024 Anxiety (ICD-10 - F41.9) needs refoilled meds Plan Of Treatment Pending Test Test Name Order Date Barium : Upper GI Series 04/10/2024 CMP (COMPLETE METABOLIC PANEL) 3 CMP (COMPLETE METABOLIC PANEL) 4 HEMOGLOBIN A1C (GLYCO) 02/06/2023 HEMOGLOBIN A1C (GLYCO) 09/21/2024 HEMOGLOBIN A1C (GLYCO) 08/28/2023 IRON, TOTAL 09/21/2024 IRON, TOTAL 08/28/2023 IRON, TOTAL 02/06/2023 LIPID PANEL (CHOL/TRIG/HDL/LDL) 02/07/20 23 LIPID PANEL (CHOL/TRIG/HDL/LDL) 08/28/19 24 LIPID PANEL (CHOL/TRIG/HDL/LDL) 09/22/19 25 CBC WITH DIFF 08/28/2023 CBC WITH DIFF 02/06/2023 VITAMIN D, 25 LEVEL (TOTAL) 02/06/2023 VITAMIN D, 25 LEVEL (TOTAL) 08/28/2023 VITAMIN D, 25 LEVEL (TOTAL) 09/21/2024 CT Sinus w/o contrast * 08/28/2023 Insulin Level 08/28/2023 STOOL OCCULT BLOOD 02/06/2023 BNP 08/28/2023 XR ABD FLAT UP_PA CH 05/29/2023 THYROID PANEL (T4/TSH/FREE T3) 3 THYROID PANEL (T4/TSH/FREE T3) 4 THYROID PANEL (T4/TSH/FREE T3) 5 MM screening mammo BI 09/21/2024 FL ESOPHAGUS BARIUM SWALLOW 04/10/2024 CMP (COMP MET CHEATHAM) w/eGFR CKD-EPI 2024 CBC WITH DIFF 09/21/2024 Insurance Providers Payer Name Payer Address Payer Phone Subscriber Number Group Number Insured Name Patient Relationship to Insured Coverage Start Date Coverage End Date [place] [address] [address] [id number] Julissa Johansen Self - patient is the insured 5 [facility] CLAIM[facility] [address] [place] [address] [phone] [id number] Silvinoife Julissa chris Self - patient is the insured Medications Administered Medication Instructions Date of Administration Dosage Notes Dexamethasone, 4mg/mL 10/01/2024 12 mg Kenalog-40 09/06/2023 40 mg 80 Promethazine, 25 mg 09/06/2023 2 mL 50 Promethazine, 25 mg 02/27/2024 50 mg 50 Medical (General) History Medical History History ICD Code Obstructive sleep apnea G47.33 Coronary artery disease I25.10 Depression F32.A Hyperlipidemia E78.5 Hypothyroidism E03.9 Migraine G43.909 Upper airway resistance syndrome G47.8 Over weight E66.3 Vertigo, peripheral H81.399 Anxiety F41.9 Chronic obstructive pulmonary disease (C OPD) J44.9 Leg cramps R25.2 Helicobacter pylori [H. 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 Pyloric stenosis, congenital Q40.0 Duodenitis K29.80 Arthralgia M25.50 Tremor R25.1 Low back pain, unspecified M54.50 Allergic rhinitis, seasonal J30.2 Gastroparesis K31.84 Edema R60.9 Osteoarthritis of left knee, unspecified osteoarthritis type M17.12 Osteoarthritis of right knee, unspecifie d osteoarthritis type M17.11 History of tobacco abuse Z87.891 Surgical History Surgery Date(Month/Year) tubal ligation dilatation and curettage rhinoplasty tonsillectomy and adenoidectomy Cataract Removal 11/2023 Stomach Ulcer Breast Biopsy-Right Left Wrist Tendon Repair Cardiac Ablation 2012 Cardiac Catheterization 01/29/2022
== END 2024-12-02 14:05 | disposition home or self-care (01) ==
LOC: CARD 14:06
PROVIDERS: PCP Family Medicine; Visit Provider Nurse Practitioner Family
DX: I25.10 Atherosclerotic heart disease of native coronary artery without angina pectoris (principal)
CPT/HCPCS: 93306

== ENCOUNTER 2025-04-14 16:31 | Outpatient (OUT) | payer MEDICARE, OTHER, SELFPAY ==
--- OUTSIDE RECORDS SUMMARY | 2025-04-14 16:39 | XMS_ITS | CCD ---
Author Organization [facility] Care Team Providers Care Carpenter'S Assistant Name Role Phone JAKEADELA BELLA Attending Unavailable SKYLER BOWMAN Referring Unavailable SAMIRYSKYLER Primary Care Unavailable JORGE ALBERTO, STEPHANY Admitting Unavailable KEENANWALEGAYATRI Admitting Unavailable KEENANGAYATRI MERRITT Attending Unavailable EZE HUSSEINA Consulting Unavailable SAMIRY, DR HOLLAND Primary Care [...] Attending Unavailable HOY, DR HOLLAND Consulting Unavailable FANNY ORLANDO Attending Unavailable EZE HUSSEINA Attending Unavailable Allergies Allergy Classification Reported Allergen(s) Allergy Type Date of Onset Reaction(s) Facility (1 source) Amoxicillin / Clavulanate Drug Allergy 2 [facility] Repository (4 sources) Latex; Translations: [LATEX] Propensity to adverse reactions (disorder) 0 [facility] Repository (4 sources) Morphine; Translations: [MORPHINE] Drug Allergy 0 [facility] Repository (2 sources) nickel; Translations: [NICKEL] Drug Allergy 3 [facility] Repository (2 sources) Leucine Drug Allergy 3 [facility] Repository (1 source) Ondansetron; Translations: [ONDANSETRON HCL] Drug Allergy 2 [facility] Repository (1 source) ERYTHROMYCIN BASE; Translations: [ERYTHROMYCIN BASE] Propensity to adverse reactions to drug (disorder) 2 [facility] Repository Problems Active Problems Problem Classification [...] disease (8 sources) Atherosclerotic heart disease of [place] coronary artery without angina pectoris; Translations: [Old [...] 2 Chronic Other aftercare (1 source) Other custodial (current) drug therapy; Translations: [OTH SAMPLE SELECTOR CURRENT DRUG THERAPY] Onset: 2 Episodic Other [...] Test Name Value Interpretation Reference Range Facility 36on 12-11-2024 36 LEONA Burroughs [place] Please let her know her ECHO looked good, no concerns. Follow-up as planned. Spoke to patient, advise patient of ECHO results, patient verbalized understanding Normal [facility] Office Visiton 10-13-2024 Follow-up visit [id number] Julissa Muniz 1960 F Date Provider Department Center 10/13/2024 GAYATRI DONALD CARD [facility] Family History Problem Relation Age of Onset Atrial fibrillation Mother Heart attack Father Family Status - Relation Status Age at Mother Father Level of Service:25934 [place] OFFICE/OUTPATIENT ESTABLISHED LOW MDM 20 MIN Reason for Visit and Comments: Coronary Artery Disease [187] Hypertension [346919] Hyperlipidemia [182] Normal [facility] Provider Letteron 05-08-2024 Provider Letter Provider Letter May 08, 2024 JULISSA MUNIZ [address] [address] : 1960 Dear Ms. Muniz, We have been trying to reach you with no success regarding a referral from Dr Bowman. It is important that you return our call upon receiving this letter. Also, at the time of your call, please provide us with your current information. Thank you for your prompt attention to this matter. Sincerely, [facility] [phone] Normal [facility] Office Visiton 03-06-2024 Follow-up visit [id number] Julissa Muniz 1960 F Date Provider Department Center 03/06/2024 [id number]-FANNY ORLANDO [facility] Family History Problem Relation Age of Onset Atrial fibrillation Mother Heart attack Father Family Status - Relation Status Age at Mother Father Level of Service:58333 [place] OFFICE/OUTPATIENT ESTABLISHED LOW MDM 20 MIN Normal [facility] LIPID PROFILEon 04-24-2022 CHOL-HDL RATIO NORM SEE BELOW Normal [facility] Comment on above: Result Comment: 3.3 - 4.4 LOW RISK 4.4 - 7.1 AVERAGE RISK 7.1 - 11.0 MODERATE RISK >11.0 HIGH RISK Performed By: #### H STROPN #### [facility] [address] [address] [address] Darya Berry Cholesterol [Mass/Vol] 141 mg/dL Normal <=200 [facility] Comment on above: Performed By: #### H STROPN #### [facility] [address] [address] [address] Darya Berry Cholesterol in HDL [Mass/Vol] 51 mg/dL Normal 40-60 [facility] Comment on above: Performed By: #### H STROPN #### [facility] [address] [address] [address] Darya Berry Cholesterol in LDL [Mass/Vol] 71.8 mg/dL Normal [facility] Comment on above: Performed By: #### H STROPN #### [facility] [address] [address] [address] Darya Berry Cholesterol.total/C holesterol in HDL [Mass ratio] 2.8 {ratio} Normal [facility] Comment on above: Performed By: #### H STROPN #### [facility] [address] [address] [address] Darya Berry HDL NORMAL > or = 60 mg/dl - LO W CARDIOVASCULAR RISK <40 mg/dl - HIGH CARDIOVASCULAR RISK Normal [facility] Comment on above: Performed By: #### H STROPN #### [facility] [address] [address] [address] Darya Berry LDL CALC NORMAL SEE BELOW Normal [facility] Comment on above: Result Comment: <100 mg/dl OPTIMAL 100 - 129 mg/dl NEAR OR ABOVE OPTIMAL 130 - 159 mg/dl BORDERLINE HIGH 160 - 189 mg/dl HIGH >190 mg/dl VERY HIGH Performed By: #### H STROPN #### [facility] [address] [place] [address] Dr. Darya Berry Triglyceride [Mass/Vol] 91 mg/dL Normal <=150 [facility] Comment on above: Performed By: #### H STROPN #### [facility] [address] [place] [address] Dr. Darya Berry VLDL CALC 18.2 mg/dL Normal [facility] Comment on above: Performed By: #### H STROPN #### [facility] [address] [place] [address] Dr. Darya Berry LIVER PROFILEon 04-24-2022 Albumin [Mass/Vol] 3.4 g/dL Normal 3.4-5.0 [facility] Comment on above: Performed By: #### H STROPN #### [facility] [address] [place] [address] Dr. Darya Berry Albumin/Globulin [Mass ratio] 1.1 {ratio} Normal [facility] Comment on above: Performed By: #### H STROPN #### [facility] [address] [place] [address] Dr. Darya Berry ALP [Catalytic activity/Vol] 167 U/L Critically high 46-116 [facility] Comment on above: Performed By: #### H STROPN #### [facility] [address] [place] [address] Dr. Darya Berry ALT [Catalytic activity/Vol] 14 U/L Normal 14-59 [facility] Comment on above: Performed By: #### H STROPN #### [facility] [address] [place] [address] Dr. Darya Berry AST [Catalytic activity/Vol] 17 U/L Normal 15-37 [facility] Comment on above: Performed By: #### H STROPN #### [facility] [address] [place] [address] Dr. Darya Berry BILI, CONJUGATED 0.1 mg/dL Normal 0.0-0.2 [facility] Comment on above: Performed By: #### H STROPN #### [facility] [address] [address] [address] Darya Berry Bilirubin [Mass/Vol] 0.2 mg/dL Normal 0.2-1.0 [facility] Comment on above: Performed By: #### H STROPN #### [facility] [address] [address] [address] Darya Berry Globulin (S) [Mass/Vol] 3.2 g/dL Normal [facility] Comment on above: Performed By: #### H STROPN #### [facility] [address] [place] [address] Dr. Darya Berry Protein [Mass/Vol] 6.6 g/dL Normal 6.4-8.2 [facility] Comment on above: Performed By: #### H STROPN #### [facility] [address] [place] [address] Dr. Darya Berry ECHOCARDIO M/2D COMPLETEon 0 2022 ECHOCARDIO M/2D COMPLETE Patient: JULISSA MUNIZ Exam Date: 2022 : 1960 Gender:F Ordering : GAYATRI HUSSEIN [facility] Admission #: [id number] Family : DR SKYLER BOWMAN . Order #: [id number] CLICK HERE TO VIEW EXAM ECHOCARDIOGRAM REPORT [...] Drake M.D. on 03/16/2022 at 18:53 Normal [facility] CREATININE BLOODon 2 Creatinine [Mass/Vol] 0.68 mg/dL Normal 0.60-1.20 [facility] Comment on above: Order Comment: No: D o not add to previous draw Performed By: #### 5 7307, 00330, 28697 #### [facility] [address] GFR/1.73 sq M.predicted among non-blacks MDRD (S/P/Bld) [Vol rate/Area] mL/min/{1.73_m2} Normal >60 [facility] Comment on above: Order Comment: No: D o not add to previous draw Result Comment: [facility]'s estimated glomerular filtration rate (eGFR) will [...] of individuals. Performed By: #### 5 7307, 71275, 62895 #### [facility] [address] [place] [address], [facility] Cardiovascular Lab Reporton 01-30-2022 Cardiovascular Lab Report [facility] MR #: [id number] Department of Physician: Axle Patterson M.D. Division of Service Date: 01/29/2022 Cardiology Birthdate: 1960 Adult Cardiovascular Room #: 3AB [id number] [facility] [address] [facility] [place] [address] Cardiovascular Laboratory Report CLINICAL PRESENTATION: The patient [...] with statin therapy. 7. Outpatient followup with [facility] primary care. PROCEDURES: Coronary angiogram, [...] infiltrated in the left radial artery. A 6-Nepalese Terumo Glidesheath slender was placed in the left radial artery. All catheter exchanges were made over the Magic Torque guidewire. Radial anti-vasospasm cocktail, verapamil and nitroglycerin was administered to prevent spasm. A 4-Nepalese JR4 was used to engage the right coronary artery. A 5-Nepalese JL4 was used to engage the left main coronary artery. Coronary angiogram was performed in multiple orthogonal views using hand injection of contrast. At this time, it was apparent that there was severe single-vessel coronary artery disease affecting the proximal RCA. I elected to proceed with PCI. Heparin anticoagulation was used for this procedure. ACT was maintained greater than 200 seconds. A 31Dover 6-Nepalese JR4 guide was engaged in the right [...] Gaming M.D. Date Trans: 01/30/2022 05:44 A/jac [id number] cc: Skyler Bowman M.D. [address], [facility] [address] Normal [facility] BASIC METABOLIC PANELon 08-0 Calcium [Mass/Vol] 8.5 mg/dL Low 8.6-10.3 [facility] Comment on above: Order Comment: No: D o not add to previous draw Performed By: #### 5 7307, 56713, 46014 #### [facility] [address] [place] [address], [facility] Chloride [Moles/Vol] 107 mmol/L Normal 98-107 [facility] Comment on above: Order Comment: No: D o not add to previous draw Performed By: #### 5 7307, 75321, 00511 #### [facility] [address] [facility] [address], [facility] CO2 [Moles/Vol] 22 mmol/L Normal 21-31 [facility] Comment on above: Order Comment: No: D o not add to previous draw Performed By: #### 5 7307, 95810, 62052 #### [facility] [address] [place] [address], [facility] Creatinine [Mass/Vol] 0.83 mg/dL Normal 0.60-1.20 [facility] Comment on above: Order Comment: No: D o not add to previous draw Performed By: #### 5 7307, 95196, 67709 #### [facility] [address] [place] [address], [facility] GFR/1.73 sq M.predicted among non-blacks MDRD (S/P/Bld) [Vol rate/Area] mL/min/{1.73_m2} Normal >60 [facility] Comment on above: Order Comment: No: D o not add to previous draw Result Comment: [facility]'s estimated glomerular filtration rate (eGFR) will [...] of individuals. Performed By: #### 5 7307, 54729, 13987 #### [facility] [address] [place] [address], [place] Glucose [Mass/Vol] 103 mg/dL High 70-100 [facility] Comment on above: Order Comment: No: D o not add to previous draw Performed By: #### 5 7307, 86508, 47538 #### [facility] [address] [place] [address], [facility] Potassium [Moles/Vol] 3.9 mmol/L Normal 3.5-5.1 [facility] Comment on above: Order Comment: No: D o not add to previous draw Performed By: #### 5 7307, 29280, 45527 #### [facility] [address] [place] [address], [facility] Sodium [Moles/Vol] 137 mmol/L Normal 136-145 [facility] Comment on above: Order Comment: No: D o not add to previous draw Performed By: #### 5 7307, 89129, 97507 #### [facility] [address] [place] [address], [facility] Urea nitrogen [Mass/Vol] 24 mg/dL Normal 7-25 [facility] Comment on above: Order Comment: No: D o not add to previous draw Performed By: #### 5 7307, 61121, 51102 #### [facility] [address] [place] [id number], [facility] CBC COMPLETE BLOOD COUNTon 0 01-29-2022 Erythrocyte distribution width (RBC) [Ratio] 14.7 % Normal 11.5-15.0 [facility] Comment on above: Order Comment: No: D o not add to previous draw Performed By: #### 5 7307, 45588, 61144 #### [facility] [address] [place] [address], [facility] Hematocrit (Bld) [Volume fraction] 33.1 % Low 36.0-45.0 [facility] Comment on above: Order Comment: No: D o not add to previous draw Performed By: #### 5 7307, 05003, 10945 #### [facility] [address] [place] [address], [facility] Hemoglobin (Bld) [Mass/Vol] 10.8 g/dL Low 12.0-15.0 [facility] Comment on above: Order Comment: No: D o not add to previous draw Performed By: #### 5 7307, 21219, 42804 #### [facility] [address] [place] [address], [place] MCH (RBC) [Entitic mass] 28.6 pg Normal 27.0-33.0 [facility] Comment on above: Order Comment: No: D o not add to previous draw Performed By: #### 5 7307, 67355, 93386 #### [facility] [address] [place] [address], [facility] MCHC (RBC) [Mass/Vol] 32.6 g/dL Normal 32.0-35.0 [facility] Comment on above: Order Comment: No: D o not add to previous draw Performed By: #### 5 7307, 43880, 55498 #### [facility] [address] [place] [address], [facility] MCV (RBC) [Entitic vol] 87.8 fL Normal 82.0-98.0 [facility] Comment on above: Order Comment: No: D o not add to previous draw Performed By: #### 5 7307, 46613, 45793 #### [facility] [address] [place] [address], [facility] Nucleated RBC/100 WBC (Bld) [Ratio] 0 % Normal 0-0 [facility] Comment on above: Order Comment: No: D o not add to previous draw Performed By: #### 5 7307, 78940, 31300 #### [facility] [address] [place] [address], [place] PLAT CNT 180 10*3/uL Normal 150-400 [facility] Comment on above: Order Comment: No: D o not add to previous draw Performed By: #### 5 7307, 76805, 69686 #### [facility] [address] [place] [address], [place] RBC (Bld) [#/Vol] 3.77 10*6/uL Low 3.80-5.[address] [facility] Comment on above: Order Comment: No: D o not add to previous draw Performed By: #### 5 7307, 37483, 92224 #### [facility] [address] [place] [address], [place] WBC (Bld) [#/Vol] 5.60 10*3/uL Normal 4.00-10.[address] [facility] Comment on above: Order Comment: No: D o not add to previous draw Performed By: #### 5 7307, 00841, 83768 #### [facility] [address] [place] [address], [facility] FREE T4on 01-29-2022 Free T4 [Mass/Vol] 1.12 ng/dL Normal 0.71-1.85 [facility] Comment on above: Performed By: #### 5 7307, 38849, 53116 #### [facility] [address] [place] [address], [facility] HEMOGLOBIN A1Con 01-29-2022 Glucose [Moles/Vol] 114 mmol/L Normal [facility] Comment on above: Order Comment: No: D o not add to previous draw Performed By: #### 5 7307, 40513, 16488 #### [facility] [address] [place] [address], [facility] HbA1c (Bld) [Mass fraction] 5.6 % Normal 4.0-6.0 [facility] Comment on above: Order Comment: No: D o not add to previous draw Performed By: #### 5 7307, 12966, 46873 #### [facility] [address] [place] [address], [facility] LIPID PROFILEon 01-29-2022 Cholesterol [Mass/Vol] 211 mg/dL High 120-200 [facility] Comment on above: Result Comment: CHOL ESTEROL REFERENCE RANGE: 20 YEARS AND OLDER CARDIOVASCULAR RISK Less than 200 mg/dl Low Risk 200 to 239 mg/dl Borderline Risk 240 mg/dl and greater High Risk Performed By: #### 5 7307, 36859, 65284 #### [facility] [address] [place] [address], [facility] Cholesterol in HDL [Mass/Vol] 45 mg/dL Normal 23-92 [facility] Comment on above: Result Comment: Slig ht variation in normal range could be due to gender and/or age. HDL CHOLESTEROL REFERENCE RANGE: 20 years and older Cardiovascular Risk > or =60 mg/dL Desirable 40 TO 59 mg/dL Low Risk <40 mg/dL High Risk Performed By: #### 5 7307, 57954, 76443 #### [facility] [address] [place] [address], [facility] Cholesterol in LDL [Mass/Vol] 147 mg/dL High 0-130 [facility] Comment on above: Result Comment: LDL IS A CALCULATION LDL IS ONLY VALID IF THE TRIG IS LESS THAN 400. Performed By: #### 5 7307, 97903, 28618 #### [facility] [address] [place] [address], [facility] Cholesterol.total/C holesterol in HDL [Mass ratio] 4.7 {ratio} High .0-4.5 [facility] Comment on above: Performed By: #### 5 7307, 13716, 98085 #### [facility] [address] [place] [address], [facility] NON-HDL CHOLESTEROL 166 mg/dL Normal [facility] Comment on above: Performed By: #### 5 7307, 84510, 86477 #### [facility] [address] [place] [address], [facility] Triglyceride [Mass/Vol] 94 mg/dL Normal 40-149 [facility] Comment on above: Result Comment: TRIG LYCERIDE REFERENCE RANGE: 20 YEARS AND OLDER CARDIOVASCULAR RISK LESS THAN 150 mg/dl LOW RISK 150 TO 199 mg/dl BORDERLINE RISK 200 mg/dl AND GREATER HIGH RISK Performed By: #### 5 7307, 78675, 17785 #### [facility] [address] [place] [address], [facility] VLDL CHOL 19 mg/dL Normal 0-40 [facility] Comment on above: Performed By: #### 5 7307, 29144, 47735 #### [facility] [address] [place] [address], [facility] MAGNESIUM BLOODon 08-01-2022 Magnesium [Mass/Vol] 1.9 mg/dL Normal 1.9-2.7 [facility] Comment on above: Order Comment: No: D o not add to previous draw Performed By: #### 5 7307, 68629, 46437 #### [facility] [address] [place] [id number], [facility] UFH HEPARIN ASSAYon 01-30-20 UNFRACTIONATED HEPARIN 0.58 IU/mL Normal 0.30-0.70 [facility] Comment on above: Result Comment: Hendricks roxaban and Apixaban will interfere with the anti Xa assay used to monitor UFH and LMWH. Performed By: #### 3 0477 #### [facility] [address] [place] [address], [facility] BASIC METABOLIC PANELon 12-31 Calcium [Mass/Vol] 8.4 mg/dL Low 8.6-10.3 [facility] Comment on above: Order Comment: No: D o not add to previous draw Performed By: #### 5 7307, 96610, 35227 #### [facility] [address] [place] [id number], [facility] Chloride [Moles/Vol] 106 mmol/L Normal 98-107 [facility] Comment on above: Order Comment: No: D o not add to previous draw Performed By: #### 5 7307, 92836, 18469 #### [facility] [address] [place] [address], [facility] CO2 [Moles/Vol] 27 mmol/L Normal 21-31 [facility] Comment on above: Order Comment: No: D o not add to previous draw Performed By: #### 5 7307, 59628, 44971 #### [facility] [address] [place] [address], [facility] Creatinine [Mass/Vol] 0.86 mg/dL Normal 0.60-1.20 [facility] Comment on above: Order Comment: No: D o not add to previous draw Performed By: #### 5 7307, 24003, 47890 #### [facility] [address] [place] [address], [facility] GFR/1.73 sq M.predicted among non-blacks MDRD (S/P/Bld) [Vol rate/Area] mL/min/{1.73_m2} Normal >60 [facility] Comment on above: Order Comment: No: D o not add to previous draw Result Comment: [facility]'s estimated glomerular filtration rate (eGFR) will [...] of individuals. Performed By: #### 5 7307, 38928, 22266 #### [facility] [address] [facility] [address], [facility] Glucose [Mass/Vol] 84 mg/dL Normal 70-100 [facility] Comment on above: Order Comment: No: D o not add to previous draw Performed By: #### 5 7307, 92718, 87670 #### [facility] [address] [place] [address], [facility] Potassium [Moles/Vol] 4.5 mmol/L Normal 3.5-5.1 [facility] Comment on above: Order Comment: No: D o not add to previous draw Performed By: #### 5 7307, 03587, 72986 #### [facility] [address] [place] [address], [place] Sodium [Moles/Vol] 137 mmol/L Normal 136-145 [facility] Comment on above: Order Comment: No: D o not add to previous draw Performed By: #### 5 7307, 94157, 19663 #### [facility] [address] [place] [address], [facility] Urea nitrogen [Mass/Vol] 20 mg/dL Normal 7-25 [facility] Comment on above: Order Comment: No: D o not add to previous draw Performed By: #### 5 7307, 14606, 38975 #### [facility] [address] [place] [address], [facility] CBC W/DIFFon 01-28-2022 ABS IMM GRANS 0.0 10*3/uL Normal 0.0-0.2 The [facility] Comment on above: Order Comment: No: D o not add to previous draw Performed By: #### 5 7307, 07589, 74360 #### [facility] [address] [facility] [address] ABS NEUTROPHILS 2.0 10*3/uL Normal 1.6-7.6 The [facility] Comment on above: Order Comment: No: D o not add to previous draw Performed By: #### 5 7307, 60419, 15576 #### [facility] [address] [place] [address], [facility] Basophils (Bld) [#/Vol] 0.0 10*3/uL Normal 0.0-0.2 [facility] Comment on above: Order Comment: No: D o not add to previous draw Performed By: #### 5 7307, 13895, 16398 #### [facility] [facility] [address] [place] [address], [facility] Basophils/100 WBC (Bld) 0.5 % Normal 0.0-1.0 The [facility] Comment on above: Order Comment: No: D o not add to previous draw Performed By: #### 5 7307, 79955, 24020 #### [facility] [address] [place] [address], [facility] Eosinophils (Bld) [#/Vol] 0.1 10*3/uL Normal 0.0-0.5 [facility] Comment on above: Order Comment: No: D o not add to previous draw Performed By: #### 5 7307, 53788, 64680 #### [facility] [address] [place] [address], [facility] Eosinophils/100 WBC (Bld) 2.1 % Normal 0.0-6.0 [facility] Comment on above: Order Comment: No: D o not add to previous draw Performed By: #### 5 73, 45167, 72588 #### [facility] [address] [place] [address], [facility] Erythrocyte distribution width (RBC) [Ratio] 14.7 % Normal 11.5-15.0 [facility] Comment on above: Order Comment: No: D o not add to previous draw Performed By: #### 5 73, 50882, 16724 #### [facility] [address] [place] [address], [facility] Hematocrit (Bld) [Volume fraction] 33.7 % Low 36.0-45.0 [facility] Comment on above: Order Comment: No: D o not add to previous draw Performed By: #### 5 7307, 58327, 16171 #### [facility] [address] [place] [id number], [facility] Hemoglobin (Bld) [Mass/Vol] 10.8 g/dL Low 12.0-15.0 [facility] Comment on above: Order Comment: No: D o not add to previous draw Performed By: #### 5 7307, 91593, 74054 #### [facility] [address] [place] [id number], [facility] IMMATURE GRANS 0.2 % Normal 0.0-1.0 [facility] Comment on above: Order Comment: No: D o not add to previous draw Performed By: #### 5 73, 55064, 94705 #### [facility] [address] [place] [address], [facility] Lymphocytes (Bld) [#/Vol] 1.9 10*3/uL Normal 1.2-4.0 The [facility] Comment on above: Order Comment: No: D o not add to previous draw Performed By: #### 5 7307, 31567, 25307 #### [facility] [address] [place] [address], [facility] Lymphocytes/100 WBC (Bld) 43.8 % Normal 20.0-45.0 [facility] Comment on above: Order Comment: No: D o not add to previous draw Performed By: #### 5 7307, 65927, 68330 #### [facility] [address] [place] [id number], [facility] MCH (RBC) [Entitic mass] 28.4 pg Normal 27.0-33.0 [facility] Comment on above: Order Comment: No: D o not add to previous draw Performed By: #### 5 7307, 17096, 28369 #### [facility] [address] [place] [id number], [facility] MCHC (RBC) [Mass/Vol] 32.0 g/dL Normal 32.0-35.0 [facility] Comment on above: Order Comment: No: D o not add to previous draw Performed By: #### 5 7307, 67376, 30285 #### [facility] [address] [place] [id number], [facility] MCV (RBC) [Entitic vol] 88.7 fL Normal 82.0-98.0 [facility] Comment on above: Order Comment: No: D o not add to previous draw Performed By: #### 5 7307, 94141, 28219 #### [facility] [address] [place] [id number], [facility] Monocytes (Bld) [#/Vol] 0.4 10*3/uL Normal 0.1-1.0 The [facility] Comment on above: Order Comment: No: D o not add to previous draw Performed By: #### 5 7307, 30811, 68024 #### [facility] [address] [place] [address], [place] MONOS 8.1 % Normal 5.0-12.0 [facility] Comment on above: Order Comment: No: D o not add to previous draw Performed By: #### 5 7307, 26357, 52968 #### [facility] [address] [place] [address], [place] Neutrophils/100 WBC (Bld) 45.3 % Normal 40.0-72.0 [facility] Comment on above: Order Comment: No: D o not add to previous draw Performed By: #### 5 7307, 68782, 68191 #### [facility] [address] [place] [address], [place] Nucleated RBC/100 WBC (Bld) [Ratio] 0 % Normal 0-0 [facility] Comment on above: Order Comment: No: D o not add to previous draw Performed By: #### 5 7307, 49826, 22592 #### [facility] [address] [place] [address], [place] PLAT CNT 198 10*3/uL Normal 150-400 The [facility] Comment on above: Order Comment: No: D o not add to previous draw Performed By: #### 5 7307, 65649, 21738 #### [facility] [address] [place] [address], [place] RBC (Bld) [#/Vol] 3.80 10*6/uL Normal 3.80-5.[address] [facility] Comment on above: Order Comment: No: D o not add to previous draw Performed By: #### 5 7307, 27570, 45896 #### [facility] [address] [place] [address], [place] WBC (Bld) [#/Vol] 4.34 10*3/uL Normal 4.00-10.[address] [facility] Comment on above: Order Comment: No: D o not add to previous draw Performed By: #### 5 7307, 10054, 91126 #### [facility] [address] UFH HEPARIN ASSAYon 01-29-20 UNFRACTIONATED HEPARIN 0.38 IU/mL Normal 0.30-0.70 [facility] Comment on above: Result Comment: Manda roxaban and Apixaban will interfere with the anti Xa assay used to monitor UFH and LMWH. Performed By: #### 5 7307, 55921, 00250 #### [facility] [address] [facility] [address] CBC COMPLETE BLOOD COUNTon 0 01-27-2022 Erythrocyte distribution width (RBC) [Ratio] 15.0 % Normal 11.5-15.0 [facility] Comment on above: Order Comment: No: D o not add to previous draw Performed By: #### 5 7307, 01071, 32380 #### [facility] [address] [facility] [address] Hematocrit (Bld) [Volume fraction] 34.8 % Low 36.0-45.0 [facility] Comment on above: Order Comment: No: D o not add to previous draw Performed By: #### 5 7307, 78307, 27361 #### [facility] [address] Hemoglobin (Bld) [Mass/Vol] 11.3 g/dL Low 12.0-15.0 [facility] Comment on above: Order Comment: No: D o not add to previous draw Performed By: #### 5 7307, 38991, 79201 #### [facility] [address] [place] [address], [facility] MCH (RBC) [Entitic mass] 28.5 pg Normal 27.0-33.0 [facility] Comment on above: Order Comment: No: D o not add to previous draw Performed By: #### 5 7307, 34458, 35460 #### [facility] [address] [place] [address], [facility] MCHC (RBC) [Mass/Vol] 32.5 g/dL Normal 32.0-35.0 [facility] Comment on above: Order Comment: No: D o not add to previous draw Performed By: #### 5 7307, 10807, 27492 #### [facility] [address] [place] [id number], [facility] MCV (RBC) [Entitic vol] 87.7 fL Normal 82.0-98.0 [facility] Comment on above: Order Comment: No: D o not add to previous draw Performed By: #### 5 7307, 91487, 66816 #### [facility] [address] Nucleated RBC/100 WBC (Bld) [Ratio] 0 % Normal 0-0 [facility] Comment on above: Order Comment: No: D o not add to previous draw Performed By: #### 5 7307, 07145, 63556 #### [facility] [address] [place] [address], [facility] PLAT CNT 205 10*3/uL Normal 150-400 The [facility] Comment on above: Order Comment: No: D o not add to previous draw Performed By: #### 5 7307, 41873, 49884 #### [facility] [address] [place] [id number], [facility] RBC (Bld) [#/Vol] 3.97 10*6/uL Normal 3.80-5.[address] [facility] Comment on above: Order Comment: No: D o not add to previous draw Performed By: #### 5 7307, 63947, 98110 #### [facility] [address] WBC (Bld) [#/Vol] 4.86 10*3/uL Normal 4.00-10.60 [facility] Comment on above: Order Comment: No: D o not add to previous draw Performed By: #### 5 7307, 48667, 59261 #### [facility] [address] [place] [address], [facility] CORTISOLon 01-27-2022 CORTISOL 11.6 mcg/dL Normal The [facility] Comment on above: Result Comment: Refe rence Range: AM 6.0-23.0 mcg/dL PM 0.0-9.0 mcg/dL Performed By: #### 5 7307, 50018, 40905 #### [facility] [address] [facility] [address] TROPONIN-Ion 01-27-2022 Troponin I.cardiac [Mass/Vol] 0.03 ng/mL Normal 0.00-0.04 [facility] Comment on above: Order Comment: No: D o not add to previous draw Result Comment: REFE RENCE RANGES: 0.00 - 0.04 ng/ml NORMAL 0.05 - 0.50 ng/ml INDETERMINATE > 0.50 ng/ml CONSISTENT WITH AN M.I. Performed By: #### 5 7307, 90549, 98586 #### [facility] [address] [facility] [address] Troponin I.cardiac [Mass/Vol] 0.03 ng/mL Normal 0.00-0.04 [facility] Comment on above: Order Comment: No: D o not add to previous draw Result Comment: REFE RENCE RANGES: 0.00 - 0.04 ng/ml NORMAL 0.05 - 0.50 ng/ml INDETERMINATE > 0.50 ng/ml CONSISTENT WITH AN M.I. Performed By: #### 5 7307, 37307, 42644 #### [facility] [address] UFH HEPARIN ASSAYon 07-30-20 22 UNFRACTIONATED HEPARIN 0.61 IU/mL Normal 0.30-0.70 [facility] Comment on above: Result Comment: Manda roxaban and Apixaban will interfere with the anti Xa assay used to monitor UFH and LMWH. Performed By: #### 5 7307, 02755, 05218 #### [facility] [address] [place] [address], [facility] APTTon 01-26-2022 aPTT Coag (Bld) [Time] 28.6 s Normal 25.0-35.0 [facility] Comment on above: Order Comment: [...] THIS PURPOSE. Performed By: #### 5 7307, 79934, 04130 #### [facility] [address] [place] [address], [facility] BASIC METABOLIC PANELon 07- Calcium [Mass/Vol] 8.2 mg/dL Low 8.6-10.3 [facility] Comment on above: Order Comment: No: D o not add to previous draw Performed By: #### 1 0070, 75337, 28577, 19109, 20719, 70894 #### [facility] [address] [place] [address], [facility] Chloride [Moles/Vol] 104 mmol/L Normal 98-107 [facility] Comment on above: Order Comment: No: D o not add to previous draw Performed By: #### 1 0070, 31647, 00608, 91437, 53328, 11308 #### [facility] [address] [place] [address], [place] CO2 [Moles/Vol] 27 mmol/L Normal 21-31 [facility] Comment on above: Order Comment: No: D o not add to previous draw Performed By: #### 1 0070, 26727, 32588, 21017, 65836, 41020 #### [facility] [address] [place] [address], [place] Creatinine [Mass/Vol] 0.86 mg/dL Normal 0.60-1.20 [facility] Comment on above: Order Comment: No: D o not add to previous draw Performed By: #### 1 0070, 41186, 68817, 88283, 11838, 80682 #### [facility] [address] [place] [address], [place] GFR/1.73 sq M.predicted among non-blacks MDRD (S/P/Bld) [Vol rate/Area] mL/min/{1.73_m2} Normal >60 [facility] Comment on above: Order Comment: No: D o not add to previous draw Result Comment: The [facility]'s estimated glomerular filtration rate (eGFR) will [...] of individuals. Performed By: #### 1 0070, 13157, 38910, 73239, 13838, 93122 #### [facility] [address] [place] [address], [place] Glucose [Mass/Vol] 96 mg/dL Normal 70-100 [facility] Comment on above: Order Comment: No: D o not add to previous draw Performed By: #### 1 0070, 41210, 77555, 26504, 13176, 59427 #### [facility] [address] [place] [address], [place] Potassium [Moles/Vol] 4.2 mmol/L Normal 3.5-5.1 [facility] Comment on above: Order Comment: No: D o not add to previous draw Performed By: #### 1 0070, 93794, 74355, 41893, 56847, 30448 #### [facility] [address] [place] [address], [facility] Sodium [Moles/Vol] 139 mmol/L Normal 136-145 [facility] Comment on above: Order Comment: No: D o not add to previous draw Performed By: #### 1 0070, 65409, 70966, 51609, 10373, 66735 #### [facility] [address] [place] [address], [facility] Urea nitrogen [Mass/Vol] 16 mg/dL Normal 7-25 [facility] Comment on above: Order Comment: No: D o not add to previous draw Performed By: #### 1 0070, 30247, 18654, 26303, 98240, 64828 #### [facility] [address] [place] [address], [facility] BNPon 01-26-2022 Natriuretic peptide B (Bld) [Mass/Vol] 1605.0 pg/mL Critically high <=900.0 [facility] Comment on above: Performed By: #### C MADM, BNP, CMP #### [facility] [address] [place] [address] [address] Darya Berry BNP (B-TYPE NATRIURETIC PEPT MARQUITA)on 01-26-2022 Natriuretic peptide B (Bld) [Mass/Vol] 117 pg/mL High 0-100 [facility] Comment on above: Order Comment: No: D o not add to previous draw Result Comment: Give n the appropriate clinical setting a BNP result of >100 pg/mL indicates congestive heart failure. Performed By: #### 5 7307, 11842, 97710 #### [facility] [address] [place] [address], [facility] CARDIAC ARNALDO ADMITon 07-29-2 022 CK [Catalytic activity/Vol] 28 U/L Normal 26-192 [facility] Comment on above: Performed By: #### C MADM, BNP, CMP #### [facility] [address] [place] [address] Dr. Darya Berry CK.MB [Mass/Vol] 1.26 ng/mL Normal <=3.60 The [facility] Comment on above: Performed By: #### C MADM, BNP, CMP #### [facility] [address] [place] [address] [address] Darya Berry HSTROP 80.9 pg/mL Critically high 4.0-51.3 The [facility] Comment on above: Result Comment: CUT- OFF POINTS HAVE BEEN ESTABLISHED BASED ON THE FOURTH UNIVERSAL DEFINITIONS OF MYOCARDIAL INFARCTION. THE UPPER REFERENCE LIMIT (URL) OF TROPONIN, DEFINED THE 99TH PERCENTILE OF cTnI DISTRIBUTION IN A REFERENCE POPULATION, HAS BEEN CONFIRMED THE DECISION THRESHOLD FOR [place] DIAGNOSIS. Performed By: #### C MADM, BNP, CMP #### [facility] [address] [place] [address] Dr. Darya Berry NELDA 31 ng/mL Normal 9-82 The [facility] Comment on above: Performed By: #### C MADM, BNP, CMP #### [facility] [address] [place] [address] Dr. Darya Berry CBC AUTO DIFFon 01-26-2022 BASO # 0.0 103/ul Normal 0.0-0.1 [facility] Comment on above: Performed By: #### H STROPN #### [facility] [address] [place] [address] Dr. Darya Berry Basophils/100 WBC (Bld) 0.6 % Normal 0.2-2.0 The [facility] Comment on above: Performed By: #### H STROPN #### [facility] [address] [place] [address] Dr. Darya Berry EO # 0.1 103/ul Normal 0.0-0.7 [facility] Comment on above: Performed By: #### H STROPN #### [facility] [address] [place] [address] Dr. Darya Berry Eosinophils/100 WBC (Bld) 1.8 % Normal 0.9-7.0 [facility] Comment on above: Performed By: #### H STROPN #### [facility] [address] [place] [address] Dr. Darya Berry Erythrocyte distribution width (RBC) [Ratio] 14.6 % Normal 11.0-15.0 [facility] Comment on above: Performed By: #### H STROPN #### [facility] [address] [place] [address] Dr. Darya Berry Hematocrit (Bld) [Volume fraction] 34.6 % Critically low 36.0-48.0 [facility] Comment on above: Performed By: #### H STROPN #### [facility] [address] [place] [address] Dr. Darya Berry Hemoglobin (Bld) [Mass/Vol] 11.2 g/dL Critically low 12.0-16.0 [facility] Comment on above: Performed By: #### H STROPN #### [facility] [address] [place] [address] Dr. Darya Berry IG # 0.01 10e3/ul Normal 0.00-0.03 [facility] Comment on above: Performed By: #### H STROPN #### [facility] [address] [place] [address] Dr. Darya Berry IG % 0.2 % Normal 0.0-0.5 [facility] Comment on above: Performed By: #### H STROPN #### [facility] [address] [place] [address] Dr. Darya Berry LYMPH # 2.1 103/ul Normal 1.2-3.8 The [facility] Comment on above: Performed By: #### H STROPN #### [facility] [address] [place] [address] Dr. Darya Berry Lymphocytes/100 WBC (Bld) 41.7 % Normal 20.5-60.0 [facility] Comment on above: Performed By: #### H STROPN #### [facility] [address] [place], [place] [address] Dr. Darya Berry MANUAL DIFF REQ NO Normal The [facility] Comment on above: Performed By: #### H STROPN #### [facility] [address] [place] [address] Dr. Darya Berry MCH (RBC) [Entitic mass] 28.2 pg Normal 26.7-34.0 [facility] Comment on above: Performed By: #### H STROPN #### [facility] [address] [place] [address] Dr. Darya Berry MCHC (RBC) [Mass/Vol] 32.4 g/dL Normal 29.9-35.2 The [facility] Comment on above: Performed By: #### H STROPN #### [facility] [address] [place] [address] Dr. Darya Berry MCV (RBC) [Entitic vol] 87.2 fL Normal 81.0-99.0 [facility] Comment on above: Performed By: #### H STROPN #### [facility] [address] [place] [address] Dr. Darya Berry MONO # 0.4 103/ul Normal 0.3-0.8 [facility] Comment on above: Performed By: #### H STROPN #### [facility] [address] [place] [address] Dr. Darya Berry Monocytes/100 WBC (Bld) 7.3 % Normal 1.7-12.0 The [facility] Comment on above: Performed By: #### H STROPN #### [facility] [address] [place] [address] Dr. Darya Berry NEUT # 2.4 103/ul Normal 1.4-6.5 The [facility] Comment on above: Performed By: #### H STROPN #### [facility] [address] [place] [address] Dr. Darya Berry Neutrophils/100 WBC (Bld) 48.4 % Normal 43.0-75.0 The [facility] Comment on above: Performed By: #### H STROPN #### [facility] [address] [place] [address] Dr. Darya Berry Platelet mean volume (Bld) [Entitic vol] 9.4 fL Critically low 9.5-13.5 [facility] Comment on above: Performed By: #### H STROPN #### [facility] [address] [address] [address] Darya Berry PLT 217 103/ul Normal 150-450 The [facility] Comment on above: Performed By: #### H STROPN #### [facility] [address] [address] [address] Darya Berry RBC 3.97 106/ul Critically low 4.20-5.40 [facility] Comment on above: Performed By: #### H STROPN #### [facility] [address] [address] [address] Darya Berry WBC 4.9 103/ul Normal 4.0-11.0 [facility] Comment on above: Performed By: #### H STROPN #### [facility] [address] [place] [address] Dr. Darya Berry CBC COMPLETE BLOOD COUNTon 0 - Erythrocyte distribution width (RBC) [Ratio] 14.8 % Normal 11.5-15.0 [facility] Comment on above: Order Comment: No: D o not add to previous draw Performed By: #### 5 7307, 41476, 63404 #### [facility] [address] [place] [address], [facility] Hematocrit (Bld) [Volume fraction] 34.7 % Low 36.0-45.0 [facility] Comment on above: Order Comment: No: D o not add to previous draw Performed By: #### 5 7307, 06243, 05174 #### [facility] [address] [place] [address], [facility] Hemoglobin (Bld) [Mass/Vol] 11.3 g/dL Low 12.0-15.0 [facility] Comment on above: Order Comment: No: D o not add to previous draw Performed By: #### 5 7307, 33698, 13186 #### [facility] [address] [place] [address], [facility] MCH (RBC) [Entitic mass] 28.6 pg Normal 27.0-33.0 [facility] Comment on above: Order Comment: No: D o not add to previous draw Performed By: #### 5 7307, 27497, 68338 #### [facility] [address] [place] [id number], [facility] MCHC (RBC) [Mass/Vol] 32.6 g/dL Normal 32.0-35.0 [facility] Comment on above: Order Comment: No: D o not add to previous draw Performed By: #### 5 7307, 78075, 06373 #### [facility] [address] [place] [address], [facility] MCV (RBC) [Entitic vol] 87.8 fL Normal 82.0-98.0 [facility] Comment on above: Order Comment: No: D o not add to previous draw Performed By: #### 5 7307, 66980, 74593 #### [facility] [address] [place] [address], [facility] Nucleated RBC/100 WBC (Bld) [Ratio] 0 % Normal 0-0 [facility] Comment on above: Order Comment: No: D o not add to previous draw Performed By: #### 5 7307, 33847, 10735 #### [facility] [address] [facility] [place] [place] [address], [facility] PLAT CNT 223 10*3/uL Normal 150-400 [facility] Comment on above: Order Comment: No: D o not add to previous draw Performed By: #### 5 7307, 84012, 74759 #### [facility] [address] [place] [address], [facility] RBC (Bld) [#/Vol] 3.95 10*6/uL Normal 3.80-5.[address] [facility] Comment on above: Order Comment: No: D o not add to previous draw Performed By: #### 5 7307, 18943, 80210 #### [facility] [address] [place] [address], [facility] WBC (Bld) [#/Vol] 5.01 10*3/uL Normal 4.00-10.[address] [facility] Comment on above: Order Comment: No: D o not add to previous draw Performed By: #### 5 7307, 29669, 89159 #### [facility] [address] ECHOCARDIO M/2D COMPLETEon 0 01-26-2022 ECHOCARDIO M/2D COMPLETE Patient: JULISSA MUNIZ Exam Date: 01/26/2022 : 1960 Gender:F Ordering : DR SKYLER BOWMAN . Admission #: [id number] Family : Order #: [id number] CLICK HERE TO VIEW EXAM ECHOCARDIOGRAM REPORT [...] Area(A4C): 18.80 cm2 Left Atrium Systolic Volume(A2C): 75823 mm3 Left Atrium Systolic Volume(A4C): 70368 mm3 Mitral Valve MV E to A Ratio: 0.70 Deceleration [place]: 1750 mm/s2 Mitral Valve A-Wave Peak Velocity: [...] M.D. on 01/26/2022 at 16:30 Normal [facility] IRON BLOODon 01-26-2022 Iron [Mass/Vol] 135 ug/dL Normal 50-212 [facility] Comment on above: Order Comment: No: D o not add to previous draw Performed By: #### 1 0070, 11770, 04678, 66010, 17357, 27537 #### [facility] [address] [place] [address], [facility] LIVER BATTERYon 01-26-2022 Albumin [Mass/Vol] 3.6 g/dL Normal 3.5-5.7 [facility] Comment on above: Order Comment: No: D o not add to previous draw Performed By: #### 1 0070, 59837, 24061, 45440, 03509, 66442 #### [facility] [address] [place] [address], [facility] ALKALINE PHOSPH 142 IU/L High 34-104 [facility] Comment on above: Order Comment: No: D o not add to previous draw Performed By: #### 1 0070, 38952, 04310, 02836, 67640, 06334 #### [facility] [address] [place] [address], [facility] ALT [Catalytic activity/Vol] 5 U/L Low 7-52 The [facility] Comment on above: Order Comment: No: D o not add to previous draw Performed By: #### 1 0070, 88302, 01433, 21045, 15882, 02220 #### [facility] [address] [place] [address], [facility] AST [Catalytic activity/Vol] 9 U/L Low 13-39 The [facility] Comment on above: Order Comment: No: D o not add to previous draw Performed By: #### 1 0070, 84110, 09375, 99017, 75534, 06290 #### [facility] [address] [place] [address], [place] Bilirubin [Mass/Vol] 0.2 mg/dL Low 0.3-1.0 The [facility] Comment on above: Order Comment: No: D o not add to previous draw Performed By: #### 1 0070, 62509, 40303, 98481, 52241, 29896 #### [facility] [address] [place] [address], [facility] Bilirubin.direct [Mass/Vol] 0.1 mg/dL Normal 0.0-0.2 The [facility] Comment on above: Order Comment: No: D o not add to previous draw Performed By: #### 1 0070, 47110, 71674, 14441, 35779, 33441 #### [facility] [address] [place] [address], [facility] Protein [Mass/Vol] 5.5 g/dL Low 6.0-8.3 [facility] Comment on above: Order Comment: No: D o not add to previous draw Performed By: #### 1 0070, 32006, 66635, 72747, 74098, 47920 #### [facility] [address] [place] [address], [facility] MAGNESIUM BLOODon 01-26-2022 Magnesium [Mass/Vol] 1.8 mg/dL Low 1.9-2.7 The [facility] Comment on above: Order Comment: No: D o not add to previous draw Performed By: #### 1 0070, 04566, 96145, 40038, 65724, 67522 #### [facility] [address] [facility] POC SARS COV2 ANTIGEN NEGATI VEon 01-26-2022 POC SARS COV2 ANTIGEN NEG Negative Normal NEGATIVE The [facility] Comment on above: Result Comment: Nega [...] antigen from SARS-CoV-2 in direct nasopharyngeal swab ([employer]) specimens from individuals who are suspected of [...] of Accreditation. Performed By: #### 5 7307, 40599, 44465 #### [address] POINT OF CARE GLUCOSEon 12-30 Glucose [Mass/Vol] 119 mg/dL Critically high 74-106 [facility] Comment on above: Performed By: #### H STROPN #### [facility] [address] [place] [address] Dr. Darya Berry PROF 14(COMP METB)on 022 Albumin [Mass/Vol] 2.8 g/dL Critically low 3.4-5.[address] [facility] Comment on above: Performed By: #### C MADM, BNP, CMP #### [facility] [address] [place] [address] Dr. Darya Berry Albumin/Globulin [Mass ratio] 1.0 {ratio} Normal [facility] Comment on above: Performed By: #### C MADM, BNP, CMP #### [facility] [address] [place] [address] Dr. Darya Berry ALP [Catalytic activity/Vol] 142 U/L Critically high 46-116 [facility] Comment on above: Performed By: #### C MADM, BNP, CMP #### [facility] [address] [place] [address] Dr. Darya Berry ALT [Catalytic activity/Vol] 7 U/L Critically low 14-59 [facility] Comment on above: Performed By: #### C MADM, BNP, CMP #### [facility] [address] [address] [address] Darya Berry Anion gap [Moles/Vol] 11.1 mmol/L Normal [facility] Comment on above: Performed By: #### C MADM, BNP, CMP #### [facility] [address] [address] [address] Darya Berry AST [Catalytic activity/Vol] 10 U/L Critically low 15-37 [facility] Comment on above: Performed By: #### C MADM, BNP, CMP #### [facility] [address] [address] [address] Darya Berry Bilirubin [Mass/Vol] 0.1 mg/dL Critically low 0.2-1.0 [facility] Comment on above: Performed By: #### C MADM, BNP, CMP #### [facility] [address] [place] [address] Dr. Darya Berry Calcium [Mass/Vol] 8.2 mg/dL Critically low 8.5-10.1 [facility] Comment on above: Performed By: #### C MADM, BNP, CMP #### [facility] [address] [place] [address] Dr. Darya Berry Chloride [Moles/Vol] 105 mmol/L Normal 98-107 [facility] Comment on above: Performed By: #### C MADM, BNP, CMP #### [facility] [address] [address] [address] Darya Berry CO2 [Moles/Vol] 26.3 mmol/L Normal 21.0-32.0 [facility] Comment on above: Performed By: #### C MADM, BNP, CMP #### [facility] [address] [place] [address] Dr. Darya Berry Creatinine [Mass/Vol] 0.87 mg/dL Normal 0.55-1.02 [facility] Comment on above: Performed By: #### C MADM, BNP, CMP #### [facility] [address] [place] [address] Dr. Darya Berry EGFR-AF [place]OREAN >60 Normal >=60 [facility] Comment on above: Performed By: #### C MADM, BNP, CMP #### [facility] [address] [place] [address] Dr. Darya Berry EGFR-NON AF [place]ORE[place] >60 Normal >=60 [facility] Comment on above: Performed By: #### C MADM, BNP, CMP #### [facility] [address] [place] [address] Dr. Darya Berry Globulin (S) [Mass/Vol] 2.8 g/dL Normal [facility] Comment on above: Performed By: #### C MADM, BNP, CMP #### [facility] [address] [place] [address] Dr. Darya Berry Glucose [Mass/Vol] 119 mg/dL Critically high 74-106 [facility] Comment on above: Performed By: #### C MADM, BNP, CMP #### [facility] [address] [place] [address] Dr. Darya Berry Potassium [Moles/Vol] 3.4 mmol/L Critically low 3.5-5.1 [facility] Comment on above: Performed By: #### C MADM, BNP, CMP #### [facility] [address] [place] [address] Dr. Darya Berry Protein [Mass/Vol] 5.6 g/dL Critically low 6.4-8.2 Th [facility] Comment on above: Performed By: #### C MADM, BNP, CMP #### [facility] [address] [place] [address] Dr. Darya Berry Sodium [Moles/Vol] 139 mmol/L Normal 136-145 [facility] Comment on above: Performed By: #### C MADM, BNP, CMP #### [facility] [address] [place] [address] Dr. Darya Berry Urea nitrogen [Mass/Vol] 18.0 mg/dL Normal 7.0-18.0 [facility] Comment on above: Performed By: #### C MADM, BNP, CMP #### [facility] [address] [address] [address] Darya Berry Urea nitrogen/Creatinine [Mass ratio] 20.7 mg/mg Normal [facility] Comment on above: Performed By: #### C MADM, BNP, CMP #### [facility] [address] [place], [place] [address] Dr. Darya Berry PROTHROMBIN TIMEon 2 INR Coag (PPP) [Relative time] 1.00 {INR} Normal 0.91-1.16 [facility] Comment on above: Order Comment: No: [...] CHEST 1995;[id number]. Performed By: #### 5 7307, 83299, 77479 #### [facility] [address] [place] [address], [facility] PT Coag (PPP) [Time] 13.2 s Normal 12.3-14.8 [facility] Comment on above: Order Comment: No: D o not add to previous draw Result Comment: ALL RESULTS MUST BE INTERPRETED WITH RESPECT TO BLOOD DRAWING ARTIFACT OR DILUTION ERROR OF ANTICOAGULANT AT THE TIME OF SAMPLING. Performed By: #### 5 7307, 68395, 49874 #### [facility] [address] [place] [address], [facility] PTT HEPARIN MONITORon 2021 aPTT Coag (Bld) [Time] 50.3 s Normal 39.5-54.2 [facility] Comment on above: Performed By: #### D VINCENT PRYOR ERUR #### [facility] [address] [address] [address] Darya Berry aPTT Coag (Bld) [Time] 49.8 s Normal 39.5-54.2 [facility] Comment on above: Performed By: #### P TTHEP #### [facility] [address] [place], [place] [address] Dr. Darya Berry aPTT Coag (Bld) [Time] 58.4 s Critically high 39.5-54.2 [facility] Comment on above: Performed By: #### H STROPN #### [facility] [address] [address] [address] Darya Berry TROPONIN, HIGH SENSITIVITYon 01-26-2022 HSTROP 57.4 pg/mL Critically high 4.0-51.3 The [facility] Comment on above: Result Comment: CUT- OFF POINTS HAVE BEEN ESTABLISHED BASED ON THE FOURTH UNIVERSAL DEFINITIONS OF MYOCARDIAL INFARCTION. THE UPPER REFERENCE LIMIT (URL) OF TROPONIN, DEFINED THE 99TH PERCENTILE OF cTnI DISTRIBUTION IN A REFERENCE POPULATION, HAS BEEN CONFIRMED THE DECISION THRESHOLD FOR [place] DIAGNOSIS. Performed By: #### H STROPN #### [facility] [address] [place] [address] Dr. Darya Berry TROPONIN-Ion 01-26-2022 Troponin I.cardiac [Mass/Vol] 0.03 ng/mL Normal 0.00-0.04 [facility] Comment on above: Order Comment: No: D o not add to previous draw Result Comment: REFE RENCE RANGES: 0.00 - 0.04 ng/ml NORMAL 0.05 - 0.50 ng/ml INDETERMINATE > 0.50 ng/ml CONSISTENT WITH AN M.I. Performed By: #### 1 0070, 69011, 19400, 61986, 27378, 36010 #### [facility] [address] [facility] TSH3on 01-26-2022 TSH 3RD GENERATION 0.20 uIU/mL Low 0.34-5.[address] [facility] Comment on above: Order Comment: No: D o not add to previous draw Performed By: #### 1 0070, 18096, 08558, 14383, 09532, 68183 #### [facility] [address] UFH HEPARIN ASSAYon 01-27-20 22 UNFRACTIONATED HEPARIN <0.10 Critically low 0.30-0.70 [facility] Comment on above: Result Comment: Resu lt checked and called. Accurately read back by Tani Ambrosio RN at 2108 01/26/22 Rivaroxaban and Apixaban will interfere with the anti Xa assay used to monitor UFH and LMWH. Performed By: #### 5 7307, 70707, 05386 #### [facility] [address] [facility] BNPon 01-25-2022 Natriuretic peptide B (Bld) [Mass/Vol] 1870.0 pg/mL Critically high <=900.0 [facility] Comment on above: Performed By: #### D VINCENT PYROR ERUR #### [facility] [address] [address] [address] Darya Berry CARDIAC ARNALDO ADMITon 022 CK [Catalytic activity/Vol] 29 U/L Normal 26-192 [facility] Comment on above: Performed By: #### D VINCENT PRYOR ERUR #### [facility] [address] [address] [address] Darya Berry CK.MB [Mass/Vol] 1.26 ng/mL Normal <=3.60 The [facility] Comment on above: Performed By: #### D VINCENT PRYOR ERUR #### [facility] [address] [address] [address] Darya Berry HSTROP 69.0 pg/mL Critically high 4.0-51.3 The [facility] Comment on above: Result Comment: CUT- OFF POINTS HAVE BEEN ESTABLISHED BASED ON THE FOURTH UNIVERSAL DEFINITIONS OF MYOCARDIAL INFARCTION. THE UPPER REFERENCE LIMIT (URL) OF TROPONIN, DEFINED THE 99TH PERCENTILE OF cTnI DISTRIBUTION IN A REFERENCE POPULATION, HAS BEEN CONFIRMED THE DECISION THRESHOLD FOR [place] DIAGNOSIS. TEST REPEATED CRITICAL VALUE VERIFIED Performed By: #### D VINCENT PRYOR, ERUR #### [facility] [address] [address] [address] Darya Berry NELDA 77 ng/mL Normal 9-82 [facility] Comment on above: Performed By: #### D VINCENT PRYOR ERUR #### [facility] [address] [address] [address] Darya Berry CBC AUTO DIFFon 01-25-2022 BASO # 0.0 103/ul Normal 0.0-0.1 [facility] Comment on above: Performed By: #### D VINCENT PRYOR, ERUR #### [facility] [address] [address] [address] Darya Berry Basophils/100 WBC (Bld) 0.4 % Normal 0.2-2.0 [facility] Comment on above: Performed By: #### D VINCENT PRYOR, ERUR #### [facility] [address] [address] [address] Darya Berry EO # 0.1 103/ul Normal 0.0-0.7 [facility] Comment on above: Performed By: #### D VINCENT PRYOR, ERUR #### [facility] [address] [address] [address] Darya Berry Eosinophils/100 WBC (Bld) 1.3 % Normal 0.9-7.0 [facility] Comment on above: Performed By: #### D VINCENT PRYOR, ERUR #### [facility] [address] [address] [address] Darya Berry Erythrocyte distribution width (RBC) [Ratio] 14.5 % Normal 11.0-15.0 The [facility] Comment on above: Performed By: #### D VINCENT PRYOR ERUR #### [facility] [address] [place] [address] Dr. Darya Berry Hematocrit (Bld) [Volume fraction] 40.2 % Normal 36.0-48.0 [facility] Comment on above: Performed By: #### D VINCENT PRYOR, ERUR #### [facility] [address] [place] [address] Dr. Darya Berry Hemoglobin (Bld) [Mass/Vol] 13.4 g/dL Normal 12.0-16.0 The [facility] Comment on above: Performed By: #### D VINCENT PRYOR, ERUR #### [facility] [address] [place] [address] Dr. Darya Berry IG # 0.03 10e3/ul Normal 0.00-0.03 [facility] Comment on above: Performed By: #### D VINCENT PRYOR, ERUR #### [facility] [address] [place] [address] Dr. Darya Berry IG % 0.4 % Normal 0.0-0.5 [facility] Comment on above: Performed By: #### D VINCENT PRYOR, ERUR #### [facility] [address] [place] [address] Dr. Darya Berry LYMPH # 1.9 103/ul Normal 1.2-3.8 The [facility] Comment on above: Performed By: #### D VINCENT PRYOR, ERUR #### [facility] [address] [place] [address] Dr. Darya Berry Lymphocytes/100 WBC (Bld) 29.0 % Normal 20.5-60.0 [facility] Comment on above: Performed By: #### D VINCENT PRYOR, ERUR #### [facility] [address] [place] [address] Dr. Darya Berry MANUAL DIFF REQ NO Normal [facility] Comment on above: Performed By: #### D VINCENT PRYOR, ERUR #### [facility] [address] [address] [address] Darya Berry MCH (RBC) [Entitic mass] 28.7 pg Normal 26.7-34.0 [facility] Comment on above: Performed By: #### D VINCENT PRYOR, ERUR #### [facility] [address] [place] [address] Dr. Darya Berry MCHC (RBC) [Mass/Vol] 33.3 g/dL Normal 29.9-35.2 The [facility] Comment on above: Performed By: #### D VINCENT PRYOR, ERUR #### [facility] [address] [place] [address] Dr. Darya Berry MCV (RBC) [Entitic vol] 86.1 fL Normal 81.0-99.0 [facility] Comment on above: Performed By: #### D VINCENT PRYOR, ERUR #### [facility] [address] [place] [address] Dr. Darya Berry MONO # 0.5 103/ul Normal 0.3-0.8 The [facility] Comment on above: Performed By: #### D VINCENT PRYOR, ERUR #### [facility] [address] [place] [address] Dr. Darya Berry Monocytes/100 WBC (Bld) 6.9 % Normal 1.7-12.0 The [facility] Comment on above: Performed By: #### D VINCENT PRYOR, ERUR #### [facility] [address] [place] [address] Dr. Darya Berry NEUT # 4.1 103/ul Normal 1.4-6.5 The [facility] Comment on above: Performed By: #### D VINCENT PRYOR, ERUR #### [facility] [address] [place] [address] Dr. Darya Berry Neutrophils/100 WBC (Bld) 62.0 % Normal 43.0-75.0 [facility] Comment on above: Performed By: #### D VINCENT PRYOR, ERUR #### [facility] [address] [place] [address] Dr. Darya Berry Platelet mean volume (Bld) [Entitic vol] 9.1 fL Critically low 9.5-13.5 [facility] Comment on above: Performed By: #### D VINCENT PRYOR, ERUR #### [facility] [address] [place] [address] Dr. Darya Berry PLT 300 103/ul Normal 150-450 [facility] Comment on above: Performed By: #### D VINCENT PRYOR, ERUR #### [facility] [address] [place] [address] Dr. Darya Berry RBC 4.67 106/ul Normal 4.20-5.40 [facility] Comment on above: Performed By: #### D VINCENT PRYOR, ERUR #### [facility] [address] [place] [address] Dr. Darya Berry WBC 6.7 103/ul Normal 4.0-11.0 [facility] Comment on above: Performed By: #### D VINCENT PRYOR ERUR #### [facility] [address] [place] [address] Dr. Darya Berry CULTURE URINEon 01-25-2022 CULTURE URINE Culture Observations : NO GROWTH. Normal The [facility] Comment on above: Performed By: #### H STROPN #### [facility] [address] [place] [address] Dr. Darya Berry [facility]30 SARS-CoV-2 (COVID-19) RNA VIRY+probe Ql (Unsp spec) Not detected Normal NOT DETECTED The [facility] Comment on above: Result Comment: When diagnostic [...] for this test is supported by the [place] of Health and Human Service's declaration that [...] By: #### D VINCENT PRYOR ERUR #### [facility] [address] [address] [address] Darya Berry D-DIMERon 01-25-2022 D-DIMER 0.47 mg/L FEU Normal <=0.59 The [facility] Comment on above: Performed By: #### D VINCENT PRYOR ERUR #### [facility] [address] [address] [address] Darya Berry D-DIMER COMMENTS SEE BELOW Normal The [facility] Comment on above: Result Comment: Incr eases [...] By: #### D VINCENT PRYOR ERUR #### [facility] [address] [address] [address] Darya Berry DRUG SCREEN RAPID (URINE)on 01-25-2022 AMP Positive Abnormal NEGATIVE The [facility] Comment on above: Performed By: #### D VINCENT PRYOR ERUR #### [facility] [address] [address] [address] Darya Berry BAR Negative Normal NEGATIVE The [facility] Comment on above: Performed By: #### D VINCENT PRYOR ERUR #### [facility] [address] [address] [address] Darya Berry BUP Negative Normal NEGATIVE The [facility] Comment on above: Performed By: #### D VINCENT PRYOR, ERUR #### [facility] [address] [address] [address] Darya Berry BZO Positive Abnormal NEGATIVE The [facility] Comment on above: Performed By: #### D VINCENT PRYOR, ERUR #### [facility] [address] [address] [address] Darya Berry TOD Negative Normal NEGATIVE [facility] Comment on above: Performed By: #### D VINCENT PRYOR, ERUR #### [facility] [address] [place] [address] Dr. Darya Berry CUT-OFFS SEE BELOW Normal The [facility] Comment on above: Result Comment: AMP (Amphetamine): [...] By: #### D VINCENT PRYOR, ERUR #### [facility] [address] [place] [address] Dr. Darya Berry DRUG CUT HEADER DRUG CLASS TEST SYST EM CUT-OFF CONCENTRATIONS ARE FOLLOWS: Normal The [facility] Comment on above: Performed By: #### D VINCENT PRYOR, ERUR #### [facility] [address] [place] [address] Dr. Darya Berry mAMP Positive Abnormal NEGATIVE The [facility] Comment on above: Performed By: #### D BRYANNA PRYORRO, ERUR #### [facility] [address] [address] [address] Darya Berry MTD Negative Normal NEGATIVE The [facility] Comment on above: Performed By: #### D BRYANNA PRYORRO, ERUR #### [facility] [address] [address] [address] Darya Berry OPI Negative Normal NEGATIVE The [facility] Comment on above: Performed By: #### D BRYANNA PRYORRO, ERUR #### [facility] [address] [address] [address] Darya Berry OXY Negative Normal NEGATIVE The [facility] Comment on above: Performed By: #### D BRYANNA PRYORRO, ERUR #### [facility] [address] [address] [address] Darya Berry PCP Negative Normal NEGATIVE The [facility] Comment on above: Performed By: #### D BRYANNA PRYORRO, ERUR #### [facility] [address] [address] [address] Darya Berry PPX Negative Normal NEGATIVE The [facility] Comment on above: Performed By: #### D VINCENT PRYOR, ERUR #### [facility] [address] [address] [address] Darya Berry TCA Positive Abnormal NEGATIVE The [facility] Comment on above: Performed By: #### D VINCENT PRYOR, ERUR #### [facility] [address] [address] [address] Darya Berry THC Negative Normal NEGATIVE The [facility] Comment on above: Performed By: #### D BRYANNA PRYORRO, ERUR #### [facility] [address] [address] [address] Darya Berry ER URINE PROFILEon 2 Bilirubin Ql (U) Negative Normal NEGATIVE The [facility] Comment on above: Performed By: #### D VINCENT PRYOR, ERUR #### [facility] [address] [address] [address] Darya Berry Clarity (U) CLEAR Normal CLEAR The [facility] Comment on above: Performed By: #### D VINCENT PRYOR, ERUR #### [facility] [address] [address] [address] Darya Berry Color (U) LT. YELLOW Normal YELLOW The [facility] Comment on above: Performed By: #### D VINCENT PRYOR, ERUR #### [facility] [address] [address] [address] Darya JAMES A micrscopic examination will be performed if indicated. Normal The [facility] Comment on above: Performed By: #### D VINCENT PRYOR, ERUR #### [facility] [address] [address] Dr. Darya Berry Glucose Ql (U) Negative Normal NEGATIVE [facility] Comment on above: Performed By: #### D VINCENT PRYOR, ERUR #### [facility] [address] [address] [address] Darya Berry Hemoglobin Ql (U) SMALL Abnormal NEGATIVE [facility] Comment on above: Performed By: #### D VINCENT PRYOR, ERUR #### [facility] [address] [place] [address] Dr. Darya Berry Ketones Ql (U) Negative Normal NEGATIVE [facility] Comment on above: Performed By: #### D VINCENT PRYOR, ERUR #### [facility] [address] [address] [address] Darya Berry LEUKOCYTES SMALL Abnormal NEGATIVE [facility] Comment on above: Performed By: #### D BRYANNA PRYORRO, ERUR #### [facility] [address] [address] [address] Darya Berry Nitrite Ql (U) Negative Normal NEGATIVE [facility] Comment on above: Performed By: #### D VINCENT PRYOR, ERUR #### [facility] [address] [address] [address] Darya Berry pH (U) 6.0 [pH] Normal 5-9 [facility] Comment on above: Performed By: #### D VINCENT PRYOR, ERUR #### [facility] [address] [address] [address] Darya Berry SPEC GRAVITY 1.010 Normal 1.005-<=1.025 [facility] Comment on above: Performed By: #### D VINCENT PRYOR, ERUR #### [facility] [address] [address] [address] Darya Berry UA PROTEIN Negative Normal NEGATIVE/ TRACE [facility] Comment on above: Performed By: #### D VINCENT PRYOR, ERUR #### [facility] [address] [address] [address] Darya Berry UR MICRO IND INDICATED Normal [facility] Comment on above: Performed By: #### D VINCENT PRYOR, ERUR #### [facility] [address] [address] [address] Darya Berry Urobilinogen Qn (U) 0.2 {Constantino'U}/dL Normal 0.2 - 1. 0 [facility] Comment on above: Performed By: #### D VINCENT PRYOR, ERUR #### [facility] [address] [address] [address] Darya Berry PROF 14(COMP METB)on 022 Albumin [Mass/Vol] 3.4 g/dL Normal 3.4-5.0 [facility] Comment on above: Performed By: #### D VINCENT PRYOR, ERUR #### [facility] [address] [address] [address] Darya Berry Albumin/Globulin [Mass ratio] 1.1 {ratio} Normal [facility] Comment on above: Performed By: #### D VINCENT PRYOR, ERUR #### [facility] [address] [address] [address] Darya Berry ALP [Catalytic activity/Vol] 172 U/L Critically high 46-116 [facility] Comment on above: Performed By: #### D VINCENT PRYOR, ERUR #### [facility] [address] [address] [address] Darya Berry ALT [Catalytic activity/Vol] 10 U/L Critically low 14-59 [facility] Comment on above: Performed By: #### D VINCENT PRYOR, ERUR #### [facility] [address] [address] [address] Darya Berry Anion gap [Moles/Vol] 13.3 mmol/L Normal [facility] Comment on above: Performed By: #### D VINCENT PRYOR, ERUR #### [facility] [address] [address] [address] Darya Berry AST [Catalytic activity/Vol] 12 U/L Critically low 15-37 [facility] Comment on above: Performed By: #### D VINCENT PRYOR, ERUR #### [facility] [address] [place] [address] Dr. Darya Berry Bilirubin [Mass/Vol] 0.2 mg/dL Normal 0.2-1.0 [facility] Comment on above: Performed By: #### D VINCENT PRYOR ERUR #### [facility] [address] [place] [address] Dr. Darya Berry Calcium [Mass/Vol] 8.7 mg/dL Normal 8.5-10.1 [facility] Comment on above: Performed By: #### D VINCENT PRYOR, ERUR #### [facility] [address] [place] [address] Dr. Darya Berry Chloride [Moles/Vol] 104 mmol/L Normal 98-107 [facility] Comment on above: Performed By: #### D VINCENT PRYOR, ERUR #### [facility] [address] [place] [address] Dr. Darya Berry CO2 [Moles/Vol] 24.5 mmol/L Normal 21.0-32.0 [facility] Comment on above: Performed By: #### D VINCENT PRYOR, ERUR #### [facility] [address] [address] [address] Darya Berry Creatinine [Mass/Vol] 1.08 mg/dL Critically high 0.55-1.02 [facility] Comment on above: Performed By: #### D VINCENT PRYOR, ERUR #### [facility] [address] [address] [address] Darya Berry EGFR-AF [place] >60 Normal >=60 [facility] Comment on above: Performed By: #### D VINCENT PRYOR, ERUR #### [facility] [address] [address] [address] Darya Berry EGFR-NON AF [place] 51 mL/min/1.73m2 Critically low >=60 [facility] Comment on above: Performed By: #### D VINCENT PRYOR, ERUR #### [facility] [address] [address] [address] Darya Berry Globulin (S) [Mass/Vol] 3.2 g/dL Normal [facility] Comment on above: Performed By: #### D VINCENT PRYOR, ERUR #### [facility] [address] [address] [address] Darya Berry Glucose [Mass/Vol] 95 mg/dL Normal 74-106 [facility] Comment on above: Performed By: #### D VINCENT PROYR, ERUR #### [facility] [address] [address] [address] Darya Berry Potassium [Moles/Vol] 2.8 mmol/L Critically low 3.5-5.1 [facility] Comment on above: Result Comment: TEST REPEATED CRITICAL VALUE VERIFIED Performed By: #### D VINCENT PRYOR, ERUR #### [facility] [address] [address] [address] Darya Berry Protein [Mass/Vol] 6.6 g/dL Normal 6.4-8.2 [facility] Comment on above: Performed By: #### D VINCENT PRYOR, ERUR #### [facility] [address] [address] [address] Darya Berry Sodium [Moles/Vol] 139 mmol/L Normal 136-145 [facility] Comment on above: Performed By: #### D VINCENT PRYOR, ERUR #### [facility] [address] [address] [address] Darya Berry Urea nitrogen [Mass/Vol] 17.0 mg/dL Normal 7.0-18.0 [facility] Comment on above: Performed By: #### D VINCENT PRYOR, ERUR #### [facility] [address] [address] [address] Darya Berry Urea nitrogen/Creatinine [Mass ratio] 15.7 mg/mg Normal [facility] Comment on above: Performed By: #### D VINCENT PRYOR, ERUR #### [facility] [address] [place] [address] Dr. Darya Berry PROTIMEon 01-25-2022 INR Coag (PPP) [Relative time] 0.97 {INR} Normal [facility] Comment on above: Performed By: #### D VINCENT PRYOR ERUR #### [facility] [address] [place] [address] Dr. Darya Berry INR GUIDELINES SEE BELOW Normal [facility] Comment on above: Result Comment: BLAKE RED INR: 2.0 - 3.0 CONDITIONS NOT LISTED BELOW 2.5 - 3.5 FOR PROSTHETIC HEART VALVE REPLACEMENT 2.5 - 3.5 RECURRENT THROMBOSIS Performed By: #### D VINCENT PRYOR, ERUR #### [facility] [address] [address] [address] Darya Berry PT Coag (PPP) [Time] 10.5 s Normal 9.0-11.6 [facility] Comment on above: Performed By: #### D VINCENT PRYOR, ERUR #### [facility] [address] [place] [address] Dr. Darya Berry PTTon 01-25-2022 aPTT Coag (Bld) [Time] 28.8 s Normal 22.3-36.2 [facility] Comment on above: Performed By: #### D VINCENT PRYOR, ERUR #### [facility] [address] [place] [address] Dr. Darya Berry TROPONIN, HIGH SENSITIVITYon 01-25-2022 HSTROP 76.5 pg/mL Critically high 4.0-51.3 [facility] Comment on above: Result Comment: CUT- OFF POINTS HAVE BEEN ESTABLISHED BASED ON THE FOURTH UNIVERSAL DEFINITIONS OF MYOCARDIAL INFARCTION. THE UPPER REFERENCE LIMIT (URL) OF TROPONIN, DEFINED THE 99TH PERCENTILE OF cTnI DISTRIBUTION IN A REFERENCE POPULATION, HAS BEEN CONFIRMED THE DECISION THRESHOLD FOR [place] DIAGNOSIS. Performed By: #### H STROPN #### [facility] [address] [place] [address] Dr. Darya Berry URINE MICROSCOPIC ONLYon BACTERIA TRACE Abnormal NONE SEEN The [facility] Comment on above: Performed By: #### D VINCENT PRYOR, ERUR #### [facility] [address] [place] [address] Dr. Darya Berry Bacteria identified Cx Nom (U) INDICATED Normal [facility] Comment on above: Performed By: #### D VINCENT PRYOR, ERUR #### [facility] [address] [place] [address] Dr. Darya Berry CAST SEEN Abnormal NONE SEEN The [facility] Comment on above: Performed By: #### D VINCENT PRYOR, ERUR #### [facility] [address] [place] [address] Dr. Darya Berry Crystals LM Nom (Urine sed) NONE SEEN Normal NONE SEEN The [facility] Comment on above: Performed By: #### D VINCENT PRYOR, ERUR #### [facility] [address] [place] [address] Dr. Darya Berry Epithelial cells LM Ql (Urine sed) MODERATE Abnormal NONE SEEN /RARE [facility] Comment on above: Performed By: #### D VINCENT PRYOR, ERUR #### [facility] [address] [place] [address] Dr. Darya Berry HYALINE CAST FEW Normal [facility] Comment on above: Performed By: #### D VINCENT PRYOR, ERUR #### [facility] [address] [address] [address] Darya Berry MUCOUS TRACE Abnormal NONE SEEN The [facility] Comment on above: Performed By: #### D VINCENT PRYOR, ERUR #### [facility] [address] [address] [address] Darya Berry RBC 0-2 Normal 0-2 [facility] Comment on above: Performed By: #### D VINCENT PRYOR, ERUR #### [facility] [address] [address] [address] Darya Berry WBC 2-5 Abnormal NONE SEEN [facility] Comment on above: Performed By: #### D VINCENT PRYOR, ERUR #### [facility] [address] [address] [address] Darya Berry XR CHEST 1 Von [...] ILANA NESBITT Date: 2022-01-25 14:15 Normal [facility] SARS-CoV-2 (COVID-19) RNA VIRY+probe Ql (Unsp spec) Not detected Normal NOT DETECTED [facility] Comment on above: Result Comment: When diagnostic [...] for this test is supported by the [place] of Health and Human Service's declaration that [...] used). Performed By: #### C VDTB #### [facility] [address] [place] [address] Dr. Darya Berry INFLUENZA A AND B [facility] 09-18 [facility] SEE BELOW Normal [facility] Comment on above: Result Comment: Nega tive for Flu A protein angiten. Infection due to Flu A cannot be ruled out. Flu A angiten in the sample may be below the detection limit of the test. Performed By: #### I NFLUAB #### [facility] [address] [place] [address] Dr. Darya Berry [facility] SEE BELOW Normal [facility] Comment on above: Result Comment: Nega tive for Flu B protein antigen. Infection due to Flu B cannot be ruled out. Flu B antigen in the sample may be below the detection limit of the test. Performed By: #### I NFLUAB #### [facility] [address] [place] [address] Dr. Darya Berry INFLUENZA A AG Negative Normal NEGATIVE SEE COMMENT [facility] Comment on above: Performed By: #### I NFLUAB #### [facility] [address] [place] [address] Dr. Darya Berry INFLUENZA B AG Negative Normal NEGATIVE SEE COMMENT [facility] Comment on above: Performed By: #### I NFLUAB #### [facility] [address] [place] [address] Dr. Darya Berry INTERNAL CONTROLS Within Normal Limits Normal Wi thin Normal Limits [facility] Comment on above: Performed By: #### I NFLUAB #### [facility] [address] [id number] Darya Berry Covid-19 PCR ([facility])on 07-01 SARS-CoV-2 (COVID-19) RNA VIRY+probe Ql (Unsp spec) Not detected Normal NOT DETECTED [facility] Comment on above: Result Comment: This test is not yet approved or cleared by the [place] FDA. When there are no FDA-approved or cleared tests available, and other criteria are met, FDA can make tests available under an emergency access mechanism called an Emergency Use Authorization (EUA). The EUA for this test is supported by the [place] of Health and Human Service's (HHS's) declaration [...] SARS-CoV-2. Performed By: #### H STROPN #### [facility] [address] [place], [place] [address] Dr. Darya Berry Encounters Encounter Date Encounter Type Care Provider Facility Start: 10-13-2024 End: 10-13-2024 ambulatory [facility] Start: 05-04-2024 ambulatory Facility:Dejon Causey Start: 03-06-2024 End: 03-06-2024 [facility] Start: 04-24-2022 End: 04-25-[address] SKYLER BOWMAN Facility:[facility] Start: 04-03-2022 End: 04-04-2022 ambulatory GIOVANA LEA Facility:[facility] Start: 2022 End: 03-15-2022 ambulatory GAYATRI HUSSEIN Facility:[facility] Start: 02-28-[address] SKYLER BOWMAN Facility :[facility] Start: 02-24-2022 ambulatory GAYATRI HUSSEIN Facility :[facility] Start: 01-26-2022 End: 01-30-2022 Evaluation and management of inpatient ADELA ROGERS Facility:[facility] Start: 01-25-2022 End: 01-26-[address] SKYLER BOWMAN Facility:[facility] Start: 09-18-2021 End: 09-18-[address] SKYLER BOWMAN Facility:[facility] Start: 08-01-[address] SKYLER BOWMAN Facility :[facility] Start: 07-17-2021 End: 07-17-[address] SKYLER BOWMAN Facility:[facility] Payers Date Payer Category Payer Medicare [id number] 1961 Department of [facility] e ( and others) [id number] 1961 Medicare [id number] 1961 Self-pay [id number] 1960 Unknown [id number] 1958 Unknown [id number] 1958 Unknown [id number] 1958 Unknown [id number] 1958 Unknown [id number] 1958 Unknown [id number] 1958 Unknown [id number] 1958 Unknown [id number] 1958 Unknown [id number] 1958 Unknown [id number] Progress note 10-13-2024 Note Date & Type Note Facility 10-13-2024 Note Patient here for a 6 month follow up. Patient states has been sick and had diarrhea x 2 weeks, diarrhea has resolved at this time. Per patient Dr. Bowman told her she had IBS. Patient denies any cardiac complaints at this time. Patient states she has had a rash on her head x 2 weeks then went to the ER and was given an ATB and was told to take Benadryl. Review of Systems Constitutional: Negative. [facility] Progress note 10-13-2024 Note Date & Type Note Facility 10-13-2024 Note Cardiovascular Medic ine [facility] SUBJECTIVE Chief Complaint Patient presents with Coronary Artery Disease Hypertension Hyperlipidemia Julissa Muniz is a 64 y.o. female here for follow-up. 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 EKG from [facility] from January 11, 2013 showing narrow complex SVT, cycle length approximately 400 ms, with RSR prime in leads V1, V2 and limb lead II with no evidence of preexcitation. 2. History of hypertension. 3. History of fibromyalgia. 4. History of essential tremor. 5. History of anemia with previous history of lower GI bleeding and GERD with peptic ulcer disease. 6. Slow AV cathy pathway ablation on 03/05/13 at [facility]. Transient AV block noted during ablation, resolving spontaneously. Follow-up 24-hour Holter monitor from March 19, 2013 showing sinus rhythm throughout with an average rate of 90, minimum rate of 75 and maximum rate of 125, with only 2 PVCs and 2 PACs noted during the entire recording. There was no evidence of any heart block. Occasional sensation of heart pounding occurred during normal sinus rhythm 10/13/2024 Patient here for a 6 month follow up. Patient states has been sick and had diarrhea x 2 weeks, diarrhea has resolved at this time. Per patient Dr. Bowman told her she had IBS. Patient denies any cardiac complaints at this time. Patient states she has had a rash on her head x 2 weeks then went to the ER and was given an ATB and was told to take Benadryl. She has been doing well from a cardiac standpoint. She has intermittent leg swelling. Improves with elevation. Denies c/o CP, dyspnea, orthopnea, PND, dizziness/LH, palpitations, syncope. Patient Active Problem List Diagnosis CAD (coronary artery disease) MORA (obstructive sleep apnea) SVT (supraventricular tachycardia) Past Medical History: Diagnosis Date Abnormal ECG Arrhythmia Coronary artery disease Sleep apnea Family History Problem Relation Name Age of Onset Atrial fibrillation Mother Heart attack Father Social History Tobacco Use Smoking status: Former Types: Cigarettes Smokeless tobacco: Never Substance Use Topics Alcohol use: Not Currently Comment: occasional Drug use: Never Allergies Allergen Reactions Erythromycin Base Latex Morphine Nickel Zofran [Ondansetron Hcl] Review of Systems Constitutional: Negative for chills, decreased appetite, fever, malaise/fatigue and weight gain. Cardiovascular: Positive for leg swelling. Negative for chest pain, dyspnea on exertion, irregular heartbeat, near-syncope, orthopnea, palpitations, paroxysmal nocturnal dyspnea and syncope. Hematologic/Lymphatic: Negative for bleeding problem. Does not bruise/bleed easily. OBJECTIVE Visit Vitals BP 117/70 (BP Location: Right arm, Patient Position: Sitting) Pulse 73 Ht 1.676 m (5' 6 ) Wt 70.3 kg (155 lb) SpO2 97% BMI 25.02 kg/m??? Smoking Status Former BSA 1.81 m??? Medications: Current Outpatient Medications: albuterol 90 mcg/actuation inhaler, Inhale 1 puff in the morning, afternoon, and at bedtime., Disp: , Rfl: aspirin 81 mg EC tablet, Take 81 mg by mouth in the morning., Disp: , Rfl: atorvastatin (Lipitor) 40 mg tablet, TAKE 1 TABLET AT BEDTIME, Disp: 90 tablet, Rfl: 3 carisoprodol (Soma) 350 mg tablet, take 1 tablet by mouth four times a day if needed, Disp: , Rfl: carvedilol (Coreg) 3.125 mg tablet, TAKE 1 TABLET WITH BREAKFAST AND WITH EVENING MEAL, Disp: 180 tablet, Rfl: 3 cetirizine (ZyrTEC) 10 mg tablet, Take 10 mg by mouth in the morning., Disp: , Rfl: citalopram (CeleXA) 20 mg tablet, Take 40 mg by mouth in the morning., Disp: , Rfl: clopidogrel (Plavix) 75 mg tablet, TAKE 1 TABLET DAILY DIRECTED, Disp: 90 tablet, Rfl: 3 diazePAM (Valium) 5 mg tablet, Take 5 mg by mouth every 8 (eight) hours if needed for anxiety., Disp: , Rfl: ezetimibe (Zetia) 10 mg tablet, TAKE 1 TABLET DAILY DIRECTED, Disp: 90 tablet, Rfl: 3 levothyroxine (Synthroid, Levoxyl) 100 mcg tablet, Take 100 mcg by mouth before breakfast., Disp: , Rfl: lidocaine (Lidoderm) 5 % patch, Apply 1 patch topically in the morning., Disp: , Rfl: liothyronine (Cytomel) 5 mcg tablet, Take 5 mcg by mouth in the morning., Disp: , Rfl: meclizine (Antivert) 25 mg tablet, Take 25 mg by mouth if needed in the morning, at noon, and at bedtime for dizziness., Disp: , Rfl: nitroglycerin (Nitrostat) 0.4 mg SL tablet, Place 0.4 mg under the tongue every 5 (five) minutes if needed for chest pain., Disp: , Rfl: pantoprazole (ProtoNix) 40 mg EC tablet, Take 40 mg by mouth before breakfast. Do not crush, chew, or split., Disp: , Rfl: promethazine (Phenergan) 25 mg tablet, Take 25 mg by mouth every 6 (six) hours if needed., Disp: , Rfl: rizatriptan (Maxalt) 10 mg tablet, Take (more content not included)... [facility] Progress note 03-06-2024 Note Date & Type [...] Patient verbalizes understanding -Follow-up in cardiology clinic Fanny Orlando MD Interventional Cardiology [facility] Discharge summary note 01-30-2022 Note Date & Type Note Facility 01-30-2022 Note MR#: [id number] I [facility] Pt. Name: Julissa Muniz Admitted: 01/26/2022 [...] P/Adela Rogers MD Date Trans: 01/30/2022 07:06 P/mmo [id number] cc: Skyler Bowman M.D. [address] [place] [id number] [facility] Summary Purpose Family History No Family History Records FoundNo Family History Records FoundNo Family History Records FoundNo Family History Records Found Advance Directives No Advanced Directives Records FoundNo Advanced Directives Records FoundNo Advanced Directives Records FoundNo Advanced Directives Records Found Additional Source Comments INFORMATION SOURCE (unrecogn ized section and content) DATE CREATED AUTHOR 02/02/2022 [facility] DATE CREATED AUTHOR AUTHOR'S ORGANIZ ATION 04/29/2022 [facility] DATE CREATED AUTHOR AUTHOR'S ORGANIZ ATION 05/10/2024 [facility] DATE CREATED AUTHOR AUTHOR'S ORGANIZ ATION 12/14/2024 [facility] FOR RECORDS PERTAINING TO PATIENTS WHO ARE [...] BE BASED ON THE PRIMARY CLINICAL RECORDS. [facility]. provides no warranty or guarantee of the accuracy or completeness of information in this document.
[2025-04-16 08:09] LABS: CA 19-9 15 U/mL (0-35); CEA 3.4 ng/mL (0.0-4.7)
== END 2025-04-14 16:32 | disposition home or self-care (01) ==
LOC: LAB 16:37
PROVIDERS: PCP Family Medicine; Visit Provider Family Medicine
DX: K52.9 Noninfective gastroenteritis and colitis, unspecified (principal); B96.81 Helicobacter pylori [H. pylori] as the cause of diseases classified elsewhere; K31.84 Gastroparesis; R63.4 Abnormal weight loss; R97.8 Other abnormal tumor markers
CPT/HCPCS: 36415; 82378; 86301; 86304

== ENCOUNTER 2025-06-19 09:05 | Outpatient (OUT) | payer MEDICARE, OTHER, SELFPAY ==
--- OUTSIDE RECORDS SUMMARY | 2024-09-17 09:00 | XMS_ITS ---
Author Organization The [facility] in [place] Address [address] [facility] [place] [address] Care Team Providers Care Emergency Management Consultant Name Role Phone Prasad Bowman Primary Care Provider REASON FOR VISIT Medicare Wellnes Encounters Encounter Location Date Provider Diagnosis [facility] [address] [place] [address] 09/17/2024 Prasad Bowman Plan Of Treatment No Information Progress Notes * Julissa MUNIZ LDOB:[birth year] (65 yo F)Acc No.[id number]:09/17/2024 UNLOCKED PROGRESS NOTE Progress Note Patient: Julissa GORMAN :?Sadiq BILLINGS), MDDOB:1960???Age: 64 Y???Sex:FemaleDate:09/17/2024Phone:[phone]:[id number], [facility] Subjective: * Chief Complaints: * 1 . Medicare [facility] * Medical History: Objective: * Vitals: Assessment: Plan: * Treatment: * * Electronic signature of Prasad Bowman MD, [id number] on 06/19/2025 at 09:09 AM EST Sign off status: PendingVisit Status:?CANCPHONE (Cancelled Phone) * Provider: Anusha Bowman MD (TTC) Date: 0 09/17/2024 Generated for Printing/Faxing/eTransmitting on:?06/19/2025 09:09 AM EST
--- OUTSIDE RECORDS SUMMARY | 2025-06-16 09:30 | XMS_ITS ---
Author Organization [facility] in [place] Address [address] [place] [address] Care Team Providers Care Agile Qa Tester Name Role Phone Gracie Prasad Primary Care Provider Allergies Allergen (clinical drug ingredient) Drug/Non Drug Allergy documented on EMR Reaction Allergy Type Onset Date Status morphine Morphine Sulfate rash Drug Allergy ActiveZofranUnknownDrug AllergyActiveLatexLatexrashAllergyActivenickelNickelrash AllergyActive Reason For Referral Reason recurrent reflux and diarrhea Diagnosis 1 Gastroenteritis (K52 .9) Referral Organization [facility] Medicine Referring Provider First Name Prasad Referring Provider Last Name Gracie Referring Provider Speciality [facility] icine Referred Provider Raheem Clancy Referred Provider Specialty Gastroentero logy Referral Priority Routine REASON FOR VISIT weight loss- nausea/vomiting Medications Medication SIG (Take, Route, Frequency, Duration) Notes Start Date End Date Status Meclizine HCl 25 MG 1 tablet as needed Orally QID; Dur ation: 30 days PRN UnknownCarisoprodol 350 mgTAKE 1 TABLET BY MOUTH TWICE DAILY NEEDED; Duration: 3015ActiveAtorvastatin Calcium 40 MG1 tablet Orally Once a [...] capsule Orally Once a day; Duration: 30 days4ActivePlavix 75 MG1 tablet Orally Once a dayActive Rizatriptan Benzoate 10 mgDISSOLVE 1 TABLET ON TONGUE AT ONSET OF A HINT OF A MIGRAINE, MAY REPEAT IN 2 HOURSPRNActivePromethazine HCl 25 mg TAKE 1 TABLET BY MOUTH EVERY 6 HOURS NEEDED 4 times a day; Duration: 30 days As needed ActivePantoprazole Sodium 40 mgTAKE 1 TABLET DAILYActiveNystatin 388973 UNIT/ML5 ml Mouth/Throat Four times a day; [...] Administration Date Status Comme nts Flu, Fluad (44358) 65 yrs and older, single-dose syringe (0976-6785) IM Intramuscular 06/16/2025 Administered Social History Tobacco Use: Social History Observation Description Date Details (start date - stop date) Former Smoker NA - NA Tobacco Use/Smoking Question Answer Notes Patient is a former smoker How long has it been since you last smoked?6-12 monthsAdditional Findings: Tobacco Rij-PhstBu-vjlag cigarette smoker (20-30/day)Tobacco Control (Standard) Question Answer Notes Tobacco use: Former smoker How long has it been since you last smoked?1-5 yearsAdditional Findings: Tobacco gdr-sklxNp-jcznvytn cigarette smoker (10-19/day)AUDIT-C (Standard) Question Answer Notes Did you have a drink containing alcohol in the p ast year? No Woqjfj7ZwkpaeaayffbqnVdxvhhib Vital Signs Weight 135.0 lbs 06/16/2025 Height 66 in 06/16/2025 Blood pressure systolic 110 mm Hg 06/16/20 25 Blood pressure diastolic 60 mm Hg 025 BMI 21.79 kg/m2 06/16/2025 Encounters Encounter Location Date Provider Diagnosis [facility] [address] [place] [address] 06/16/2025 Prasad Hoy Gastroenteritis K52. 9 ; [...] East back into eating by eating bland, rwhz-cb-pnvwap foods like crackers, toast, gelatin, bananas, rice and chicken. Try to avoid foods/substances including dairy products, caffeine, alcohol, nicotine and fatty or highly seasoned foods. Medications such as ibuprofen or tylenol can make your stomach more upset, so use sparingly if at all. Also avoid mkyx-tzl-eoljhae anti-diarrheal medications because it can make it [...] East back into eating by eating bland, nsqq-ta-hquewl foods like crackers, toast, gelatin, bananas, rice and chicken. Try to avoid foods/substances including dairy products, caffeine, alcohol, nicotine and fatty or highly seasoned foods. Medications such as ibuprofen or tylenol can make your stomach more upset, so use sparingly if at all. Also avoid gktd-obh-vajhylg anti-diarrheal medications because it can make it [...] W CON 06/16/2025 THYROID PANEL (T4/TSH/FREE T3) 5 Ova + Parasite Exam 06/16/2025 CMP (COMP MET CHEATHAM) w/eGFR CKD-EPI 2024 CBC WITH DIFF 06/16/2025 Referrals Referral Date Details 06/16/2025 06/16/2025, recurren t reflux and diarrhea, Raheem Clancy Progress Notes * Julissa MUNIZ LDOB:[birth year] (65 yo F)Acc No.[id number]:06/16/2025 Progress Note Patient: Julissa GORMAN :?Sadiq Bowman ([facility]), MDDOB:1960???Age: 65 Y???Sex:FemaleDate:06/16/2025Phone:[phone]:[address], [id number] In:02:37 PM ESTCheck Out:03:08 PM EST Subjective: [...] History of tobacco a buse Modified On:10/15/2023 Status:wozvbdrjzO88.81Helicobacter pylori [H. pylori] as the cause of diseases classified elsewhere Modified On:11/22/2022 Status:orxswsxajN63.1Supraventricular tachycardia Modified On:11/22/2022 Status:yqnvimutbH38.84Gastroparesis Modified On:09/06/2023U Status:bnqlngbbxA48Jwbqzhjqzscq Modified On:08/28/2023U Status:kyvovonypM68.9Chronic obstructive pulmonary disease (COPD) Modified On:09/06/2023 Status:scoxapxzkX43.9Hypothyroidism Modified On:08/28/2023 Status:jvlpnlttjG32.9Anxiety Modified On:11/22/2022 Status:cieojwjphF05.1Tremor Modified On:11/22/2022 Status:gzwltkccaQ29.9Edema Modified On:11/22/2022 Status:vjuqplckdU41.10Coronary artery disease Modified On:08/28/2023 Status:omcoyzfwlG12.9Anemia Modified On:11/22/2022 Status:wmdiodyvcD63.33Obstructive sleep apnea Modified On:08/28/2023 Status:ppjguviyiV45.909Migraine Modified On:11/22/2022 Status:bqlqerqjbJ04.50Arthralgia Modified On:11/22/2022 Status:uvewrrswnD22.00Well adult Modified On:11/22/2022 Status:hzklbtjvlE41.9Hair loss Modified On:11/22/2022 Status:kumbtvdodP71.2Leg cramps Modified On:11/22/2022 Status:kvmfmxgetP87.3Over weight Modified On:11/22/2022 Status:rjyxioqdjT82.2Allergic rhinitis, seasonal Modified On:11/22/2022 Status:gfxjxjhpcW38.8Upper airway resistance syndrome Modified On:09/12/2022 Status:urdjdmiuuB79.80Duodenitis Modified On:11/22/2022 Status:bbcmodclnF44.1Keratosis, seborrheic Modified On:11/22/2022 Status:cutabsiivQ89.9Gastro-esophageal reflux disease Modified On:11/22/2022 Status:emjgjiqtuV40.0Pyloric stenosis, congenital Modified On:11/22/2022 Status:mzldbkvsjH60.399Vertigo, peripheral Modified On:11/22/2022 Status:xravffhyfW05.4Excessive weight loss Modified On:11/22/2022 Status:xbljldfffK49.001Chondrodermatitis nodularis helicis, right Modified On:05/25/2023W/U Status:ropljudueY55.12Osteoarthritis of left knee, unspecified osteoarthritis type Modified On:11/22/2022 Status:xshcsmihqX47.11Osteoarthritis of right knee, unspecified osteoarthritis type Modified On:11/22/2022 Status:nqjykusiaI30.50Low back pain, unspecified Modified On:11/22/2022U Status:zzqorlptlO31.10Atherosclerotic heart disease of [place] coronary artery without angina pectoris Modified On:04/11/2023U Status:mgqmvmmnjI98.10Supraventricular tachycardia, unspecified Modified On:04/11/2023 Status:fkxizaevwD96.9Abdominal pain Modified On:05/29/2023U Status:qhnlzxfvgE99.2Venous insufficiency Modified On:04/10/2024 Status:fyiwsvhrwG75.9Itching Modified On:10/01/2024 Status:confirmed * Medical History: * [...] directed Sublingual , Notes to Pharmacist: PRNNystatin 703220 UNIT/ML Suspension 5 ml Mouth/Throat Four times [...] to Pharmacist: PRNVitamin D (Cholecalciferol) 50 MCG (1999) Capsule 1 capsule Orally Once a day [...] Sublingual , Notes to Pharmacist: PRNTaking Nystatin 303412 UNIT/ML Suspension 5 ml Mouth/Throat Four times [...] Pharmacist: PRNTaking Vitamin D (Cholecalciferol) 50 MCG (1999) Capsule 1 capsule Orally Once a day [...] East back into eating by eating bland, mner-dj-kwxruz foods like crackers, toast, gelatin, bananas, rice and chicken. Try to avoid foods/substances including dairy products, caffeine, alcohol, nicotine and fatty or highly seasoned foods. Medications such as ibuprofen or tylenol can make your stomach more upset, so use sparingly if at all. Also zklllyldd-jxs-qwxtmbx anti- diarrheal medications because it can make [...] CBC WITH DIFF * Immunizations: Flu, Fluad (51724) 65 yrs and older, single-dose syringe () : 0.5 mL (Route: Intramuscular) given by JARRETT Charles on Left Deltoid (Encounter for immunization) * Procedure Codes: 9 0653 FLU VACCINE ADJUVANT [id number] ADMIN. INFLUENZA * * Sign off status: CompletedVisit Status:?CHK (Check Out) true * Provider: Anusha Bowman ([facility])MD Date: 1 08/17/2024 Generated for Printing/Faxing/eTransmitting on:?06/19/2025 09:08 AM EST History and Physical Notes * [...] Referral Date Referring Provider Referred Provider Not es 06/16/2025 Prasad Bowman Cameron recurrent ref lux and diarrhea
--- OUTSIDE RECORDS SUMMARY | 2025-06-19 09:09 | XMS_ITS | Clinical Summary ---
Author Organization [facility] Address [address], [address] [place] [address] Care Team Providers Care Estate Manager Name Role Phone Sadiq Bowman MD Primary Care Provider [phone] [phone] Active AllergyReactionsCriticalityNoted IfluXtddsuamCthgv58/04/2013Morphine 03/04/20136357Bcegni89/04/2013 Medications MedicationSigDispense QuantityRefillsLast FilledStart DateEnd DateStatus esomeprazole Magnesium (NEXIUM) 40 MG PACK Take 40 mg by mouth 2 times daily.Active rOPINIRole (REQUIP) 1 MG tablet Take 1 mg by mouth daily.Active traZODone (DESYREL) 100 MG tablet Take 100 mg by mouth nightly.Active amitriptyline (ELAVIL) 150 MG tablet Take 150 mg by mouth nightly.Active DULoxetine (CYMBALTA) 60 MG capsule Take 60 mg by mouth daily.Active gabapentin (NEURONTIN) 300 MG capsule Take 300 mg by mouth 2 times daily. Takes two tabs in the morningActive gabapentin (NEURONTIN) 300 MG capsule Take 300 mg by mouth 3 times daily. Takes 3 tabs at bedtimeActive levothyroxine (SYNTHROID) 100 MCG tablet Take 100 mcg by mouth Daily.Active carisoprodol (SOMA) 350 MG tablet Take 350 mg by mouth 4 times daily as needed.Active acetaminophen (TYLENOL) 500 MG tablet Take 1,000 mg by mouth every 6 hours as needed.Active meclizine (ANTIVERT) 25 MG CHEW Take 25 mg by mouth 3 times daily as needed.Active HYDROcodone-acetaminophen (NORCO) 7.5-325 MG per tablet Take 2 tablets by mouth every 6 hours as needed.Active clorazepate (TRANXENE) 7.5 MG tablet Take 7.5 mg by mouth 2 times daily. 1/2 tab 2 times per day.Active atorvastatin (LIPITOR) 20 MG tablet Take 1 tablet by mouth nightly. 30 tablet 11003/06/2013ctive Social History Tobacco UseTypesPacks/DayYears UsedDateSmoking Tobacco: FormerComments UnknownSex and Gender InformationValueDate RecordedSex Assigned at BirthNot on fileLegal KldFnfbaf64/10/2013 1:03 PM ESTGender IdentityNot on fileSexual OrientationNot on file Last Filed Vital Signs Vital SignReadingTime TakenCommentsBlood Tcwbgatr132/60003/06/2013 11:30 AM EDT Hccrh096403/06/2013 11:30 AM HQLGnewfteljma49.8 ??C (98.2 ??F)03/06/2013 11:30 AM EDTRespiratory Ngxp714403/06/2013 11:30 AM EDTOxygen Piircptytf65%03/06/2013 11:30 AM EDTInhaled Oxygen Concentration--Qlttko59.5 kg (204 lb)03/05/2013 7:42 PM EDT Petrlj428.2 cm (5' 7 )03/04/2013 11:00 AM EDTBody Mass Index31.95003/04/2013 11:00 AM EDT Plan of Treatment Not on file Advance Directives * Full Code (Latest Code Status on File) Date ActivatedDate InactivatedComments03/05/2013 12:03 PM03/06/2013 7:46 PM * Full Code Date ActivatedDate InactivatedComments03/04/2013 3:33 PM03/05/2013 12:03 PM * Full Code Date ActivatedDate InactivatedComments03/04/2013 11:42 AM03/04/2013 3:33 PM Care Teams Team MemberRelationshipSpecialtyStart DateEnd Sadiq Bowman MD [address] [place] [address] [facility]01/21/13
--- OUTSIDE RECORDS SUMMARY | 2025-06-19 09:09 | XMS_ITS | Clinical Summary ---
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 Name Role Phone Sadiq Bowman MD Primary Care Provider Allergies Active AllergyReactionsCriticalityNoted DateCommentsErythromycin Base03/07/2022 Latex03/29/20239607Rpqljjev90/07/7309Nrekar04/04/2013Ondansetron Hcl03/07/2022 Medications MedicationSigDispense QuantityRefillsLast FilledStart DateEnd DateStatus aspirin 81 mg EC tablet Take 81 mg by mouth in the morning.Active cetirizine (ZyrTEC) 10 mg tablet Take 10 mg by mouth in the morning.Active citalopram (CeleXA) 20 mg tablet Take 40 mg by mouth in the morning.Active diazePAM (Valium) 5 mg tablet Take 5 mg by mouth every 8 (eight) hours if needed for anxiety.Active levothyroxine (Synthroid, Levoxyl) 100 mcg tablet Take 100 mcg by mouth before breakfast.Active meclizine (Antivert) 25 mg tablet Take 25 mg by mouth if needed in the morning, at noon, and at bedtime for dizziness.Active nitroglycerin (Nitrostat) 0.[address] 0.4 mg under the tongue every 5 (five) minutes if needed for chest pain. Active pantoprazole (ProtoNix) 40 mg EC tablet Take 40 mg by mouth before breakfast. Do not crush, chew, or split.Active rizatriptan (Maxalt) 10 mg tablet Take 10 mg by mouth 1 (one) time if needed for migraine. May repeat in 2 hours if unresolved. Do not exceed 30 mg in 24 hours.Active rOPINIRole (Requip) 2 mg tablet Take 2 mg by mouth at bedtime.Active carisoprodol (Soma) 350 mg tablet take 1 tablet by mouth four times a day if oakhfq3902/07/2023ctive ezetimibe (Zetia) 10 mg tablet Indications:Coronary artery disease, unspecified vessel or lesion type, unspecified whether angina present, unspecified whether three affiliated or transplanted heartTAKE 1 TABLET DAILY DIRECTED 90 tablet ctive clopidogrel (Plavix) 75 mg tablet Indications:Coronary artery disease, unspecified vessel or lesion type, unspecified whether angina present, unspecified whether three affiliated or transplanted heartTAKE 1 TABLET DAILY DIRECTED 90 tablet ctive carvedilol (Coreg) 3.125 mg tablet Indications:Coronary artery disease, unspecified vessel or lesion type, unspecified whether angina present, unspecified whether three affiliated or transplanted heartTAKE 1 TABLET WITH BREAKFAST AND WITH EVENING MEAL 180 tablet ctive atorvastatin (Lipitor) 40 mg tablet Indications:Coronary artery disease, unspecified vessel or lesion type, unspecified whether angina present, unspecified whether three affiliated or transplanted heartTAKE 1 TABLET AT BEDTIME 90 tablet ctive albuterol 90 mcg/actuation inhaler Inhale 1 puff in the morning, afternoon, and at bedtime.09/11/2024tive chlordiazepoxide-clidinium (Librax) 5-2.5 mg capsule Take 1 capsule by mouth with breakfast, with lunch, and with evening meal. 09/21/2024tive cholecalciferol, vitamin D3, 50 mcg (2,000 unit) capsule Take 1 capsule by mouth in the morning.01/20/2024ctive hyoscyamine 0.125 mg SL tablet Take 0.125 mg by mouth every 4 (four) hours if needed.02/02/2024ctive lidocaine (Lidoderm) 5 % patch Apply 1 patch topically in the morning.04/08/2024ctive liothyronine (Cytomel) 5 mcg tablet Take 5 mcg by mouth in the morning.04/10/2024ctive promethazine (Phenergan) 25 mg tablet Take 25 mg by mouth every 6 (six) hours if needed.09/22/2024tive sucralfate (Carafate) 1 gram tablet Take 1 g by mouth before breakfast and before evening meal.5Active Active Problems ProblemNoted DateDiagnosed DateCAD (coronary artery disease)2OSA (obstructive sleep apnea)03/07/2022VT (supraventricular tachycardia)03/07/2022 Encounters DateTypeDepartmentCare MczqHunaoopejha70/15/2025 2:00 PM EDTOffice [facility] [address] [place] [id number] Shree Negrete MD Coronary artery disease involving three affiliated coronary artery of three affiliated heart without angina pectoris (Primary Dx); SVT (supraventricular tachycardia); Fnlzltfbyo55/15/2025Orders Only [facility] [address] [place] [facility] [place] [address] Rosario Solo MA from Last 3 Months Family History Medical HistoryRelationNameCommentsHeart attackFatherAtrial fibrillationMother RelationNameStatusCommentsFatherDeceasedMotherDeceased Social History Tobacco UseTypesPacks/DayYears UsedDateSmoking Tobacco: FormerCigarettes Smokeless Tobacco: NeverAlcohol UseStandard Drinks/WeekCommentsYes0 (1 standard drink = 0.6 oz pure alcohol)occasionalUT Safety & EnvironmentAnswerDate Recorded Fear of Current or Ex-PartnerNot on file08/22/2023Emotionally AbusedNot on file 08/22/2023hysically AbusedNot on file08/22/2023Sexually AbusedNot on file 08/22/2023hysically or Sexually AbusedNot on file08/22/2023Comments UnknownSex and Gender InformationValueDate RecordedSex Assigned at BirthFemale 04/09/2025 12:45 PM EDTLegal DmhQldehw71/29/2022 10:21 PM EDTGender Identity Rjuixo8604/09/2025 12:45 PM EDTSexual OrientationHeterosexual or Straight 04/09/2025 12:45 PM EDT Last Filed Vital Signs Vital SignReadingTime TakenCommentsBlood Gkdkbaad575/6204/14/2025 2:18 PM EDT Tluun368204/14/2025 2:18 PM EDTTemperature--Respiratory Stoy4533 1:09 PM EDTOxygen Yqucmlpnfy96%04/14/2025 2:18 PM EDTInhaled Oxygen Concentration-- Jctpge65.8 kg (123 lb)04/14/2025 2:18 PM EWVNwgjqx761.6 cm (5' 6 )04/14/2025 2:18 PM EDTBody Mass Index19.8504/14/2025 2:18 PM EDT Plan of Treatment Health MaintenanceDue DateLast DoneCommentsCT Kafuwuxeptcg1958Colonoscopy 1958Colorectal Cancer Wldngofvy1958FIT-DNA1958FIT1958 FOBT1958Medicare Annual Wellness (AWV)03/14/19589471Aygccogspriml1958 Depression Ecsugojxz71/14/1970Adult Osoxdea3403/14/19808233Haqzyvvjk31/14/1998Zoster Vaccines (1 of 2)2008Pneumococcal Vaccine: 50+ Years (2 of 2 - PPSV23, PCV20, or PCV21)/Fall Risk Coyehocfw84/14/2023OVID-19 Vaccine (3 - season)/08/2020, 09/09/2020Influenza Vaccine (#1)/, 08/03/2019, 05/06/2017, Additional history existsHIB VaccinesAged OutNo longer eligible based on patient's age to complete this topic HPV VaccinesAged OutNo longer eligible based on patient's age to complete this topicIPV VaccinesAged OutNo longer eligible based on patient's age to complete this topicMeningococcal B VaccineAged OutNo longer eligible based on patient's age to complete this topicMeningococcal VaccineAged OutNo longer eligible based on patient's age to complete this topicRotavirus VaccinesAged OutNo longer eligible based on patient's age to complete this topic Insurance [address] [place] [address] Care Teams Team MemberRelationshipSpecialtyStart DateEnd Sadiq Bowman MD [address] [facility] [place] [address] [facility] - General03/07/22
--- OUTSIDE RECORDS SUMMARY | 2025-06-19 09:09 | XMS_ITS | Patient Health Record ---
Author Organization [facility] in [place] Address [address] [place] [address] Care Team Providers Care Safety Engineer Pressure Vessels Name Role Phone Prasad Bowman Primary Care Provider [phone] Allergies Allergen (clinical drug ingredient) Drug/Non Drug Allergy documented on EMR Reaction Allergy Type Onset Date Status morphine Morphine Sulfate rash Drug Allergy ActiveZofranUnknownDrug AllergyActiveLatexLatexrashAllergyActivenickelNickelrash AllergyActive Results Component Value Reference Range Notes CA echo doppler complete Reviewed date:12/02/2024 09:57:06 PM Interpretation: Performing Lab: Notes/Report: Source Facility: [place] [address] Cardiology Report Signed Patient: JULISSA MUNIZ MR#: [id number] : 1960 Acct:[id number] Age/Sex: 64 / F ADM Date: 12/02/24 Loc: CARD Attending Dr: GAYATRI HUSSEIN APRN Ordering Physician: GAYATRI HUSSEIN APRN Date of Service: 12/02/24 Procedure(s): CA echo doppler complete Accession Number(s): [id number] cc: Sadiq Bowman M.D.; GAYATRI HUSSEIN APRN Patient Name: JULISSA MUNIZ MR#: [id number] : 1960 Exam Date: 12/02/2024 Ordering Doctor: GAYATRI HUSSEIN FIELD CROP I FARMWORKER ECHOCARDIOGRAM REPORT PROCEDURE: CA ECHO DOPPLER COMPLETE INDICATIONS: Coronary artery disease, COPD, [place], cardiac stent, hypertension COMPARISON: None. DESCRIPTION: COMPLETE ECHOCARDIOGRAM Real-time transthoracic echocardiography with 2D, M-mode, spectral and color flow Doppler performed. QUALITY: Technically difficult due to poor acoustics. LEFT VENTRICLE: Normal chamber size. Thickened septal wall. Normal systolic function. LV EF: Normal left ventricular ejection fraction, (>55%). DIASTOLIC: Diastolic function is indeterminate. ATRIAL SEPTUM: Visually appears intact. LEFT ATRIUM: Normal chamber size. RIGHT ATRIUM: Normal chamber size. RIGHT VENTRICLE: Normal chamber size. Normal right ventricular systolic function. TRICUSPID VALVE: Normal mobility and thickness. No stenosis with trivial regurgitation. Unable to assess right-sided pressures due to lack of measurable tricuspid regurgitation. MITRAL VALVE: Normal mobility and thickness. No evidence of mitral valve stenosis. There is no mitral annular calcification. No mitral regurgitation. AORTIC VALVE: Normal trileaflet appearance. No visible sclerosis. Normal leaflet mobility. No evidence of aortic valve stenosis. No aortic regurgitation. AORTIC ROOT: Normal diameter and appearance, measuring 3.6 cm. PULMONIC VALVE: Normal thickness and mobility. No stenosis. Trivial regurgitation. PERICARDIUM: No evidence of pericardial effusion. IVC: IVC is dilated (2.3 cm), does not fully collapse. PLEURA: CONCLUSION: 1. Normal left ventricular size and systolic function. LVEF is estimated at 65-70%. 2. Normal right ventricular size and systolic function. 3. No significant valvular dysfunction. 4. Unable to assess right-sided pressures due to lack of measurable tricuspid regurgitation. Adult Echocardiography Procedure Report Left Ventricle LVEDD (3.7 - 5.6 cm): 2.86 cm LVESD (2.2 - 4.0 cm): 2.05 cm LVIVS thickness (0.6 - 1.2 cm): 1.37 cm LVPW thickness (0.5 - 1.0 cm): 0.76 cm e': 0.09 m/s E - e': 5.82 LVOT Max Gradient: 6.41 mm[Hg] LVOT Area (cm2): 1.27 m/s Peak Velocity (LVOT): 1.27 m/s Mean Velocity (LVOT): 0.97 m/s LVOT Diameter 2.00 cm Left Atrium Left Atrium Systolic Dimension: 3.29 cm Mitral Valve MV E to A Ratio: 0.66 Mitral Valve A-Wave Peak Velocity: 0.76 m/s Mitral Valve E-Wave Peak Velocity: 0.50 m/s Right Ventricle Aorta AO Root Diam: 3.64 cm Aortic Valve AoV Area (Peak Mundo): 2.90 cm2, 2.90 cm2 AoV Area (VTI): 2.96 cm2, 2.96 cm2 Peak Velocity(Antegrade Flow): 1.37 m/s Peak Gradient(Antegrade Flow): 7.55 mm[Hg] Mean Velocity(Antegrade Flow): 0.93 m/s Mean Gradient(Antegrade Flow): 4.03 mm[Hg] Velocity Time Integral: 31.84 cm Tricuspid Valve Pulmonic Valve Peak Gradient: 4.79 mm[Hg], 5.03 mm[Hg] Right Atrium Right Atrium Systolic Pressure: 27.19 ml, 27.19 ml Dictated by: Florina Drake M.D. on 12/02/2024 at 18:58 Approved by: Florina Drake M.D. on 12/02/2024 at 19:04 Dictated By: FLORINA DRAKE Signed By: 12/02/241904 DD/ 03 TD/TT: Flight Dynamicist: Cancer Antigen (CA) 125 Reviewed date:04/18/2025 11:43:59 AM Interpretation: Performing Lab: Notes/Report: [facility] , Cancer Antigen (CA) 125 14.8 0.0-38.1 U/mL [employer] Electrochemiluminescence Immunoassay (ECLIA) Values obtained with different assay methods or kits cannot be used interchangeably. Results cannot be interpreted as absolute evidence of the presence or absence of malignant disease. Performed at: [address] [id number] Tailor Garment Fitter: Marcus Drummond PhD, Phone: [phone] Performing Lab: see note [facility] LBCA 19-9 Reviewed date:04/18/2025 11:43:59 AM Interpretation: Performing Lab: Notes/Report: [facility] ,CA 19-9150-35 U/mL [employer] Electrochemiluminescence Immunoassay (ECLIA) Values obtained with different assay methods or kits cannot be used interchangeably. Results cannot be interpreted as absolute evidence of the presence or absence of malignant disease. Performed at: [facility] - [address] [id number] Tailor Garment Fitter: Marcus Drummond PhD, Phone: [phone] Performing Lab:[facility] LBCEA Reviewed date:04/18/2025 11:43:59 AM Interpretation: Performing Lab: Notes/Report: [facility] ,CEA3.40.0-4.7 ng/mL Nonsmokers <3.9 Smokers <5.6 [employer] [employer] Electrochemiluminescence Immunoassay (ECLIA) Values obtained with different assay methods or kits cannot be used interchangeably. Results cannot be interpreted as absolute evidence of the presence or absence of malignant disease. Performing Lab:see note - [facility] Reason For Referral Reason recurrent reflux and diarrhea Diagnosis 1 Gastroenteritis (K52 .9) Referral Organization [facility] Referring Provider First Name Prasad Referring Provider Last Name Gracie Referring Provider Speciality [facility] connie Referred Provider Raheem Clancy Referred Provider Specialty Gastroentero logy Referral Priority Routine Medications Medication SIG (Take, Route, Frequency, Duration) Notes Start Date End Date Status Promethazine HCl 25 mg TAKE 1 TABLET BY MOUTH EVERY 6 HOURS NEEDED 4 times a day; Duration: 30 days As needed ActiveMeclizine HCl 25 MG1 tablet as needed Orally Q 6 hours5Active Ezetimibe 10 MG1 tablet Orally Once a dayActiveMeclizine HCl 25 MG1 tablet as needed Orally QID; Duration: 30 daysPRNUnknownCitalopram Hydrobromide 40 mgTAKE 1 TABLET DAILYActiveLevsin/SL 0.125 MG1 tablet under the tongue and allow to dissolve as needed Sublingual AC and HSPRN09/06/2023UnknownLiothyronine Sodium 5 MCG2 tablets Orally Once a day; Duration: 90 daysActiveLidocaine 5 %APPLY 1 PATCH TO SKIN DAILYActiveNitroglycerin 0.4 MGas directed Sublingual; Duration: 30 daysPRNActiveMupirocin 2 %1 application Externally Twice a day; Duration: 5 daysActivePantoprazole Sodium 40 mgTAKE 1 TABLET DAILYActiveNystatin 822374 UNIT/ML5 ml Mouth/Throat Four times a day; Duration: 14 days5Active chlordiazePOXIDE-Clidinium 5-2.5 MG 1 capsule before meals Orally Three times a day As needed ActiveBenzonatate 200 MG1 capsule Orally Three times a day; Duration: 7 days 5ActivePlavix 75 MG1 tablet Orally Once a dayActiveRizatriptan Benzoate 10 mgDISSOLVE 1 TABLET ON TONGUE AT ONSET OF A HINT OF A MIGRAINE, MAY REPEAT IN 2 HOURSPRNActiveSucralfate 1 GMTAKE 1 TABLET BEFORE EACH MEAL ON AN EMPTY STOMACHActiverOPINIRole HCl 2 mgTAKE 1 TO 2 TABLETS EVERY NIGHTActiveVentolin HFA 108 (90 Base) MCG/ACT2 puff as needed Inhalation every 4 hrs; Duration: 30 daysPRNActiveSynthroid 100 MCGTAKE 1 TABLET DAILY Orally; Duration: 90 days ActiveCarisoprodol 350 mgTAKE 1 TABLET BY MOUTH TWICE DAILY NEEDED; Duration: 5ActiveAtorvastatin Calcium 40 MG1 tablet Orally Once a dayActive Vitamin D (Cholecalciferol) 50 MCG (2000 UT)1 capsule Orally Once a day; Duration: 30 days4ActiveCetirizine HCl 10 mgTAKE 1 TABLET DAILYActive Carvedilol 3.125 MG1 tablet with food Orally Twice a dayActive Immunizations Vaccine Route Administration Date Status Comme nts Flu, Afluria () (90 686) 3 yrs+, single-dose syringe Unknown 03/24/2020 Administered Flu, Fluad (43950) 65 yrs and older, single-dose syringe (3958-0207)IM Ywfdbxrwxerdp83/17/2025AdministeredPneumococcal (Prevnar 13)Cdhoiux8604/20/2020 TxtrwqnvaetyBHKO-ITT-1 (COVID 19 Pfizer 30mcg/0.3mL)Wouzfbu3009/30/2020 Administered Social History Tobacco Use: Social History Observation Description Date Details (start date - stop date) Former Smoker NA - NA Tobacco Use/Smoking Question Answer Notes Patient is a former smoker How long has it been since you last smoked?6-12 monthsAdditional Findings: Tobacco Gaw-XrieKl-zvcbe cigarette smoker (20-30/day)Tobacco Control (Standard) Question Answer Notes Tobacco use: Former smoker How long has it been since you last smoked?1-5 yearsAdditional Findings: Tobacco irq-scspLw-cdzvrhjh cigarette smoker (10-19/day)AUDIT-C (Standard) Question Answer Notes Did you have a drink containing alcohol in the p ast year? No Uqulnk5PsinkmupecbhssMqlxaoqa Problems Problem Type SNOMED Code ICD Code Onset Dates Problem Status W/U Status Risk Notes Problem Helicobacter pylori (36193680) H elicobacter pylori [H. pylori] as the cause of diseases classified elsewhere (B96.81) ActiveconfirmedProblemAtherosclerotic heart disease of [place] coronary artery without angina pectoris (984690495750960)Atherosclerotic heart disease of [place] coronary artery without angina pectoris (I25.10)ActiveconfirmedProblem Supraventricular tachycardia (1461169)Supraventricular tachycardia (I47.1)Active confirmedProblemGastroparesis (570601798)Gastroparesis (K31.84)Activeconfirmed ProblemAbdominal pain (64598656)Abdominal pain (R10.9)ActiveconfirmedProblem Hypertension (29635692)Hypertension (I10)ActiveconfirmedProblemChronic obstructive pulmonary disease (56091327)Chronic obstructive pulmonary disease (COPD) (J44.9)ActiveconfirmedProblemHypothyroidism (58119035)Hypothyroidism (E03.9)ActiveconfirmedProblemAnxiety (46232695)Anxiety (F41.9)Activeconfirmed ProblemTremor (48845603)Tremor (R25.1)ActiveconfirmedProblemEdema (25069622) Edema (R60.9)ActiveconfirmedProblemCoronary artery disease (03160897)Coronary artery disease (I25.10)ActiveconfirmedProblemPeripheral venous insufficiency (70346928)Venous insufficiency (I87.2)ActiveconfirmedProblemAnemia (437210396) Anemia (D64.9)ActiveconfirmedProblemObstructive sleep apnea (42302713) Obstructive sleep apnea (G47.33)ActiveconfirmedProblemMigraine (59881135) Migraine (G43.909)ActiveconfirmedProblemArthralgia (57363598)Arthralgia (M25.50) ActiveconfirmedProblemWell adult (185815419)Well adult (Z00.00)Activeconfirmed ProblemAlopecia (40964559)Hair loss (L65.9)ActiveconfirmedProblemCramp in lower limb (945892690)Leg cramps (R25.2)ActiveconfirmedProblemOverweight (444508783) Over weight (E66.3)ActiveconfirmedProblemSeasonal allergic rhinitis (386227369) Allergic rhinitis, seasonal (J30.2)ActiveconfirmedProblemItching (411278874) Itching (L29.9)ActiveconfirmedProblemUpper airway resistance syndrome (378115817)Upper airway resistance syndrome (G47.8)ActiveconfirmedProblem Duodenitis (93504451)Duodenitis (K29.80)ActiveconfirmedProblemEx-tobacco user (finding) (419657244)History of tobacco abuse (Z87.891)ActiveconfirmedProblem Seborrheic keratosis (73120447)Keratosis, seborrheic (L82.1)Activeconfirmed ProblemGastro-esophageal reflux disease (677314926)Gastro-esophageal reflux disease (K21.9)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 (46628517)Pyloric stenosis, 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)ActiveconfirmedProblemPeripheral vertigo (29105570)Vertigo, peripheral (H81.399)ActiveconfirmedProblemExcessive weight loss (040154989)Excessive weight loss (R63.4)ActiveconfirmedProblem Perichondritis of pinna (62188596)Chondrodermatitis nodularis helicis, 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)ActiveconfirmedProblemOsteoarthritis of left knee joint (600101958632169)Osteoarthritis of left knee, unspecified osteoarthritis type (M17.12)ActiveconfirmedProblemOsteoarthritis of right knee joint (421076206558761)Osteoarthritis of right knee, unspecified osteoarthritis type (M17.11)ActiveconfirmedProblemLow back pain (929947878)Low back pain, unspecified (M54.50)ActiveconfirmedProblemSupraventricular tachycardia (disorder) (2430022)Supraventricular tachycardia, unspecified (I47.10)Active confirmed Vital Signs Blood pressure diastolic 60 mm Hg 06/16/2025 Kniogw83 in06/16/2025lood pressure rqjqxabz799 mm Hg06/16/20255688Jgvwek426.0 lbs 06/16/2025BMI21.79 kg/m206/16/2025 Encounters Encounter Location Date Provider Diagnosis [address] [address] 10/01/2024 Prasad Hoy Itching L29.[address] [address] 04/07/2025 Prasad Hoy Gastroenteritis K52. 9 ; Helicobacter pylori [H. pylori] as the cause of diseases classified elsewhere B96.81 ; Gastroparesis K31.84 ; Hypertension I10 ; Hypothyroidism E03.9 and Tremor R25.[address] [address] 09/21/2024 Prasad Hoy Gastroenteritis K52. 9 ; Hypertension I10 ; Chronic obstructive pulmonary disease (COPD) J44.9 ; Hypothyroidism E03.9 and Anemia D64.[address] [address] 06/16/2025 Prasad Hoy Gastroenteritis K52. 9 ; Gastro-esophageal reflux disease K21.9 ; Pyloric stenosis, congenital Q40.0 and Encounter for immunization Z23 [address] [address] 06/19/2024 Prasad Hoy Chronic obstructive pulmonary disease (COPD) J44.[address] [address] 07/02/2024 Prasad Hoy Gastroparesis K31.[address] [address] 07/20/2024 Prasad Hoy Chronic obstructive pulmonary disease (COPD) J44.[address] [address] 08/03/2024 Prasad Hoy Gastroparesis K31.[address] [address] 08/20/2024 Prasad Hoy Chronic obstructive pulmonary disease (COPD) J44.9 [facility] [address] [place] [address] 09/04/2024 Prasad Hoy Gastroparesis K31.84 [facility] [address] [place] [address] 09/11/2024 Prasad Hoy Chronic obstructive pulmonary disease (COPD) J44.9 [facility] [address] [place] [address] 09/22/2024 Prasad Hoy [facility] [place] [address] 10/09/2024Doug HoyGastroparesis K31.84[facility] [place] [address]/Doug HoyGastroenteritis K52.9[facility] [place] [address]/03/2025 [facility]oyB[facility] [place] [address]/Doug HoyGastroparesis K31.84[facility] [address] [place] [address]/Doug HoyGastroenteritis K52.9 [facility] [place] [address] 12/16/2024Doug HoyGastroparesis K31.84[facility] [place] [address]/Doug HoyGastroparesis K31.84[facility] [place] [address]/ Prasad HoyGastroenteritis K52.9 and Chronic obstructive pulmonary disease (COPD) J44.9B[facility] [place] [address] 12/28/2024Doug HoyChronic obstructive pulmonary disease (COPD) J44.9B[facility] [place] [facility] [place] [address]/ Prasad HoyGastroparesis K31.84[facility] [facility] [address]/Doug HoyGastroenteritis K52.9B[facility] [place] [facility] [place] [place] [address]/Doug Hoy Gastroparesis K31.84BV[facility] [facility] [place] [address]/08/2024Doug HoyGastroenteritis K52.9B[facility] [address] [place] [facility] [place] [place] [address]/05/2025Doug HoyGastroenteritis K52.9B[facility] [place] [facility] [place] [address] 04/06/2025Doug HoyGastroparesis K31.84Bu[facility] [place] [facility] [place] [address]/Doug [facility] [place] [facility] [place] [address]/Doug [facility] [facility] [place] [address]/11/2024 Prasad HoyGastroenteritis K52.9B[facility] [place] [facility] [place] [address]/01/2025Doug HoyGastroenteritis K52.9 Assessments Encounter Date Diagnosis (ICD Code) Assessment Notes Treatment Notes Treatment Clinical Notes Section Notes 09/21/2024 Gastroenteritis (ICD-10 - K52.9) Get plenty of rest. Stay hydrated by sucking on ice chips or taking small sips of water. You can also try drinking clear soda, clear broths or noncaffeinated sports drinks. Stop eating solid foods for a few hours to let your stomach settle. East back into eating by eating bland, zqce-sz-thkblc foods like crackers, toast, gelatin, bananas, rice and chicken. Try to avoid foods/substances including dairy products, caffeine, alcohol, nicotine and fatty or highly seasoned foods. Medications such as ibuprofen or tylenol can make your stomach more upset, so use sparingly if at all. Also avoid srsb-sdn-cuhefqc anti-diarrheal medications because it can make it harder for your body to eliminate the virus.09/21/2024Hypertension (ICD-10 - I10)10/01/2024Itching (ICD- 10 - L29.9)04/07/2025Gastroenteritis (ICD-10 - K52.9)Get plenty of rest. Stay hydrated by sucking on ice chips or taking small sips of water. You can also try drinking clear soda, clear broths or noncaffeinated sports drinks. Stop eating solid foods for a few hours to let your stomach settle. East back into eating by eating bland, fzxm-kn-omhsma foods like crackers, toast, gelatin, bananas, rice and chicken. Try to avoid foods/substances including dairy products, caffeine, alcohol, nicotine and fatty or highly seasoned foods. Medications such as i buprofen or tylenol can make your stomach more upset, so use sparingly if at all. Also avoid mtvq-xyx-vvfmvbe anti-diarrheal medications because it can make it harder for your body to eliminate the virus.04/07/2025Helicobacter pylori [H. pylori] as the cause of diseases classified elsewhere (ICD-10 - B96.81) 04/07/2025Gastroparesis (ICD-10 - K31.84)04/07/2025Hypertension (ICD-10 - I10) 04/07/2025Hypothyroidism (ICD-10 - E03.9)04/07/2025Tremor (ICD-10 - R25.1) 06/16/2025Gastroenteritis (ICD-10 - K52.9)Get plenty of rest. Stay hydrated by sucking on ice chips or taking small sips of water. You can also try drinking clear soda, clear broths or noncaffeinated sports drinks. Stop eating solid foods for a few hours to let your stomach settle. East back into eating by eating bland, mddc-zy-mcoecq foods like crackers, toast, gelatin, bananas, rice and chicken. Try to avoid foods/substances including dairy products, caffeine, alcohol, nicotine and fatty or highly seasoned foods. Medications such as i buprofen or tylenol can make your stomach more upset, so use sparingly if at all. Also avoid ksun-hvp-cgvekce anti-diarrheal medications because it can make it harder for your body to eliminate the virus.06/16/2025Gastro-esophageal reflux disease (ICD-10 - K21.9)06/16/2025Pyloric stenosis, congenital (ICD-10 - Q40.0)4Chronic obstructive pulmonary disease (COPD) (ICD-10 - J44.9) 07/02/2024Gastroparesis (ICD-10 - K31.84)5Chronic obstructive pulmonary disease (COPD) (ICD-10 - J44.9)08/03/2024Gastroparesis (ICD-10 - K31.84) 5Chronic obstructive pulmonary disease (COPD) (ICD-10 - J44.9) 09/04/2024Gastroparesis (ICD-10 - K31.84)5Chronic obstructive pulmonary disease (COPD) (ICD-10 - J44.9)10/09/2024Gastroparesis (ICD-10 - K31.84) 10/23/2024Gastroenteritis (ICD-10 - K52.9)11/16/2024Gastroparesis (ICD-10 - K31.84)11/26/2024Gastroenteritis (ICD-10 - K52.9)12/16/2024Gastroparesis (ICD-10 - K31.84)12/18/2024Gastroparesis (ICD-10 - K31.84)12/25/2024Gastroenteritis (ICD-10 - K52.9)5Chronic obstructive pulmonary disease (COPD) (ICD-10 - J44.9)01/18/2025Gastroparesis (ICD-10 - K31.84)01/28/2025Gastroenteritis (ICD-10 - K52.9)02/23/2025Gastroparesis (ICD-10 - K31.84)03/03/2025Gastroenteritis (ICD- 10 - K52.9)03/12/2025Gastroenteritis (ICD-10 - K52.9)04/06/2025Gastroparesis (ICD-10 - K31.84)05/06/2025Gastroenteritis (ICD-10 - K52.9)06/07/2025 Gastroenteritis (ICD-10 - K52.9)5Chronic obstructive pulmonary disease (COPD) (ICD-10 - J44.9)06/16/2025Encounter for immunization (ICD-10 - Z23) 5Chronic obstructive pulmonary disease (COPD) (ICD-10 - J44.9) 09/21/2024Hypothyroidism (ICD-10 - E03.9)5Anemia (ICD-10 - D64.9) Plan Of Treatment Pending Test Test Name Order Date Barium : Upper GI Series 04/10/2024 CMP (COMPLETE METABOLIC PANEL) 3 CMP (COMPLETE METABOLIC PANEL) 4 CULTURE, STOOL 04/07/2025 CULTURE, STOOL 06/16/2025 REDUCING SUBSTANCE, STOOL 04/07/2025 HEMOGLOBIN A1C (GLYCO) 06/16/2025 HEMOGLOBIN A1C (GLYCO) 02/06/2023 HEMOGLOBIN A1C (GLYCO) 09/21/2024 HEMOGLOBIN A1C (GLYCO) 08/28/2023 HEMOGLOBIN A1C (GLYCO) 04/07/2025 IRON, TOTAL 04/07/2025 IRON, TOTAL 09/21/2024 IRON, TOTAL 08/28/2023 IRON, TOTAL 02/06/2023 IRON, TOTAL 06/16/2025 LIPID PANEL (CHOL/TRIG/HDL/LDL) 04/07/20 25 LIPID PANEL (CHOL/TRIG/HDL/LDL) 06/16/20 25 LIPID PANEL (CHOL/TRIG/HDL/LDL) 02/07/20 23 LIPID PANEL (CHOL/TRIG/HDL/LDL) 08/28/19 24 LIPID PANEL (CHOL/TRIG/HDL/LDL) 09/22/19 25 CBC WITH DIFF (EXP 05/2025) 08/28/2023 CBC WITH DIFF (EXP 05/2025) 02/06/2023 VITAMIN D, 25 LEVEL (TOTAL) 02/06/2023 VITAMIN D, 25 LEVEL (TOTAL) 08/28/2023 VITAMIN D, 25 LEVEL (TOTAL) 09/21/2024 VITAMIN D, 25 LEVEL (TOTAL) 06/16/2025 CT Sinus w/o contrast * 08/28/2023 Stool For Leukocytes 04/07/2025 Lactoferrin, Stool 04/07/2025 Insulin Level 08/28/2023 C DIFF TOX PCR STOOL 04/07/2025 C DIFF TOX PCR STOOL 06/16/2025 PT - INR 06/16/2025 STOOL OCCULT BLOOD 06/16/2025 STOOL OCCULT BLOOD 02/06/2023 STOOL OCCULT BLOOD 04/07/2025 AMMONIA 06/16/2025 AMYLASE 06/16/2025 AMYLASE 04/07/2025 BNP 08/28/2023 CA 125 04/07/2025 CA 19-9 04/07/2025 CA 19-9 06/16/2025 CEA 06/16/2025 CEA 04/07/2025 H PYLORI ANTIBODY IGG 04/07/2025 LIPASE 04/07/2025 LIPASE 06/16/2025 PTT 06/16/2025 CT ABD and PELV W CON 06/16/2025 XR ABD FLAT UP_PA CH 05/29/2023 THYROID PANEL (T4/TSH/FREE T3) 3 THYROID PANEL (T4/TSH/FREE T3) 4 THYROID PANEL (T4/TSH/FREE T3) 5 THYROID PANEL (T4/TSH/FREE T3) 5 THYROID PANEL (T4/TSH/FREE T3) 5 MM screening mammo BI 09/21/2024 FL ESOPHAGUS BARIUM SWALLOW 04/10/2024 Ova + Parasite Exam 06/16/2025 CMP (COMP MET CHEATHAM) w/eGFR CKD-EPI 2024 CMP (COMP MET CHEATHAM) w/eGFR CKD-EPI 2024 CMP (COMP MET CHEATHAM) w/eGFR CKD-EPI 2024 CBC WITH DIFF 04/07/2025 CBC WITH DIFF 09/21/2024 CBC WITH DIFF 06/16/2025 Insurance Providers Payer Name Payer Address Payer Phone Subscriber Number Group Number Insured Name Patient Relationship to Insured Coverage Start Date Coverage End Date [place] [address] [place] [address] [id number] Alex Muniz - patient is the [id number] 2004[facility] [address] [place] [id number], KathrynSelf - patient is the insured Medications Administered Medication Instructions Date of Administration Dosage Notes Dexamethasone, 4mg/mL [id number] hw46Oitefxhlrmbr, 25 mg42 mL50 Promethazine, 25 mg450 mg50 Medical (General) History Medical History History ICD [...] tobacco abuse Z87.891 Surgical History Surgery Date(Month/Year) Cataract Removal 11/2023 Stomach Ulcer Breast Biopsy-RightLeft Wrist Tendon RepairCardiac Kmjdtjym4807Zqvjotk Oifozofkfhznqna88/01/2022rhinoplastytubal ligationtonsillectomy and adenoidectomydilatation and curettage
[2025-06-19 09:53] LABS: Ammonia 19 umol/L (11-32)
[2025-06-19 10:25] LABS: Hematocrit 32.4 % (36.0-48.0); Hemoglobin 10.2 g/dL (12.0-16.0); Immature Granulocytes Abs Auto 0.01 10^3/uL (0.00-0.03); Immature Granulocytes Pct Auto 0.2 % (0.0-0.5); Lymphocytes Absolute Auto 1.6 10^3/uL (1.2-3.8); Mean Corpuscular HGB Conc 31.5 g/dL (29.9-35.2); Mean Corpuscular Hemoglobin 28.8 pg (26.7-34.0); Mean Corpuscular Volume 91.5 fL (81.0-99.0); Platelet Count 243 10^3/uL (150-450); Red Blood Count 3.54 10^6/uL (4.20-5.40); White Blood Count 4.6 10^3/uL (4.0-11.0)
[2025-06-19 10:34] LABS: Alanine Aminotransferase 15 U/L (14-59); Albumin Globulin Ratio 1.0; Albumin Level 3.3 g/dL (3.4-5.0); Alkaline Phosphatase 125 U/L (46-116); Amylase 40 U/L (25-115); Anion Gap 12.3; Aspartate Amino Transferase 16 U/L (15-37); Blood Urea Nitrogen 19.0 mg/dL (7.0-18.0); Calcium 8.6 mg/dL (8.5-10.1); Carbon Dioxide 27.0 mmol/L (21.0-32.0); Chloride 104 mmol/L (98-107); Cholesterol 160 mg/dL (<=200); Estimated GFR (African America >60 (>=60 mL/min/1.73m^2); Estimated GFR (Non-African Ame >60 (>=60 mL/min/1.73m^2); Free T3 2.02 pg/mL (2.18-3.98); Globulin 3.2 g/dL; Glucose 91 mg/dL (74-106); HDL Cholesterol 61 mg/dL (40-60); INR 1.04; Lipase 24.0 U/L (16.0-77.0); Partial Thromboplastin Time 29.9 sec (22.3-36.2); Potassium 4.3 mmol/L (3.5-5.1); Prothrombin Time 10.9 sec (9.0-11.6); Sodium 139 mmol/L (136-145); Thyroid Stimulating Hormone 0.558 uIU/mL (0.358-3.740); Total Protein 6.5 g/dL (6.4-8.2); Triglycerides 76 mg/dL (<=150); VLDL CHOLESTEROL 15.2 mg/dL
[2025-06-19 11:43] LABS: Iron 57.0 ug/dL (50.0-170.0)
[2025-06-20 06:37] LABS: CA 19-9 17 U/mL (0-35); CEA 3.4 ng/mL (0.0-4.7)
== END 2025-06-19 09:06 | disposition home or self-care (01) ==
LOC: LAB 09:06
PROVIDERS: PCP Family Medicine; Visit Provider Family Medicine
DX: K52.9 Noninfective gastroenteritis and colitis, unspecified (principal); K21.9 Gastro-esophageal reflux disease without esophagitis; Q40.0 Congenital hypertrophic pyloric stenosis; E78.5 Hyperlipidemia, unspecified; R73.09 Other abnormal glucose; Z12.12 Encounter for screening for malignant neoplasm of rectum; D64.9 Anemia, unspecified; E03.9 Hypothyroidism, unspecified; E55.9 Vitamin D deficiency, unspecified; I10 Essential (primary) hypertension; D50.9 Iron deficiency anemia, unspecified
CPT/HCPCS: 36415; 80053; 80061; 82140; 82150; 82306; 82378; 83036; 83540; 83690; 84436; 84443; 84481; 85025; 85610; 85730; 86301

== ENCOUNTER 2025-06-20 07:56 | Outpatient (REF) | payer MEDICARE, OTHER, SELFPAY ==
--- OUTSIDE RECORDS SUMMARY | 2024-09-17 09:00 | XMS_ITS ---
Author Organization The [facility] in [place] Address [address] [facility] [place] [address] Care Team Providers Care Inventory Assistant Name Role Phone Prasad Bowman Primary Care Provider REASON FOR VISIT Medicare Wellnes Encounters Encounter Location Date Provider Diagnosis [facility] [address] [place] [address] 09/17/2024 Prasad Bowman Plan Of Treatment No Information Progress Notes * Julissa MUNIZ LDOB:[birth year] (65 yo F)Acc No.[id number]:09/17/2024 UNLOCKED PROGRESS NOTE Progress Note Patient: Julissa GORMAN :?Sadiq BILLINGS), MDDOB:1960???Age: 64 Y???Sex:FemaleDate:09/17/2024Phone:[phone]:[id number], [facility] Subjective: * Chief Complaints: * 1 . Medicare [facility] * Medical History: Objective: * Vitals: Assessment: Plan: * Treatment: * * Electronic signature of Prasad Bowman MD, [id number] on 06/20/2025 at 08:02 AM EST Sign off status: PendingVisit Status:?CANCPHONE (Cancelled Phone) * Provider: Anusha Bowman MD (TTC) Date: 0 09/17/2024 Generated for Printing/Faxing/eTransmitting on:?06/20/2025 08:02 AM EST
--- OUTSIDE RECORDS SUMMARY | 2025-06-16 09:30 | XMS_ITS ---
Author Organization [facility] in [place] Address [address] [place] [address] Care Team Providers Care Medical Assisting Instructor Name Role Phone GarciaPrasad gilman Primary Care Provider [phone] Allergies Allergen (clinical drug ingredient) Drug/Non Drug Allergy documented on EMR Reaction Allergy Type Onset Date Status morphine Morphine Sulfate rash Drug Allergy ActiveZofranUnknownDrug AllergyActiveLatexLatexrashAllergyActivenickelNickelrash AllergyActive Results Component Value Reference Range Notes AMMONIA (Not yet reviewed by provider) Interpretation: Performing Lab: Notes/Report: [facility] , Ammonia 19 11-32 umol/L Performing Lab:see note - [facility] LBAMYLASE (Not yet reviewed by provider) Interpretation: Performing Lab: Notes/Report: [facility] ,Lacwdcs8963-988 U/LPerforming Lab:see note - [facility] LBLIPASE (Not yet reviewed by provider) Interpretation: Performing Lab: Notes/Report: [facility] ,Uttsjl96.016.0-77.0 U/LPerforming Lab:see noteML - [facility] LBPTT (Not yet reviewed by provider) Interpretation: Performing Lab: Notes/Report: [facility] ,Partial Thromboplastin Time29.922.3-36.2 secPerforming Lab:see note - [facility] LB Reason For Referral Reason recurrent reflux and diarrhea Diagnosis 1 Gastroenteritis (K52 .9) Referral Organization [facility] Referring Provider First Name Prasad Referring Provider Last Name Gracie Referring Provider [facility] icine Referred Provider Raheem Clancy Referred Provider Specialty [...] capsule Orally Once a day; Duration: 30 4ActivePlavix 75 MG1 tablet Orally Once a dayActive Rizatriptan Benzoate 10 mgDISSOLVE 1 TABLET ON TONGUE AT ONSET OF A HINT OF A MIGRAINE, MAY REPEAT IN 2 HOURSPRNActivePromethazine HCl 25 mg TAKE 1 TABLET BY MOUTH EVERY 6 HOURS NEEDED 4 times a day; Duration: 30 days As needed ActivePantoprazole Sodium 40 mgTAKE 1 TABLET DAILYActiveNystatin 113069 UNIT/ML5 ml Mouth/Throat Four times a day; Duration: 14 5ActiveLiothyronine Sodium 5 MCG2 tablets Orally Once a [...] Administration Date Status Comme nts Flu, Fluad (83012) 65 yrs and older, single-dose syringe (7159-2180) IM Intramuscular 06/16/2025 Administered Social History Tobacco Use: Social History Observation Description Date Details (start date - stop date) Former Smoker NA - NA Tobacco Use/Smoking Question Answer Notes Patient is a former smoker How long has it been since you last smoked?6-12 monthsAdditional Findings: Tobacco Qyc-QkzqPi-iubmn cigarette smoker (20-30/day)Tobacco Control (Standard) Question Answer Notes Tobacco use: Former smoker How long has it been since you last smoked?1-5 yearsAdditional Findings: Tobacco hfh-zdgsAw-zuipvxzc cigarette smoker (10-19/day)AUDIT-C (Standard) Question Answer Notes Did you have a drink containing alcohol in the p ast year? No Ximzxk9PnkpzzhjiizebjZrkuigvc Vital Signs Weight 135.0 lbs 06/16/2025 Height 66 in 06/16/2025 Blood pressure systolic 110 mm Hg 06/16/20 25 Blood pressure diastolic 60 mm Hg 025 BMI 21.79 kg/m2 06/16/2025 Encounters Encounter Location Date Provider Diagnosis [address] [place] [address] 06/16/2025 Prasad Hoy Gastroenteritis K52. 9 ; [...] East back into eating by eating bland, oemr-up-qdacnw foods like crackers, toast, gelatin, bananas, rice and chicken. Try to avoid foods/substances including dairy products, caffeine, alcohol, nicotine and fatty or highly seasoned foods. Medications such as ibuprofen or tylenol can make your stomach more upset, so use sparingly if at all. Also avoid dmtr-oyz-ylhklar anti-diarrheal medications because it can make it [...] East back into eating by eating bland, lrzj-zc-ucghns foods like crackers, toast, gelatin, bananas, rice and chicken. Try to avoid foods/substances including dairy products, caffeine, alcohol, nicotine and fatty or highly seasoned foods. Medications such as ibuprofen or tylenol can make your stomach more upset, so use sparingly if at all. Also avoid tteo-ggs-yvcqxlz anti-diarrheal medications because it can make it harder for your body to eliminate the virus. Pending Test Test Name Order Date CULTURE, STOOL 06/16/2025 HEMOGLOBIN A1C (GLYCO) 06/16/2025 IRON, TOTAL 06/16/2025 LIPID PANEL (CHOL/TRIG/HDL/LDL) 06/16/20 25 VITAMIN D, 25 LEVEL (TOTAL) 06/16/2025 C DIFF TOX PCR STOOL 06/16/2025 PT - INR 06/16/2025 STOOL OCCULT BLOOD 06/16/2025 AMMONIA 06/16/2025 AMYLASE 06/16/2025 CA 19-9 06/16/2025 CEA 06/16/2025 LIPASE 06/16/2025 PTT 06/16/2025 CT ABD and PELV W CON 06/16/2025 THYROID PANEL (T4/TSH/FREE T3) Ova + Parasite Exam 06/16/2025 CMP (COMP MET CHEATHAM) w/eGFR CKD-EPI 2024 CBC WITH DIFF 06/16/2025 Referrals Referral Date Details 06/16/2025 06/16/2025, recurren t reflux and diarrhea, Raheem Clancy Progress Notes * Faiza MUNIZhryn LDOB:[birth year] (65 yo F)Acc No.[id number]:06/16/2025 Progress Note Patient: Julissa GORMAN :?Sadiq Bowman ([facility]), MDDOB:1960???Age: 65 Y???Sex:FemaleDate:06/16/2025Phone:[phone]:[address], [address], [place], [place]Suqpz In:02:37 PM ESTCheck Out:03:08 PM EST Subjective: [...] History of tobacco a buse Modified On:10/15/2023 Status:cxggbkgtfB39.81Helicobacter pylori [H. pylori] as the cause of diseases classified elsewhere Modified On:11/22/2022 Status:rnwhfapqkT01.1Supraventricular tachycardia Modified On:11/22/2022 Status:hikpqpkieN55.84Gastroparesis Modified On:09/06/2023 Status:fiqqigjkkD86Idheakzizyjx Modified On:08/28/2023 Status:hfqlkvrkzJ51.9Chronic obstructive pulmonary disease (COPD) Modified On:09/06/2023 Status:izhzmdbwvX03.9Hypothyroidism Modified On:08/28/2023 Status:wbwjrlvktY71.9Anxiety Modified On:11/22/2022 Status:yakpbkueyU31.1Tremor Modified On:11/22/2022 Status:zxvsvzgzoL48.9Edema Modified On:11/22/2022 Status:hnjppqckqV08.10Coronary artery disease Modified On:08/28/2023 Status:zismbagguT40.9Anemia Modified On:11/22/2022 Status:pxmqbyfyfV23.33Obstructive sleep apnea Modified On:08/28/2023 Status:lrievzlonV24.909Migraine Modified On:11/22/2022 Status:slvzzwpttS30.50Arthralgia Modified On:11/22/2022 Status:obhtkklqoH53.00Well adult Modified On:11/22/2022 Status:pkiqrfkawN14.9Hair loss Modified On:11/22/2022 Status:viwnvscgxZ83.2Leg cramps Modified On:11/22/2022 Status:qrwnnilvoJ78.3Over weight Modified On:11/22/2022 Status:szydulfkiU52.2Allergic rhinitis, seasonal Modified On:11/22/2022 Status:umrnigvnjP45.8Upper airway resistance syndrome Modified On:09/12/2022 Status:vjramvkbhF75.80Duodenitis Modified On:11/22/2022 Status:nnrenaatsM84.1Keratosis, seborrheic Modified On:11/22/2022 Status:vwugqsegxA51.9Gastro-esophageal reflux disease Modified On:11/22/2022 Status:pweudxwpbC49.0Pyloric stenosis, congenital Modified On:11/22/2022 Status:jvhzbkrjyY50.399Vertigo, peripheral Modified On:11/22/2022 Status:atpzakyviQ15.4Excessive weight loss Modified On:11/22/2022 Status:cjfeufaouX83.001Chondrodermatitis nodularis helicis, right Modified On:11/22/2022 Status:ggofwwucpP67.12Osteoarthritis of left knee, unspecified osteoarthritis type Modified On:11/22/2022 Status:zaclruiabW33.11Osteoarthritis of right knee, unspecified osteoarthritis type Modified On:11/22/2022 Status:fbdkkyscqF36.50Low back pain, unspecified Modified On:11/22/2022 Status:iyrylnhwqZ88.10Atherosclerotic heart disease of [place] coronary artery without angina pectoris Modified On:04/11/2023 Status:zjgksjtesE32.10Supraventricular tachycardia, unspecified Modified On:04/11/2023 Status:tjhjlqqvfU31.9Abdominal pain Modified On:05/29/2023U Status:kduhwlzmcZ02.2Venous insufficiency Modified On:04/10/2024 Status:kfkfrxaxpH88.9Itching Modified On:10/01/2024 Status:confirmed * Medical History: * Surgical History: d ilatation and curettage tonsillectomy and adenoidectomy tubal ligation rhinoplasty Cardiac Catheterization 2Cardiac Ablation 2013Left Wrist Tendon Repair Breast Biopsy-Right Stomach Ulcer Cataract Removal 11/2023 * Hospitalization/Major Diagno stic Procedure: N o Hospitalization History. * Family History: F ather: , emphysema, diagnosed with Cancer, Diabetes. M other: , diagnosed with Heart Disease. S ister(s): alive, Lung cancer, diagnosed with Heart Disease. D moriah(s): alive. P aternal Grandmother: blood clot. P [...] directed Sublingual , Notes to Pharmacist: PRNNystatin 819752 UNIT/ML Suspension 5 ml Mouth/Throat Four times [...] Sublingual , Notes to Pharmacist: PRNTaking Nystatin 517349 UNIT/ML Suspension 5 ml Mouth/Throat Four times [...] East back into eating by eating bland, evgh-os-feagzp foods like crackers, toast, gelatin, bananas, rice and chicken. Try to avoid foods/substances including dairy products, caffeine, alcohol, nicotine and fatty or highly seasoned foods. Medications such as ibuprofen or tylenol can make your stomach more upset, so use sparingly if at all. Also mvuqiczzv-prb-urummwj anti- diarrheal medications because it can make [...] CBC WITH DIFF * Immunizations: Flu, Fluad (04047) 65 yrs and older, single-dose syringe (9427-4053) : 0.5 mL (Route: Intramuscular) given by JARRETT Charles on Left Deltoid (Encounter for immunization) * Procedure Codes: 9 0653 FLU VACCINE ADJUVANT [id number] ADMIN. INFLUENZA * * Sign off status: CompletedVisit Status:?CHK (Check Out) true * Provider: Anusha Bowman ([facility])MD Date: 1 08/17/2024 Generated for Printing/Faxing/eTransmitting on:?06/20/2025 08:01 AM EST History and Physical Notes * HPI [...]
--- OUTSIDE RECORDS SUMMARY | 2025-06-20 08:02 | XMS_ITS | Clinical Summary ---
Author Organization [facility] Address [address], [address] [place] [address] Care Team Providers Care Housekeeping Laundry Worker Name Role Phone Sadiq Bowman MD Primary Care Provider [phone] Allergies Active AllergyReactionsCriticalityNoted StztIjwofczxTcayp05/04/2013Morphine 03/04/20137115Jxckxz40/04/2013 Medications MedicationSigDispense QuantityRefillsLast FilledStart DateEnd DateStatus esomeprazole [...] InformationValueDate RecordedSex Assigned at BirthNot on fileLegal BsdQhxjjz95/10/2013 1:03 PM ESTGender IdentityNot on fileSexual OrientationNot on file Last Filed Vital Signs Vital SignReadingTime TakenCommentsBlood Zcmipvld742/60003/06/2013 11:30 AM EDT Zckeb465203/06/2013 11:30 AM UIJNcipgyjlbyg40.8 ??C (98.2 ??F)03/06/2013 11:30 AM EDTRespiratory Hssd550403/06/2013 11:30 AM EDTOxygen Tyhteqrkqr46%03/06/2013 11:30 AM EDTInhaled Oxygen Concentration--Prpmky22.5 kg (204 lb)03/05/2013 7:42 PM EDT Iiecfq943.2 cm (5' 7 )03/04/2013 11:00 AM EDTBody [...] MemberRelationshipSpecialtyStart DateEnd Sadiq Bowman MD [address] [place] [address] [facility]01/21/13
--- OUTSIDE RECORDS SUMMARY | 2025-06-20 08:02 | XMS_ITS | Patient Health Record ---
Author Organization [facility] in [place] Address [address] [place] [address] Care Team Providers Care Rfid Manager Name Role Phone Prasad Bowman Primary Care Provider [phone] Allergies Allergen (clinical drug ingredient) Drug/Non Drug Allergy documented on EMR Reaction Allergy Type Onset Date Status morphine Morphine Sulfate rash Drug Allergy ActiveZofranUnknownDrug AllergyActiveLatexLatexrashAllergyActivenickelNickelrash AllergyActive Results Component Value Reference Range Notes AMMONIA (Not yet reviewed by provider) Interpretation: Performing Lab: Notes/Report: [facility] , Ammonia 19 11-32 umol/L Performing Lab:see note - [facility] LBAMYLASE (Not yet reviewed by provider) Interpretation: Performing Lab: Notes/Report: [facility] ,Ovhxhnf4359-214 U/LPerforming Lab:see note - [facility] LBLIPASE (Not yet reviewed by provider) Interpretation: Performing Lab: Notes/Report: [facility] ,Lcrrjv41.016.0-77.0 U/LPerforming Lab:see note - [facility] LBPTT (Not yet reviewed by provider) Interpretation: Performing Lab: Notes/Report: [facility] ,Partial Thromboplastin Time29.922.3-36.2 secPerforming Lab:see note - [facility] LBCA echo doppler complete Reviewed date:12/02/2024 09:57:06 PM Interpretation: Performing Lab: Notes/Report: Source Facility: [place] [id number] [place] [id number] Cardiology Report Signed Patient: JULISSA MUNIZ MR#: [id number] : 1960 Acct:[id number] Age/Sex: 64 / F ADM Date: 12/02/24 Loc: CARD Attending Dr: GAYATRI HUSSEIN APRN Ordering Physician: GAYATRI HUSSEIN APRN Date of Service: 12/02/24 Procedure(s): CA echo doppler complete Accession Number(s): [id number] cc: Sadiq Bowman M.D.; GAYATRI HUSSEIN APRN Patient Name: JULISSA MUNIZ MR#: [id number] : 1960 Exam Date: 12/02/2024 Ordering Doctor: GAYATRI HUSSEIN CNP ECHOCARDIOGRAM REPORT PROCEDURE: CA ECHO DOPPLER COMPLETE [...] DRAKE Signed By: 12/02/241904 DD/ 03 TD/TT: [employer]ley[employer] Coach:GISELLA Reviewed date:04/18/2025 11:43:59 AM Interpretation: Performing Lab: Notes/Report: [facility] GISELLA3.40.0-4.7 ng/mL Nonsmokers <3.9 Smokers <5.6 [facility] Electrochemiluminescence Immunoassay (ECLIA) Values obtained with different assay methods or kits cannot be used interchangeably. Results cannot be interpreted as absolute evidence of the presence or absence of malignant disease. Performing Lab:see [facility] LBCA 19-9 Reviewed date:04/18/2025 11:43:59 AM Interpretation: Performing Lab: Notes/Report: [facility] ,CA 19-9150-35 U/mL [facility] Electrochemiluminescence Immunoassay (ECLIA) Values obtained with different assay methods or kits cannot be used interchangeably. Results cannot be interpreted as absolute evidence of the presence or absence of malignant disease. Performed at: [address] [id number] Policy Intern: Marcus Drummond PhD, Phone: [phone] Performing Lab:see [facility] 125 Reviewed date:04/18/2025 11:43:59 AM Interpretation: Performing Lab: Notes/Report: [facility] ,Cancer Antigen (CA) 17394.80.0-38.1 U/mL [facility] Electrochemiluminescence Immunoassay (ECLIA) Values obtained with different assay methods or kits cannot be used interchangeably. Results cannot be interpreted as absolute evidence of the presence or absence of malignant disease. Performed at: [address] [id number] Policy Intern: Marcus Drummond PhD, Phone: [phone] Performing Lab:see [facility] OrlandoCBC AUTO DIFF (Not yet reviewed by provider) Interpretation: Performing Lab: Notes/Report: [facility] ,White Blood Count4.64.0-11.0 10 3/uLRed Blood Count3.544.20-5.40 10 6/uL Sfjigyddho71.212.0-16.0 g/kCVbvfbtwfld39.436.0-48.0 %Mean Corpuscular Jygdpi00.5 81.0-99.0 fLMean Corpuscular Lvqsjdcsuy24.826.7-34.0 pgMean Corpuscular HGB Conc 31.529.9-35.2 g/dLRed Cell Distribution Width15.311.0-15.0 %Platelet Bptwr403 150-450 10 3/uLMean Platelet Hxyffq54.19.5-13.5 fLNeutrophils Percent Auto49.8 43.0-75.0 %Lymphocytes Percent Auto34.920.5-60.0 %Monocytes Percent Auto9.31.7- 12.0 %Eosinophils Percent Auto4.70.9-7.0 %Basophils Percent Auto1.10.2-2.0 % Immature Granulocytes Pct Auto0.20.0-0.5 %Neutrophils Absolute Auto2.31.4-6.5 10 3/uLLymphocytes Absolute Auto1.61.2-3.8 10 3/uLMonocytes Absolute Auto0.40.3- 0.8 10 3/uLEosinophils Absolute Auto0.20.0-0.7 10 3/uLBasophils Absolute Auto0.1 0.0-0.1 10 3/uLImmature Granulocytes Abs Auto0.010.00-0.03 10 3/uLPerforming Lab:see note - [facility] LBFREE T3 (Not yet reviewed by provider) Interpretation: Performing Lab: Notes/Report: [facility] ,Free T32.022.18-3.98 pg/mLPerforming Lab:see note - [facility] LB GLYCOHEMOGLOBIN A1C (Not yet reviewed by provider) Interpretation: Performing Lab: Notes/Report: [facility] ,Glycohemoglobin A1C5.64.5-6.2 % ADA RECOMMENDED LIMIT 4.0 - 6.0 ADA THERAPEUTIC TARGET < 7.0 ACTION SUGGESTED > 7.0 Estimated Average Zvpqiye138Vjuautzfhx Lab:see note - [facility] LB IRON (Not yet reviewed by provider) Interpretation: Performing Lab: Notes/Report: [facility] ,Iron57.050.0-170.0 ug/dLPerforming Lab:see note - [facility] LB LIPID PROFILE (Not yet reviewed by provider) Interpretation: Performing Lab: Notes/Report: [facility] ,Tubficzogmngd16<=150 mg/eTZflpdsrxqkc523<=200 mg/dLHDL Drbooxwuajl7091-01 mg/dL > or =60 mg/dl - LOW CARDIOVASCULAR RISK <40 mg/dl - HIGH CARDIOVASCULAR RISK LDL Cholesterol Uwvmjeimmp17.0 <100 mg/dl OPTIMAL 100-129 mg/dl NEAR OR ABOVE OPTIMAL 130-159 mg/dl BORDERLINE HIGH 160-189 mg/dl HIGH >190 mg/dl VERY HIGH VLDL SXPCHWQWTBS41.2Chol HDL Ratio2.6 3.3 - 4.4 LOW RISK 4.4 - 7.1 AVERAGE RISK 7.1 - 11.0 MODERATE RISK >11.0 HIGH RISK Performing Lab:see noteML - [facility] LBPROF 14(COMP METB) (Not yet reviewed by provider) Interpretation: Performing Lab: Notes/Report: [facility] ,Fexhaa258621-105 mmol/LPotassium4.33.5-5.1 mmol/JBlzyuexh61784-000 mmol/LCarbon Gctudkr19.021.0-32.0 mmol/LAnion Gap12.9Wznlwcc1046-319 mg/dLBlood Urea Xhkstvqf98.07.0-18.0 mg/dLCreatinine0.710.55-1.02 mg/dLEstimated GFR ( Kym>60>=60 mL/min/1.73m 2Estimated GFR (Non- Kourtney>60>=60 mL/min/1.73m 2BUN Creatinine Ratio26.2Sefquvj4.68.5-10.1 mg/dLBilirubin Total0.30.2-1.0 mg/dL Aspartate Amino Twlhmdyjlcx1852-48 U/LAlanine Oicpbdwgcvxnbtzo4005-90 U/L Alkaline Empufstlevk57435-180 U/LTotal Protein6.56.4-8.2 g/dLAlbumin Level3.3 3.4-5.0 g/dLGlobulin3.2Albumin Globulin Ratio1.0Performing Lab:see note - [facility] LBT4 (Not yet reviewed by provider) Interpretation: Performing Lab: Notes/Report: [facility] ,T4 Thyroxine7.304.80-13.90 ug/dLPerforming Lab:see note - [facility] LBTSH (Not yet reviewed by provider) Interpretation: Performing Lab: Notes/Report: [facility] ,Thyroid Stimulating Hormone0.5580.358-3.740 uIU/mLPerforming Lab:see note - [facility] LBVITAMIN D 25 [place] (Not yet reviewed by provider) Interpretation: Performing Lab: Notes/Report: [facility] ,Vitamin D21.5 <20 ng/mL Vit D deficient 20-<30 ng/mL Vit D insufficient 30-100 ng/mL Vit D sufficient >100 ng/mL Potential Toxicity [facility]forming [facility] LBProthrombin Time INR (Not yet reviewed by provider) Interpretation: Performing Lab: Notes/Report: [facility] ,Prothrombin Time10.99.0-11.6 secINR1.04 DESIRED INR: 2.0-3.0 CONDITIONS NOT LISTED BELOW 2.5-3.5 FOR PROSTHETIC HEART VALVE REPLACEMENT 2.5-3.5 RECURRENT THROMBOSIS Performing Lab:[facility] LBCEA (Not yet reviewed by provider) Interpretation: Performing Lab: Notes/Report: [facility] ,CEA3.40.0-4.7 ng/mL Nonsmokers <3.9 Smokers <5.6 [facility] Electrochemiluminescence Immunoassay (ECLIA) Values obtained with different assay methods or kits cannot be used interchangeably. Results cannot be interpreted as absolute evidence of the presence or absence of malignant disease. Performing [facility] LBCA 19-9 (Not yet reviewed by provider) Interpretation: Performing Lab: Notes/Report: [facility] ,[place] 19-9170-35 U/mL [facility] Electrochemiluminescence Immunoassay (ECLIA) Values obtained with different assay methods or kits cannot be used interchangeably. Results cannot be interpreted as absolute evidence of the presence or absence of malignant disease. Performed at: [address] [id number] Policy Intern: Marcus Drummond PhD, Phone: [phone] Performing Lab:see note - [facility] Reason For Referral Reason recurrent reflux and diarrhea Diagnosis 1 Gastroenteritis (K52 .9) Referral Organization [facility] Referring Provider First Name Prasad Referring Provider Last Name Gracie Referring Provider Speciality Family [facility] aureane Referred Provider Raheem Clancy Referred Provider Specialty [...] daysActivePantoprazole Sodium 40 mgTAKE 1 TABLET DAILYActiveNystatin 133177 UNIT/ML5 ml Mouth/Throat Four times a day; [...] Administration Date Status Comme nts Flu, Afluria (5833-3952) (90 686) 3 yrs+, single-dose syringe Unknown 03/24/2020 Administered Flu, Fluad (19612) 65 yrs and older, single-dose syringe (2940-1733)IM Dnvuizrexamuz79/17/2025AdministeredPneumococcal (Prevnar 13)Qvgtezu3204/20/2020 FkurgigrczcbRWJZ-DBA-2 (COVID 19 Pfizer 30mcg/0.3mL)Admmctr7109/30/2020 Administered Social History Tobacco Use: Social History Observation Description Date Details (start date - stop date) Former Smoker NA - NA Tobacco Use/Smoking Question Answer Notes Patient is a former smoker How long has it been since you last smoked?6-12 monthsAdditional Findings: Tobacco Djz-LmqhCr-syfwo cigarette smoker (20-30/day)Tobacco Control (Standard) Question Answer Notes Tobacco use: Former smoker How long has it been since you last smoked?1-5 yearsAdditional Findings: Tobacco zfc-ocpuBz-kplivxht cigarette smoker (10-19/day)AUDIT-C (Standard) Question Answer Notes Did you have a drink containing alcohol in the p ast year? No Hwbsrg2VpbliqeipjvylkLpydydxg Problems Problem Type SNOMED Code ICD Code Onset Dates Problem Status W/U Status Risk Notes Problem Helicobacter pylori (41109254) H elicobacter pylori [H. 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 (I25.10)ActiveconfirmedProblem Supraventricular tachycardia (0886261)Supraventricular tachycardia (I47.1)Active confirmedProblemGastroparesis (976686813)Gastroparesis (K31.84)Activeconfirmed ProblemAbdominal pain (78899879)Abdominal pain (R10.9)ActiveconfirmedProblem Hypertension (86070109)Hypertension (I10)ActiveconfirmedProblemChronic obstructive pulmonary disease (15388146)Chronic obstructive pulmonary disease (COPD) (J44.9)ActiveconfirmedProblemHypothyroidism (74680000)Hypothyroidism (E03.9)ActiveconfirmedProblemAnxiety (23614101)Anxiety (F41.9)Activeconfirmed ProblemTremor (99917144)Tremor (R25.1)ActiveconfirmedProblemEdema (22030009) Edema (R60.9)ActiveconfirmedProblemCoronary artery disease (46124297)Coronary artery disease (I25.10)ActiveconfirmedProblemPeripheral venous insufficiency (65107810)Venous insufficiency (I87.2)ActiveconfirmedProblemAnemia (482336314) Anemia (D64.9)ActiveconfirmedProblemObstructive sleep apnea (39529992) Obstructive sleep apnea (G47.33)ActiveconfirmedProblemMigraine (68457779) Migraine (G43.909)ActiveconfirmedProblemArthralgia (03819085)Arthralgia (M25.50) ActiveconfirmedProblemWell adult (059642403)Well adult (Z00.00)Activeconfirmed ProblemAlopecia (35774113)Hair loss (L65.9)ActiveconfirmedProblemCramp in lower limb (892296567)Leg cramps (R25.2)ActiveconfirmedProblemOverweight (428542016) Over weight (E66.3)ActiveconfirmedProblemSeasonal allergic rhinitis (633158683) Allergic rhinitis, seasonal (J30.2)ActiveconfirmedProblemItching (552983248) Itching (L29.9)ActiveconfirmedProblemUpper airway resistance syndrome (729198915)Upper airway resistance syndrome (G47.8)ActiveconfirmedProblem Duodenitis (22439698)Duodenitis (K29.80)ActiveconfirmedProblemEx-tobacco user (finding) (321690800)History of tobacco abuse (Z87.891)ActiveconfirmedProblem Seborrheic keratosis (11514413)Keratosis, seborrheic (L82.1)Activeconfirmed ProblemGastro-esophageal reflux disease (945270421)Gastro-esophageal reflux disease (K21.9)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 (98310441)Pyloric stenosis, 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)ActiveconfirmedProblemPeripheral vertigo (31656087)Vertigo, peripheral (H81.399)ActiveconfirmedProblemExcessive weight loss (176348730)Excessive weight loss (R63.4)ActiveconfirmedProblem Perichondritis of pinna (63401712)Chondrodermatitis nodularis helicis, 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)ActiveconfirmedProblemOsteoarthritis of left knee joint (127295628897266)Osteoarthritis of left knee, unspecified osteoarthritis type (M17.12)ActiveconfirmedProblemOsteoarthritis of right knee joint (475169345988305)Osteoarthritis of right knee, unspecified osteoarthritis type (M17.11)ActiveconfirmedProblemLow back pain (818711956)Low back pain, unspecified (M54.50)ActiveconfirmedProblemSupraventricular tachycardia (disorder) (4760201)Supraventricular tachycardia, unspecified (I47.10)Active confirmed Vital Signs Blood pressure diastolic 60 mm Hg 06/16/2025 Tokjki87 in06/16/2025lood pressure oadsarss190 mm Hg06/16/20253922Lgafvp835.0 lbs 06/16/2025BMI21.79 kg/m206/16/2025 Encounters Encounter Location Date Provider Diagnosis [address] [address] 10/01/2024 Prasad Hoy Itching L29.[address] [address] 04/07/2025 Prasad Hoy Gastroenteritis K52. 9 ; Helicobacter pylori [H. pylori] as the cause of diseases classified elsewhere B96.81 ; Gastroparesis K31.84 ; Hypertension I10 ; Hypothyroidism E03.9 and Tremor R25.[address] [address] 09/21/2024 Prasad Hoy Gastroenteritis K52. 9 ; Hypertension I10 ; Chronic obstructive pulmonary disease (COPD) J44.9 ; Hypothyroidism E03.9 and Anemia D64.[address] [address] 06/16/2025 Prasad Hoy Gastroenteritis K52. 9 ; Gastro-esophageal reflux disease K21.9 ; Pyloric stenosis, congenital Q40.0 and Encounter for immunization Z23 [facility] [address] [facility] [place] [address] 07/02/2024 Prasad Hoy Gastroparesis K31.84 [facility] [address] [facility] [place] [address] 07/20/2024 Prasad Hoy Chronic obstructive pulmonary disease (COPD) J44.9 [facility] [address] [facility] [place] [address] 08/03/2024 Prasad Hoy Gastroparesis K31.84 [facility] [address] [facility] [place] [address] 08/20/2024 Prasad Hoy Chronic obstructive pulmonary disease (COPD) J44.9 [facility] [address] [facility] [place] [address] 09/04/2024 Prasad Hoy Gastroparesis K31.84 [facility] [address] [facility] [place] [address] 09/11/2024 Prasad Hoy Chronic obstructive pulmonary disease (COPD) J44.9 [facility] [address] [facility] [place] [address] 09/22/2024 Prasad Hoy [facility] [place] [address] 10/09/2024Doug HoyGastroparesis K31.84[facility] [place] [address]/25/2025Doug HoyGastroenteritis K52.9[facility] [facility] [place] [address]/03/2025 [facility] [facility] [place] [address]/Doug HoyGastroparesis K31.84[facility] [address] [place] [address]/Doug HoyGastroenteritis K52.9 [facility] [place] [address] 12/16/2024Doug HoyGastroparesis K31.84[facility] [facility] [place] [address]/Doug HoyGastroparesis K31.84[facility] [facility] [place] [address]/ Prasad HoyGastroenteritis K52.9 and Chronic obstructive pulmonary disease (COPD) J44.9[facility] [facility] [place] [address] 12/28/2024Doug HoyChronic obstructive pulmonary disease (COPD) J44.9[facility] [facility] [place] [address]/ Prasad HoyGastroparesis K31.84[facility] [facility] [place] [place] [address]/Doug HoyGastroenteritis K52.9[facility] [facility] [place] [address]/Doug Hoy Gastroparesis K31.84[facility] [facility] [place] [place] [address]/08/2024Doug HoyGastroenteritis K52.9[facility] [address] [facility] [place] [address]/05/2025Doug HoyGastroenteritis K52.9[facility] [facility] [place] [address] 04/06/2025Doug HoyGastroparesis K31.84[facility] [facility] [place] [address]/Doug [facility]oy[facility] [place] [facility] [place] [address]/Doug HoyBVAmarjit [facility] [facility] [place] [address]/11/2024 Prasad HoyGastroenteritis K52.9[facility] [place] [facility] [place] [place] [address]/01/2025Doug HoyGastroenteritis K52.9 Assessments Encounter Date Diagnosis (ICD [...] East back into eating by eating bland, abbd-ds-mhkmxl foods like crackers, toast, gelatin, bananas, rice and chicken. Try to avoid foods/substances including dairy products, caffeine, alcohol, nicotine and fatty or highly seasoned foods. Medications such as ibuprofen or tylenol can make your stomach more upset, so use sparingly if at all. Also avoid ofas-dnf-ybzohgn anti-diarrheal medications because it can make it [...] East back into eating by eating bland, qkyy-gj-loljlu foods like crackers, toast, gelatin, bananas, rice and chicken. Try to avoid foods/substances including dairy products, caffeine, alcohol, nicotine and fatty or highly seasoned foods. Medications such as i buprofen or tylenol can make your stomach more upset, so use sparingly if at all. Also avoid ponx-exd-iobewjv anti-diarrheal medications because it can make it [...] East back into eating by eating bland, kwgx-ss-zdlgoc foods like crackers, toast, gelatin, bananas, rice and chicken. Try to avoid foods/substances including dairy products, caffeine, alcohol, nicotine and fatty or highly seasoned foods. Medications such as i buprofen or tylenol can make your stomach more upset, so use sparingly if at all. Also avoid mjqr-nvs-mrspytu anti-diarrheal medications because it can make it harder for your body to eliminate the virus.06/16/2025Gastro-esophageal reflux disease (ICD-10 - K21.9)06/16/2025Pyloric stenosis, congenital (ICD-10 - Q40.0)07/02/2024Gastroparesis (ICD-10 - K31.84)07/20/2024hronic obstructive pulmonary disease (COPD) (ICD-10 - J44.9)08/03/2024Gastroparesis (ICD-10 - K31.84)5Chronic obstructive pulmonary disease (COPD) (ICD-10 - J44.9) 09/04/2024Gastroparesis (ICD-10 - K31.84)09/11/2024hronic obstructive pulmonary disease (COPD) (ICD-10 - J44.9)10/09/2024Gastroparesis (ICD-10 - K31.84) 10/23/2024Gastroenteritis (ICD-10 - K52.9)11/16/2024Gastroparesis (ICD-10 - K31.84)11/26/2024Gastroenteritis (ICD-10 - K52.9)12/16/2024Gastroparesis (ICD-10 - K31.84)12/18/2024Gastroparesis (ICD-10 - K31.84)12/25/2024Gastroenteritis (ICD-10 - K52.9)12/28/2024hronic obstructive pulmonary disease (COPD) (ICD-10 - J44.9)01/18/2025Gastroparesis (ICD-10 - K31.84)01/28/2025Gastroenteritis (ICD-10 - K52.9)02/23/2025Gastroparesis (ICD-10 - K31.84)03/03/2025Gastroenteritis (ICD- 10 - K52.9)03/12/2025Gastroenteritis (ICD-10 - K52.9)04/06/2025Gastroparesis (ICD-10 - K31.84)05/06/2025Gastroenteritis (ICD-10 - K52.9)06/07/2025 Gastroenteritis (ICD-10 - K52.9)12/25/2024hronic obstructive pulmonary disease (COPD) (ICD-10 - J44.9)06/16/2025Encounter [...] 04/07/2025 CA 19-9 04/07/2025 CA 19-9 06/16/2025 CBC AUTO DIFF 06/19/2025 CEA 06/16/2025 CEA 04/07/2025 FREE T3 06/19/2025 GLYCOHEMOGLOBIN A1C 06/19/2025 H PYLORI ANTIBODY IGG 04/07/2025 IRON 06/19/2025 LIPASE 04/07/2025 LIPASE 06/16/2025 LIPID PROFILE 06/19/2025 PROF 14(COMP METB) 06/19/2025 PTT 06/16/2025 T4 06/19/2025 TSH 06/19/2025 VITAMIN D 25 [place] 06/19/2025 CT ABD and PELV W CON 06/16/2025 XR ABD FLAT UP_PA CH 05/29/2023 THYROID PANEL (T4/TSH/FREE T3) 3 THYROID PANEL (T4/TSH/FREE T3) 4 THYROID PANEL (T4/TSH/FREE T3) 5 THYROID PANEL (T4/TSH/FREE T3) 5 THYROID PANEL (T4/TSH/FREE T3) 5 MM screening mammo BI 09/21/2024 Prothrombin Time INR 06/19/2025 FL ESOPHAGUS BARIUM SWALLOW 04/10/2024 Ova + Parasite Exam 06/16/2025 CEA 06/19/2025 CA 19-9 06/19/2025 CMP (COMP MET CHEATHAM) w/eGFR CKD-EPI 2024 CMP (COMP MET CHEATHAM) w/eGFR CKD-EPI 2024 CMP (COMP MET CHEATHAM) w/eGFR CKD-EPI 2024 CBC WITH DIFF 04/07/2025 CBC WITH DIFF 09/21/2024 CBC WITH DIFF 06/16/2025 Insurance Providers Payer Name Payer Address Payer Phone Subscriber Number Group Number Insured Name Patient Relationship to Insured Coverage Start Date Coverage End Date [place] [address] [place] [address] [id number] Alex Muniz - patient is the [id number] [address] [place] [phone], KathrynSelf - patient is the insured Medications Administered Medication Instructions Date of Administration Dosage Notes Dexamethasone, 4mg/mL mgKenalog-4000 zp80Hqlmqeojfnpt, 25 mg mL50 Promethazine, 25 mg08/29/616654 mg50 Medical (General) History Medical History History [...] tobacco abuse Z87.891 Surgical History Surgery Date(Month/Year) tonsillectomy and adenoidectomy Cataract Removal11/2023Stomach UlcerBreast Biopsy-RightLeft Wrist Tendon Repair Cardiac Qepddpdz4458Qptfhkb Drjvwjdjneboono80/01/2022rhinoplastytubal ligation dilatation and curettage
--- OUTSIDE RECORDS SUMMARY | 2025-06-20 08:02 | XMS_ITS | Clinical Summary ---
Author Organization [facility] Address [address] [place] [address] Care Team Providers Care Equine Pharmacology Technician Name Role Phone Sadiq Bowman MD Primary Care Provider [phone] Allergies Active AllergyReactionsCriticalityNoted DateCommentsErythromycin Base03/07/2022 Latex03/29/20234230Mxfvregj69/07/6542Ukuvmq69/04/2013Ondansetron Hcl03/07/2022 Medications MedicationSigDispense QuantityRefillsLast FilledStart DateEnd DateStatus [...] by mouth four times a day if rvtlej7902/07/2023ctive ezetimibe (Zetia) 10 mg tablet Indications:Coronary artery disease, unspecified vessel or lesion type, unspecified whether angina present, unspecified whether [place] or transplanted heartTAKE 1 TABLET DAILY DIRECTED 90 tablet ctive clopidogrel (Plavix) 75 mg tablet Indications:Coronary artery disease, unspecified vessel or lesion type, unspecified whether angina present, unspecified whether [place] or transplanted heartTAKE 1 TABLET DAILY DIRECTED 90 tablet ctive carvedilol (Coreg) 3.125 mg tablet Indications:Coronary artery disease, unspecified vessel or lesion type, unspecified whether angina present, unspecified whether [place] or transplanted heartTAKE 1 TABLET WITH BREAKFAST AND WITH EVENING MEAL 180 tablet ctive atorvastatin (Lipitor) 40 mg tablet Indications:Coronary artery disease, unspecified vessel or lesion type, unspecified whether angina present, unspecified whether [place] or transplanted heartTAKE 1 TABLET AT BEDTIME [...] (obstructive sleep apnea)03/07/2022VT (supraventricular tachycardia)03/07/2022 Encounters DateTypeDepartmentCare IfxuRudtixvhakb84/15/2025 2:00 PM EDTOffice Visit [facility] [address] [place] [id number] Shree Negrete MD Coronary artery disease involving [place] coronary artery of [place] heart without angina pectoris (Primary Dx); SVT (supraventricular tachycardia); Geiquzszwn35/15/2025Orders Only [facility] [address] [place] [facility] [address] Rosario Solo MA from Last 3 [...] Assigned at BirthFemale 04/09/2025 12:45 PM EDTLegal ZqsWcditc33/29/2022 10:21 PM EDTGender Identity Cvtlif3104/09/2025 12:45 PM EDTSexual OrientationHeterosexual or Straight 04/09/2025 12:45 PM EDT Last Filed Vital Signs Vital SignReadingTime TakenCommentsBlood Ljluamih188/6204/14/2025 2:18 PM EDT Rniol660604/14/2025 2:18 PM EDTTemperature--Respiratory Nyhd7779 1:09 PM EDTOxygen Iuotjysbwm75%04/14/2025 2:18 PM EDTInhaled Oxygen Concentration-- Gowbtr98.8 kg (123 lb)04/14/2025 2:18 PM OFNGkesip105.6 cm (5' 6 )04/14/2025 2:18 PM EDTBody Mass Index19.8504/14/2025 2:18 PM EDT Plan of Treatment Health MaintenanceDue DateLast DoneCommentsCT Qykqjsviieoq1958Colonoscopy 1958Colorectal Cancer Ppdhyrwkd1958FIT-DNA1958FIT1958 FOBT1958Medicare Annual Wellness (AWV)03/14/19589604Dxtaqftxfprom1958 Depression Dgojqjjqr86/14/1970Adult Gyinxma8403/14/19800789Gioeegckx06/14/1998Zoster Vaccines (1 of 2)2008Pneumococcal Vaccine: 50+ Years (2 of 2 - PPSV23, PCV20, or PCV21)/Fall Risk Cjanrvbmm38/14/2023OVID-19 Vaccine (3 - season)/08/2020, 09/09/2020Influenza Vaccine (#1)/, [...] age to complete this topic Insurance [address] [place] [address] Care Teams Team MemberRelationshipSpecialtyStart DateEnd Sadiq Bowman MD [address] [facility] [place] [address] [facility] - General03/07/22
--- OUTSIDE RECORDS SUMMARY | 2025-06-20 08:02 | XMS_ITS | Clinical Summary ---
Author Organization [facility] Healthcare Address [address] [place] [address] Care Team Providers Care Junk Removal Specialist Name Role Phone Unavailable Primary Care Provider Unavailabl e Social History Tobacco UseTypesPacks/DayYears UsedDateSmoking Tobacco: Never Assessed CommentsUnknownSex and Gender InformationValueDate RecordedSex Assigned at Not on fileLegal CsyMxacxw78/15/2023 6:53 PM EDTGender IdentityNot on fileSexual OrientationNot on file Plan of Treatment Not on file
[2025-06-20 10:45] LABS: C. Difficile PCR NEGATIVE
== END 2025-06-20 07:57 | disposition home or self-care (01) ==
LOC: LAB 07:56
PROVIDERS: PCP Family Medicine; Visit Provider Family Medicine
DX: K52.9 Noninfective gastroenteritis and colitis, unspecified (principal); K21.9 Gastro-esophageal reflux disease without esophagitis; Q40.0 Congenital hypertrophic pyloric stenosis; I10 Essential (primary) hypertension; D50.9 Iron deficiency anemia, unspecified; E78.5 Hyperlipidemia, unspecified; R73.09 Other abnormal glucose; Z12.12 Encounter for screening for malignant neoplasm of rectum; D64.9 Anemia, unspecified; E03.9 Hypothyroidism, unspecified; E55.9 Vitamin D deficiency, unspecified
CPT/HCPCS: 87045; 87046; 87177; 87209; 87427; 87493; G0328

== ENCOUNTER 2025-06-24 14:14 | Emergency (ER) | payer MEDICARE, OTHER, SELFPAY ==
--- OUTSIDE RECORDS SUMMARY | 2024-09-17 09:00 | XMS_ITS ---
Author Organization The [facility] in [place] Address [address] [facility] [place] [address] Care Team Providers Care Hand Welt Butter Name Role Phone Prasad Bowman Primary Care Provider REASON FOR VISIT Medicare Wellnes Encounters Encounter Location Date Provider Diagnosis [facility] [address] [place] [address] 09/17/2024 Prasad Bowman Plan Of Treatment No Information Progress Notes * Julissa MUNIZ LDOB:[birth year] (65 yo F)Acc No.[id number]:09/17/2024 UNLOCKED PROGRESS NOTE Progress Note Patient: Julissa GORMAN :?Sadiq BILLINGS), MDDOB:1960???Age: 64 Y???Sex:FemaleDate:09/17/2024Phone:[phone]:[id number], [facility] Subjective: * Chief Complaints: * 1 . Medicare [facility] * Medical History: Objective: * Vitals: Assessment: Plan: * Treatment: * * Electronic signature of Prasad Bowman MD, [id number] on 06/24/2025 at 02:39 PM EST Sign off status: PendingVisit Status:?CANCPHONE (Cancelled Phone) * Provider: Anusha Bowman MD (TTC) Date: 0 09/17/2024 Generated for Printing/Faxing/eTransmitting on:?06/24/2025 02:39 PM EST
--- OUTSIDE RECORDS SUMMARY | 2025-06-16 09:30 | XMS_ITS ---
Author Organization [facility] in [place] Address [address] [place] [address] Care Team Providers Care Direct Care Worker Name Role Phone Prasad Bowman Primary Care Provider [phone] Allergies Allergen (clinical drug ingredient) Drug/Non Drug Allergy documented on EMR Reaction Allergy Type Onset Date Status morphine Morphine Sulfate rash Drug Allergy ActiveZofranUnknownDrug AllergyActiveLatexLatexrashAllergyActivenickelNickelrash AllergyActive Results Component Value Reference Range Notes AMMONIA Reviewed date:06/20/2025 09:46:21 AM Interpretation: Performing Lab: Notes/Report: [facility] , Ammonia 19 11-32 umol/L Performing Lab:see note - [facility] LBAMYLASE Reviewed date:06/20/2025 09:46:21 AM Interpretation: Performing Lab: Notes/Report: [facility] ,Ihcftos6039-644 U/LPerforming Lab:see noteML - [facility] LBLIPASE Reviewed date:06/20/2025 09:46:21 AM Interpretation: Performing Lab: Notes/Report: [facility] ,Vaoofq95.016.0-77.0 U/LPerforming Lab:see noteML - [facility] LBPTT Reviewed date:06/20/2025 09:46:21 AM Interpretation: Performing Lab: Notes/Report: [facility] ,Partial Thromboplastin Time29.922.3-36.2 secPerforming Lab:see noteML - [facility] LBOva + Parasite Exam Reviewed date:06/24/2025 12:04:29 PM Interpretation: Performing Lab: Notes/Report: [facility] ,Ova + Parasite ExamFinal report. These results were obtained using wet preparation(s) and trichrome stained smear. This test does not include testing for Cryptosporidium parvum, Cyclospora, or Microsporidia. Result 1Comment. No ova, cysts, or parasites seen. One negative specimen does not rule out the possibility of a parasitic infection. Performed at: [address] [id number] Die Mechanic: Marcus Drummond PhD, Phone: [phone] Performing Lab:see note - [facility] LB Reason For Referral Reason recurrent reflux and diarrhea Diagnosis 1 Gastroenteritis (K52 .9) Referral Organization [facility] Medicine Referring Provider First Name Prasad Referring Provider Last Name Gracie Referring Provider Speciality [facility] connie Referred Provider Raheem Clancy Referred Provider Specialty Gastroentero logy Referral Priority Routine REASON FOR VISIT weight loss- nausea/vomiting Medications Medication SIG (Take, Route, Frequency, Duration) Notes Start Date End Date Status Meclizine HCl 25 MG 1 tablet as needed Orally QID; Dur ation: 30 days PRN UnknownCarisoprodol 350 mgTAKE 1 TABLET BY MOUTH TWICE DAILY NEEDED; Duration: tiveAtorvastatin Calcium 40 MG1 tablet Orally Once a day ActiveMeclizine HCl 25 MG1 tablet as needed Orally Q 6 hours5Active Carvedilol 3.125 MG1 tablet with food Orally Twice a dayActiveLevsin/SL 0.125 MG 1 tablet under the tongue and allow to dissolve as needed Sublingual AC and HS PRN09/06/2023UnknownSucralfate 1 GMTAKE 1 TABLET BEFORE EACH MEAL ON AN EMPTY STOMACHActiverOPINIRole HCl 2 mgTAKE 1 TO 2 TABLETS EVERY NIGHTActiveVentolin HFA 108 (90 Base) MCG/ACT2 puff as needed Inhalation every 4 hrs; Duration: 30 daysPRNActiveSynthroid 100 MCGTAKE 1 TABLET DAILY Orally; Duration: 90 days ActiveVitamin D (Cholecalciferol) 50 MCG (2000 UT)1 capsule Orally Once a day; Duration: 30 days09/12/2023ctivePlavix 75 MG1 tablet Orally Once a dayActive Rizatriptan Benzoate 10 mgDISSOLVE 1 TABLET ON TONGUE AT ONSET OF A HINT OF A MIGRAINE, MAY REPEAT IN 2 HOURSPRNActivePromethazine HCl 25 mg TAKE 1 TABLET BY MOUTH EVERY 6 HOURS NEEDED 4 times a day; Duration: 30 days As needed ActivePantoprazole Sodium 40 mgTAKE 1 TABLET DAILYActiveNystatin 091374 UNIT/ML5 ml Mouth/Throat Four times a day; Duration: 14 days5ActiveLiothyronine Sodium 5 MCG2 tablets Orally Once a day; Duration: 90 daysActiveLidocaine 5 % APPLY 1 PATCH TO SKIN DAILYActiveNitroglycerin 0.4 MGas directed Sublingual; Duration: 30 daysPRNActiveMupirocin 2 %1 application Externally Twice a day; Duration: 5 daysActivechlordiazePOXIDE-Clidinium 5-2.5 MG 1 capsule before meals Orally Three times a day As needed ActiveBenzonatate 200 MG1 capsule Orally Three times a day; Duration: 7 days 5ActiveEzetimibe 10 MG1 tablet Orally Once a dayActiveCitalopram Hydrobromide 40 mgTAKE 1 TABLET DAILYActiveCetirizine HCl 10 mgTAKE 1 TABLET DAILYActive Immunizations Vaccine Route Administration Date Status Comme nts Flu, Fluad (60701) 65 yrs and older, single-dose syringe () IM Intramuscular 06/16/2025 Administered Social History Tobacco Use: Social History Observation Description Date Details (start date - stop date) Former Smoker NA - NA Tobacco Use/Smoking Question Answer Notes Patient is a former smoker How long has it been since you last smoked?6-12 monthsAdditional Findings: Tobacco Eay-TeonQj-tkvvc cigarette smoker (20-30/day)Tobacco Control (Standard) Question Answer Notes Tobacco use: Former smoker How long has it been since you last smoked?1-5 yearsAdditional Findings: Tobacco mkw-wllfQh-rjnxtglg cigarette smoker (10-19/day)AUDIT-C (Standard) Question Answer Notes Did you have a drink containing alcohol in the p ast year? No Gmfjxl0LjgicssqdeivhtQunptkje Vital Signs Weight 135.0 lbs 06/16/2025 Height 66 in 06/16/2025 Blood pressure systolic 110 mm Hg 06/16/20 25 Blood pressure diastolic 60 mm Hg 025 BMI 21.79 kg/m2 06/16/2025 Encounters Encounter Location Date Provider Diagnosis [facility] [address] [place] [address] 06/16/2025 Prasad Hoy Gastroenteritis K52. 9 ; Gastro-esophageal reflux disease K21.9 ; Pyloric stenosis, congenital Q40.0 and Encounter for immunization Z23 Assessments Encounter Date Diagnosis (ICD Code) Assessment Notes Treatment Notes Treatment Clinical Notes Section Notes 06/16/2025 Gastroenteritis (ICD-10 - K52.9) Get plenty of rest. Stay hydrated by sucking on ice chips or taking small sips of water. You can also try drinking clear soda, clear broths or noncaffeinated sports drinks. Stop eating solid foods for a few hours to let your stomach settle. East back into eating by eating bland, jujd-kj-nervuh foods like crackers, toast, gelatin, bananas, rice and chicken. Try to avoid foods/substances including dairy products, caffeine, alcohol, nicotine and fatty or highly seasoned foods. Medications such as ibuprofen or tylenol can make your stomach more upset, so use sparingly if at all. Also avoid myrg-nov-kmkrmhi anti-diarrheal medications because it can make it harder for your body to eliminate the virus.06/16/2025Gastro-esophageal reflux disease (ICD-10 - K21.9) 06/16/2025Pyloric stenosis, congenital (ICD-10 - Q40.0)06/16/2025Encounter for immunization (ICD-10 - Z23) Plan Of Treatment Medication Medication Name Sig Start Date Stop Date Notes Meclizine HCl 25 MG 1 tablet as needed Orally Q 6 hour s 06/16/2025 Promethazine HCl 25 mgTAKE 1 TABLET BY MOUTH EVERY 6 HOURS NEEDED 4 times a day; Duration: 30 daysBenzonatate 200 MG1 capsule Orally Three times a day; Duration: 7 days06/16/2025Treatment Notes Assessment Notes Gastroenteritis Get plenty of rest. Stay hydrated by sucking on ice chips or taking small sips of water. You can also try drinking clear soda, clear broths or noncaffeinated sports drinks. Stop eating solid foods for a few hours to let your stomach settle. East back into eating by eating bland, pnth-az-tpmxok foods like crackers, toast, gelatin, bananas, rice and chicken. Try to avoid foods/substances including dairy products, caffeine, alcohol, nicotine and fatty or highly seasoned foods. Medications such as ibuprofen or tylenol can make your stomach more upset, so use sparingly if at all. Also avoid dvop-wjh-vnpecpv anti-diarrheal medications because it can make it harder for your body to eliminate the virus. Pending Test Test Name Order Date CULTURE, STOOL 06/16/2025 HEMOGLOBIN A1C (GLYCO) 06/16/2025 IRON, TOTAL 06/16/2025 LIPID PANEL (CHOL/TRIG/HDL/LDL) 06/16/20 25 VITAMIN D, 25 LEVEL (TOTAL) 06/16/2025 C DIFF TOX PCR STOOL 06/16/2025 PT - INR 06/16/2025 STOOL OCCULT BLOOD 06/16/2025 CA 19-9 06/16/2025 CEA 06/16/2025 CT ABD and PELV W CON 06/16/2025 THYROID PANEL (T4/TSH/FREE T3) CMP (COMP MET CHEATHAM) w/eGFR CKD-EPI 2024 CBC WITH DIFF 06/16/2025 Referrals Referral Date Details 06/16/2025 06/16/2025, recurren t reflux and diarrhea, Raheem Clancy Progress Notes * Julissa MUNIZ LDOB:[birth year] (65 yo F)Acc No.[id number]:06/16/2025 Progress Note Patient: Julissa GORMAN :?Sadiq Bowman ([facility]), MDDOB:1960???Age: 65 Y???Sex:FemaleDate:06/16/2025Phone:[phone]:[address], [place], [place] In:02:37 PM ESTCheck Out:03:08 PM EST Subjective: * Chief Complaints: * W eight loss- nausea/vomiting * HPI: ???General:? been going on form omonths. ???Gastroenteritis:?The patient complains of?symptoms of the stomach flu.?The symptoms have been present for?1-2 days.?The symptoms are?moderate.?The patient?has not been exposed to sick contacts.?Symptomatic treatment has included?OTC medication.?Associated symptoms include?abdominal pain, diarrhea, stomach cramps, nausea, vomiting, chills, fever.? * ROS: ???General/Constitutional:?Recent Weight Gain?denies.?Skin:?Rash?denies.?Cardiovascular:?Edema?denies.?Palpitations?denies.?Gastrointestinal:?Comments?See HPI for details.? * Active Problem List Z87.891 History of tobacco a buse Modified On:10/15/2023 Status:zxoucuaqfZ74.81Helicobacter pylori [H. pylori] as the cause of diseases classified elsewhere Modified On:11/22/2022 Status:eogfsaypeZ85.1Supraventricular tachycardia Modified On:11/22/2022 Status:wicyszdeiJ91.84Gastroparesis Modified On:09/06/2023 Status:fryrohedwE84Jspuvfrpiblq Modified On:08/28/2023 Status:rxftghcqhT73.9Chronic obstructive pulmonary disease (COPD) Modified On:09/06/2023 Status:suvorgrwnM99.9Hypothyroidism Modified On:08/28/2023 Status:bchyebmicJ66.9Anxiety Modified On:11/22/2022 Status:immcydgnmR59.1Tremor Modified On:11/22/2022 Status:tbjzpoduvN44.9Edema Modified On:11/22/2022 Status:spzqzniwfD73.10Coronary artery disease Modified On:08/28/2023 Status:eqqtycafmZ13.9Anemia Modified On:11/22/2022 Status:rybxtyahxE00.33Obstructive sleep apnea Modified On:08/28/2023 Status:rzvxjelmnO33.909Migraine Modified On:11/22/2022 Status:ginzpxmmxJ20.50Arthralgia Modified On:11/22/2022 Status:bgngwhrxpO74.00Well adult Modified On:11/22/2022 Status:njbyltmtgB15.9Hair loss Modified On:11/22/2022 Status:kmgppwhryT00.2Leg cramps Modified On:11/22/2022 Status:lxmnowwgdF17.3Over weight Modified On:11/22/2022 Status:kawrpyijcU40.2Allergic rhinitis, seasonal Modified On:11/22/2022 Status:oajbacjuiL25.8Upper airway resistance syndrome Modified On:09/12/2022 Status:uqujvehubE18.80Duodenitis Modified On:11/22/2022 Status:ohkimouzzP03.1Keratosis, seborrheic Modified On:11/22/2022 Status:dgwchduywV36.9Gastro-esophageal reflux disease Modified On:11/22/2022 Status:psctodnbkH07.0Pyloric stenosis, congenital Modified On:11/22/2022 Status:tdewxgsctY16.399Vertigo, peripheral Modified On:11/22/2022 Status:elacqcvfxH29.4Excessive weight loss Modified On:11/22/2022 Status:aeaaadkprJ87.001Chondrodermatitis nodularis helicis, right Modified On:11/22/2022 Status:utuwrvrjoW39.12Osteoarthritis of left knee, unspecified osteoarthritis type Modified On:11/22/2022 Status:baxvunrvrV00.11Osteoarthritis of right knee, unspecified osteoarthritis type Modified On:11/22/2022 Status:zigliurggI05.50Low back pain, unspecified Modified On:11/22/2022 Status:fxvsszlelD50.10Atherosclerotic heart disease of [place] coronary artery without angina pectoris Modified On:04/11/2023 Status:bwhovxuxsH72.10Supraventricular tachycardia, unspecified Modified On:10/12/2023W/U Status:twvhcwofnQ18.9Abdominal pain Modified On:05/29/2023W/U Status:giwmmvpqhF89.2Venous insufficiency Modified On:04/10/2024W/U Status:jtmingxalB14.9Itching Modified On:10/01/2024W/U Status:confirmed * Medical History: * Surgical History: d ilatation and curettage tonsillectomy and adenoidectomy tubal ligation rhinoplasty Cardiac Catheterization 01/29/2022ardiac Ablation 2013Left Wrist Tendon Repair Breast Biopsy-Right Stomach Ulcer Cataract Removal 11/2023 * Hospitalization/Major Diagno stic Procedure: N o Hospitalization History. * Family History: F ather: , emphysema, diagnosed with Cancer, Diabetes. M other: , diagnosed with Heart Disease. S ister(s): alive, Lung cancer, diagnosed with Heart Disease. D aughter(s): alive. P aternal Grandmother: blood clot. P aternal aunt: blood clot. 4 sister(s) - healthy. 3 daughter(s) - healthy. . * Social History: ???Tobacco Use:?Tobacco Control (Standard)?Tobacco use:?Former smoker ?How long has it been since you last smoked? 1-5 years ?Additional Findings: Tobacco non-user?Ex-moderate cigarette smoker (10-19/day) ?Electronic Cigarette use?Current user?No ?LM: Additional Tobacco Questions?Number of Years Pt Smoked:?45 ?Number of Packs per Day:?1 ?When did you stop smokin12/2020. ?Tobacco Use/Smoking?Patient is a?former smoker ?How long has it been since you last smoked? 6-12 months ?Additional Findings: Tobacco Non-User?Ex-heavy cigarette smoker (20-30/day) ???Drug/Alcohol:?AUDIT-C (Standard)?Did you have a drink containing alcohol in the past year??No ?Points?0 ?Interpretation?Negative * Medications: T akingAtorvastatin Calcium 40 MG Tablet 1 tablet Orally Once a day Carisoprodol 350 mg Tablet TAKE 1 TABLET BY MOUTH TWICE DAILY NEEDED Carvedilol 3.125 MG Tablet 1 tablet with food Orally Twice a day Cetirizine HCl 10 mg Tablet TAKE 1 TABLET DAILY chlordiazePOXIDE-Clidinium 5-2.5 MG Capsule 1 capsule before meals Orally Three times a day As neededCitalopram Hydrobromide 40 mg Tablet TAKE 1 TABLET DAILY Ezetimibe 10 MG Tablet 1 tablet Orally Once a day Lidocaine 5 % Patch APPLY 1 PATCH TO SKIN DAILY Liothyronine Sodium 5 MCG Tablet 2 tablets Orally Once a day Mupirocin 2 % Ointment 1 application Externally Twice a day Nitroglycerin 0.4 MG Tablet Sublingual as directed Sublingual , Notes to Pharmacist: PRNNystatin 617679 UNIT/ML Suspension 5 ml Mouth/Throat Four times a day Pantoprazole Sodium 40 mg Tablet Delayed Release TAKE 1 TABLET DAILY Plavix(Clopidogrel Bisulfate) 75 MG Tablet 1 tablet Orally Once a day Promethazine HCl 25 mg Tablet TAKE 1 TABLET BY MOUTH EVERY 6 HOURS NEEDED Rizatriptan Benzoate 10 mg Tablet Disintegrating DISSOLVE 1 TABLET ON TONGUE AT ONSET OF A HINT OF A MIGRAINE, MAY REPEAT IN 2 HOURS , Notes to Pharmacist: PRNrOPINIRole HCl 2 mg Tablet TAKE 1 TO 2 TABLETS EVERY NIGHT Sucralfate 1 GM Tablet TAKE 1 TABLET BEFORE EACH MEAL ON AN EMPTY STOMACH Synthroid(Levothyroxine Sodium) 100 MCG Tablet TAKE 1 TABLET DAILY Orally Ventolin HFA(Albuterol Sulfate HFA) 108 (90 Base) MCG/ACT Aerosol Solution 2 puff as needed Inhalation every 4 hrs , Notes to Pharmacist: PRNVitamin D (Cholecalciferol) 50 MCG (2000 UT) Capsule 1 capsule Orally Once a day Taking Atorvastatin Calcium 40 MG Tablet 1 tablet Orally Once a day Taking Carisoprodol 350 mg Tablet TAKE 1 TABLET BY MOUTH TWICE DAILY NEEDED Taking Carvedilol 3.125 MG Tablet 1 tablet with food Orally Twice a day Taking Cetirizine HCl 10 mg Tablet TAKE 1 TABLET DAILY Taking chlordiazePOXIDE-Clidinium 5-2.5 MG Capsule 1 capsule before meals Orally Three times a day As neededTaking Citalopram Hydrobromide 40 mg Tablet TAKE 1 TABLET DAILY Taking Ezetimibe 10 MG Tablet 1 tablet Orally Once a day Taking Lidocaine 5 % Patch APPLY 1 PATCH TO SKIN DAILY Taking Liothyronine Sodium 5 MCG Tablet 2 tablets Orally Once a day Taking Mupirocin 2 % Ointment 1 application Externally Twice a day Taking Nitroglycerin 0.4 MG Tablet Sublingual as directed Sublingual , Notes to Pharmacist: PRNTaking Nystatin 337560 UNIT/ML Suspension 5 ml Mouth/Throat Four times a day Taking Pantoprazole Sodium 40 mg Tablet Delayed Release TAKE 1 TABLET DAILY Taking Plavix(Clopidogrel Bisulfate) 75 MG Tablet 1 tablet Orally Once a day Taking Promethazine HCl 25 mg Tablet TAKE 1 TABLET BY MOUTH EVERY 6 HOURS NEEDED Taking Rizatriptan Benzoate 10 mg Tablet Disintegrating DISSOLVE 1 TABLET ON TONGUE AT ONSET OF A HINT OF A MIGRAINE, MAY REPEAT IN 2 HOURS , Notes to Pharmacist: PRNTaking rOPINIRole HCl 2 mg Tablet TAKE 1 TO 2 TABLETS EVERY NIGHT Taking Sucralfate 1 GM Tablet TAKE 1 TABLET BEFORE EACH MEAL ON AN EMPTY STOMACH Taking Synthroid(Levothyroxine Sodium) 100 MCG Tablet TAKE 1 TABLET DAILY Orally Taking Ventolin HFA(Albuterol Sulfate HFA) 108 (90 Base) MCG/ACT Aerosol Solution 2 puff as needed Inhalation every 4 hrs , Notes to Pharmacist: PRNTaking Vitamin D (Cholecalciferol) 50 MCG (2000 UT) Capsule 1 capsule Orally Once a day DiscontinuedAmoxicillin-Pot Clavulanate 875-125 MG Tablet 1 tablet Orally every 12 hrs Cyclobenzaprine HCl 10 MG Tablet 1 tablet Orally TID prn , Notes to Pharmacist: PRNdiazePAM 5 MG Tablet 1 tablet as needed Orally Once a day Metoclopramide HCl 10 MG Tablet 1 tablet before meals Orally Twice a day Pyridium(Phenazopyridine HCl) 200 MG Tablet 1 tablet after meals Orally Three times a day Discontinued Amoxicillin-Pot Clavulanate 875-125 MG Tablet 1 tablet Orally every 12 hrs Discontinued Cyclobenzaprine HCl 10 MG Tablet 1 tablet Orally TID prn , Notes to Pharmacist: PRNDiscontinued diazePAM 5 MG Tablet 1 tablet as needed Orally Once a day Discontinued Metoclopramide HCl 10 MG Tablet 1 tablet before meals Orally Twice a day Discontinued Pyridium(Phenazopyridine HCl) 200 MG Tablet 1 tablet after meals Orally Three times a day UnknownLevsin/SL(Hyoscyamine Sulfate) 0.125 MG Tablet Sublingual 1 tablet under the tongue and allow to dissolve as needed Sublingual AC and HS , Notes to Pharmacist: PRNMeclizine HCl 25 MG Tablet 1 tablet as needed Orally QID , Notes to Pharmacist: PRNMedication List reviewed and reconciled with the patientUnknown Levsin/SL(Hyoscyamine Sulfate) 0.125 MG Tablet Sublingual 1 tablet under the tongue and allow to dissolve as needed Sublingual AC and HS , Notes to Pharmacist: PRNUnknown Meclizine HCl 25 MG Tablet 1 tablet as needed Orally QID , Notes to Pharmacist: PRNMedication List reviewed and reconciled with the patient * Allergies: L atex: rash - AllergyMorphine Sulfate: rash - AllergyNickel: rash - AllergyZofranno[Allergies Verified] Objective: * Vitals: W t:135.0lbs, Ht: 66 in, BP:110/60mm Hg, BMI:21.79Index, Ht-cm: 167.64 cm, Wt-k.24 kg. * Examination: ???General Examination: ?GENERAL APPEARANCE:? well developed, well nourished, in noacute distress.?ENT:? Normocephalic , Atraumatic.?EYES:? pupils equal, round, reactive to light and accomodations, sclera non-icteric.?EARS:? normal.?ORAL CAVITY:? mucosa moist.?THROAT:? clear.?LUNGS:? clear to auscultation bilaterally.?CARDIO:? regular rate and rhythm, S1, S2 normal, no murmurs.?ABDOMEN:? liver nontender, ___soft, no significant tenderness, liver, spleen not felt, no rebound, negative Garcia's sign, no guarding or rigidity, no hepatosplenomegaly, no hernias present, no masses palpable, no rebound tenderness.?SKIN:? warm and dry, no suspicious lesions.?EXTREMITIES:? no clubbing, cyanosis, or edema.?NEUROLOGIC:? nonfocal, motor strength of upper/lower extremities intact , sensory exam intact.?NECK/THYROID:? neck supple, full range of motion, no cervical lymphadenopathy.? 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 Plan: * Treatment: Refill Promethazine HCl Tablet, 25 mg, TAKE 1 TABLET BY MOUTH EVERY 6 HOURS NEEDED, 4 times a day As needed, 30 days, 90, Refills 3;?Start Meclizine HCl Tablet, 25 MG, 1 tablet as needed, Orally, Q 6 hours, 60, Refills 11;?Start Benzonatate Capsule, 200 MG, 1 capsule, Orally, Three times a day, 7 days, 20 Capsule.?LAB: CULTURE, STOOL ?LAB: HEMOGLOBIN A1C (GLYCO) ?LAB: IRON, TOTAL ?LAB: LIPID PANEL (CHOL/TRIG/HDL/LDL) ?LAB: VITAMIN D, 25 LEVEL (TOTAL) ?LAB: C DIFF TOX PCR STOOL ?LAB: PT - INR ?LAB: STOOL OCCULT BLOOD ?LAB: AMMONIA ?LAB: AMYLASE ?LAB: CA 19-9 ?LAB: CEA ?LAB: LIPASE ?LAB: PTT ?LAB: THYROID PANEL (T4/TSH/FREE T3) ?LAB: Ova + Parasite Exam ?LAB: CMP (COMP MET CHEATHAM) w/eGFR CKD-EPI ?LAB: CBC WITH DIFF ?Imaging: CT ABD and PELV W CON Notes: Get plenty of rest. Stay hydrated by sucking on ice chips or taking small sips of water. Youcan also try drinking clear soda, clear broths or noncaffeinated sports drinks. Stop eating solid foods for a few hours to let your stomach settle. East back into eating by eating bland, uqqt-hy-gsuqwc foods like crackers, toast, gelatin, bananas, rice and chicken. Try to avoid foods/substances including dairy products, caffeine, alcohol, nicotine and fatty or highly seasoned foods. Medications such as ibuprofen or tylenol can make your stomach more upset, so use sparingly if at all. Also hunyvkord-gox-ctfzqpn anti- diarrheal medications because it can make it harder for your body to eliminate the virus.? Referral To:Raheem Clancy??Gastroenterology ?Reason:recurrent reflux and diarrhea 2.?Gastro-esophageal reflux disease?LAB: HEMOGLOBIN A1C (GLYCO) ?LAB: IRON, TOTAL ?LAB: LIPID PANEL (CHOL/TRIG/HDL/LDL) ?LAB: VITAMIN D, 25 LEVEL (TOTAL) ?LAB: STOOL OCCULT BLOOD ?LAB: THYROID PANEL (T4/TSH/FREE T3) ?LAB: CMP (COMP MET CHEATHAM) w/eGFR CKD-EPI ?LAB: CBC WITH DIFF3.?Pyloric stenosis, congenital?LAB: HEMOGLOBIN A1C (GLYCO) ?LAB: IRON, TOTAL ?LAB: LIPID PANEL (CHOL/TRIG/HDL/LDL) ?LAB: VITAMIN D, 25 LEVEL (TOTAL) ?LAB: STOOL OCCULT BLOOD ?LAB: THYROID PANEL (T4/TSH/FREE T3) ?LAB: CMP (COMP MET CHEATHAM) w/eGFR CKD-EPI ?LAB: CBC WITH DIFF * Immunizations: Flu, Fluad (39119) 65 yrs and older, single-dose syringe (8871-8791) : 0.5 mL (Route: Intramuscular) given by JARRETT Charles on Left Deltoid (Encounter for immunization) * Procedure Codes: 9 0653 FLU VACCINE ADJUVANT [id number] ADMIN. INFLUENZA * * Sign off status: CompletedVisit Status:?CHK (Check Out) true * Provider: Anusha Bowman ([facility])MD Date: 1 08/17/2024 Generated for Printing/Faxing/eTransmitting on:?06/24/2025 02:38 PM EST History and Physical Notes * HPI (History of Present Illness) CategorySub-CategoryDetailNotesCategory NotesGeneralbeen going on form omonths GastroenteritisThe patient complains ofsymptoms of the stomach fluThe symptoms have been present for1-2 daysThe symptoms aremoderateThe patienthas not been exposed to sick contactsSymptomatic treatment has includedOTC medication Associated symptoms includeabdominal pain, diarrhea, stomach cramps, nausea, vomiting, chills, fever Examination CategorySub-CategoryDetailNotesCategory NotesGeneral ExaminationGENERAL APPEARANCE:well developed, well nourished, in no acute distressENT:Normocephalic , AtraumaticEYES:pupils equal, round, reactive to light and accomodations, sclera non-ictericEARS:normalTHROAT:clearCARDIO:regular rate and rhythm, S1, S2 normal, no murmursLUNGS:clear to auscultation bilaterallyABDOMEN:liver nontender, ___soft, no significant tenderness, liver, spleen not felt, no rebound, negative Garcia's sign, no guarding or rigidity, no hepatosplenomegaly, no hernias present, no masses palpable, no rebound tendernessNEUROLOGIC: nonfocal, motor strength of upper/lower extremities intact , sensory exam intact SKIN:warm and dry, no suspicious lesionsEXTREMITIES:no clubbing, cyanosis, or edemaORAL CAVITY:mucosa moistNECK/THYROID:neck supple, full range of motion, no cervical lymphadenopathy Consultation Request Notes Referral Date Referring Provider Referred Provider Not edelmira 06/16/2025 Prasad Bowman Cameron recurrent ref lux and diarrhea
--- OUTSIDE RECORDS SUMMARY | 2025-06-20 04:44 | XMS_ITS ---
Author Organization [facility] in [place] Address [address] [place] [address] Care Team Providers Care Nanotechnology Engineering Technician Name Role Phone Prasad Bowman Primary Care Provider [phone] REASON FOR VISIT labs Medications Medication SIG (Take, Route, Frequency, Duration) Notes Start Date End Date Status Liothyronine Sodium 5 MCG 3 tablets Orally Once a day; Duration: 90 days Active Encounters Encounter Location Date Provider Diagnosis [facility] [address] [place] [address] 06/20/2025 Prasad Bowman Hypothyroidism E03.9 Assessments Encounter Date Diagnosis (ICD Code) Assessment Notes Treatment Notes Treatment Clinical Notes Section Notes 06/20/2025 Hypothyroidism (ICD-10 - E03.9) Plan Of Treatment Medication Medication Name Sig Start Date Stop Date Notes Liothyronine Sodium 5 MCG 3 tablets Orally Once a day; Duration: 90 days Pending Test Test Name Order Date THYROID PANEL (T4/TSH/FREE T3) Progress Notes * CRISTYJulissa SWANN LDOB:[birth year] (65 yo F)Acc No.[id number]:06/20/2025 Patient:?Julissa MUNIZ :1960???Age:65 Y???Sex:FemalePhone:[phone] Address:[facility] [address], [place], [address] * Refills Refill Liothyronine Sodium Tablet, 5 MCG, 270, 3 tablets Orally Once a day, 90 days, Refills=3 Subjective: * Chief Complaints: * L abs * Medical History: * Surgical History: * Hospitalization/Major Diagno stic Procedure: * Medications: Objective: * Vitals: * Physical Examination: ??? Assessment: * Assessment: 1.?Hypothyroidism - E03.9 (Primary)??? Plan: * Treatment: ?LAB: THYROID PANEL (T4/TSH/FREE T3)2.?Others? Refill Liothyronine Sodium Tablet, 5 MCG, 3 tablets Orally Once a day, 90 days, 270, Refills 3. ? * Procedure Codes: * true * Date:?Generated for Printing/Faxing/eTransmitting on:?06/24/2025 02:38 PM EST
[2025-06-24 14:17] VITALS: BP 128/65; PULSE 88; TEMP 37.6; O2SAT 94; BMI 22.6
--- OUTSIDE RECORDS SUMMARY | 2025-06-24 14:38 | XMS_ITS | Clinical Summary ---
Author Organization [facility] Healthcare Address [address] [place] [address] Care Team Providers Care Engineer Internship Name Role Phone Unavailable Primary Care Provider Unavailabl e Social History Tobacco UseTypesPacks/DayYears UsedDateSmoking Tobacco: Never Assessed CommentsUnknownSex and Gender InformationValueDate RecordedSex Assigned at Not on fileLegal LlrRsnbce52/15/2023 6:53 PM EDTGender IdentityNot on fileSexual OrientationNot on file Plan of Treatment Not on file
--- OUTSIDE RECORDS SUMMARY | 2025-06-24 14:39 | XMS_ITS | Clinical Summary ---
Author Organization [facility] Address [address], [address] [place] [address] Care Team Providers Care Graphic Design Intern Name Role Phone Sadiq Bowman MD Primary Care Provider [phone] Allergies Active AllergyReactionsCriticalityNoted NkvoZczlndmlSgang06/04/2013Morphine 03/04/20130861Sbrect38/04/2013 Medications MedicationSigDispense QuantityRefillsLast FilledStart DateEnd DateStatus esomeprazole [...] InformationValueDate RecordedSex Assigned at BirthNot on fileLegal ShnSmxqrx80/10/2013 1:03 PM ESTGender IdentityNot on fileSexual OrientationNot on file Last Filed Vital Signs Vital SignReadingTime TakenCommentsBlood Kudbpxck496/60003/06/2013 11:30 AM EDT Tgyna103303/06/2013 11:30 AM TEOVihppowcdhz48.8 ??C (98.2 ??F)03/06/2013 11:30 AM EDTRespiratory Sfxz650103/06/2013 11:30 AM EDTOxygen Hfxuqrxqpe04%03/06/2013 11:30 AM EDTInhaled Oxygen Concentration--Pjkfxm72.5 kg (204 lb)03/05/2013 7:42 PM EDT Yzmqqv768.2 cm (5' 7 )03/04/2013 11:00 AM EDTBody [...] MemberRelationshipSpecialtyStart DateEnd Sadiq Bowman MD [address] [place] [address] [facility]01/21/13
--- OUTSIDE RECORDS SUMMARY | 2025-06-24 14:39 | XMS_ITS | Patient Health Record ---
Author Organization [facility] in [place] Address [address] [place] [address] Care Team Providers Care Water Operator Name Role Phone Prasad Bowman Primary Care Provider [phone] Allergies Allergen (clinical drug ingredient) Drug/Non Drug Allergy documented on EMR Reaction Allergy Type Onset Date Status morphine Morphine Sulfate rash Drug Allergy ActiveZofranUnknownDrug AllergyActiveLatexLatexrashAllergyActivenickelNickelrash AllergyActive Results Component Value Reference Range Notes AMMONIA Reviewed date:06/20/2025 09:46:21 AM Interpretation: Performing Lab: Notes/Report: [facility] , Ammonia 19 11-32 umol/L Performing Lab:see note - [facility] LBAMYLASE Reviewed date:06/20/2025 09:46:21 AM Interpretation: Performing Lab: Notes/Report: [facility] ,Frufwqs1175-725 U/LPerforming Lab:see note - [facility] LBLIPASE Reviewed date:06/20/2025 09:46:21 AM Interpretation: Performing Lab: Notes/Report: [facility] ,Pgnmfo01.016.0-77.0 U/LPerforming Lab:see note - [facility] LBPTT Reviewed date:06/20/2025 09:46:21 AM Interpretation: Performing Lab: Notes/Report: [facility] ,Partial Thromboplastin Time29.922.3-36.2 secPerforming Lab:see note - [facility] LBOva + Parasite Exam Reviewed date:06/24/2025 12:04:29 PM Interpretation: Performing Lab: Notes/Report: [facility] ,Ova + Parasite ExamFinal report. These results were obtained using wet preparation(s) and trichrome stained smear. This test does not include testing for Cryptosporidium parvum, Cyclospora, or Microsporidia. Result 1Comment. Print Binding And Finishing Worker: Marcus Drummond PhD, Phone: [phone] Performed at: [facility] No ova, cysts, or parasites seen. [address] [place], [place] [id number] a parasitic infection. One negative specimen does not rule out the possibility of Performing Lab:[facility] LBCA echo doppler complete Reviewed date:12/02/2024 09:57:06 PM Interpretation: Performing Lab: Notes/Report: Source Facility: [place] [address] Cardiology Report Signed Patient: JULISSA MUNIZ MR#: [id number] : 1960 Acct:[id number] Age/Sex: 64 / F ADM Date: 12/02/24 Loc: CARD Attending Dr: GAYATRI HUSSEIN APRN Ordering Physician: GAYATRI HUSSEIN APRN Date of Service: 12/02/24 Procedure(s): CA echo doppler complete Accession Number(s): [id number] cc: Sadiq Bowman M.D.; GAYATRI HUSSEIN APRN Patient Name: JULISSA MUNIZ MR#: [id number] : 1960 Exam Date: 12/02/2024 Ordering Doctor: GAYATRI HUSSEIN PC TECHNICIAN ECHOCARDIOGRAM REPORT PROCEDURE: CA ECHO DOPPLER COMPLETE INDICATIONS: Coronary artery disease, COPD, [place], cardiac stent, hypertension COMPARISON: None. DESCRIPTION: COMPLETE [...] DRAKE Signed By: 12/02/241904 DD/ 03 TD/TT: Upholsterer Helper:CBC AUTO DIFF Reviewed date:06/20/2025 09:46:21 AM Interpretation: Performing Lab: Notes/Report: [facility] ,White Blood Count4.64.0-11.0 10 3/uLRed Blood Count3.544.20-5.40 10 6/uL Zyipxlluzj14.212.0-16.0 g/iJHjrbrubhaf53.436.0-48.0 %Mean Corpuscular Zvvhsc61.5 81.0-99.0 fLMean Corpuscular Nxdgyslvhl36.826.7-34.0 pgMean Corpuscular HGB Conc 31.529.9-35.2 g/dLRed Cell Distribution Width15.311.0-15.0 %Platelet Qwtpl645 150-450 10 3/uLMean Platelet Edmomh86.19.5-13.5 fLNeutrophils Percent Auto49.8 43.0-75.0 %Lymphocytes Percent Auto34.920.5-60.0 %Monocytes Percent Auto9.31.7- 12.0 %Eosinophils Percent Auto4.70.9-7.0 %Basophils Percent Auto1.10.2-2.0 % Immature Granulocytes Pct Auto0.20.0-0.5 %Neutrophils Absolute Auto2.31.4-6.5 10 3/uLLymphocytes Absolute Auto1.61.2-3.8 10 3/uLMonocytes Absolute Auto0.40.3- 0.8 10 3/uLEosinophils Absolute Auto0.20.0-0.7 10 3/uLBasophils Absolute Auto0.1 0.0-0.1 10 3/uLImmature Granulocytes Abs Auto0.010.00-0.03 10 3/uLPerforming Lab:see note - [facility] LBFREE T3 Reviewed date:06/20/2025 09:46:21 AM Interpretation: Performing Lab: Notes/Report: [facility] ,Free T32.022.18-3.98 pg/mLPerforming Lab:see note - [facility] LB GLYCOHEMOGLOBIN A1C Reviewed date:06/20/2025 09:46:21 AM Interpretation: Performing Lab: Notes/Report: [facility] ,Glycohemoglobin A1C5.64.5-6.2 % ADA THERAPEUTIC TARGET < 7.0 ACTION SUGGESTED > 7.0 ADA RECOMMENDED LIMIT 4.0 - 6.0 Estimated Average Ihlhloz500Krurelrfzj Lab:see note - [facility] LB IRON Reviewed date:06/20/2025 09:46:21 AM Interpretation: Performing Lab: Notes/Report: [facility] ,Iron57.050.0-170.0 ug/dLPerforming Lab:see note - [facility] LB LIPID PROFILE Reviewed date:06/20/2025 09:46:21 AM Interpretation: Performing Lab: Notes/Report: [facility] ,Zlnsqtprebyin58<=150 mg/ySYxqvlhruudd605<=200 mg/dLHDL Bsislynntul3973-40 mg/dL <40 mg/dl - HIGH CARDIOVASCULAR RISK > or =60 mg/dl - LOW CARDIOVASCULAR RISK LDL Cholesterol Nsaufauzwk94.0 >190 mg/dl VERY HIGH <100 mg/dl OPTIMAL 130-159 mg/dl BORDERLINE HIGH 160-189 mg/dl HIGH 100-129 mg/dl NEAR OR ABOVE OPTIMAL VLDL ZEJGTOAUMNZ33.2Chol HDL Ratio2.6 3.3 - 4.4 LOW RISK 7.1 - 11.0 MODERATE RISK >11.0 HIGH RISK 4.4 - 7.1 AVERAGE RISK Performing Lab:see [facility] LBPROF 14(COMP METB) Reviewed date:06/20/2025 09:46:21 AM Interpretation: Performing Lab: Notes/Report: [facility] ,Bqbmmv926805-064 mmol/LPotassium4.33.5-5.1 mmol/PAlulsrhw96132-691 mmol/LCarbon Fzmsmfh59.021.0-32.0 mmol/LAnion Gap12.0Qfkenjj1610-275 mg/dLBlood Urea Nbtztaas03.07.0-18.0 mg/dLCreatinine0.710.55-1.02 mg/dLEstimated GFR ( Kym>60>=60 mL/min/1.73m 2Estimated GFR (Non- Kourtney>60>=60 mL/min/1.73m 2BUN Creatinine Ratio26.4Tnajkii3.68.5-10.1 mg/dLBilirubin Total0.30.2-1.0 mg/dL Aspartate Amino Oeujstscdnx9118-06 U/LAlanine Paulrmemfgdfgbat9426-90 U/L Alkaline Doossjxissr38361-371 U/LTotal Protein6.56.4-8.2 g/dLAlbumin Level3.3 3.4-5.0 g/dLGlobulin3.2Albumin Globulin Ratio1.0Performing Lab:see noteML - [facility] LBT4 Reviewed date:06/20/2025 09:46:21 AM Interpretation: Performing Lab: Notes/Report: [facility] ,T4 Thyroxine7.304.80-13.90 ug/dLPerforming Lab:see noteML - [facility] LBTSH Reviewed date:06/20/2025 09:46:21 AM Interpretation: Performing Lab: Notes/Report: [facility] ,Thyroid Stimulating Hormone0.5580.358-3.740 uIU/mLPerforming Lab:see noteML - [facility] LBVITAMIN D 25 [place] Reviewed date:06/20/2025 09:46:21 AM Interpretation: Performing Lab: Notes/Report: [facility] ,Vitamin D21.5 30-100 ng/mL Vit D sufficient 20-<30 ng/mL Vit D insufficient <20 ng/mL Vit D deficient >100 ng/mL Potential Toxicity Performing Lab:see note - [facility] LBProthrombin Time INR Reviewed date:06/20/2025 09:46:21 AM Interpretation: Performing Lab: Notes/Report: [facility] ,Prothrombin Time10.99.0-11.6 secINR1.04 2.5-3.5 RECURRENT THROMBOSIS DESIRED INR: 2.5-3.5 FOR PROSTHETIC HEART VALVE REPLACEMENT 2.0-3.0 CONDITIONS NOT LISTED BELOW Performing Lab:see noteML - [facility] LBCEA Reviewed date:06/20/2025 09:46:21 AM Interpretation: Performing Lab: Notes/Report: [facility] ,CEA3.40.0-4.7 ng/mL Smokers <5.6 Values obtained with different assay methods or kits interpreted as absolute evidence of the presence or absence of malignant disease. [employer] Electrochemiluminescence Immunoassay (ECLIA) Nonsmokers <3.9 cannot be used interchangeably. Results cannot be Performing Lab:see [facility] LBCA 19-9 Reviewed date:06/20/2025 09:46:21 AM Interpretation: Performing Lab: Notes/Report: [facility] ,CA 19-9170-35 U/mL [address] [place], [place] [phone] absolute evidence of the presence or absence of malignant [employer] Electrochemiluminescence Immunoassay Values obtained with different assay methods or kits cannot Print Binding And Finishing Worker: Marcus Drummond PhD, Phone: [phone] disease. (ECLIA) Performed at: [facility] be used interchangeably. Results cannot be interpreted as Performing Lab:see noteLeg[facility] CenterC. Difficile PCR Reviewed date:06/20/2025 02:23:35 PM Interpretation: Performing Lab: Notes/Report: [facility] ,C. Difficile PCRNEGATIVEPerforming Lab:see note - [facility] Shiga Toxin EIA Reviewed date:06/24/2025 12:04:29 PM Interpretation: Performing Lab: Notes/Report: [facility] ,E coli Shiga Toxin EIASee Below For Report E coli Shiga Toxin EIA E coli Shiga Toxin EIANegative E coli Shiga Toxin EIA E coli Shiga Toxin EIAPerformed at: [facility] E coli Shiga Toxin EIA E coli Shiga Toxin [address] [place], [place] [address] E coli Shiga Toxin EIA E coli Shiga Toxin EIALab Director: Marcus Drummond PhD, Phone: [phone] E coli Shiga Toxin EIA Performing Lab:see note [facility] LB SEE REPORT - Hunting And Fishing Guide Id information not found for OBX-specific remote operations producer legend Salmonella/Shigella Screen Reviewed date:06/24/2025 12:04:29 PM Interpretation: Performing Lab: Notes/Report: [facility] ,Salmonella/Shigella ScreenSee Below For Report Salmonella/Shigella Screen Salmonella/Shigella ScreenNo Salmonella or Shigella recovered. Salmonella/Shigella Screen Performing Lab:see [facility]Prov[facility] LBOccult Blood* Reviewed date:06/20/2025 02:23:35 PM Interpretation: Performing Lab: Notes/Report: [facility] ,Occult BloodPositivePerforming Lab:see note - [facility] LBE coli Shiga Toxin EIA Reviewed date:06/24/2025 12:04:29 PM Interpretation: Performing Lab: Notes/Report: [facility] ,E coli Shiga Toxin EIASee Below For Report E coli Shiga Toxin EIA E coli Shiga Toxin EIANegative E coli Shiga Toxin EIA E coli Shiga Toxin EIAPerformed at: [facility] E coli Shiga Toxin EIA E coli Shiga Toxin [address] [place], [place] [address] E coli Shiga Toxin EIA E coli Shiga Toxin EIALab Director: Marcus Drummond PhD, Phone: [phone] E coli Shiga Toxin EIA Performing Lab:see note SEE REPORT - Hunting And Fishing Guide Id information not found for OBX-specific remote operations producer legend - [facility] LB Cancer Antigen (CA) 125 Reviewed date:04/18/2025 11:43:59 AM Interpretation: Performing Lab: Notes/Report: [facility] ,Cancer Antigen (CA) 79570.80.0-38.1 U/mL [address] [place], [place] [phone] (ECLIA) absolute evidence of the presence or absence of malignant [employer] Electrochemiluminescence Immunoassay be used interchangeably. Results cannot be interpreted as Performed at: [facility] Values obtained with different assay methods or kits cannot disease. Print Binding And Finishing Worker: Marcus Drummond PhD, Phone: [phone] Performing Lab:see [facility]idProv[facility] LBCA 19-9 Reviewed date:04/18/2025 11:43:59 AM Interpretation: Performing Lab: Notes/Report: [facility] ,[place] 19-9150-35 U/mL be used interchangeably. Results cannot be interpreted as absolute evidence of the presence or absence of malignant (ECLIA) Performed at: [facility] Print Binding And Finishing Worker: Marcus Drummond PhD, Phone: [phone] disease. [address] [facility], [place], [place] [phone] Values obtained with different assay methods or kits cannot [employer] Electrochemiluminescence Immunoassay Performing Lab:see [facility]idProv[facility] LBCEA Reviewed date:04/18/2025 11:43:59 AM Interpretation: Performing Lab: Notes/Report: [facility] ,CEA3.40.0-4.7 ng/mL Nonsmokers <3.9 absence of malignant disease. cannot be used interchangeably. Results cannot be [facility] Electrochemiluminescence Immunoassay interpreted as absolute evidence of the presence or Values obtained with different assay methods or kits Smokers <5.6 (ECLIA) Performing Lab:see [facility]idProv[facility] LB Reason For Referral Reason recurrent reflux and diarrhea Diagnosis 1 Gastroenteritis (K52 .9) Referral Organization [facility] Referring Provider First Name Prasad Referring Provider Last Name Gracie [facility]erred Provider Raheem Clancy Referred Provider Specialty Gastroentero logy Referral Priority Routine Medications Medication SIG (Take, Route, Frequency, Duration) Notes Start Date End Date Status Liothyronine Sodium 5 MCG 3 tablets Orally Once a day; Duration: 90 days ActivePromethazine HCl 25 mg TAKE 1 TABLET BY [...] to dissolve as needed Sublingual AC and HSPRN09/06/2023UnknownLidocaine 5 %APPLY 1 PATCH TO SKIN DAILYActiveNitroglycerin 0.4 MGas directed Sublingual; Duration: 30 daysPRNActiveMupirocin 2 %1 application Externally Twice a day; Duration: 5 daysActivePantoprazole Sodium 40 mgTAKE 1 TABLET DAILYActiveNystatin 659049 UNIT/ML5 ml Mouth/Throat Four times a day; [...] Administration Date Status Comme nts Flu, Afluria (5124-4126) (90 686) 3 yrs+, single-dose syringe Unknown 03/24/2020 Administered Flu, Fluad (46553) 65 yrs and older, single-dose syringe (7430-0713)IM Vaqpryctdffuf91/17/2025AdministeredPneumococcal (Prevnar 13)Hjzkilp0704/20/2020 ClsznouujdfkZUUU-PUS-2 (COVID 19 Pfizer 30mcg/0.3mL)Qjgmest6309/30/2020 Administered Social History Tobacco Use: Social History Observation Description Date Details (start date - stop date) Former Smoker NA - NA Tobacco Use/Smoking Question Answer Notes Patient is a former smoker How long has it been since you last smoked?6-12 monthsAdditional Findings: Tobacco Yfb-NhrbHp-uiwzh cigarette smoker (20-30/day)Tobacco Control (Standard) Question Answer Notes Tobacco use: Former smoker How long has it been since you last smoked?1-5 yearsAdditional Findings: Tobacco bcn-baktZs-hrivsdjn cigarette smoker (10-19/day)AUDIT-C (Standard) Question Answer Notes Did you have a drink containing alcohol in the p ast year? No Jxlcfw6JccwitfgbwkomtFwandppc Problems Problem Type SNOMED Code ICD Code Onset Dates Problem Status W/U Status Risk Notes Problem Helicobacter pylori (62996557) H elicobacter pylori [H. pylori] as the cause of diseases classified elsewhere (B96.81) ActiveconfirmedProblemAtherosclerotic heart disease of [place] coronary artery without angina pectoris (739192145141454)Atherosclerotic heart disease of [place] coronary artery without angina pectoris (I25.10)ActiveconfirmedProblem Supraventricular tachycardia (9267249)Supraventricular tachycardia (I47.1)Active confirmedProblemGastroparesis (234982348)Gastroparesis (K31.84)Activeconfirmed ProblemAbdominal pain (44155443)Abdominal pain (R10.9)ActiveconfirmedProblem Hypertension (77503067)Hypertension (I10)ActiveconfirmedProblemChronic obstructive pulmonary disease (10279177)Chronic obstructive pulmonary disease (COPD) (J44.9)ActiveconfirmedProblemHypothyroidism (38550981)Hypothyroidism (E03.9)ActiveconfirmedProblemAnxiety (87921302)Anxiety (F41.9)Activeconfirmed ProblemTremor (39739129)Tremor (R25.1)ActiveconfirmedProblemEdema (18080202) Edema (R60.9)ActiveconfirmedProblemCoronary artery disease (24695561)Coronary artery disease (I25.10)ActiveconfirmedProblemPeripheral venous insufficiency (27145334)Venous insufficiency (I87.2)ActiveconfirmedProblemAnemia (792089475) Anemia (D64.9)ActiveconfirmedProblemObstructive sleep apnea (07063164) Obstructive sleep apnea (G47.33)ActiveconfirmedProblemMigraine (46882197) Migraine (G43.909)ActiveconfirmedProblemArthralgia (20363759)Arthralgia (M25.50) ActiveconfirmedProblemWell adult (074898334)Well adult (Z00.00)Activeconfirmed ProblemAlopecia (96045508)Hair loss (L65.9)ActiveconfirmedProblemCramp in lower limb (128696807)Leg cramps (R25.2)ActiveconfirmedProblemOverweight (290985698) Over weight (E66.3)ActiveconfirmedProblemSeasonal allergic rhinitis (517796747) Allergic rhinitis, seasonal (J30.2)ActiveconfirmedProblemItching (576027136) Itching (L29.9)ActiveconfirmedProblemUpper airway resistance syndrome (777770105)Upper airway resistance syndrome (G47.8)ActiveconfirmedProblem Duodenitis (31533822)Duodenitis (K29.80)ActiveconfirmedProblemEx-tobacco user (finding) (538255095)History of tobacco abuse (Z87.891)ActiveconfirmedProblem Seborrheic keratosis (07379990)Keratosis, seborrheic (L82.1)Activeconfirmed ProblemGastro-esophageal reflux disease (807848324)Gastro-esophageal reflux disease (K21.9)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 (01138077)Pyloric stenosis, 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)ActiveconfirmedProblemPeripheral vertigo (79411529)Vertigo, peripheral (H81.399)ActiveconfirmedProblemExcessive weight loss (067521373)Excessive weight loss (R63.4)ActiveconfirmedProblem Perichondritis of pinna (63610657)Chondrodermatitis nodularis helicis, 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)ActiveconfirmedProblemOsteoarthritis of left knee joint (636891797559556)Osteoarthritis of left knee, unspecified osteoarthritis type (M17.12)ActiveconfirmedProblemOsteoarthritis of right knee joint (917954289896319)Osteoarthritis of right knee, unspecified osteoarthritis type (M17.11)ActiveconfirmedProblemLow back pain (939195998)Low back pain, unspecified (M54.50)ActiveconfirmedProblemSupraventricular tachycardia (disorder) (1765458)Supraventricular tachycardia, unspecified (I47.10)Active confirmed Vital Signs Blood pressure diastolic 60 mm Hg 06/16/2025 Uqvewx76 in06/16/2025lood pressure swtrtora105 mm Hg06/16/20259501Yoipah020.0 lbs 06/16/2025BMI21.79 kg/m206/16/2025 Encounters Encounter Location Date Provider Diagnosis [facility] [address] [place] [address] 10/01/2024 Prasad Hoy Itching L29.9 [facility] [address] [place] [address] 04/07/2025 Prasad Hoy Gastroenteritis K52. 9 ; Helicobacter pylori [H. pylori] as the cause of diseases classified elsewhere B96.81 ; Gastroparesis K31.84 ; Hypertension I10 ; Hypothyroidism E03.9 and Tremor R25.1 [facility] [address] [place] [address] 09/21/2024 Prasad Hoy Gastroenteritis K52. 9 ; Hypertension I10 ; Chronic obstructive pulmonary disease (COPD) J44.9 ; Hypothyroidism E03.9 and Anemia D64.9 [facility] [address] [place] [address] 06/16/2025 Prasad Hoy Gastroenteritis K52. 9 ; Gastro-esophageal reflux disease K21.9 ; Pyloric stenosis, congenital Q40.0 and Encounter for immunization Z23 [facility] [address] [place] [address] 06/24/2025 Prasad Hoy [facility] [place] [address] 07/02/2024Doug HoyGastroparesis K31.84[facility] [place] [address]/20/2025Doug HoyChronic obstructive pulmonary disease (COPD) J44.9[facility] [place] [address]/08/2024Doug HoyGastroparesis K31.84BV[facility] [place] [address]/Doug HoyChronic obstructive pulmonary disease (COPD) J44.9[facility] [place] [address]/12/2024Doug HoyGastroparesis K31.84 [facility] [place] [address] 09/11/2024Doug HoyChronic obstructive pulmonary disease (COPD) J44.9[facility] [place] [address]/Doug HoyBVSterling [facility]center[address] [place] [address]/05/2025 Prasad HoyGastroparesis K31.84[facility] [place] [address]/Doug HoyGastroenteritis K52.9BS[facility] [place] [address]/03/2025Doug Hoy [facility] [place] [address] 11/16/2024Doug HoyGastroparesis K31.84[facility] [place] [address]/Doug HoyGastroenteritis K52.9[facility] [place] [address]/Doug Hoy Gastroparesis K31.84[facility] [place] [address]/Doug HoyGastroparesis K31.84[facility] [place] [address]/Doug Hoy Gastroenteritis K52.9 and Chronic obstructive pulmonary disease (COPD) J44.9 [facility] [place] [address] 12/28/2024Doug HoyChronic obstructive pulmonary disease (COPD) J44.9[facility] [place] [address]/ Prasad HoyGastroparesis K31.84BVS[facility]center[address] [place] [address]/Doug HoyGastroenteritis K52.9BS[facility] [place] [address]/Doug Hoy Gastroparesis K31.84BVSterling [facility] Medcenter[address] [place] [address]/08/2024Doug HoyGastroenteritis K52.9BS[facility] [address] [facility] [place] [address]/05/2025Doug HoyGastroenteritis K52.9BSpal[facility] [facility] [place] [address] 04/06/2025Doug HoyGastroparesis K31.84BuNorth [facility] [facility] [place] [address]/Doug [facility] [facility] [place] [address]/Doug HoyBVSterling Regional Medcenter[address] [place] [address]/11/2024 Prasad HoyGastroenteritis K52.9BS[facility] [facility] [place] [address]/01/2025Doug HoyGastroenteritis K52.9BSpal[facility] Hospital[address] [facility] [place] [address]/Doug Hoy Hypothyroidism E03.9BS[facility] [place] [address]/Prasad Bowman Assessments Encounter Date Diagnosis (ICD Code) Assessment [...] East back into eating by eating bland, fwdv-bf-ibmnog foods like crackers, toast, gelatin, bananas, rice and chicken. Try to avoid foods/substances including dairy products, caffeine, alcohol, nicotine and fatty or highly seasoned foods. Medications such as ibuprofen or tylenol can make your stomach more upset, so use sparingly if at all. Also avoid fwek-hen-hzgwvom anti-diarrheal medications because it can make it [...] East back into eating by eating bland, thmg-fh-dwddzg foods like crackers, toast, gelatin, bananas, rice and chicken. Try to avoid foods/substances including dairy products, caffeine, alcohol, nicotine and fatty or highly seasoned foods. Medications such as i buprofen or tylenol can make your stomach more upset, so use sparingly if at all. Also avoid uwaf-njg-hoijwvl anti-diarrheal medications because it can make it harder for your body to eliminate the virus.04/07/2025Helicobacter pylori [H. pylori] as the cause of diseases classified elsewhere (ICD-10 - B96.81) 04/07/2025Gastroparesis (ICD-10 - K31.84)10/08/2025Hypertension (ICD-10 - I10) 04/07/2025Hypothyroidism (ICD-10 - E03.9)04/07/2025Tremor (ICD-10 - R25.1) 06/16/2025Gastroenteritis (ICD-10 - K52.9)Get plenty of rest. Stay hydrated by sucking on ice chips or taking small sips of water. You can also try drinking clear soda, clear broths or noncaffeinated sports drinks. Stop eating solid foods for a few hours to let your stomach settle. East back into eating by eating bland, odki-yu-ixugsr foods like crackers, toast, gelatin, bananas, rice and chicken. Try to avoid foods/substances including dairy products, caffeine, alcohol, nicotine and fatty or highly seasoned foods. Medications such as i buprofen or tylenol can make your stomach more upset, so use sparingly if at all. Also avoid kydy-afo-beiompm anti-diarrheal medications because it can make it [...] K31.84)05/06/2025Gastroenteritis (ICD-10 - K52.9)06/07/2025 Gastroenteritis (ICD-10 - K52.9)06/20/2025Hypothyroidism (ICD-10 - E03.9) 5Chronic obstructive pulmonary disease (COPD) (ICD-10 - J44.9) 06/16/2025Encounter for immunization (ICD-10 - Z23)5Chronic obstructive pulmonary disease (COPD) (ICD-10 - J44.9)09/21/2024Hypothyroidism (ICD-10 - E03.9)5Anemia (ICD-10 - D64.9) Plan [...] DIFF (EXP 05/2025) 08/28/2023 CBC WITH DIFF (05/2025) 02/06/2023 VITAMIN D, 25 LEVEL (TOTAL) 02/06/2023 [...] OCCULT BLOOD 02/06/2023 STOOL OCCULT BLOOD 04/07/2025 AMYLASE 04/07/2025 BNP 08/28/2023 CA 125 04/07/2025 CA 19-9 04/07/2025 CA 19-9 06/16/2025 CEA 06/16/2025 CEA 04/07/2025 H PYLORI ANTIBODY IGG 04/07/2025 LIPASE 04/07/2025 CT ABD and PELV W CON 06/16/2025 [...] w/eGFR CKD-EPI 2024 CBC WITH DIFF 06/16/2025 CBC WITH DIFF 04/07/2025 CBC WITH DIFF 09/21/2024 Insurance Providers Payer Name Payer Address Payer Phone Subscriber Number Group Number Insured Name Patient Relationship to Insured Coverage Start Date Coverage End Date [place] [address] [place] [address] [id number] Alex Muniz - patient is the [id number] [address] [place] [id number], KathrynSelf - patient is the insured Medications Administered Medication Instructions Date of Administration Dosage Notes Dexamethasone, 4mg/mL 2 [id number] go27Oxvjgsaqwaqr, 25 mg42 mL50 Promethazine, 25 mg450 mg50 [...] Stomach Ulcer Breast Biopsy-RightLeft Wrist Tendon RepairCardiac Kgcjuswy5720Fsqxwrs Grzxswvaptimayd09/01/2022rhinoplastytubal ligationtonsillectomy and adenoidectomydilatation and curettage
--- OUTSIDE RECORDS SUMMARY | 2025-06-24 14:39 | XMS_ITS | Clinical Summary ---
Author Organization [facility] Address [address] [place] [address] Care Team Providers Care Accounting Professor Name Role Phone Sadiq Bowman MD Primary Care Provider [phone] Allergies Active AllergyReactionsCriticalityNoted DateCommentsErythromycin Base03/07/2022 Latex03/29/20232712Qyrpyhsx09/07/1598Arsecw72/04/2013Ondansetron Hcl03/07/2022 Medications MedicationSigDispense QuantityRefillsLast FilledStart DateEnd DateStatus [...] by mouth four times a day if pdngir4802/07/2023ctive ezetimibe (Zetia) 10 mg tablet Indications:Coronary artery disease, unspecified vessel or lesion type, unspecified whether angina present, unspecified whether tanana or transplanted heartTAKE 1 TABLET DAILY DIRECTED 90 tablet ctive clopidogrel (Plavix) 75 mg tablet Indications:Coronary artery disease, unspecified vessel or lesion type, unspecified whether angina present, unspecified whether tanana or transplanted heartTAKE 1 TABLET DAILY DIRECTED 90 tablet ctive carvedilol (Coreg) 3.125 mg tablet Indications:Coronary artery disease, unspecified vessel or lesion type, unspecified whether angina present, unspecified whether tanana or transplanted heartTAKE 1 TABLET WITH BREAKFAST AND WITH EVENING MEAL 180 tablet ctive atorvastatin (Lipitor) 40 mg tablet Indications:Coronary artery disease, unspecified vessel or lesion type, unspecified whether angina present, unspecified whether tanana or transplanted heartTAKE 1 TABLET AT BEDTIME [...] (obstructive sleep apnea)03/07/2022VT (supraventricular tachycardia)03/07/2022 Encounters DateTypeDepartmentCare AxmbBcqrjnerrsr85/15/2025 2:00 PM EDTOffice Visit [facility] [address] [place] [phone] Shree Negrete MD Coronary artery disease involving tanana coronary artery of tanana heart without angina pectoris (Primary Dx); SVT (supraventricular tachycardia); Qhrkugtpht30/15/2025Orders Only [facility] [address] [facility] [place] [address] Rosario Solo MA from Last 3 [...] Assigned at BirthFemale 04/09/2025 12:45 PM EDTLegal PkpXokbam37/29/2022 10:21 PM EDTGender Identity Knfjon9004/09/2025 12:45 PM EDTSexual OrientationHeterosexual or Straight 04/09/2025 12:45 PM EDT Last Filed Vital Signs Vital SignReadingTime TakenCommentsBlood Bfoblrln233/6204/14/2025 2:18 PM EDT Wphyy996604/14/2025 2:18 PM EDTTemperature--Respiratory Ucsb5566 1:09 PM EDTOxygen Ofogvjqsja94%04/14/2025 2:18 PM EDTInhaled Oxygen Concentration-- Mujbmu40.8 kg (123 lb)04/14/2025 2:18 PM TSZQerlhf768.6 cm (5' 6 )04/14/2025 2:18 PM EDTBody Mass Index19.8504/14/2025 2:18 PM EDT Plan of Treatment Health MaintenanceDue DateLast DoneCommentsCT Wseglxvfimnw1958Colonoscopy 1960Colorectal Cancer Scdaijszb1958FIT-DNA1958FIT1960 FOBT1960Medicare Annual Wellness (AWV)03/14/19581679Dkyoyfjxikqjd1958 Depression Ejfjugcpk61/14/1970Adult Hdmhbaq5103/14/19800293Fkkoavbec02/14/1998Zoster Vaccines (1 of 2)2008Pneumococcal Vaccine: 50+ Years (2 of 2 - PPSV23, PCV20, or PCV21)/Fall Risk Czxovialq47/14/2023OVID-19 Vaccine (3 - season)/08/2020, 09/09/2020Influenza Vaccine (#1)/, [...] age to complete this topic Insurance [address] [place] [address] Care Teams Team MemberRelationshipSpecialtyStart DateEnd Sadiq Bowman MD [address] [facility] [place] [address] [facility] - General03/07/22
--- NOTE | 2025-06-24 14:43 | XR_ITS ---
[address] [address] Patient Name: BENNIE MUNIZ MRN: [id number] date: 1960 Sex: F Assigned Patient Location: ER Current Patient Location: ED.MAIN Accession/Order Number: [id number] Exam Date: 06/24/2025 14:50 Report Date: 06/24/2025 15:36 At the request of: BRENDA KUAMRI DO Procedure: XR chest 1V Plain film chest Single view HISTORY: Altered mental status COMPARISON: None FINDINGS: SUPPORT DEVICES: None POSTSURGICAL CHANGES: None HEART: Within normal limits PULMONARY SUZE: Within normal limits MEDIASTINUM: Unremarkable LUNGS AND PLEURA: No acute lung process, pleural effusion or pneumothorax identified. Similar mild interstitial changes BONY STRUCTURES: Intact ADDITIONAL FINDINGS None XR/XR chest 1V IMPRESSION: No acute process. Impression dictated by: Cj Luna M.D. 06/24/2025 3:36 PM Dictation Location: [employer] Electronically authenticated by: [id number] Y Date: 06/24/2025 15:36
--- NOTE | 2025-06-24 14:44 | ED.GENADUL1 ---
HPI HPI - General Adult General Chief complaint: Altered Mental Status Stated complaint: HALLUCINATIONS Time Seen by Provider: 06/24/25 14:15 Source: other Source information: EMS Mode of arrival: ambulance Limitations: language barrier and altered mental status Limitations comment: Pt's speech is mummbled and very difficult to understand No teether or dentures Pt is rolling and moving in bed at all times History of Present Illness HPI narrative: Patient is a 65-year-old female presenting to the emergency department from home via EMS for concerns of hallucinations . According to the family the patient is having hallucinations and acting more cooky than normal . The family is not present during her ED visit. I did attempt to call the daughter multiple times with no answer. The patient herself is hardly able to answer questions. She is awake and alert, points to her left shoulder when asked if she is in any pain. She shakes her head no when I ask about chest pain, shortness of breath, abdominal pain, nausea, vomiting, dysuria, or any other symptoms. Unclear of her past medical history, according to the EMR she has history of GERD, hypothyroidism, hypertension, COPD. She is on ropinirole and has a involunatry full body tremors/movements, possibly has Parkinson's disorder. Related Data Home Medications ?Medication ?Instructions ?Recorded ?Confirmed albuterol sulfate 90 mcg/actuation 2 puff inhalation Q4H PRN 03/26/24 03/26/24 aerosol inhaler shortness of breath or wheezing aspirin 81 mg tablet,delayed 81 mg PO DAILY 03/26/24 03/26/24 release (Adult Low Dose Aspirin) atorvastatin 40 mg tablet 40 mg PO QPM 03/26/24 03/26/24 carvedilol 3.125 mg tablet 3.125 mg PO BID 03/26/24 03/26/24 cetirizine 10 mg tablet 10 mg PO DAILY 03/26/24 03/26/24 citalopram 40 mg tablet 40 mg PO DAILY 03/26/24 03/26/24 clopidogrel 75 mg tablet 75 mg PO DAILY 03/26/24 03/26/24 cyclobenzaprine 10 mg tablet 10 mg PO TID 03/26/24 03/26/24 diazepam 5 mg tablet 5 mg PO BID PRN anxiety 03/26/24 03/26/24 ezetimibe 10 mg tablet 10 mg PO DAILY 03/26/24 03/26/24 levothyroxine 100 mcg tablet 100 mcg PO DAILY 03/26/24 03/26/24 liothyronine 5 mcg tablet 5 mcg PO DAILY 03/26/24 03/26/24 meclizine 25 mg tablet 25 mg PO QID PRN dizziness 03/26/24 03/26/24 metoclopramide HCl 10 mg tablet 10 mg PO BID 03/26/24 03/26/24 nitroglycerin 0.4 mg sublingual 0.4 mg sublingual Q5M PRN chest 03/26/24 03/26/24 tablet pain pantoprazole 40 mg tablet,delayed 40 mg PO DAILY 03/26/24 03/26/24 release promethazine 25 mg tablet 25 mg PO Q6H PRN nausea and 03/26/24 03/26/24 vomiting rizatriptan 10 mg disintegrating 10 mg PO Q2H PRN migraine headache 03/26/24 03/26/24 tablet ropinirole 2 mg tablet 4 mg PO DAILY 03/26/24 03/26/24 Allergies Allergy/AdvReac Type Severity Reaction Status Date / Time latex Allergy Severe Unknown Verified 06/24/25 14:24 morphine Allergy Severe Unknown Verified 06/24/25 14:24 ondansetron (From Zofran) Allergy Severe Unknown Verified 06/24/25 14:24 Opioid HPI Opioid Management Most Recent Opioid Data: Ur Phencyclidine Scrn, (NEGATIVE) Negative Today, 14:38 Review of Systems ROS Status of ROS 10 or more systems reviewed and unremarkable except as noted in history and below [facility] Medical History (Updated 06/24/25 @ 18:15 by John Pham DO) Anxiety ?F41.9 - Anxiety disorder, unspecified (ICD-10) Stomach ulcer ?K25.9 - Gastric ulcer, unspecified as acute or chronic, without hemorrhage or perforation (ICD-10) GERD (gastroesophageal reflux disease) ?K21.9 - Gastro-esophageal reflux disease without esophagitis (ICD-10) Hypothyroid ?E03.9 - Hypothyroidism, unspecified (ICD-10) HTN (hypertension) ?I10 - Essential (primary) hypertension (ICD-10) COPD (chronic obstructive pulmonary disease) ?J44.9 - Chronic obstructive pulmonary disease, unspecified (ICD-10) Surgical History (Updated 03/26/24 @ 19:37 by Annemarie Guzman) H/O heart artery stent ?Z95.5 - Presence of coronary angioplasty implant and graft (ICD-10) Social History Little interest or pleasure in doing things: not at all Feeling down, depressed, or hopeless: not at all Exam Narrative Exam Narrative: CONSTITUTIONAL: The patient is disheveled, cachectic, and appears significantly older than her age. Patient is awake and alert, inconsistently able to answer questions or follow commands appropriately.. Oriented x 1 to name. Persistent involuntary full body movements SKIN: Was warm and dry. EYES: Sclerae white. EARS, NOSE, THROAT: Moist oral mucosa. RESPIRATORY: Clear to auscultation bilaterally, no wheezes, crackles, or stridor, no use of accessory muscles CARDIOVASCULAR: Normal rate and regular rhythm. There is no S3, S4, murmur, rub. GASTROINTESTINAL: Abdomen is soft, nontender, nondistended. No rebound tenderness or guarding. Rectal examination demonstrated no active bleeding and no melena/bloody stools. MUSCULOSKELETAL: No peripheral edema. Full range of motion x 4 extremities. NEUROLOGIC: Patient is awake and alert. Facies were symmetrical. Constitutional Vital Signs, click to edit/add: Last Vital Signs Temp 99.6 F 06/24/25 14:17 Pulse 88 06/24/25 17:05 Resp 18 06/24/25 17:05 BP 106/79 06/24/25 17:05 Pulse Ox 92 L 06/24/25 17:05 O2 Del Method Room Air 06/24/25 14:17 Course Vital Signs Vital signs: Vital Signs Temperature 99.6 F 06/24/25 14:17 Pulse Rate 88 06/24/25 14:17 Respiratory Rate 18 06/24/25 14:17 Blood Pressure 128/65 06/24/25 14:17 Pulse Oximetry 94 L 06/24/25 14:17 Oxygen Delivery Method Room Air 06/24/25 14:17 Temperature 99.6 F 06/24/25 14:17 Pulse Rate 88 06/24/25 17:05 Respiratory Rate 18 06/24/25 17:05 Blood Pressure 106/79 06/24/25 17:05 Pulse Oximetry 92 L 06/24/25 17:05 Oxygen Delivery Method Room Air 06/24/25 14:17 Medical Decision Making MDM Narrative Medical decision making narrative: Patient is a 65-year-old female presenting to the emergency department from home via EMS for concerns of hallucinations and acting more cooky than normal according to the family. The family is not present during her ED visit. I did attempted to call the daughter multiple times with no answer. According to the EMR, the patient has a history of COPD, GERD, hypothyroidism. She is also on ropinirole, possibly for treatment of Parkinson disease. On review of external documentation, it appears she had outpatient laboratory studies drawn 5 days ago in an outpatient clinic. Her laboratory studies at that time were overall unremarkable. She is anemic but at her baseline. No leukocytosis. No electrolyte or metabolic derangement. No transaminitis or hyperbilirubinemia. Troponin and BNP were nonelevated. Lipase nonelevated. TSH within normal limits. Fecal occult blood test positive. My differential diagnosis includes, but not limited to, GI bleed, UTI, pneumonia, dehydration, or other electrolyte/metabolic derangement. She had normal troponin and BNP just 5 days ago, low concern for cardiogenic etiology such as ACS or CHF. IV was established and laboratory studies were obtained including urinalysis and chest x-ray. Chest x-ray independently reviewed/interpreted by myself demonstrated no acute cardiopulmonary process. CT abdomen/pelvis independently reviewed and interpreted by myself and radiology demonstrated no acute intra-abdominal pathology. CT head independently reviewed/interpreted by myself demonstrated no acute intracranial pathology or hemorrhage. Laboratory studies were significant for anemia with a hemoglobin of 9.4. This is decreased from her hemoglobin of 10.2 just 5 days ago. Her BUN is elevated to 34, up from 19 just 5 days ago. No other significant electrolyte derangement. Creatinine normal. Urinalysis negative for acute infection. Urine drug screen positive for methamphetamines amphetamines. Alcohol level negative. No leukocytosis. After the patient's workup was completed, I was able to speak with the patient's granddaughter, Kelly Eugene. Apparently, the patient's daughter, who she previously lived with is now incarcerated. The granddaughter is concerned that the patient is unable to take care of herself at home now that she is living alone. She is concerned for the patient's mental and physical health. According to the granddaughter, the patient uses methamphetamine and believes that she is acutely intoxicated today, which she believes is the explanation for her acute bizarre behavior. Additionally, the patient has been complaining of GI upset and dizziness over the last few days. I do believe the patient requires admission to the hospital. She still encephalopathic, may be secondary to methamphetamine use. Additionally, given her drop in hemoglobin and positive fecal occult blood test, she needs close monitoring and serial H&H's. I discussed rotation with Dr. Pena, who recommended transfer to [facility] as we do not have GI or neurology here. I discussed the patient with Dr. Clancy, on-call gastroenterology, who recommended no emergent GI intervention at this time. I discussed the patient with hospitalist, Dr. Seymour, at [facility] who accepted the patient to his service. FINAL IMPRESSION: #Acute GI bleed #Acute encephalopathy, possible secondary methamphetamine use #Acute cachexia and failure to thrive DISPOSITION: Transferred to [facility] via EMS CONDITION: Fair Medical Records Medical records reviewed: Yes I reviewed the patient's medical records Lab Data Lab results reviewed: Yes I reviewed the patient's lab results Labs: Lab Results 06/24/25 06/24/25 Range/Units 14:38 14:43 WBC 6.7 (4.0-11.0) 10^3/uL RBC 3.19 L (4.20-5.40) 10^6/uL Hgb 9.4 L (12.0-16.0) g/dL Hct 29.1 L (36.0-48.0) % MCV 91.2 (81.0-99.0) fL MCH 29.5 (26.7-34.0) pg MCHC 32.3 (29.9-35.2) g/dL RDW 15.2 H (11.0-15.0) % Plt Count 212 (150-450) 10^3/uL MPV 10.2 (9.5-13.5) fL Neut % (Auto) 68.7 (43.0-75.0) % Lymph % (Auto) 17.6 L (20.5-60.0) % [place] % (Auto) 12.0 (1.7-12.0) % Eos % (Auto) 0.5 L (0.9-7.0) % Baso % (Auto) 0.6 (0.2-2.0) % Neut # (Auto) 4.6 (1.4-6.5) 10^3/uL Lymph # (Auto) 1.2 (1.2-3.8) 10^3/uL [place] # (Auto) 0.8 (0.3-0.8) 10^3/uL Eos # (Auto) 0.0 (0.0-0.7) 10^3/uL Baso # (Auto) 0.0 (0.0-0.1) 10^3/uL Abs Immat Gran (auto) 0.04 H (0.00-0.03) 10^3/uL Imm/Tot Granulo (auto) 0.6 H (0.0-0.5) % Sodium 143 (136-145) mmol/L Potassium 3.5 (3.5-5.1) mmol/L Chloride 107 (98-107) mmol/L Carbon Dioxide 23.6 (21.0-32.0) mmol/L Anion Gap 15.9 BUN 34.0 H (7.0-18.0) mg/dL Creatinine 0.94 (0.55-1.02) mg/dL Est GFR ( Amer) >60 (>=60 mL/min/1.73m^2) Est GFR (Non-Af Amer) 59 L (>=60 mL/min/1.73m^2) BUN/Creatinine Ratio 36.2 Glucose 80 (74-106) mg/dL Calcium 8.8 (8.5-10.1) mg/dL Urine Color Yellow (YELLOW) Urine Clarity Clear (CLEAR) Urine pH 6.0 (5.0-9.0) Ur Specific [place] >=1.030 A (1.005-1.025) Urine Protein Trace (NEG/TRACE) mg/dL Urine Glucose (UA) Negative (NEGATIVE) mg/dL Urine Ketones 15 A (NEGATIVE) mg/dL Urine Occult Blood Trace-i (NEGATIVE) Urine Nitrite Negative (NEGATIVE) Urine Bilirubin Small A (NEGATIVE) Urine Urobilinogen 0.2 (0.2-1.0) EU/dL Ur Leukocyte Esterase Trace A (NEGATIVE) Urine RBC 0-2 (0-2) #/HPF Urine WBC 0-2 A (NONE SEEN) #/HPF Ur Squamous Epith Cells Few A (NONE/RARE) #/LPF Urine Crystals None seen (None Seen) #/HPF Urine Bacteria Trace A (NONE SEEN) #/HPF Urine Casts None seen (NONE SEEN) #/LPF Urine Mucus Trace A (NONE SEEN) Ur Culture Indicated? No Urine Opiates Screen Negative (NEGATIVE) Ur Buprenorphine Scrn Negative (NEGATIVE) Ur Oxycodone Screen Negative (NEGATIVE) Urine Methadone Screen Negative (NEGATIVE) Ur Barbiturates Screen Negative (NEGATIVE) U Tricyclic Antidepress Negative (NEGATIVE) Ur Phencyclidine Scrn Negative (NEGATIVE) Ur Amphetamines Screen Positive A (NEGATIVE) U Methamphetamines Scrn Positive A (NEGATIVE) U Benzodiazepines Scrn Positive A (NEGATIVE) Urine Cocaine Screen Negative (NEGATIVE) U Cannabinoids Screen Negative (NEGATIVE) Ethanol Quant <3 mg/dL Imaging Data Chest x-ray: Attestation: I personally reviewed and interpreted this imaging study as follows: Radiologist's impression: ITS Impressions Chest X-Ray 06/24/25 14:43 IMPRESSION: No acute process. Impression dictated by: Cj Luna M.D. 06/24/2025 3:36 PM Dictation Location: [employer] Electronically authenticated by: [id number] Y Date: 06/24/2025 15:36 Abdomen/Pelvis CT 06/24/25 16:15 IMPRESSION: No acute findings. Impression dictated by: Cj Luna M.D. 06/24/2025 4:54 PM Dictation Location: [employer] Electronically authenticated by: [id number] Y Date: 06/24/2025 16:[address] 06/24/25 17:53 IMPRESSION: No acute findings. Impression dictated by: Cj Luna M.D. 06/24/2025 6:38 PM Dictation Location: [employer] Electronically authenticated by: [id number] Y Date: 06/24/2025 18:38 Discharge Plan Discharge Chief Complaint: Altered Mental Status Clinical Impression: Anemia, Altered mental status, GI (gastrointestinal bleed) Patient Disposition: [facility] Time of Disposition Decision: 15:35 Discharge Location: [facility] Condition: Good Mode of Transportation: EMS
[2025-06-24 14:54] LABS: Hematocrit 29.1 % (36.0-48.0); Hemoglobin 9.4 g/dL (12.0-16.0); Immature Granulocytes Abs Auto 0.04 10^3/uL (0.00-0.03); Immature Granulocytes Pct Auto 0.6 % (0.0-0.5); Lymphocytes Absolute Auto 1.2 10^3/uL (1.2-3.8); Mean Corpuscular HGB Conc 32.3 g/dL (29.9-35.2); Mean Corpuscular Hemoglobin 29.5 pg (26.7-34.0); Mean Corpuscular Volume 91.2 fL (81.0-99.0); Platelet Count 212 10^3/uL (150-450); Red Blood Count 3.19 10^6/uL (4.20-5.40); White Blood Count 6.7 10^3/uL (4.0-11.0)
--- NOTE | 2025-06-24 14:59 | PC.NURSE ---
This nurse assisted radiology in obtaining patients chest xray Pt unable to remain still for more than a few seconds Pt does follow commands but movements are uncontrollable Pt drank some ice water and was able to communicate a little better, able to understand her better
[2025-06-24 15:01] LABS: Anion Gap 15.9; Blood Urea Nitrogen 34.0 mg/dL (7.0-18.0); Calcium 8.8 mg/dL (8.5-10.1); Carbon Dioxide 23.6 mmol/L (21.0-32.0); Chloride 107 mmol/L (98-107); Estimated GFR (African America >60 (>=60 mL/min/1.73m^2); Estimated GFR (Non-African Ame 59 (>=60 mL/min/1.73m^2); Glucose 80 mg/dL (74-106); Potassium 3.5 mmol/L (3.5-5.1); Sodium 143 mmol/L (136-145)
[2025-06-24 15:04] LABS: Glucose Urine UA NEGATIVE (NEGATIVE)
[2025-06-24 15:06] LABS: Cast Seen? NONE SEEN #/LPF (NONE SEEN); Crystals Seen? None Seen #/HPF (None Seen); Urine Culture Indicated NO
--- NOTE | 2025-06-24 15:43 | PC.NURSE ---
Dr. Pham tried to call patients daughter who was listed as her emergency contact 4 x [employer] also tried No response. Police were sent to their home to contact family Delroy called ER and stated that she is concerned because the patient was living with her mother (the emergency contact) But she went to alf so now she is trying to take care of her and states she is too much for her to handle Pt's granddaughter states she is concerned that the pt is still doing meth because she was with her mother before she went to alf A drug screen was added to patients testing
--- NOTE | 2025-06-24 16:15 | CT_ITS ---
The [address] [address] Patient Name: BENNIE MUNIZ MRN: [id number] date: 1960 Sex: F Assigned Patient Location: ED.MAIN Current Patient Location: ED.MAIN Accession/Order Number: [id number] Exam Date: 06/24/2025 16:38 Report Date: 06/24/2025 16:54 At the request of: BRENDA KUMARI DO Procedure: CT abdomen pelvis wo con CT Abdomen and Pelvis withoutcontrast TECHNIQUE: Axial imaging with 2-D reconstruction. The CT exam was performed using one or more the following dose reduction techniques: Automated exposure control, adjustment of the MA and/or Kv according to patient size, or use of the iterative reconstruction technique. COMPARISON: None History: Hallucination. Confusion LIMITATIONS: None LOWER THORAX mild atelectasis LIVER: Unremarkable GALLBLADDER: No gallbladder abnormality identified. BILE DUCTS: No dilatation SPLEEN: Unremarkable PANCREAS: Unremarkable ADRENAL GLANDS: Unremarkable KIDNEYS:Unremarkable AORTA: Mild ectasia. Moderate atherosclerosis RETROPERITONEUM: No significant retroperitoneal abnormalities identified. MESENTERY:Unremarkable STOMACH:Unremarkable SMALL BOWEL: The small bowel loops are nondistended. APPENDIX: The appendix is normal. COLON: Unremarkable URINARY BLADDER: Urinary bladder is unremarkable. REPRODUCTIVE SYSTEM: Reproductive structures are unremarkable. PNEUMOPERITONEUM: None PERITONEAL FLUID:None BONY STRUCTURES: Degenerative change. Mild scoliosis. ABDOMINAL WALL: Unremarkable CT/CT abdomen pelvis wo con IMPRESSION: No acute findings. Impression dictated by: Cj Luna M.D. 06/24/2025 4:54 PM Dictation Location: [employer] Electronically authenticated by: [id number] Y Date: 06/24/2025 16:54
[2025-06-24 16:17] LABS: Cannabinoid Screen Urine NEGATIVE (NEGATIVE); Methamphetamines Screen Urine POSITIVE (NEGATIVE); Tricyclic Antidepressant Urine NEGATIVE (NEGATIVE)
[2025-06-24] MEDS: DIPHENHYDRAMINE HCL 50 MG/ML VIAL 25 MG IVP ×2 (16:33→21:42)
[2025-06-24] MEDS: MIDAZOLAM HCL 2 MG/2 ML VIAL IV ×2 (16:33→21:42)
[2025-06-24 17:05] VITALS: BP 106/79; PULSE 88; O2SAT 92
--- NOTE | 2025-06-24 17:53 | CT_ITS ---
The [address] [address] Patient Name: BENNIE MUNIZ MRN: [id number] date: 1960 Sex: F Assigned Patient Location: ER Current Patient Location: ED.MAIN Accession/Order Number: [id number] Exam Date: 06/24/2025 18:00 Report Date: 06/24/2025 18:38 At the request of: BRENDA KUMARI DO Procedure: CT head/brain wo con Unenhanced head CT TECHNIQUE: Contiguous axial imaging of the head. The CT exam was performed using one or more the following dose reduction techniques: Automated exposure control, adjustment of the MA and/or Kv according to patient size, or use of the iterative reconstruction technique. COMPARISON: None HISTORY: Hallucination. Confusion. VENTRICLES: Within normal limits ATROPHY: None BRAIN PARENCHYMA: Adequate ovalle-white matter differentiation identified. HEMORRHAGE: None HERNIATION: No mass effect or herniation INFARCTION: No recent vascular distribution infarction is seen. EXTRA-AXIAL FLUID COLLECTIONS None MIDBRAIN: Unremarkable FRED: Unremarkable MEDULLA: Unremarkable SINUSES: Unremarkable ORBITS: Grossly unremarkable MASTOIDS: Unremarkable BONY STRUCTURES Intact ADDITIONAL FINDINGS: CT/CT head/brain wo con IMPRESSION: No acute findings. Impression dictated by: Cj Luna M.D. 06/24/2025 6:38 PM Dictation Location: [place] [address] Electronically authenticated by: [id number] Y Date: 06/24/2025 18:38
[2025-06-24 21:15] VITALS: BP 123/51; PULSE 66; TEMP 37.1; O2SAT 93
== END 2025-06-24 22:15 | disposition short-term general hospital (02) ==
PROVIDERS: Student in an Organized Health Care Education/Training Program; Emergency Provider Internal Medicine; PCP Family Medicine
DX: K92.2 Gastrointestinal hemorrhage, unspecified (principal); R41.82 Altered mental status, unspecified; D64.9 Anemia, unspecified; K21.9 Gastro-esophageal reflux disease without esophagitis; E03.9 Hypothyroidism, unspecified; I10 Essential (primary) hypertension; J44.9 Chronic obstructive pulmonary disease, unspecified; Z79.899 Other long term (current) drug therapy
CPT/HCPCS: 36415; 70450; 71045; 74176; 80048; 80307; 80320; 81001; 85025; 96374; 96375; 96376; 99285; J1200; J2250